=== PATIENT | female | born 1995 | race Caucasian/White ===

== ENCOUNTER 2021-04-04 15:10 | Inpatient (IN) | payer MEDICARE ==
[2021-04-04] MEDS ORDERED: EPINEPHrine 1 MG/10 ML SYRINGE ONE (15:13)
[2021-04-04] MEDS: dexAMETHasone 20 MG in SODIUM CHLORIDE 0.9% 50 ML IV ONE ×2 (15:15→21:46)
[2021-04-04] MEDS ORDERED: dexAMETHasone 20 MG/5 ML VIAL ONE (15:16)
[2021-04-04] MEDS ORDERED: FAMOTIDINE 20 MG/2 ML INJ IV ONE ×2 (15:17→15:40)
[2021-04-04] MEDS ORDERED: EPINEPHrine/PF 1 MG/1 ML INJ ONE (15:17)
[2021-04-04] MEDS ORDERED: EPINEPHrine RACEMIC 2.25% 0.5ML NEBU IH ONE (15:27)
[2021-04-04] MEDS: EPINEPHrine RACEMIC 2.25% 0.5ML NEBU IH ONE ×2 (15:27→17:21)
[2021-04-04] MEDS ORDERED: EPINEPHrine/PF 1 MG/1 ML INJ SUB-Q ONE (15:40)
--- NOTE | 2021-04-04 16:10 | Emergency Department Report ---
ED Allergic Reaction HPI - General Chief complaint: Allergic Reaction Stated complaint: ALLERGIC REACTION Time Seen by Provider: 04/04/21 15:30 Source: EMS Mode of arrival: Stretcher Limitations: Other - History of Present Illness Initial Comments: 25-year-old female with a past medical history of allergic reaction to peanuts with multiple previous intubations presents to the hospital with allergic reaction. Patient was on an airplane and was exposed to peanuts in the environment but did not ingest them. She developed an allergic reaction and was treated with subcu epinephrine while on the plane. She landed approximately 45 minutes and received contact with EMS to administer another dose of subcu epinephrine and albuterol 5 mg nebulized treatment. They were unable to obtain IV access in route to the hospital. Patient has been able to speak and continues to complain of airway feeling tightness. - Related Data Allergies Allergy/AdvReac Type Severity Reaction Status Date / Time peanut Allergy Anaphylaxis Verified 04/04/21 15:33 ED Review of Systems ROS: Stated complaint: ALLERGIC REACTION Other details as noted in HPI ED Physical Exam - General Limitations: Other - Other Other exam information: General: No acute distress Head: Atraumatic Eyes: normal appearance ENT: Moist mucous membranes, no tongue swelling, unable to speak due to airway swelling Neck: Normal appearance, no midline tenderness Chest: Clear to auscultation bilaterally CV: Tachycardic regular rate Abdomen: Soft, normal bowel sounds, nontender, nondistended, no rebound or guarding Back: Normal inspection Extremity: Normal inspection, full range of motion Neuro: Alert O x 3, no facial asymmetry, speech clear, no gross motor sensory deficit Psych: Appropriate behavior Skin: No rash ED Course Vital Signs 04/04/21 04/04/21 04/04/21 15:27 16:25 16:30 Temperature Pulse Rate 149 H Pulse Rate [ 133 H 120 H Bilateral] Respiratory Rate Respiratory 20 25 H Rate [Bilateral ] Blood Pressure 140/90 Blood Pressure [Left] O2 Sat by Pulse 100 Oximetry 04/04/21 04/04/21 04/04/21 17:20 17:46 19:27 Temperature 98.5 F Pulse Rate 110 H Pulse Rate [ Bilateral] Respiratory 16 20 Rate Respiratory Rate [Bilateral ] Blood Pressure Blood Pressure 146/68 [Left] O2 Sat by Pulse 100 96 Oximetry - Reevaluation(s) Reevaluation #1: 04/04/21 15:52 I asked for anesthesia to come down to the bedside to help with assess patient since patient may require intubation. She is unable to speak due to airway swelling but is adamant about not being intubated at this time. Mother also asked to be at the bedside and wants to wait for patient to be intubated. She apparently has been unable to speak states she has been on the plane. She is at this point received 3 doses of subcu epinephrine, Decadron 20 mg, 20 mg of Solu-Medrol, albuterol 5 mg and racemic epi inhaled - Consultations Consultation #1: 04/04/[address] Jordan and provider Zhao at bedside with nurse anesthetistist at bedside performed intubation using a 6.5 ET tube with Versed 5 mg ketamine 100 mg. Intubation successful with first pass attempt and ET tube visualized scope through cords with glide scope. (see note) 04/04/21 17:57 case d/w Dr Recio, will eval patient ED Medical Decision Making - Lab Data Result diagrams: 04/04/21 16:38 04/04/21 16:38 Lab Results 04/04/21 04/04/21 04/04/21 Range/Units 16:38 16:38 Unknown WBC 12.4 H (4.5-11.0) K/mm3 RBC 4.50 (3.65-5.03) M/mm3 Hgb 11.5 (10.1-14.3) gm/dl Hct 36.2 (30.3-42.9) % MCV 81 (79-97) fl MCH 26 L (28-32) pg MCHC 32 (30-34) % RDW 18.1 H (13.2-15.2) % Plt Count 346 (140-440) K/mm3 Lymph % (Auto) 18.7 (13.4-35.0) % [place] % (Auto) 3.6 (0.0-7.3) % Eos % (Auto) 0.2 (0.0-4.3) % Baso % (Auto) 0.5 (0.0-1.8) % Lymph # (Auto) 2.3 (1.2-5.4) K/mm3 [place]kin # (Auto) 0.4 (0.0-0.8) K/mm3 Eos # (Auto) 0.0 (0.0-0.4) K/mm3 Baso # (Auto) 0.1 (0.0-0.1) K/mm3 Seg Neutrophils % 77.0 H (40.0-70.0) % Seg Neutrophils # 9.6 H (1.8-7.7) K/mm3 Sodium 140 (137-145) mmol/L Potassium 3.8 (3.6-5.0) mmol/L Chloride 101.7 (98-107) mmol/L Carbon Dioxide 20 L (22-30) mmol/L Anion Gap 22 mmol/L BUN 10 (7-17) mg/dL Creatinine 0.7 (0.6-1.2) mg/dL Estimated GFR > 60 ml/min BUN/Creatinine Ratio 14 % Glucose 224 H (65-100) mg/dL Calcium 9.0 (8.4-10.2) mg/dL HCG, Qual Negative (Negative) - Medical Decision Making pt failed repeated epi doses, solumedrol, and Pepcid. Parents are also provided. Patient required intubation due to diminished mental status which is performed by anesthesia. Case discussed with medical care attending Dr. white Hospitalist to admit Critical Care Time: Yes Critical care time in (mins) excluding proc time.: 35 Critical care attestation.: If time is entered above; I have spent that time in minutes in the direct care of this critically ill patient, excluding procedure time. ED Disposition Clinical Impression: Acute respiratory failure Allergic reaction Qualifiers: Encounter type: initial encounter Qualified Code(s): T78.40XA - Allergy, unspecified, initial encounter Disposition: ADMITTED INPATIENT Is pt being admited?: Yes Condition: Stable Time of Disposition: 18:30
[2021-04-04] MEDS ORDERED: LIP THERAPY VASELINE TP PRN (16:16)
[2021-04-04] MEDS ORDERED: MINERAL OIL/PETROLATUM, WHITE OPHTH OINT 3.5 GM OU PRN (16:16)
[2021-04-04] MEDS ORDERED: ALBUTEROL 2.5 MG/3 ML NEBU IH ONE ×2 (16:22→16:30)
--- NOTE | 2021-04-04 17:02 | XRay Report ---
CHEST 1 VIEW 04/04/2021 3:43 PM INDICATION / CLINICAL INFORMATION: ETT placement. COMPARISON: None available. FINDINGS: SUPPORT DEVICES: Tip of endotracheal tube projects the level of the lucien oriented toward the right mainstem bronchus. The tube should be retracted 2 to 3 cm for more ideal position. Nasogastric tube d escends into the stomach. HEART / MEDIASTINUM: No significant abnormality. LUNGS / PLEURA: There is mild basilar atelectasis. There are low lung volumes. No pneumothorax. ADDITIONAL FINDINGS: No significant additional findings. IMPRESSION: 1. The tip of endotracheal tube is at the level the lucien oriented to the right mainstem bronchus. IMPORTANT FINDING: Time of Communication (FISHER HAND LINE/CDT): 4640 Licensed Practitioner Receiving Report: Dr. Solis Signer Name: Chepe Crawford MD Signed: 04/04/2021 4:57 PM Workstation Name: [id number]
[2021-04-04] MEDS ORDERED: LORazepam 2 MG/ML VIAL IV ONE ×3 (17:03→18:21)
[2021-04-04] MEDS ORDERED: LORazepam 2 MG/ML VIAL ONE (17:03)
[2021-04-04 17:04] LABS: Basophils # (Auto) 0.1 K/mm3 (0.0-0.1); Basophils % (Auto) 0.5 % (0.0-1.8); Eosinophils % (Auto) 0.2 % (0.0-4.3); Hematocrit 36.2 % (30.3-42.9); Hemoglobin 11.5 gm/dl (10.1-14.3); Lymphocytes # (Auto) 2.3 K/mm3 (1.2-5.4); Lymphocytes % (Auto) 18.7 % (13.4-35.0); Mean Corpuscular HGB Conc 32 % (30-34); Mean Corpuscular Volume 81 fl (79-97); Monocytes # (Auto) 0.4 K/mm3 (0.0-0.8); Monocytes % (Auto) 3.6 % (0.0-7.3); Platelet Count 346 K/mm3 (140-440); Red Cell Distribution Width 18.1 % (13.2-15.2)
[2021-04-04] MEDS ORDERED: KETAMINE 200 MG/20 ML INJ MDV IV ONE (17:09)
[2021-04-04] MEDS ORDERED: KETAMINE 500 MG/5 ML VIAL MDV ONE (17:12)
[2021-04-04 17:17] LABS: Blood Urea Nitrogen 10 mg/dL (7-17); Hemolysis Index 2
[2021-04-04 17:20] LABS: BUN/Creatinine Ratio 14
--- NOTE | 2021-04-04 17:39 | Event Note ---
Date: 04/04/21 Anesthesia Called to ER to Threader with patient in Respiratory distress. observed pt having very labored breathing, unable to talk, but stable condition. ER team had difficult getting IV access, after multiple to get an IV, Dr Reveles was then able to get a L 18g AC with ultrasound. At this point the patient appeared to increase work of breathing, risk and benefit for Intubation where explained to the patient and mother, but at this time the patient was not able to reasoned, pt was not able to give a thumbs up or squeeze Dr schrader had to confirm she understood what we had discussed. It was at this time Dr reveles and Zhao Roy, [employer], discussed the need with the mother for the patient to be intubated at this time. the mother acknowledged that she understood. Er team prepared for a difficult airway incubation with all available resources at bedside, IV induction with 5 mg versed, 100mg ketamine, Oral intubation with glide scope, good visualization, +etco2, BBS, ETT was secured by RT, patient VSS. Zhao Roy Anesthesia time [id number]
[2021-04-04] MEDS ORDERED: ALBUTEROL 2.5 MG/3 ML NEBU IH PRN (18:37)
[2021-04-04] MEDS ORDERED: oxyCODONE /ACETAMINOPHEN 5-325MG TAB PO PRN (18:37)
--- NOTE | 2021-04-04 18:41 | History and Physical Report ---
History of Present Illness Chief complaint: My throat is closing up History of present illness: 25 YO Female with Obesity Hypoventilation Syndrome, Peanut Allergy presents to ED for evaluation. Patient intubated and ambulatory support time my evaluation is unable to provide history. Patient history taken from EMS staff, ED staff. As per staff the patient was exposed to peanuts during an airplane flight. Patient developed an allergic reaction while on the airplane and was treated with subcu epinephrine. EMS was notified upon plan arrival to [facility]. Patient transported to [facility] for further care and evaluation of the aforementioned symptoms. Patient seen and evaluated in the emergency department. All lab and imaging studies reviewed. Patient was found to have acute approximate respiratory failure secondary to acute airway compromise. Patient was intubated for airway protection and admitted to ICU. Patient treated with IV steroid therapy. No reports of fever, chills, chest pain, palpitation productive cough, skin rash, recent contact, or known exposure to COVID-19. No prior admission fo r review. No medication listed at time of admission for reconciliation. Past History Past Medical History: other (See HPI) Past Surgical History: No surgical history, Other (Reviewed) Social history: single. denies: smoking, alcohol abuse, prescription drug abuse Family history: hypertension Medications and Allergies Allergies Allergy/AdvReac Type Severity Reaction Status Date / Time peanut Allergy Anaphylaxis Verified 04/04/21 15:33 Active Meds: Active Medications Acetaminophen (Acetaminophen 325 Mg Tab) 650 mg PO Q6H PRN PRN Reason: Pain MILD(1-3)/Fever >100.5/JONES Albuterol (Albuterol 2.5 Mg/3 Ml Nebu) 2.5 mg IH Q3HRT PRN PRN Reason: Shortness Of Breath Famotidine (Famotidine 20 Mg/2 Ml Inj) 20 mg IV BID CRISTY Hydromorphone HCl (Hydromorphone 1 Mg/1 Ml Inj) 0.5 mg IV Q23H PRN PRN Reason: Pain , Severe (7-10) Hydrophilic Ointment (Lip Therapy Vaseline) 1 applic TP Q2HR PRN PRN Reason: Dry Lips Propofol (Diprivan 10 Mg/Ml) 1,000 mg in 100 mls @ 3.402 mls/hr IV TITR CRISTY; Protocol Last Admin: 04/04/21 17:02 Dose: 50 mcg/kg/min, 34.019 mls/hr Documented by: Multi-Ingred Cream/Lotion/Oil/Oint (Mineral Oil/Petrolatum, White Ophth Oint 3.5 Gm) 1 applic OU Q4HR PRN PRN Reason: Dry Eye(s) Oxycodone/Acetaminophen (Oxycodone /Acetaminophen 5-325mg Tab) 1 tab PO Q16H PRN PRN Reason: Pain, Moderate (4-6) Senna/Docusate Sodium (Sennosides/Docusate Sodium 8.6/50 Mg Tab) 1 tab FEEDTUBE BID CRISTY Sodium Chloride (Sodium Chloride 0.9% 10 Ml Flush Syringe) 10 ml IV BID CRISTY Sodium Chloride (Sodium Chloride 0.9% 10 Ml Flush Syringe) 10 ml IV PRN PRN PRN Reason: LINE FLUSH Review of Systems Constitutional: no weight loss, no fever, no chills, no night sweats Ears, nose, mouth and throat: hoarseness, swelling in throat, voice changes, neck fullness/pressure, no ear pain, no ear discharge Breasts: no change in shape, no swelling Cardiovascular: no chest pain, no palpitations, no rapid/irregular heart beat Respiratory: no cough, no cough with sputum, no excessive sputum, no hemoptysis Gastrointestinal: no nausea, no diarrhea, no constipation, no hematemesis, no coffee ground emesis Genitourinary Female: no pelvic pain, no flank pain, no dysuria, no urinary frequency, no urgency Rectal: no pain, no incontinence, no bleeding Musculoskeletal: no neck stiffness, no shooting arm pain Integumentary: no rash, no pruritis, no redness, no sores, no wounds Neurological: no head injury, no transient paralysis, no weakness, no parathesias, no tingling, no seizures, no tremors Psychiatric: no anxiety, no memory loss, no sleep disturbances, no insomnia, no change in appetite, no disorientation, no hallucinations Endocrine: no cold intolerance, no heat intolerance, no excessive thirst, no polyuria, no nocturia, no weight change Hematologic/Lymphatic: no easy bruising Allergic/Immunologic: no urticaria, no allergic rhinitis Exam - Constitutional Vitals: Temp Pulse Resp BP Pulse Ox 98.5 F 110 H 16 146/68 98 04/04/21 17:46 04/04/21 17:46 04/04/21 17:46 04/04/21 17:46 04/04/21 17:46 General appearance: Present: mild distress - EENT Eyes: Present: miosis ENT: hearing intact, clear oral mucosa - Neck Neck: Present: supple, normal ROM - Respiratory Respiratory effort: normal Respiratory: bilateral: CTA - Cardiovascular Heart Sounds: Present: S1 & S2. Absent: rub, click - Extremities Extremities: pulses symmetrical, No edema Peripheral Pulses: within normal limits - Abdominal General gastrointestinal: Present: soft, non-tender, non-distended, normal bowel sounds Female genitourinary: Present: normal - Integumentary Integumentary: Present: clear, warm, dry - Musculoskeletal Musculoskeletal: gait normal, strength equal bilaterally - Psychiatric Psychiatric: appropriate mood/affect, intact judgment & insight - Neurologic Neurologic: CNII-XII intact, moves all extremities Results - Labs CBC & Chem 7: 04/04/21 16:38 04/04/21 16:38 Labs: Abnormal lab results 04/04/21 04/04/21 Range/Units 16:38 16:38 WBC 12.4 H (4.5-11.0) K/mm3 MCH 26 L (28-32) pg RDW 18.1 H (13.2-15.2) % Seg Neutrophils % 77.0 H (40.0-70.0) % Seg Neutrophils # 9.6 H (1.8-7.7) K/mm3 Carbon Dioxide 20 L (22-30) mmol/L Glucose 224 H (65-100) mg/dL Assessment and Plan - Patient Problems (1) Acute respiratory failure Current Visit: Yes Status: Acute Plan to address problem: Chest x-ray, patient intubated and on ventilatory support, wean vent as tolerated, ABG in a.m., sedation holiday, spontaneous breathing trial, supportive care. Critical care team consulted. The high probability of a clinically significant, sudden or life threatening deterioration of the [pulmonary] system(s) required my full and direct attention, intervention and personal management. The aggregate critical care time was [65] minutes. This time is in addition to time spent performing reported procedures but includes the following: [x] Data Review and interpretation [x] Patient assessment and monitoring of vital signs [x] Documentation [x] Medication orders and management (2) Allergic reaction Current Visit: Yes Status: Acute Qualifiers: Encounter type: initial encounter Qualified Code(s): T78.40XA - Allergy, unspecified, initial encounter Plan to address problem: IV steroid therapy, supportive care (3) Obesity hypoventilation syndrome Current Visit: Yes Status: Acute Plan to address problem: Balanced diet, increase physical activity at discharge, outpatient pulmonary follow-up for sleep study (4) DVT prophylaxis Current Visit: Yes Status: Acute Plan to address problem: SCDs bilateral lower extremities while in bed, prophylactic anticoagulation
[2021-04-04 18:46] LABS: ABG Base Excess -4.6 mmol/L (-2.0-3.0); ABG HCO3 21.9 mmol/L (20.0-26.0); ABG Methemoglobin 0.7 % (0.0-1.5); ABG Oxygen Saturation 88.2 % (95.0-99.0); ABG PCO2 46.6 mm Hg; ABG PH 7.29 pH Units (7.350-7.450); ABG PO2 62.7 mm Hg (80.0-90.0)
[2021-04-04] MEDS: HYDROmorphone 1 MG/1 ML INJ IV PRN (19:27)
[2021-04-04] MEDS ORDERED: diphenhydrAMINE 50 MG/ML VIAL IV ONE (20:00)
[2021-04-04] MEDS: fentaNYL 100 MCG/2 ML INJ IV PRN (20:00)
[2021-04-04] MEDS: SENNOSIDES/DOCUSATE SODIUM 8.6/50 MG TAB FEEDTUBE SCH (22:03)
[2021-04-04] MEDS: fentaNYL DRIP Premix 2,000 MCG/100 ML BAG IV SCH (22:19)
[2021-04-04] MEDS ORDERED: diphenhydrAMINE 50 MG/ML VIAL ONE (22:32)
[2021-04-04] MEDS: methylPREDNISolone Sod Succinate 40 MG/1 ML INJ IV SCH (22:38)
[2021-04-04] MEDS: FAMOTIDINE 20 MG/2 ML INJ IV SCH (22:38)
[2021-04-04] MEDS: HEPARIN 5,000 UNIT/1 ML VIAL SUB-Q SCH (23:56)
[2021-04-05] MEDS: fentaNYL DRIP Premix 2,000 MCG/100 ML BAG IV SCH ×6 (02:38→23:29)
[2021-04-05] MEDS ORDERED: MIDAZOLAM 5 MG/5 ML INJ MDV IV ONE (03:02)
[2021-04-05] MEDS ORDERED: KETAMINE 500 MG/5 ML VIAL MDV ONE (03:02)
[2021-04-05 04:11] LABS: Hematocrit 34.6 % (30.3-42.9); Hemoglobin 10.8 gm/dl (10.1-14.3); Mean Corpuscular HGB Conc 31 % (30-34); Mean Corpuscular Volume 81 fl (79-97); Red Blood Count 4.27 M/mm3 (3.65-5.03)
[2021-04-05 04:14] LABS: Platelet Count 263 K/mm3 (140-440)
[2021-04-05 04:26] LABS: Calcium 9.2 mg/dL (8.4-10.2)
[2021-04-05 04:43] LABS: ABG Base Excess -7.7 mmol/L (-2.0-3.0); ABG HCO3 18.5 mmol/L (20.0-26.0); ABG Methemoglobin 0.7 % (0.0-1.5); ABG Oxygen Saturation 97.3 % (95.0-99.0); ABG PCO2 39.9 mm Hg; ABG PH 7.284 pH Units (7.350-7.450); ABG PO2 101.9 mm Hg (80.0-90.0)
[2021-04-05 05:04] LABS: Band Neutrophils # (Manual) 0.2 K/mm3; Total Cells Counted 100
[2021-04-05 05:05] LABS: Anisocytosis 1+; Hypochromasia 1+; Ovalocytes Few; Platelet Estimate Consistent w Auto
[2021-04-05] MEDS: methylPREDNISolone Sod Succinate 40 MG/1 ML INJ IV SCH ×3 (06:20→23:18)
[2021-04-05] MEDS: SENNOSIDES/DOCUSATE SODIUM 8.6/50 MG TAB FEEDTUBE SCH ×2 (10:15→23:18)
[2021-04-05] MEDS: FAMOTIDINE 20 MG/2 ML INJ IV SCH ×2 (10:15→23:18)
[2021-04-05] MEDS: HEPARIN 5,000 UNIT/1 ML VIAL SUB-Q SCH (10:15)
[2021-04-05] MEDS ORDERED: diphenhydrAMINE 50 MG/ML VIAL IV PRN (10:51)
--- NOTE | 2021-04-05 10:51 | Progress Note ---
Assessment and Plan Assessment and plan: Acute hypoxic respiratory failure. Anaphylactic reaction. Obesity hypoventilation syndrome. DVT prophylaxis 04/05/2021. Patient currently on dipper Van and fentanyl. However, nurse reports patient still agitated. Ativan IV ordered. Wean mechanical ventilation per pulmonary recommendations. Continue Solu-Medrol 40 mg IV every 8 hours. Add Pepcid 20 mg IV twice daily and Benadryl 25 mg IV every 6 hours. Continue supportive care The high probability of a clinically significant, sudden or life threatening deterioration of the [respiratory] system(s) required my full and direct attention, intervention and personal management. The aggregate critical care time was [31] minutes. This time is in addition to time spent performing reported procedures but includes the following: [X] Data Review and interpretation [X] Patient assessment and monitoring of vital signs [X] Documentation [X] Medication orders and management History Interval history: Patient currently intubated and sedated on mechanical ventilation. Hospitalist Physical - Constitutional Vitals: Temp Pulse Resp BP Pulse Ox 98.5 F 123 H 20 113/62 91 04/04/21 17:46 04/05/21 09:31 04/05/21 09:31 04/05/21 09:31 04/05/21 09:31 General appearance: Present: mild distress, other (Intubated on mechanical ventilator) - EENT Eyes: Present: PERRL, EOM intact ENT: hearing intact, clear oral mucosa, dentition normal - Neck Neck: Present: supple, normal ROM - Respiratory Respiratory effort: normal Respiratory: bilateral: CTA - Cardiovascular Rhythm: regular Heart Sounds: Present: S1 & S2. Absent: gallop, rub - Extremities Extremities: no ischemia, No edema, Full ROM - Abdominal General gastrointestinal: soft, non-tender, non-distended, normal bowel sounds - Integumentary Integumentary: Present: clear, warm, dry - Neurologic Neurologic: CNII-XII intact, moves all extremities Results - Labs CBC & Chem 7: 04/05/21 03:37 04/05/21 03:37 Labs: Laboratory Last Values WBC 15.5 K/mm3 (4.5-11.0) H 04/05/21 03:37 RBC 4.27 M/mm3 (3.65-5.03) 04/05/21 03:37 Hgb 10.8 gm/dl (10.1-14.3) 04/05/21 03:37 Hct 34.6 % (30.3-42.9) 04/05/21 03:37 MCV 81 fl (79-97) 04/05/21 03:37 MCH 25 pg (28-32) L 04/05/21 03:37 MCHC 31 % (30-34) 04/05/21 03:37 RDW 19.0 % (13.2-15.2) H 04/05/21 03:37 Plt Count 263 K/mm3 (140-440) 04/05/21 03:37 Lymph % (Auto) 18.7 % (13.4-35.0) 04/04/21 16:38 [place] % (Auto) 3.6 % (0.0-7.3) 04/04/21 16:38 Eos % (Auto) 0.2 % (0.0-4.3) 04/04/21 16:38 Baso % (Auto) [employer] Helper 04/05/21 03:37 Lymph # (Auto) 2.3 K/mm3 (1.2-5.4) 04/04/21 16:38 [place] # (Auto) 0.4 K/mm3 (0.0-0.8) 04/04/21 16:38 Eos # (Auto) 0.0 K/mm3 (0.0-0.4) 04/04/21 16:38 Baso # (Auto) 0.1 K/mm3 (0.0-0.1) 04/04/21 16:38 Add Manual Diff Complete 04/05/21 03:37 Total Counted 100 04/05/21 03:37 Seg Neutrophils % 77.0 % (40.0-70.0) H 04/04/21 16:38 Seg Neuts % (Manual) 90.0 % (40.0-70.0) H 04/05/21 03:37 Band Neutrophils % 1.0 % 04/05/21 03:37 Lymphocytes % (Manual) 6.0 % (13.4-35.0) L 04/05/21 03:37 Monocytes % (Manual) 3.0 % (0.0-7.3) 04/05/21 03:37 Nucleated RBC % Not Reportable 04/05/21 03:37 Seg Neutrophils # 9.6 K/mm3 (1.8-7.7) H 04/04/21 16:38 Seg Neutrophils # Man 14.0 K/mm3 (1.8-7.7) H 04/05/21 03:37 Band Neutrophils # 0.2 K/mm3 04/05/21 03:37 Lymphocytes # (Manual) 0.9 K/mm3 (1.2-5.4) L 04/05/21 03:37 Abs React Lymphs (Man) 0.0 K/mm3 04/05/21 03:37 Monocytes # (Manual) 0.5 K/mm3 (0.0-0.8) 04/05/21 03:37 Eosinophils # (Manual) 0.0 K/mm3 (0.0-0.4) 04/05/21 03:37 Basophils # (Manual) 0.0 K/mm3 (0.0-0.1) 04/05/21 03:37 Metamyelocytes # 0.0 K/mm3 04/05/21 03:37 Myelocytes # 0.0 K/mm3 04/05/21 03:37 Promyelocytes # 0.0 K/mm3 04/05/21 03:37 Blast Cells # 0.0 K/mm3 04/05/21 03:37 WBC Morphology Not Reportable 04/05/21 03:37 Hypersegmented Neuts Not Reportable 04/05/21 03:37 Hyposegmented Neuts Not Reportable 04/05/21 03:37 Hypogranular Neuts Not Reportable 04/05/21 03:37 Smudge Cells Not Reportable 04/05/21 03:37 Toxic Granulation Not Reportable 04/05/21 03:37 Toxic Vacuolation Not Reportable 04/05/21 03:37 Dohle Bodies Not Reportable 04/05/21 03:37 Pelger-Huet Anomaly Not Reportable 04/05/21 03:37 Fermin Rods Not Reportable 04/05/21 03:37 Platelet Estimate Consistent w auto 04/05/21 03:37 Clumped Platelets Not Reportable 04/05/21 03:37 Plt Clumps, EDTA Not Reportable 04/05/21 03:37 Large Platelets Not Reportable 04/05/21 03:37 Giant Platelets Not Reportable 04/05/21 03:37 Platelet Satelliting Not Reportable 04/05/21 03:37 Plt Morphology Comment Not Reportable 04/05/21 03:37 RBC Morphology Not Reportable 04/05/21 03:37 Dimorphic RBCs Not Reportable 04/05/21 03:37 Polychromasia Not Reportable 04/05/21 03:37 Hypochromasia 1+ 04/05/21 03:37 Poikilocytosis Not Reportable 04/05/21 03:37 Anisocytosis 1+ 04/05/21 03:37 Microcytosis 1+ 04/05/21 03:37 Macrocytosis Not Reportable 04/05/21 03:37 Spherocytes Not Reportable 04/05/21 03:37 Pappenheimer Bodies Not Reportable 04/05/21 03:37 Sickle Cells Not Reportable 04/05/21 03:37 Target Cells Not Reportable 04/05/21 03:37 Tear Drop Cells Not Reportable 04/05/21 03:37 Ovalocytes Few 04/05/21 03:37 Helmet Cells Not Reportable 04/05/21 03:37 [place] Bodies Not Reportable 04/05/21 03:37 [place] Rings Not Reportable 04/05/21 03:37 [place] Cells Not Reportable 04/05/21 03:37 Bite Cells Not Reportable 04/05/21 03:37 Crenated Cell Not Reportable 04/05/21 03:37 Elliptocytes Not Reportable 04/05/21 03:37 Acanthocytes (Spur) Not Reportable 04/05/21 03:37 Rouleaux Not Reportable 04/05/21 03:37 Hemoglobin C Crystals Not Reportable 04/05/21 03:37 Schistocytes Not Reportable 04/05/21 03:37 Malaria parasites Not Reportable 04/05/21 03:37 Paddy Bodies Not Reportable 04/05/21 03:37 Hem Pathologist Commnt No 04/05/21 03:37 ABG pH 7.284 pH Units (7.350-7.450) L 04/05/21 04:15 ABG pCO2 39.9 mm Hg 04/05/21 04:15 ABG pO2 101.9 mm Hg (80.0-90.0) H 04/05/21 04:15 ABG HCO3 18.5 mmol/L (20.0-26.0) L 04/05/21 04:15 ABG O2 Saturation 97.3 % (95.0-99.0) 04/05/21 04:15 ABG O2 Content 14.0 (0.0-44) 04/05/21 04:15 ABG Base Excess -7.7 mmol/L (-2.0-3.0) L 04/05/21 04:15 ABG Hemoglobin 10.3 gm/dl (12.0-16.0) L 04/05/21 04:15 ABG Carboxyhemoglobin 1.3 % (0.0-5.0) 04/05/21 04:15 ABG Methemoglobin 0.7 % (0.0-1.5) 04/05/21 04:15 Oxyhemoglobin 95.4 % (95.0-99.0) 04/05/21 04:15 FiO2 30 % 04/05/21 04:15 Sodium 140 mmol/L (137-145) 04/05/21 03:37 Potassium 5.6 mmol/L (3.6-5.0) H D 04/05/21 03:37 Chloride 103.6 mmol/L (98-107) 04/05/21 03:37 Carbon Dioxide 14 mmol/L (22-30) L 04/05/21 03:37 Anion Gap 28 mmol/L 04/05/21 03:37 BUN 12 mg/dL (7-17) 04/05/21 03:37 Creatinine 1.1 mg/dL (0.6-1.2) D 04/05/21 03:37 Estimated GFR 60 ml/min 04/05/21 03:37 BUN/Creatinine Ratio 11 % 04/05/21 03:37 Glucose 181 mg/dL (65-100) H 04/05/21 03:37 Calcium 9.2 mg/dL (8.4-10.2) 04/05/21 03:37 HCG, Qual Negative (Negative) 04/04/21 Unknown Active Medications - Current Medications Current Medications: Generic Name Dose Route Start Last Admin Trade Name Freq PRN Reason Stop Dose Admin Acetaminophen 650 mg 04/04/21 18:37 Acetaminophen 325 Mg Tab PO Q6H PRN Pain MILD(1-3)/Fever >100.5/JONES Albuterol 2.5 mg 04/04/21 18:37 04/04/21 21:49 Albuterol 2.5 Mg/3 Ml Nebu IH 2.5 mg Q3HRT PRN Administration Shortness Of Breath Famotidine 20 mg 04/04/21 22:00 04/05/21 10:15 Famotidine 20 Mg/2 Ml Inj IV 20 mg BID CRISTY Administration Fentanyl 50 mcg 04/04/21 19:20 04/04/21 20:00 Fentanyl 100 Mcg/2 Ml Inj IV 50 mcg Q10MIN PRN Administration ANALGESIA Heparin Sodium (Porcine) 5,000 unit 04/04/21 22:00 04/05/21 10:15 Heparin 5,000 Unit/1 Ml Vial SUB-Q 5,000 unit Q12HR CRISTY Administration Hydromorphone HCl 0.5 mg 04/04/21 18:37 04/04/21 19:27 Hydromorphone 1 Mg/1 Ml Inj IV 0.5 mg Q23H PRN Administration Pain , Severe (7-10) Hydrophilic Ointment 1 applic 04/04/21 16:16 Lip Therapy Vaseline TP Q2HR PRN Dry Lips Propofol 1,000 mg in 100 mls @ 3.402 mls/hr 04/04/21 17:00 04/05/21 08:25 Diprivan 10 Mg/Ml IV 50 mcg/kg/min TITR CRISTY 34.019 mls/hr Administration Protocol 5 MCG/KG/MIN Fentanyl Citrate 2,000 mcg in 100 mls @ 5.67 mls/hr 04/04/21 20:00 04/05/21 08:02 Fentanyl Drip Premix IV 4 mcg/kg/hr TITR CRISTY 22.68 mls/hr Titration Protocol 1 MCG/KG/HR Methylprednisolone Sodium Succinate 40 mg 04/04/21 22:00 04/05/21 06:20 Methylprednisolone Sod Succinate 40 Mg/1 Ml Inj IV 40 mg Q8HR CRISTY Administration Multi-Ingred Cream/Lotion/Oil/Oint 1 applic 04/04/21 16:16 Mineral Oil/Petrolatum, White Ophth Oint 3.5 Gm OU Q4HR PRN Dry Eye(s) Oxycodone/Acetaminophen 1 tab 04/04/21 18:37 Oxycodone /Acetaminophen 5-325mg Tab PO Q16H PRN Pain, Moderate (4-6) Senna/Docusate Sodium 1 tab 04/04/21 22:00 04/05/21 10:15 Sennosides/Docusate Sodium 8.6/50 Mg Tab FEEDTUBE 1 tab BID CRISTY Administration Sodium Chloride 10 ml 04/04/21 22:00 04/05/21 10:15 Sodium Chloride 0.9% 10 Ml Flush Syringe IV 10 ml BID CRISTY Administration Sodium Chloride 10 ml 04/04/21 18:37 Sodium Chloride 0.9% 10 Ml Flush Syringe IV PRN PRN LINE FLUSH Nutrition/Malnutrition Assess - Dietary Evaluation Nutrition/Malnutrition Findings: Nutrition Notes Start: 04/05/21 10:18 Freq: Status: Active Protocol: Document 04/05/21 10:18 GB (Rec: 04/05/21 10:28 GB [id number]) Nutrition Notes Need for Assessment generated from: MD Order Initial or Follow up Assessment Current Diagnosis Respiratory Failure Other Pertinent Diagnosis Exposure to Peanuts, allergic reaction Current Diet NPO Labs/Tests 04/05: K 5.6, glucose 181 Pertinent Medications fentanyl citrate, propofol @ 34.019ml/hr (898kcal), NaCl Height 5 ft 6 in Weight 113.398 kg [place] Body Weight (kg) 59.09 BMI 40.3 Intake Prior to Admission Good Weight change and time frame admit Weight Status Morbidly Obese Subjective/Other Information H&P: Pt has peanut allergy, exposed on plane ride, treated with epinephrin pin, respiratory failure r/t reaction to peanuts w/ constricting airway. Per chart: pt now intubated to protect airway, pt experiences alertness w/ attempts to remove tubes/lines /restraints. Percent of energy/protein needs met: 0%, NPO Burn Absent Trauma Absent GI Symptoms None Food Allergy Yes Skin Integrity/Comment no complications reported Current % PO Other Minimum of two criteria No #1 Nutrition Diagnosis Other: (Specify in comment below) Comments: Food allergy exposure with reaction of constricting airway Etiology reported peanut allergy As Evidenced by Signs and Symptoms currently intubated to protect airway Is patient on ventilator? Yes Is Patient Ambulatory and/or Out of Bed No REE-([facility]-confined to bed) 2264.112 Kcal/Kg value to use for calculation 15 Approximate Energy Requirements Using 1701 kcal/Kg Calculation Used for Recommendations Kcal/kg Additional Notes Protein: 0.8-1 g/kg @113k -113g Fluids: 1 ml/kcal or per MD TF not recommended as expect extubation within 24-48hrs and diet advancing to regular Nutrition Intervention Change Diet Order: Continue NPO, when extubated advance to regular Nutrition Support: n/a Add Supplement/Snack (indicate name/kcal n/a /protein ) Goal #1 Extubation r/t recovery from food allergy reaction by f/u Goal #2 Diet advanced to Regular Follow-Up By: 04/06/21 Additional Comments TF not recommended. Propofol providing 898 kcal at current rate. Recovery from food allergic reaction for extubation in less than 5 days .
[2021-04-05] MEDS ORDERED: LORazepam 2 MG/ML VIAL ONE (13:10)
--- NOTE | 2021-04-05 13:16 | Consultation ---
History of Present Illness Consult date: 04/05/21 Requesting physician: GENI MANZO Reason for consult: other (Acute Hypoxemic Respiratory Failure; Anaphylaxis) History of present illness: PCCM CONSULT NOTE (Full dictation # [id number]) Please see dictated notes for full details Past History Past Medical History: other (See HPI) Past Surgical History: No surgical history, Other (Reviewed) Social history: single. denies: smoking, alcohol abuse, prescription drug abuse Family history: hypertension Medications and Allergies Allergies Allergy/AdvReac Type Severity Reaction Status Date / Time peanut Allergy Anaphylaxis Verified 04/05/21 08:28 Home Medications Medication Instructions Recorded Confirmed Last Taken Type Lacosamide [Vimpat] 200 mg PO BID 04/04/21 04/04/21 Unknown History levETIRAcetam [Keppra TAB] 1,500 mg PO BID 04/04/21 04/04/21 Unknown History Active Meds: Active Medications Acetaminophen (Acetaminophen 325 Mg Tab) 650 mg PO Q6H PRN PRN Reason: Pain MILD(1-3)/Fever >100.5/JONES Albuterol (Albuterol 2.5 Mg/3 Ml Nebu) 2.5 mg IH Q3HRT PRN PRN Reason: Shortness Of Breath Last Admin: 04/04/21 21:49 Dose: 2.5 mg Documented by: Diphenhydramine HCl (Diphenhydramine 50 Mg/Ml Vial) 25 mg IV Q6H PRN PRN Reason: Itching Famotidine (Famotidine 20 Mg/2 Ml Inj) 20 mg IV BID [facility] Last Admin: 04/05/21 10:15 Dose: 20 mg Documented by: Fentanyl (Fentanyl 100 Mcg/2 Ml Inj) 50 mcg IV Q10MIN PRN PRN Reason: ANALGESIA Last Admin: 04/04/21 20:00 Dose: 50 mcg Documented by: Heparin Sodium (Porcine) (Heparin 5,000 Unit/1 Ml Vial) 5,000 unit SUB-Q Q12HR [facility] Last Admin: 04/05/21 10:15 Dose: 5,000 unit Documented by: Hydromorphone HCl (Hydromorphone 1 Mg/1 Ml Inj) 0.5 mg IV Q23H PRN PRN Reason: Pain , Severe (7-10) Last Admin: 04/04/21 19:27 Dose: 0.5 mg Documented by: Hydrophilic Ointment (Lip Therapy Vaseline) 1 applic TP Q2HR PRN PRN Reason: Dry Lips Propofol (Diprivan 10 Mg/Ml) 1,000 mg in 100 mls @ 3.402 mls/hr IV TITR [facility]; Protocol Last Admin: 04/05/21 11:44 Dose: 50 mcg/kg/min, 34.019 mls/hr Documented by: Fentanyl Citrate (Fentanyl Drip Premix) 2,000 mcg in 100 mls @ 5.67 mls/hr IV TITR [facility]; Protocol Last Admin: 04/05/21 12:24 Dose: 4 mcg/kg/hr, 22.68 mls/hr Documented by: Methylprednisolone Sodium Succinate (Methylprednisolone Sod Succinate 40 Mg/1 Ml Inj) 40 mg IV Q8HR [facility] Last Admin: 04/05/21 06:20 Dose: 40 mg Documented by: Multi-Ingred Cream/Lotion/Oil/Oint (Mineral Oil/Petrolatum, White Ophth Oint 3.5 Gm) 1 applic OU Q4HR PRN PRN Reason: Dry Eye(s) Oxycodone/Acetaminophen (Oxycodone /Acetaminophen 5-325mg Tab) 1 tab PO Q16H PRN PRN Reason: Pain, Moderate (4-6) Senna/Docusate Sodium (Sennosides/Docusate Sodium 8.6/50 Mg Tab) 1 tab FEEDTUBE BID [facility] Last Admin: 04/05/21 10:15 Dose: 1 tab Documented by: Sodium Chloride (Sodium Chloride 0.9% 10 Ml Flush Syringe) 10 ml IV BID [facility] Last Admin: 04/05/21 10:15 Dose: 10 ml Documented by: Sodium Chloride (Sodium Chloride 0.9% 10 Ml Flush Syringe) 10 ml IV PRN PRN PRN Reason: LINE FLUSH Physical Examination Vital signs: Vital Signs Pulse Resp 133 H 20 04/04/21 15:27 04/04/21 15:27 Results - Laboratory Findings CBC and BMP: 04/05/21 03:37 04/05/21 03:37 ABG ABG pH 7.284 pH Units (7.350-7.450) L 04/05/21 04:15 ABG pCO2 39.9 mm Hg 04/05/21 04:15 ABG pO2 101.9 mm Hg (80.0-90.0) H 04/05/21 04:15 ABG O2 Saturation 97.3 % (95.0-99.0) 04/05/21 04:15 Abnormal lab findings: Abnormal Labs 04/04/21 04/04/21 04/04/21 16:38 16:38 18:40 WBC 12.4 H MCH 26 L RDW 18.1 H Seg Neutrophils % 77.0 H Seg Neuts % (Manual) Lymphocytes % (Manual) Seg Neutrophils # 9.6 H Seg Neutrophils # Man Lymphocytes # (Manual) ABG pH 7.290 L ABG pO2 62.7 L ABG HCO3 ABG O2 Saturation 88.2 L ABG Base Excess -4.6 L ABG Hemoglobin 11.2 L Oxyhemoglobin 86.5 L Potassium Carbon Dioxide 20 L Glucose 224 H 04/05/21 04/05/21 04/05/21 03:37 03:37 04:15 WBC 15.5 H MCH 25 L RDW 19.0 H Seg Neutrophils % Seg Neuts % (Manual) 90.0 H Lymphocytes % (Manual) 6.0 L Seg Neutrophils # Seg Neutrophils # Man 14.0 H Lymphocytes # (Manual) 0.9 L ABG pH 7.284 L ABG pO2 101.9 H ABG HCO3 18.5 L ABG O2 Saturation ABG Base Excess -7.7 L ABG Hemoglobin 10.3 L Oxyhemoglobin Potassium 5.6 H D Carbon Dioxide 14 L Glucose 181 H
[2021-04-05] MEDS ORDERED: LORazepam 2 MG/ML VIAL IV ONE (13:29)
--- NOTE | 2021-04-05 14:24 | XRay Report ---
CHEST - 1 VIEW INDICATION: follow up respiratory failure COMPARISON: Yesterday FINDINGS: Support devices: The endotracheal tube has been retracted and now terminates 2.8 cm superior to the lucien. Nasogastric tube is followed to the mid stomach. Heart: Within normal limits. Lungs/pleura: There is poor inspiration with mild bibasilar atelectatic changes. No pneumothorax. Additional findings: None. IMPRESSION: Poor inspiration with mild bibasilar atelectatic changes. No overwhelming change since yesterday's ex am. Signer Name: Ernie Gracia Jr, MD Signed: 04/05/2021 2:19 PM Workstation Name: [id number]
[2021-04-05] MEDS ORDERED: MIDAZOLAM 2 MG/2 ML INJ IV PRN (14:35)
[2021-04-05] MEDS: levETIRAcetam 1,500 MG in DEXTROSE 5% IN WATER 100 ML IV SCH ×2 (15:11→23:18)
[2021-04-05] MEDS: MIDAZOLAM 100 MG in SODIUM CHLORIDE 0.9% 80 ML IV SCH (15:27)
[2021-04-05] MEDS ORDERED: SIMPLE SYRUP 15 ML FEEDTUBE PRN ×2 (15:50)
[2021-04-05] MEDS ORDERED: SODIUM BICARBONATE 325 MG TAB FEEDTUBE PRN (15:50)
[2021-04-05] MEDS ORDERED: LIPASE 10,500/PROTEASE 25,000/AMYLASE 43,750 (UNITS) DR CAP FEEDTUBE PRN (15:50)
--- NOTE | 2021-04-05 16:33 | Consultation ---
DATE OF CONSULTATION: 04/05/2021 PULMONARY CRITICAL CARE CONSULT NOTE CONSULTING PHYSICIAN: Dr. Patel. REASON FOR CONSULTATION: Anaphylaxis, angioedema, acute respiratory failure, on mechanical ventilatory support. CHIEF COMPLAINT AND HISTORY OF PRESENT ILLNESS: As follows: The patient is a 25-year-old female with past medical history significant for a diagnosis of obesity hypoventilation syndrome and peanut allergies, presented to the Emergency Room. According to the records, she developed an allergic reaction while in an airplane. She was exposed to peanuts. She did not eat them, it seems like a co-traveller exposed her to the peanuts en route. She was treated with an EpiPen, I am told, and it took about another 40 minutes to get to the [facility]. She received another shot of epi prior to coming to the Emergency Room. In the Emergency Room, she continued to have trouble with speaking. She also was complaining of feeling tightness around her oropharynx. It was initially the mother, the patient was adamant about not being intubated, mother was also over there, after talking back and forth. The patient seems decompensated and decision was made to go ahead and intubate her. She was intubated with a 6.5 ET tube and we are asked to continue with management. When I stopped by to see her, they mentioned she had had a breakthrough seizure already today. The patient was sedated on a propofol drip at 50 mcg per kilogram per minute and I believe fentanyl at 4 mcg per kilogram per hour. I do not have any history of vomiting or overt aspiration. With regards to the patient's tobacco use/abuse history, they had denied any. Really is as much of the history of presentation as I have. PAST MEDICAL HISTORY: Obesity, obesity hypoventilation syndrome, peanut allergies. PAST SURGICAL HISTORY: Denied. MEDICATIONS: She was on at the time I stopped by to see her according to the medication administration record included the following: Tylenol 650 mg p.o. every 6 hours p.r.n. mild pain or fevers, all p.o. meds via the feeding tube. Albuterol 2.5 mg nebulized every 3 hours p.r.n. shortness of breath, Benadryl 25 mg IV every 6 hours p.r.n. itching, Pepcid 20 mg IV b.i.d. scheduled, fentanyl 50 mcg IV every 10 minutes p.r.n. and she was on the fentanyl drip, heparin 5000 units subQ every 12 hours, Dilaudid 0.5 mg IV daily p.r.n. severe pain, Solu-Medrol 40 mg IV every 8 hours, Percocet 5/325 one tablet p.o. every 16 hours p.r.n. moderate pain, propofol drip was going, senna/docusate 1 tablet p.o. b.i.d. ALLERGIES: TO PEANUTS, CAUSES ANAPHYLAXIS AND ANGIOEDEMA. DIET: An obese lady. Acute weight loss or gain history is unknown. FAMILY AND SOCIAL HISTORY: Lives in the community. Mother was present. The patient had denied alcohol, tobacco or illicit drug use or abuse. There is a family history of hypertension. REVIEW OF SYSTEMS: Unobtainable secondary to the patient's medical and mental condition. Since she has been here, no gross hematochezia or melena, no gross hematuria, no hematemesis, no bloody tracheal secretions. She has had breakthrough seizures' type activity. Review of systems otherwise unobtainable or as in body of the history above. PHYSICAL EXAMINATION: VITAL SIGNS: On presentation, she was afebrile, temperature 98.5 degrees Fahrenheit, pulse of 110, respiratory rate of 16, blood pressure 146/68, O2 sats were 98%, inspired oxygen concentration at that time was not recorded. She has been afebrile this admission. Current ventilator settings, PRVC, AC mode of ventilation, rate of 20, tidal volume 400, PEEP of 6 and 30% FiO2. GENERAL: She is a young, obese female. Normocephalic, atraumatic on the mechanical ventilator without significant patient-ventilator dyssynchrony. HEAD, EYES, EARS, NOSE, AND THROAT: Anicteric. No conjunctival erythema. Oropharynx was moist. No gross jugular venous distention, no thyromegaly. She does have a large neck circumference. ET tube was taped at the lips around 24 cm. Grossly, there were no palpable lymph nodes in supraclavicular or submandibular lymph node chains. LUNGS: Auscultation of both lung enriquez revealed clear bilateral breath sounds, no wheezing. HEART: Sounds 1 and 2 are heard, regular rate and rhythm at the time of my evaluation without overt rubs or murmurs. ABDOMEN: Soft, full, protuberant. Bowel sounds are positive, nontender, no palpable hepatosplenomegaly. EXTREMITIES: Without overt digital clubbing or cyanosis, no pedal edema. Pedal pulses are 2+ bilaterally. NEUROLOGIC: Pupils are equal, round, about 3 mm, reactive to light. Extraocular muscle movements could not be assessed. She was sedated, but had spontaneous movements to all extremities. SKIN: Was of normal turgor in the areas examined without overt cellulitis or rash. Please see the wound care nurses' notes for full description of her skin. PSYCHIATRIC: Mood and affect could not be assessed, she was sedated. LABORATORY DATA: From my review are as follows: Admission white cell count 12,400, hemoglobin 11.5, hematocrit 36.2, platelet count 346. No band forms on the manual differential. ABG at presentation showed a pH of 7.29, pCO2 of 47, pO2 of 63 that was on room air. Most recent ABG shows a pH of 7.28, pCO2 of 40, pO2 of 102 on 30% FiO2 on the above-mentioned vent settings. Serum sodium 140 at admission, potassium 3.8, chloride 102, bicarbonate 20, BUN 10, creatinine 0.7, glucose was 224. Urine test was negative. Potassium was 5.6 this morning. DIAGNOSTIC DATA: A chest x-ray has been reviewed, essentially shows ET tube in good position. The tip is at the level of the clavicular heads and actually, I will try and get it down 1-2 more centimeters. There is evidence of possible plate-like atelectasis in the right lower lobe region and evidence of hypoventilation today compared to the x-ray from yesterday. Otherwise, no pneumothorax, no gross bony fracture. ASSESSMENT: 1. Acute respiratory failure, on mechanical ventilatory support. 2. Anaphylaxis related to a PEANUT ALLERGY. 3. Angioedema. 4. Obesity. 5. Obesity hypoventilation syndrome. 6. Leukocytosis. 7. Hyperkalemia. 8. Mild metabolic acidosis. 9. Oropharyngeal dysphagia. PLAN: I have done a cuff leak test and it is not an encouraging cuff leak. She also is hyperventilating. Some of this is probably due to the sedation, but in particular is mostly a metabolic issue at this point in time. Respiratory galeano, we will continue full mechanical ventilatory support. I will actually reduce the set rate to about 14, but also tell the nurse to sedate her for a RASS score of about 0 to -1 and lighten sedation a little bit. Ventilator-associated pneumonia bundle has been introduced. Oxygen will be weaned to keep sats greater than or equal to about 90%. Of note, again the cuff leak is not encouraging at this point and I will reevaluate for possible extubation tomorrow if she meets weaning criteria; otherwise, I will go ahead and schedule Benadryl now for antihistamine activity. Continue the scheduled Pepcid and continue the scheduled systemic steroids at the current dose. No acute indication for antibiotic therapy in my opinion. I will check with the nursing staff to ensure that this is hyperkalemia that has been addressed, but I will also repeat a BMP for 9:00 p.m. zacarias. Enteral nutrition will be the feeding modality of choice. An nutrition consult will be placed. She is appropriately on GI prophylaxis as well as DVT prophylaxis. Flu and pneumonia vaccination will be addressed per protocol. Thank you very much for the consult, Dr. Patel. We will follow along and make further recommendations as picture progresses/becomes clearer. She is critically ill on life-sustaining interventions including mechanical ventilatory support, at very high risk of from cardiopulmonary and immunologic system decompensation. At this time, I spent about 35-40 minutes of critical care time without overlap and excluding any procedural time that may be necessary. TID: [id number] RECEIPT: [id number] KEM/PAOLO
[2021-04-05 20:59] LABS: Blood Urea Nitrogen 10 mg/dL (7-17)
[2021-04-05 21:25] LABS: BUN/Creatinine Ratio 17
[2021-04-05 21:34] LABS: Calcium 8.7 mg/dL (8.4-10.2)
[2021-04-05 22:24] LABS: ABG Base Excess -1.4 mmol/L (-2.0-3.0); ABG HCO3 22.8 mmol/L (20.0-26.0); ABG Methemoglobin 0.4 % (0.0-1.5); ABG Oxygen Saturation 97.4 % (95.0-99.0); ABG PH 7.419 pH Units (7.350-7.450); ABG PO2 92.5 mm Hg (80.0-90.0)
[2021-04-05] MEDS: diphenhydrAMINE 50 MG/ML VIAL IV SCH (23:19)
[2021-04-06] MEDS: HEPARIN 5,000 UNIT/1 ML VIAL SUB-Q SCH ×3 (00:14→22:24)
[2021-04-06] MEDS: fentaNYL DRIP Premix 2,000 MCG/100 ML BAG IV SCH ×5 (02:32→20:31)
[2021-04-06] MEDS: methylPREDNISolone Sod Succinate 40 MG/1 ML INJ IV SCH ×3 (05:05→22:24)
[2021-04-06 08:20] LABS: Blood Urea Nitrogen 6 mg/dL (7-17); Calcium 8.8 mg/dL (8.4-10.2); Hemolysis Index 22
--- NOTE | 2021-04-06 08:27 | XRay Report ---
ABDOMEN 1 VIEW 04/06/2021 7:20 AM INDICATION / CLINICAL INFORMATION: NG tube placement. COMPARISON: None available. FINDINGS: TUBES / LINES: There is a new nasogastric tube with the tip overlying the gastric body. The proximal sidehole is kinked approximately 90 degrees. BOWEL GAS PATTERN: There is no evidence of bowel obstruction or mass effect. FREE AIR / EXTRALUMINAL GAS: None. ADDITIONAL FINDINGS: No significant additional findings. IMPRESSION: The tip of the nasogastric tube overlies the gastric body, however the proximal sidehole is significantly kinked. Signer Name: Jonathon Sanchez MD Signed: 04/06/2021 8:23 AM Workstation Name: [id number]
--- NOTE | 2021-04-06 08:31 | XRay Report ---
CHEST 1 VIEW 04/06/2021 7:20 AM INDICATION / CLINICAL INFORMATION: Follow-up respiratory failure. COMPARISON: Yesterday. FINDINGS: SUPPORT DEVICES: The tip of the endotracheal tube is approximately 2.5 cm above the lucien. There is a nasogastric tube coursing into the stomach with the tip not seen. HEART / MEDIASTINUM: Unchanged. LUNGS / PLEURA: Low lung volumes. Mild bibasilar atelectasis has shown slight improvement. No pleural effusion. No pneumothorax. ADDITIONAL FINDINGS: Possible mild subcutaneous emphysema on the left is new. IMPRESSION: 1. Low lung volumes. Bibasilar atelectasis appears slightly improved. 2. Possible mild subcutaneous emphysema on the left without visible pneumomediastinum or pneumothorax . Signer Name: Jonathon Sanchez MD Signed: 04/06/2021 8:26 AM Workstation Name: [id number]
[2021-04-06 08:32] LABS: BUN/Creatinine Ratio 12
[2021-04-06 08:56] LABS: Basophils # (Auto) 0.1 K/mm3 (0.0-0.1); Basophils % (Auto) 0.8 % (0.0-1.8); Eosinophils # (Auto) 0.1 K/mm3 (0.0-0.4); Eosinophils % (Auto) 0.6 % (0.0-4.3); Hemoglobin 10.2 gm/dl (10.1-14.3); Lymphocytes # (Auto) 1.3 K/mm3 (1.2-5.4); Lymphocytes % (Auto) 9.7 % (13.4-35.0); Mean Corpuscular HGB Conc 32 % (30-34); Mean Corpuscular Volume 77 fl (79-97); Monocytes # (Auto) 0.8 K/mm3 (0.0-0.8); Monocytes % (Auto) 5.8 % (0.0-7.3); Platelet Count 199 K/mm3 (140-440); Red Blood Count 4.17 M/mm3 (3.65-5.03); Red Cell Distribution Width 18.2 % (13.2-15.2)
[2021-04-06] MEDS: FAMOTIDINE 20 MG/2 ML INJ IV SCH ×2 (09:38→22:24)
[2021-04-06] MEDS: levETIRAcetam 1,500 MG in DEXTROSE 5% IN WATER 100 ML IV SCH ×2 (09:39→22:23)
[2021-04-06] MEDS: diphenhydrAMINE 50 MG/ML VIAL IV SCH ×2 (09:39→22:24)
[2021-04-06] MEDS: SENNOSIDES/DOCUSATE SODIUM 8.6/50 MG TAB FEEDTUBE SCH ×2 (09:41→22:23)
--- NOTE | 2021-04-06 11:04 | Progress Note ---
Assessment and Plan Assessment and plan: Acute hypoxic respiratory failure. Anaphylactic reaction. Obesity hypoventilation syndrome. DVT prophylaxis 04/05/2021. Patient currently on dipper Van and fentanyl. However, nurse reports patient still agitated. Ativan IV ordered. Wean mechanical ventilation per pulmonary recommendations. Continue Solu-Medrol 40 mg IV every 8 hours. Add Pepcid 20 mg IV twice daily and Benadryl 25 mg IV every 6 hours. Continue supportive care 04/06/2021. The patient is currently on AC mode ventilation rate of 20, tidal volume 400, FiO2 25%. Wean mechanical ventilation per protocol. Continue bronchodilators/nebulizers. Patient currently sedated with propofol, Versed and fentanyl drip. Continue Solu-Medrol, Benadryl and Pepcid twice daily The high probability of a clinically significant, sudden or life threatening deterioration of the [respiratory] system(s) required my full and direct atten tion, intervention and personal management. The aggregate critical care time was [32] minutes. This time is in addition to time spent performing reported procedures but includes the following: [X] Data Review and interpretation [X] Patient assessment and monitoring of vital signs [X] Documentation [X] Medication orders and management History Interval history: Patient currently intubated and sedated on mechanical ventilation. Hospitalist Physical - Constitutional Vitals: Temp Pulse Resp BP Pulse Ox 98.7 F 82 20 111/65 100 04/06/21 07:27 04/06/21 09:11 04/06/21 09:11 04/06/21 09:11 04/06/21 09:11 General appearance: Present: mild distress, other (Intubated on mechanical ventilator) - EENT Eyes: Present: PERRL, EOM intact ENT: hearing intact, clear oral mucosa, dentition normal - Neck Neck: Present: supple, normal ROM - Respiratory Respiratory effort: normal Respiratory: bilateral: CTA - Cardiovascular Rhythm: regular Heart Sounds: Present: S1 & S2. Absent: gallop, rub - Extremities Extremities: no ischemia, No edema, Full ROM - Abdominal General gastrointestinal: soft, non-tender, non-distended, normal bowel sounds - Integumentary Integumentary: Present: clear, warm, dry - Neurologic Neurologic: CNII-XII intact, moves all extremities Results - Labs CBC & Chem 7: 04/06/21 07:49 04/06/21 07:49 Labs: Laboratory Last Values WBC 12.9 K/mm3 (4.5-11.0) H 04/06/21 07:49 RBC 4.17 M/mm3 (3.65-5.03) 04/06/21 07:49 Hgb 10.2 gm/dl (10.1-14.3) 04/06/21 07:49 Hct 32.0 % (30.3-42.9) 04/06/21 07:49 MCV 77 fl (79-97) L 04/06/21 07:49 MCH 24 pg (28-32) L 04/06/21 07:49 MCHC 32 % (30-34) 04/06/21 07:49 RDW 18.2 % (13.2-15.2) H 04/06/21 07:49 Plt Count 199 K/mm3 (140-440) 04/06/21 07:49 Lymph % (Auto) 9.7 % (13.4-35.0) L 04/06/21 07:49 Cochran % (Auto) 5.8 % (0.0-7.3) 04/06/21 07:49 Eos % (Auto) 0.6 % (0.0-4.3) 04/06/21 07:49 Baso % (Auto) 0.8 % (0.0-1.8) 04/06/21 07:49 Lymph # (Auto) 1.3 K/mm3 (1.2-5.4) 04/06/21 07:49 Cochran # (Auto) 0.8 K/mm3 (0.0-0.8) 04/06/21 07:49 Eos # (Auto) 0.1 K/mm3 (0.0-0.4) 04/06/21 07:49 Baso # (Auto) 0.1 K/mm3 (0.0-0.1) 04/06/21 07:49 Add Manual Diff Complete 04/05/21 03:37 Total Counted 100 04/05/21 03:37 Seg Neutrophils % 83.1 % (40.0-70.0) H 04/06/21 07:49 Seg Neuts % (Manual) 90.0 % (40.0-70.0) H 04/05/21 03:37 Band Neutrophils % 1.0 % 04/05/21 03:37 Lymphocytes % (Manual) 6.0 % (13.4-35.0) L 04/05/21 03:37 Monocytes % (Manual) 3.0 % (0.0-7.3) 04/05/21 03:37 Nucleated RBC % Not Reportable 04/05/21 03:37 Seg Neutrophils # 10.8 K/mm3 (1.8-7.7) H 04/06/21 07:49 Seg Neutrophils # Man 14.0 K/mm3 (1.8-7.7) H 04/05/21 03:37 Band Neutrophils # 0.2 K/mm3 04/05/21 03:37 Lymphocytes # (Manual) 0.9 K/mm3 (1.2-5.4) L 04/05/21 03:37 Abs React Lymphs (Man) 0.0 K/mm3 04/05/21 03:37 Monocytes # (Manual) 0.5 K/mm3 (0.0-0.8) 04/05/21 03:37 Eosinophils # (Manual) 0.0 K/mm3 (0.0-0.4) 04/05/21 03:37 Basophils # (Manual) 0.0 K/mm3 (0.0-0.1) 04/05/21 03:37 Metamyelocytes # 0.0 K/mm3 04/05/21 03:37 Myelocytes # 0.0 K/mm3 04/05/21 03:37 Promyelocytes # 0.0 K/mm3 04/05/21 03:37 Blast Cells # 0.0 K/mm3 04/05/21 03:37 WBC Morphology Not Reportable 04/05/21 03:37 Hypersegmented Neuts Not Reportable 04/05/21 03:37 Hyposegmented Neuts Not Reportable 04/05/21 03:37 Hypogranular Neuts Not Reportable 04/05/21 03:37 Smudge Cells Not Reportable 04/05/21 03:37 Toxic Granulation Not Reportable 04/05/21 03:37 Toxic Vacuolation Not Reportable 04/05/21 03:37 Dohle Bodies Not Reportable 04/05/21 03:37 Pelger-Huet Anomaly Not Reportable 04/05/21 03:37 Fermin Rods Not Reportable 04/05/21 03:37 Platelet Estimate Consistent w auto 04/05/21 03:37 Clumped Platelets Not Reportable 04/05/21 03:37 Plt Clumps, EDTA Not Reportable 04/05/21 03:37 Large Platelets Not Reportable 04/05/21 03:37 Giant Platelets Not Reportable 04/05/21 03:37 Platelet Satelliting Not Reportable 04/05/21 03:37 Plt Morphology Comment Not Reportable 04/05/21 03:37 RBC Morphology Not Reportable 04/05/21 03:37 Dimorphic RBCs Not Reportable 04/05/21 03:37 Polychromasia Not Reportable 04/05/21 03:37 Hypochromasia 1+ 04/05/21 03:37 Poikilocytosis Not Reportable 04/05/21 03:37 Anisocytosis 1+ 04/05/21 03:37 Microcytosis 1+ 04/05/21 03:37 Macrocytosis Not Reportable 04/05/21 03:37 Spherocytes Not Reportable 04/05/21 03:37 Pappenheimer Bodies Not Reportable 04/05/21 03:37 Sickle Cells Not Reportable 04/05/21 03:37 Target Cells Not Reportable 04/05/21 03:37 Tear Drop Cells Not Reportable 04/05/21 03:37 Ovalocytes Few 04/05/21 03:37 Helmet Cells Not Reportable 04/05/21 03:37 [place] Bodies Not Reportable 04/05/21 03:37 [place] Rings Not Reportable 04/05/21 03:37 [place] Cells Not Reportable 04/05/21 03:37 Bite Cells Not Reportable 04/05/21 03:37 Crenated Cell Not Reportable 04/05/21 03:37 Elliptocytes Not Reportable 04/05/21 03:37 Acanthocytes (Spur) Not Reportable 04/05/21 03:37 Rouleaux Not Reportable 04/05/21 03:37 Hemoglobin C Crystals Not Reportable 04/05/21 03:37 Schistocytes Not Reportable 04/05/21 03:37 Malaria parasites Not Reportable 04/05/21 03:37 Paddy Bodies Not Reportable 04/05/21 03:37 Hem Pathologist Commnt No 04/05/21 03:37 ABG pH 7.419 pH Units (7.350-7.450) 04/05/21 21:00 ABG pCO2 36.0 mm Hg 04/05/21 21:00 ABG pO2 92.5 mm Hg (80.0-90.0) H 04/05/21 21:00 ABG HCO3 22.8 mmol/L (20.0-26.0) 04/05/21 21:00 ABG O2 Saturation 97.4 % (95.0-99.0) 04/05/21 21:00 ABG O2 Content 13.8 (0.0-44) 04/05/21 21:00 ABG Base Excess -1.4 mmol/L (-2.0-3.0) 04/05/21 21:00 ABG Hemoglobin 10.2 gm/dl (12.0-16.0) L 04/05/21 21:00 ABG Carboxyhemoglobin 1.6 % (0.0-5.0) 04/05/21 21:00 ABG Methemoglobin 0.4 % (0.0-1.5) 04/05/21 21:00 Oxyhemoglobin 95.5 % (95.0-99.0) 04/05/21 21:00 FiO2 30 % 04/05/21 21:00 Sodium 145 mmol/L (137-145) 04/06/21 07:49 Potassium 4.1 mmol/L (3.6-5.0) 04/06/21 07:49 Chloride 112.9 mmol/L (98-107) H 04/06/21 07:49 Carbon Dioxide 20 mmol/L (22-30) L 04/06/21 07:49 Anion Gap 16 mmol/L 04/06/21 07:49 BUN 6 mg/dL (7-17) L 04/06/21 07:49 Creatinine 0.5 mg/dL (0.6-1.2) L 04/06/21 07:49 Estimated GFR > 60 ml/min 04/06/21 07:49 BUN/Creatinine Ratio 12 % 04/06/21 07:49 Glucose 105 mg/dL (65-100) H 04/06/21 07:49 Calcium 8.8 mg/dL (8.4-10.2) 04/06/21 07:49 HCG, Qual Negative (Negative) 04/04/21 Unknown Microbiology: Microbiology 04/04/21 17:04 Tracheal Aspirate Sputum Culture - Preliminary Proctor/IV: Voiding Method Indwelling Catheter Active Medications - Current Medications Current Medications: Generic Name Dose Route Start Last Admin Trade Name Freq PRN Reason Stop Dose Admin Acetaminophen 650 mg 04/04/21 18:37 Acetaminophen 325 Mg Tab PO Q6H PRN Pain MILD(1-3)/Fever >100.5/JONES Albuterol 2.5 mg 04/04/21 18:37 04/04/21 21:49 Albuterol 2.5 Mg/3 Ml Nebu IH 2.5 mg Q3HRT PRN Administration Shortness Of Breath Lipase/Protease/Amylase 1 each 04/05/21 15:50 Lipase 10,500/Protease 25,000/Amylase 43,750 (Units) Dr Conklin FEEDTUBE PRN PRN For Clogged Feeding Tube Diphenhydramine HCl 25 mg 04/05/21 10:51 Diphenhydramine 50 Mg/Ml Vial IV Q6H PRN Itching Diphenhydramine HCl 25 mg 04/05/21 22:10 04/06/21 09:39 Diphenhydramine 50 Mg/Ml Vial IV 25 mg Q12HR CRISTY Administration Famotidine 20 mg 04/04/21 22:00 04/06/21 09:38 Famotidine 20 Mg/2 Ml Inj IV 20 mg BID CRISTY Administration Fentanyl 50 mcg 04/04/21 19:20 04/04/21 20:00 Fentanyl 100 Mcg/2 Ml Inj IV 50 mcg Q10MIN PRN Administration ANALGESIA Heparin Sodium (Porcine) 5,000 unit 04/04/21 22:00 04/06/21 09:39 Heparin 5,000 Unit/1 Ml Vial SUB-Q 5,000 unit Q12HR CRISTY Administration Hydromorphone HCl 0.5 mg 04/04/21 18:37 04/04/21 19:27 Hydromorphone 1 Mg/1 Ml Inj IV 0.5 mg Q23H PRN Administration Pain , Severe (7-10) Hydrophilic Ointment 1 applic 04/04/21 16:16 Lip Therapy Vaseline TP Q2HR PRN Dry Lips Propofol 1,000 mg in 100 mls @ 3.402 mls/hr 04/04/21 17:00 04/06/21 09:37 Diprivan 10 Mg/Ml IV 45 mcg/kg/min TITR CRISTY 30.617 mls/hr Administration Protocol 5 MCG/KG/MIN Fentanyl Citrate 2,000 mcg in 100 mls @ 5.67 mls/hr 04/04/21 20:00 04/06/21 07:34 Fentanyl Drip Premix IV 4 mcg/kg/hr TITR CRISTY 22.68 mls/hr Administration Protocol 1 MCG/KG/HR Levetiracetam 1,500 mg/ 115 mls @ 400 mls/hr 04/05/21 15:00 04/06/21 09:39 Dextrose IV 400 mls/hr Q12HR CRISTY Administration Midazolam HCl 100 mg/ Sodium 100 mls @ 2 mls/hr 04/05/21 15:00 04/06/21 07:20 Chloride IV 3 mg/hr TITR CRISTY 3 mls/hr Titration Protocol 2 MG/HR Methylprednisolone Sodium Succinate 40 mg 04/04/21 22:00 04/06/21 05:05 Methylprednisolone Sod Succinate 40 Mg/1 Ml Inj IV 40 mg Q8HR CRISTY Administration Midazolam HCl 2 mg 04/05/21 14:35 Midazolam 2 Mg/2 Ml Inj IV Q10MIN PRN Sedation Multi-Ingred Cream/Lotion/Oil/Oint 1 applic 04/04/21 16:16 Mineral Oil/Petrolatum, White Ophth Oint 3.5 Gm OU Q4HR PRN Dry Eye(s) Oxycodone/Acetaminophen 1 tab 04/04/21 18:37 Oxycodone /Acetaminophen 5-325mg Tab PO Q16H PRN Pain, Moderate (4-6) Senna/Docusate Sodium 1 tab 04/04/21 22:00 04/06/21 09:41 Sennosides/Docusate Sodium 8.6/50 Mg Tab FEEDTUBE 1 tab BID CRISTY Administration Simple Syrup 15 ml 04/05/21 15:50 Simple Syrup 15 Ml FEEDTUBE PRN PRN Hypoglycemia Simple Syrup 30 ml 04/05/21 15:50 Simple Syrup 15 Ml FEEDTUBE PRN PRN Hypoglycemia Sodium Bicarbonate 325 mg 04/05/21 15:50 Sodium Bicarbonate 325 Mg Tab FEEDTUBE PRN PRN For Clogged Feeding Tube Sodium Chloride 10 ml 04/04/21 22:00 04/06/21 09:41 Sodium Chloride 0.9% 10 Ml Flush Syringe IV 10 ml BID CRISTY Administration Sodium Chloride 10 ml 04/04/21 18:37 Sodium Chloride 0.9% 10 Ml Flush Syringe IV PRN PRN LINE FLUSH Nutrition/Malnutrition Assess - Dietary Evaluation Nutrition/Malnutrition Findings: Nutrition Notes Start: 04/05/21 10:18 Freq: Status: Active Protocol: Document 04/05/21 10:18 GB (Rec: 04/05/21 10:28 GB [id number]) Nutrition Notes Need for Assessment generated from: MD Order Initial or Follow up Assessment Current Diagnosis Respiratory Failure Other Pertinent Diagnosis Exposure to Peanuts, allergic reaction Current Diet NPO Labs/Tests 04/05: K 5.6, glucose 181 Pertinent Medications fentanyl citrate, propofol @ 34.019ml/hr (898kcal), NaCl Height 5 ft 6 in Weight 113.398 kg M[place] Body Weight (kg) 59.09 BMI 40.3 Intake Prior to Admission Good Weight change and time frame admit Weight Status Morbidly Obese Subjective/Other Information H&P: Pt has peanut allergy, exposed on plane ride, treated with epinephrin pin, respiratory failure r/t reaction to peanuts w/ constricting airway. Per chart: pt now intubated to protect airway, pt experiences alertness w/ attempts to remove tubes/lines /restraints. Percent of energy/protein needs met: 0%, NPO Burn Absent Trauma Absent GI Symptoms None Food Allergy Yes Skin Integrity/Comment no complications reported Current % PO Other Minimum of two criteria No #1 Nutrition Diagnosis Other: (Specify in comment below) Comments: Food allergy exposure with reaction of constricting airway Etiology reported peanut allergy As Evidenced by Signs and Symptoms currently intubated to protect airway Is patient on ventilator? Yes Is Patient Ambulatory and/or Out of Bed No REE-([place]-confined to bed) 2264.112 Kcal/Kg value to use for calculation 15 Approximate Energy Requirements Using 1701 kcal/Kg Calculation Used for Recommendations Kcal/kg Additional Notes Protein: 0.8-1 g/kg @113k -113g Fluids: 1 ml/kcal or per MD TF not recommended as most products are soy based. With peanut allergy severe/unsure of soy allergy. Vital HP is the only product w/o soy. Start in 48hrs if not extubated. Nutrition Intervention Change Diet Order: Continue NPO, when extubated advance to regular Nutrition Support: Vital HP (only product w/o SOY products) due to severe peanut allergy, unknown if allergy extends to soy. Propofol providing 898kcal at 34ml/hr Goal rate 45ml/hr. Start rate 15ml/hr. Flush 100ml/4hr Total fluids: TF (903ml) + Flush (600ml) = 1503ml Kcal 1,080 Protein (gm) 95 Carbohydrates (gm) 121 Fat (gm) 25 Fluid (mL) 903 Add Supplement/Snack (indicate name/kcal n/a /protein ) Goal #1 Extubation r/t recovery from food allergy reaction by f/u Goal #2 Diet advanced to Regular Goal #3 TF tolerance Vital HP goal rate 50ml/hr Follow-Up By: 04/09/21 Additional Comments TF not recommended. Propofol providing 898 kcal at current rate. Recovery from food allergic reaction for extubation in less than 5 days .
[2021-04-06 12:09] LABS: ABG Base Excess -2.2 mmol/L (-2.0-3.0); ABG Methemoglobin 0.5 % (0.0-1.5); ABG Oxygen Saturation 97.2 % (95.0-99.0); ABG PCO2 35.2 mm Hg; ABG PH 7.414 pH Units (7.350-7.450)
--- NOTE | 2021-04-06 12:16 | Progress Note ---
Assessment and Plan Acute respiratory failure secondary to anaphylaxis and peanut allergy Seizure disorder Morbid obesity, BMI 38.9 Multiple allergies Prior to extubation, will need to assess cuff leak. Monitor closely, shoe may have high airway pressures secondary to small diameter of ETT Discontinue Proctor catheter no clinical indication for ongoing Proctor ABG, CXR in the morning - VAP bundle addressed, aspiration precautions (HOB > 40 degrees) -Titrate supplemental oxygen to keep SpO2 88-90% -Lung protective strategies - SAT and SBT daily as tolerated and per protocol -Keep negative fluid balance as tolerated by hemodynamics and renal function to help facilitate weaning trials 1 dose of 10mg Furosemide given - Glycemic control for target BG 140-180 mg while critically ill; avoid hypoglycemia - bronchodilators with pulmonary hygiene per RT - avoid nephrotoxins, renally dose all medications - prn analgesia per pain score, CPOT score 0-3 - Maintenance of sleep-wake cycle, avoid delirium -Sedation to RASS -1 to -2. Agitation management - supportive transfusions for serum Hgb < 7.0g/dl, as clinically indicated -Enteric nutritional support, at goal. - Stress ulcer prophylaxis- on Famotidine -VTE prophylaxis- on Heparin - mobility , off loading, frequent turning per facility protocols for pressure ulcer prevention - Monitor hemodynamics closely -Chronic home medications as clinically indicated, resume all anti-seizure medications( Keppra, Dilantin and Vimpat) - continue other care per attending / other consultants CONDITION: CRITICAL PROGNOSIS: GUARDED CODE STATUS: FULL CODE The high probability of a clinically significant, sudden or life-threatening deterioration of the [respiratory, cardiovascular] system(s) required my full and direct attention, intervention and personal management. The aggregate critical care time was [35] minutes without overlap. Time includes spent on; [x] Data Review and interpretation [x] Patient assessment and monitoring of vital signs [x] Documentation [x] Medication orders and management Subjective Date of service: 04/06/21 Principal diagnosis: Acute hypoxemic resp failure; Anaphylaxis, peanut allergy; Obesity Interval history: SUMMARY 25 YO Female with Obesity Hypoventilation Syndrome, Peanut Allergy presents to ED for evaluation. Patient intubated and ambulatory support time my evaluation is unable to provide history. Patient history taken from EMS staff, ED staff. As per staff the patient was exposed to peanuts during an airplane flight. Patient developed an allergic reaction while on the airplane and was treated with subcu epinephrine. EMS was notified upon plan arrival to [facility]. Patient transported to [facility] for further care and evaluation of the aforementioned symptoms. Patient seen and evaluated in the emergency department. All lab and imaging studies reviewed. Patient was found to have acute approximate respiratory failure secondary to acute airway compromise. Patient was intubated for airway protection and admitted to ICU. Follow up for: Acute hypoxic resp failure: Anaphylaxis with peanut allergy; Obesity; h/o Seizure disorder Seen and examined. Vitals, labs, medications, chart and imaging reviewed. Discussed with respiratory and nursing staff during interdisciplinary rounds. No fevers, sedated on Midazolam, Fentanyl and Propofol Reported intermittent agitation, break through seizure reported in the ED prior to transfer to the ICU Remains on MVS, ETT 6.5 Objective Vital Signs - 12hr 04/06/21 04/06/21 04/06/21 00:30 01:16 01:56 Temperature 99.6 F Pulse Rate 80 88 Respiratory 20 20 Rate Blood Pressure 115/62 100/62 O2 Sat by Pulse 100 100 Oximetry 04/06/21 04/06/21 04/06/21 02:17 02:21 02:30 Temperature Pulse Rate 86 81 82 Respiratory 20 20 20 Rate Blood Pressure 110/67 O2 Sat by Pulse 100 100 100 Oximetry 04/06/21 04/06/21 04/06/21 02:41 02:51 03:00 Temperature Pulse Rate 81 81 83 Respiratory 20 20 20 Rate Blood Pressure 100/62 93/51 98/54 O2 Sat by Pulse 100 100 100 Oximetry 04/06/21 04/06/21 04/06/21 03:11 03:21 03:31 Temperature Pulse Rate 82 79 93 H Respiratory 20 20 16 Rate Blood Pressure 98/54 93/50 103/58 O2 Sat by Pulse 100 100 100 Oximetry 04/06/21 04/06/21 04/06/21 03:35 03:41 03:51 Temperature 100.2 F H Pulse Rate 81 81 Respiratory 20 20 Rate Blood Pressure 103/58 91/50 O2 Sat by Pulse 100 100 Oximetry 04/06/21 04/06/21 04/06/21 04:00 04:11 04:21 Temperature Pulse Rate 80 79 96 H Respiratory 20 20 17 Rate Blood Pressure 94/49 94/49 93/48 O2 Sat by Pulse 100 100 100 Oximetry 04/06/21 04/06/21 04/06/21 04:30 04:41 04:51 Temperature Pulse Rate 78 98 H 80 Respiratory 20 14 20 Rate Blood Pressure 92/50 91/50 99/54 O2 Sat by Pulse 100 100 100 Oximetry 04/06/21 04/06/21 04/06/21 05:00 05:11 05:21 Temperature Pulse Rate 78 84 82 Respiratory 20 20 20 Rate Blood Pressure 93/50 93/50 92/50 O2 Sat by Pulse 100 100 100 Oximetry 04/06/21 04/06/21 04/06/21 05:30 05:41 05:51 Temperature Pulse Rate 79 78 89 Respiratory 20 20 19 Rate Blood Pressure 95/50 95/50 97/56 O2 Sat by Pulse 100 100 100 Oximetry 04/06/21 04/06/21 04/06/21 05:56 06:00 06:11 Temperature Pulse Rate 81 78 Respiratory 20 20 20 Rate Blood Pressure 102/61 102/61 O2 Sat by Pulse 100 100 100 Oximetry 04/06/21 04/06/21 04/06/21 06:21 06:30 06:41 Temperature Pulse Rate 77 78 79 Respiratory 20 20 20 Rate Blood Pressure 95/54 101/61 101/61 O2 Sat by Pulse 100 100 100 Oximetry 04/06/21 04/06/21 04/06/21 06:51 07:00 07:11 Temperature Pulse Rate 77 76 75 Respiratory 20 20 20 Rate Blood Pressure 107/70 105/63 105/63 O2 Sat by Pulse 100 100 100 Oximetry 04/06/21 04/06/21 04/06/21 07:21 07:27 07:30 Temperature 98.7 F Pulse Rate 82 78 Respiratory 19 20 Rate Blood Pressure 110/67 106/66 O2 Sat by Pulse 100 100 Oximetry 04/06/21 04/06/21 04/06/21 07:41 07:51 08:00 Temperature Pulse Rate 93 H 86 82 Respiratory 17 17 7 L Rate Blood Pressure 106/66 122/66 115/67 O2 Sat by Pulse 100 100 100 Oximetry 04/06/21 04/06/21 04/06/21 08:04 08:11 08:21 Temperature Pulse Rate 78 81 79 Respiratory 20 20 Rate Blood Pressure 99/53 115/67 99/53 O2 Sat by Pulse 100 100 100 Oximetry 04/06/21 04/06/21 04/06/21 08:30 08:41 08:51 Temperature Pulse Rate 79 110 H 89 Respiratory 14 14 20 Rate Blood Pressure 113/68 113/68 121/77 O2 Sat by Pulse 100 99 100 Oximetry 04/06/21 04/06/21 04/06/21 09:00 09:11 09:21 Temperature Pulse Rate 84 82 80 Respiratory 20 20 20 Rate Blood Pressure 111/65 111/65 107/62 O2 Sat by Pulse 100 100 100 Oximetry 04/06/21 04/06/21 04/06/21 09:30 09:41 09:51 Temperature Pulse Rate 79 77 76 Respiratory 20 18 20 Rate Blood Pressure 105/61 105/61 109/67 O2 Sat by Pulse 100 100 100 Oximetry 04/06/21 04/06/21 04/06/21 10:00 10:11 10:21 Temperature Pulse Rate 75 77 75 Respiratory 20 20 20 Rate Blood Pressure 114/76 114/76 110/69 O2 Sat by Pulse 100 100 100 Oximetry 04/06/21 04/06/21 04/06/21 10:30 10:41 10:51 Temperature Pulse Rate 75 76 76 Respiratory 20 20 20 Rate Blood Pressure 109/66 109/66 104/65 O2 Sat by Pulse 100 100 100 Oximetry 04/06/21 04/06/21 04/06/21 11:00 11:11 11:21 Temperature Pulse Rate 74 75 74 Respiratory 20 20 20 Rate Blood Pressure 103/63 103/63 104/65 O2 Sat by Pulse 100 100 100 Oximetry 04/06/21 04/06/21 11:30 11:41 Temperature Pulse Rate 75 77 Respiratory 20 20 Rate Blood Pressure 102/61 102/61 O2 Sat by Pulse 100 100 Oximetry Constitutional: no acute distress, asleep, other (obese, short neck, orally intubated, ETT 6.5) Eyes: non-icteric ENT: oropharynx moist Neck: supple, no lymphadenopathy Effort: mildly labored Ascultation: Bilateral: diminished breath sounds, rhonchi Cardiovascular: regular rate and rhythm, other (tachycardia) Gastrointestinal: normoactive bowel sounds, soft, non-tender, other (Proctor c atheter in place) Integumentary: normal Extremities: no cyanosis, no edema Neurologic: non-focal exam (moves all extremities), pupils equal and round Psychiatric: other (Unable to assess) CBC and BMP: 04/06/21 07:49 04/06/21 07:49 ABG, PT/INR, D-dimer: ABG ABG pH 7.414 pH Units (7.350-7.450) 04/06/21 11:33 ABG pCO2 35.2 mm Hg 04/06/21 11:33 ABG pO2 89.0 mm Hg (80.0-90.0) 04/06/21 11:33 ABG O2 Saturation 97.2 % (95.0-99.0) 04/06/21 11:33 Abnormal lab findings: Abnormal Labs 04/04/21 04/04/21 04/04/21 16:38 16:38 18:40 WBC 12.4 H MCV MCH 26 L RDW 18.1 H Lymph % (Auto) Seg Neutrophils % 77.0 H Seg Neuts % (Manual) Lymphocytes % (Manual) Seg Neutrophils # 9.6 H Seg Neutrophils # Man Lymphocytes # (Manual) ABG pH 7.290 L ABG pO2 62.7 L ABG HCO3 ABG O2 Saturation 88.2 L ABG Base Excess -4.6 L ABG Hemoglobin 11.2 L Oxyhemoglobin 86.5 L Potassium Chloride Carbon Dioxide 20 L BUN Creatinine Glucose 224 H 04/05/21 04/05/21 04/05/21 03:37 03:37 04:15 WBC 15.5 H MCV MCH 25 L RDW 19.0 H Lymph % (Auto) Seg Neutrophils % Seg Neuts % (Manual) 90.0 H Lymphocytes % (Manual) 6.0 L Seg Neutrophils # Seg Neutrophils # Man 14.0 H Lymphocytes # (Manual) 0.9 L ABG pH 7.284 L ABG pO2 101.9 H ABG HCO3 18.5 L ABG O2 Saturation ABG Base Excess -7.7 L ABG Hemoglobin 10.3 L Oxyhemoglobin Potassium 5.6 H D Chloride Carbon Dioxide 14 L BUN Creatinine Glucose 181 H 04/05/21 04/05/21 04/06/21 20:27 21:00 07:49 WBC 12.9 H MCV 77 L MCH 24 L RDW 18.2 H Lymph % (Auto) 9.7 L Seg Neutrophils % 83.1 H Seg Neuts % (Manual) Lymphocytes % (Manual) Seg Neutrophils # 10.8 H Seg Neutrophils # Man Lymphocytes # (Manual) ABG pH ABG pO2 92.5 H ABG HCO3 ABG O2 Saturation ABG Base Excess ABG Hemoglobin 10.2 L Oxyhemoglobin Potassium Chloride 111.7 H Carbon Dioxide BUN Creatinine Glucose 04/06/21 04/06/21 07:49 11:33 WBC MCV MCH RDW Lymph % (Auto) Seg Neutrophils % Seg Neuts % (Manual) Lymphocytes % (Manual) Seg Neutrophils # Seg Neutrophils # Man Lymphocytes # (Manual) ABG pH ABG pO2 ABG HCO3 ABG O2 Saturation ABG Base Excess -2.2 L ABG Hemoglobin 8.7 L Oxyhemoglobin Potassium Chloride 112.9 H Carbon Dioxide 20 L BUN 6 L Creatinine 0.5 L Glucose 105 H Chest x-ray: image reviewed (ETT in place, low lung volumes, plate like atelectasis) Allied health notes reviewed: RT
[2021-04-06] MEDS ORDERED: LACOSAMIDE 100 MG TAB PO SCH (13:00)
[2021-04-06] MEDS ORDERED: FUROSEMIDE 20 MG/2 ML INJ IV SCH (13:00)
[2021-04-06] MEDS: LACOSAMIDE 100 MG TAB PO SCH ×2 (13:02→22:24)
[2021-04-06] MEDS: PHENYTOIN 100 MG in SODIUM CHLORIDE 0.9% 100 ML IV SCH ×2 (13:41→22:23)
--- NOTE | 2021-04-06 16:22 | Event Note ---
Date: 04/06/21 Placed a call and spoke with patient's mother, Maty Rodas at [phone]. She was updated on patient's condition and status. Patient remains intubated and although on minimum vent settings, patient is not quiet ready for extubation at this time. Patient is to remain on vent support and sedated overnight and CCM will follow up on her progress in the morning. Patient's mother verbalized understanding of the info given. All questions and concerns were addressed at this time. Team will continue to follow up with further updates.
[2021-04-06] MEDS: MIDAZOLAM 100 MG in SODIUM CHLORIDE 0.9% 80 ML IV SCH (18:42)
[2021-04-07] MEDS: fentaNYL DRIP Premix 2,000 MCG/100 ML BAG IV SCH ×7 (01:01→23:45)
[2021-04-07] MEDS: methylPREDNISolone Sod Succinate 40 MG/1 ML INJ IV SCH ×3 (05:42→21:44)
[2021-04-07] MEDS: PHENYTOIN 100 MG in SODIUM CHLORIDE 0.9% 100 ML IV SCH ×3 (06:03→21:40)
--- NOTE | 2021-04-07 08:45 | XRay Report ---
CHEST 1 VIEW 04/07/2021 7:31 AM INDICATION / CLINICAL INFORMATION: follow up respiratory failure. COMPARISON: 04/06/2021 FINDINGS: SUPPORT DEVICES: Stable, satisfactory device positioning. HEART / MEDIASTINUM: Stable. LUNGS / PLEURA: Low lung volumes remain with mild bibasilar atelectasis. No focal lung consolidation. No pneumothorax. ADDITIONAL FINDINGS: No significant additional findings. IMPRESSION: 1. No significant change. Signer Name: Alex Cevallos MD Signed: 04/07/2021 8:41 AM Workstation Name: [id number]
--- NOTE | 2021-04-07 09:47 | Progress Note ---
Assessment and Plan Assessment and plan: Acute hypoxic respiratory failure. Anaphylactic reaction. Obesity hypoventilation syndrome. DVT prophylaxis 04/05/2021. Patient currently on dipper Van and fentanyl. However, nurse reports patient still agitated. Ativan IV ordered. Wean mechanical ventilation per pulmonary recommendations. Continue Solu-Medrol 40 mg IV every 8 hours. Add Pepcid 20 mg IV twice daily and Benadryl 25 mg IV every 6 hours. Continue supportive care 04/06/2021. The patient is currently on AC mode ventilation rate of 20, tidal volume 400, FiO2 25%. Wean mechanical ventilation per protocol. Continue bronchodilators/nebulizers. Patient currently sedated with propofol, Versed and fentanyl drip. Continue Solu-Medrol, Benadryl and Pepcid twice daily 04/07/2021. Patient currently sedated with Versed, fentanyl and propofol. Continue sedation per pulmonary recommendations. I spoke with the mother who re ports numerous allergies that were reported to the nurse. The mother requests records from [facility] in [place]. Continue Solu-Medrol, Benadryl and Pepcid twice daily The high probability of a clinically significant, sudden or life threatening deterioration of the [respiratory] system(s) required my full and direct attention, intervention and personal management. The aggregate critical care time was [32] minutes. This time is in addition to time spent performing reported procedures but includes the following: [X] Data Review and interpretation [X] Patient assessment and monitoring of vital signs [X] Documentation [X] Medication orders and management History Interval history: Patient currently intubated and sedated on mechanical ventilation. Hospitalist Physical - Constitutional Vitals: Temp Pulse Resp BP Pulse Ox 97.4 F L 61 16 98/59 100 04/07/21 07:00 04/07/21 06:30 04/07/21 06:30 04/07/21 06:30 04/07/21 06:30 General appearance: Present: mild distress, other (Intubated on mechanical ventilator) - EENT Eyes: Present: PERRL, EOM intact ENT: hearing intact, clear oral mucosa, dentition normal - Neck Neck: Present: supple, normal ROM - Respiratory Respiratory effort: normal Respiratory: bilateral: CTA - Cardiovascular Rhythm: regular Heart Sounds: Present: S1 & S2. Absent: gallop, rub - Extremities Extremities: no ischemia, No edema, Full ROM - Abdominal General gastrointestinal: soft, non-tender, non-distended, normal bowel sounds - Integumentary Integumentary: Present: clear, warm, dry - Neurologic Neurologic: CNII-XII intact, moves all extremities Results - Labs CBC & Chem 7: 04/06/21 07:49 04/06/21 07:49 Labs: Laboratory Last Values WBC 12.9 K/mm3 (4.5-11.0) H 04/06/21 07:49 RBC 4.17 M/mm3 (3.65-5.03) 04/06/21 07:49 Hgb 10.2 gm/dl (10.1-14.3) 04/06/21 07:49 Hct 32.0 % (30.3-42.9) 04/06/21 07:49 MCV 77 fl (79-97) L 04/06/21 07:49 MCH 24 pg (28-32) L 04/06/21 07:49 MCHC 32 % (30-34) 04/06/21 07:49 RDW 18.2 % (13.2-15.2) H 04/06/21 07:49 Plt Count 199 K/mm3 (140-440) 04/06/21 07:49 Lymph % (Auto) 9.7 % (13.4-35.0) L 04/06/21 07:49 [place] % (Auto) 5.8 % (0.0-7.3) 04/06/21 07:49 Eos % (Auto) 0.6 % (0.0-4.3) 04/06/21 07:49 Baso % (Auto) 0.8 % (0.0-1.8) 04/06/21 07:49 Lymph # (Auto) 1.3 K/mm3 (1.2-5.4) 04/06/21 07:49 [place] # (Auto) 0.8 K/mm3 (0.0-0.8) 04/06/21 07:49 Eos # (Auto) 0.1 K/mm3 (0.0-0.4) 04/06/21 07:49 Baso # (Auto) 0.1 K/mm3 (0.0-0.1) 04/06/21 07:49 Add Manual Diff Complete 04/05/21 03:37 Total Counted 100 04/05/21 03:37 Seg Neutrophils % 83.1 % (40.0-70.0) H 04/06/21 07:49 Seg Neuts % (Manual) 90.0 % (40.0-70.0) H 04/05/21 03:37 Band Neutrophils % 1.0 % 04/05/21 03:37 Lymphocytes % (Manual) 6.0 % (13.4-35.0) L 04/05/21 03:37 Monocytes % (Manual) 3.0 % (0.0-7.3) 04/05/21 03:37 Nucleated RBC % Not Reportable 04/05/21 03:37 Seg Neutrophils # 10.8 K/mm3 (1.8-7.7) H 04/06/21 07:49 Seg Neutrophils # Man 14.0 K/mm3 (1.8-7.7) H 04/05/21 03:37 Band Neutrophils # 0.2 K/mm3 04/05/21 03:37 Lymphocytes # (Manual) 0.9 K/mm3 (1.2-5.4) L 04/05/21 03:37 Abs React Lymphs (Man) 0.0 K/mm3 04/05/21 03:37 Monocytes # (Manual) 0.5 K/mm3 (0.0-0.8) 04/05/21 03:37 Eosinophils # (Manual) 0.0 K/mm3 (0.0-0.4) 04/05/21 03:37 Basophils # (Manual) 0.0 K/mm3 (0.0-0.1) 04/05/21 03:37 Metamyelocytes # 0.0 K/mm3 04/05/21 03:37 Myelocytes # 0.0 K/mm3 04/05/21 03:37 Promyelocytes # 0.0 K/mm3 04/05/21 03:37 Blast Cells # 0.0 K/mm3 04/05/21 03:37 WBC Morphology Not Reportable 04/05/21 03:37 Hypersegmented Neuts Not Reportable 04/05/21 03:37 Hyposegmented Neuts Not Reportable 04/05/21 03:37 Hypogranular Neuts Not Reportable 04/05/21 03:37 Smudge Cells Not Reportable 04/05/21 03:37 Toxic Granulation Not Reportable 04/05/21 03:37 Toxic Vacuolation Not Reportable 04/05/21 03:37 Dohle Bodies Not Reportable 04/05/21 03:37 Pelger-Huet Anomaly Not Reportable 04/05/21 03:37 Fermin Rods Not Reportable 04/05/21 03:37 Platelet Estimate Consistent w auto 04/05/21 03:37 Clumped Platelets Not Reportable 04/05/21 03:37 Plt Clumps, EDTA Not Reportable 04/05/21 03:37 Large Platelets Not Reportable 04/05/21 03:37 Giant Platelets Not Reportable 04/05/21 03:37 Platelet Satelliting Not Reportable 04/05/21 03:37 Plt Morphology Comment Not Reportable 04/05/21 03:37 RBC Morphology Not Reportable 04/05/21 03:37 Dimorphic RBCs Not Reportable 04/05/21 03:37 Polychromasia Not Reportable 04/05/21 03:37 Hypochromasia 1+ 04/05/21 03:37 Poikilocytosis Not Reportable 04/05/21 03:37 Anisocytosis 1+ 04/05/21 03:37 Microcytosis 1+ 04/05/21 03:37 Macrocytosis Not Reportable 04/05/21 03:37 Spherocytes Not Reportable 04/05/21 03:37 Pappenheimer Bodies Not Reportable 04/05/21 03:37 Sickle Cells Not Reportable 04/05/21 03:37 Target Cells Not Reportable 04/05/21 03:37 Tear Drop Cells Not Reportable 04/05/21 03:37 Ovalocytes Few 04/05/21 03:37 Helmet Cells Not Reportable 04/05/21 03:37 [place] Bodies Not Reportable 04/05/21 03:37 [place] Rings Not Reportable 04/05/21 03:37 [place] Cells Not Reportable 04/05/21 03:37 Bite Cells Not Reportable 04/05/21 03:37 Crenated Cell Not Reportable 04/05/21 03:37 Elliptocytes Not Reportable 04/05/21 03:37 Acanthocytes (Spur) Not Reportable 04/05/21 03:37 Rouleaux Not Reportable 04/05/21 03:37 Hemoglobin C Crystals Not Reportable 04/05/21 03:37 Schistocytes Not Reportable 04/05/21 03:37 Malaria parasites Not Reportable 04/05/21 03:37 Paddy Bodies Not Reportable 04/05/21 03:37 Hem Pathologist Commnt No 04/05/21 03:37 ABG pH 7.414 pH Units (7.350-7.450) 04/06/21 11:33 ABG pCO2 35.2 mm Hg 04/06/21 11:33 ABG pO2 89.0 mm Hg (80.0-90.0) 04/06/21 11:33 ABG HCO3 22.0 mmol/L (20.0-26.0) 04/06/21 11:33 ABG O2 Saturation 97.2 % (95.0-99.0) 04/06/21 11:33 ABG O2 Content 11.9 (0.0-44) 04/06/21 11:33 ABG Base Excess -2.2 mmol/L (-2.0-3.0) L 04/06/21 11:33 ABG Hemoglobin 8.7 gm/dl (12.0-16.0) L 04/06/21 11:33 ABG Carboxyhemoglobin 1.3 % (0.0-5.0) 04/06/21 11:33 ABG Methemoglobin 0.5 % (0.0-1.5) 04/06/21 11:33 Oxyhemoglobin 95.4 % (95.0-99.0) 04/06/21 11:33 FiO2 25 % 04/06/21 11:33 Sodium 145 mmol/L (137-145) 04/06/21 07:49 Potassium 4.1 mmol/L (3.6-5.0) 04/06/21 07:49 Chloride 112.9 mmol/L (98-107) H 04/06/21 07:49 Carbon Dioxide 20 mmol/L (22-30) L 04/06/21 07:49 Anion Gap 16 mmol/L 04/06/21 07:49 BUN 6 mg/dL (7-17) L 04/06/21 07:49 Creatinine 0.5 mg/dL (0.6-1.2) L 04/06/21 07:49 Estimated GFR > 60 ml/min 04/06/21 07:49 BUN/Creatinine Ratio 12 % 04/06/21 07:49 Glucose 105 mg/dL (65-100) H 04/06/21 07:49 POC Glucose 118 mg/dL (70-105) H 04/07/21 05:14 Calcium 8.8 mg/dL (8.4-10.2) 04/06/21 07:49 HCG, Qual Negative (Negative) 04/04/21 Unknown Proctor/IV: Voiding Method External Female Catheter Active Medications - Current Medications Current Medications: Generic Name Dose Route Start Last Admin Trade Name Freq PRN Reason Stop Dose Admin Acetaminophen 650 mg 04/04/21 18:37 Acetaminophen 325 Mg Tab PO Q6H PRN Pain MILD(1-3)/Fever >100.5/JONES Albuterol 2.5 mg 04/04/21 18:37 04/04/21 21:49 Albuterol 2.5 Mg/3 Ml Nebu IH 2.5 mg Q3HRT PRN Administration Shortness Of Breath Lipase/Protease/Amylase 1 each 04/05/21 15:50 Lipase 10,500/Protease 25,000/Amylase 43,750 (Units) Dr Conlkin FEEDTUBE PRN PRN For Clogged Feeding Tube Diphenhydramine HCl 25 mg 04/05/21 10:51 Diphenhydramine 50 Mg/Ml Vial IV Q6H PRN Itching Diphenhydramine HCl 25 mg 04/05/21 22:10 04/06/21 22:24 Diphenhydramine 50 Mg/Ml Vial IV 25 mg Q12HR CRISTY Administration Famotidine 20 mg 04/04/21 22:00 04/06/21 22:24 Famotidine 20 Mg/2 Ml Inj IV 20 mg BID CRISTY Administration Fentanyl 50 mcg 04/04/21 19:20 04/04/21 20:00 Fentanyl 100 Mcg/2 Ml Inj IV 50 mcg Q10MIN PRN Administration ANALGESIA Heparin Sodium (Porcine) 5,000 unit 04/04/21 22:00 04/06/21 22:24 Heparin 5,000 Unit/1 Ml Vial SUB-Q 5,000 unit Q12HR CRISTY Administration Hydromorphone HCl 0.5 mg 04/04/21 18:37 04/04/21 19:27 Hydromorphone 1 Mg/1 Ml Inj IV 0.5 mg Q23H PRN Administration Pain , Severe (7-10) Hydrophilic Ointment 1 applic 04/04/21 16:16 Lip Therapy Vaseline TP Q2HR PRN Dry Lips Propofol 1,000 mg in 100 mls @ 3.402 mls/hr 04/04/21 17:00 04/07/21 05:41 Diprivan 10 Mg/Ml IV 45 mcg/kg/min TITR CRISTY 30.617 mls/hr Administration Protocol 5 MCG/KG/MIN Fentanyl Citrate 2,000 mcg in 100 mls @ 5.67 mls/hr 04/04/21 20:00 04/07/21 05:42 Fentanyl Drip Premix IV 4 mcg/kg/hr TITR CRISTY 22.68 mls/hr Administration Protocol 1 MCG/KG/HR Levetiracetam 1,500 mg/ 115 mls @ 400 mls/hr 04/05/21 15:00 04/06/21 22:23 Dextrose IV 400 mls/hr Q12HR CRISTY Administration Midazolam HCl 100 mg/ Sodium 100 mls @ 2 mls/hr 04/05/21 15:00 04/06/21 18:42 Chloride IV 4 mg/hr TITR CRISTY 4 mls/hr Administration Protocol 2 MG/HR Phenytoin 100 mg/ Sodium 102 mls @ 408 mls/hr 04/06/21 14:00 04/07/21 06:03 Chloride IV 408 mls/hr Q8HR CRISTY Administration Lacosamide 200 mg 04/06/21 13:00 04/06/21 22:24 Lacosamide 100 Mg Tab PO 200 mg Q12HR CRISTY Administration Methylprednisolone Sodium Succinate 40 mg 04/04/21 22:00 04/07/21 05:42 Methylprednisolone Sod Succinate 40 Mg/1 Ml Inj IV 40 mg Q8HR CRISTY Administration Midazolam HCl 2 mg 04/05/21 14:35 04/06/21 16:10 Midazolam 2 Mg/2 Ml Inj IV 2 mg Q10MIN PRN Administration Sedation Multi-Ingred Cream/Lotion/Oil/Oint 1 applic 04/04/21 16:16 Mineral Oil/Petrolatum, White Ophth Oint 3.5 Gm OU Q4HR PRN Dry Eye(s) Oxycodone/Acetaminophen 1 tab 04/04/21 18:37 Oxycodone /Acetaminophen 5-325mg Tab PO Q16H PRN Pain, Moderate (4-6) Senna/Docusate Sodium 1 tab 04/04/21 22:00 04/06/21 22:23 Sennosides/Docusate Sodium 8.6/50 Mg Tab FEEDTUBE 1 tab BID CRISTY Administration Simple Syrup 15 ml 04/05/21 15:50 Simple Syrup 15 Ml FEEDTUBE PRN PRN Hypoglycemia Simple Syrup 30 ml 04/05/21 15:50 Simple Syrup 15 Ml FEEDTUBE PRN PRN Hypoglycemia Sodium Bicarbonate 325 mg 04/05/21 15:50 Sodium Bicarbonate 325 Mg Tab FEEDTUBE PRN PRN For Clogged Feeding Tube Sodium Chloride 10 ml 04/04/21 22:00 04/06/21 22:25 Sodium Chloride 0.9% 10 Ml Flush Syringe IV 10 ml BID CRISTY Administration Sodium Chloride 10 ml 04/04/21 18:37 Sodium Chloride 0.9% 10 Ml Flush Syringe IV PRN PRN LINE FLUSH Nutrition/Malnutrition Assess - Dietary Evaluation Nutrition/Malnutrition Findings: Nutrition Notes Start: 04/05/21 10:18 Freq: Status: Active Protocol: Document 04/05/21 10:18 GB (Rec: 04/05/21 10:28 GB [email or web address]) Nutrition Notes Need for Assessment generated from: MD Order Initial or Follow up Assessment Current Diagnosis Respiratory Failure Other Pertinent Diagnosis Exposure to Peanuts, allergic reaction Current Diet NPO Labs/Tests 04/05: K 5.6, glucose 181 Pertinent Medications fentanyl citrate, propofol @ 34.019ml/hr (898kcal), NaCl Height 5 ft 6 in Weight 113.398 kg [place] Body Weight (kg) 59.09 BMI 40.3 Intake Prior to Admission Good Weight change and time frame admit Weight Status Morbidly Obese Subjective/Other Information H&P: Pt has peanut allergy, exposed on plane ride, treated with epinephrin pin, respiratory failure r/t reaction to peanuts w/ constricting airway. Per chart: pt now intubated to protect airway, pt experiences alertness w/ attempts to remove tubes/lines /restraints. Percent of energy/protein needs met: 0%, NPO Burn Absent Trauma Absent GI Symptoms None Food Allergy Yes Skin Integrity/Comment no complications reported Current % PO Other Minimum of two criteria No #1 Nutrition Diagnosis Other: (Specify in comment below) Comments: Food allergy exposure with reaction of constricting airway Etiology reported peanut allergy As Evidenced by Signs and Symptoms currently intubated to protect airway Is patient on ventilator? Yes Is Patient Ambulatory and/or Out of Bed No REE-([facility]-confined to bed) 2264.112 Kcal/Kg value to use for calculation 15 Approximate Energy Requirements Using 1701 kcal/Kg Calculation Used for Recommendations Kcal/kg Additional Notes Protein: 0.8-1 g/kg @113k -113g Fluids: 1 ml/kcal or per MD TF not recommended as most products are soy based. With peanut allergy severe/unsure of soy allergy. Vital HP is the only product w/o soy. Start in 48hrs if not extubated. Nutrition Intervention Change Diet Order: Continue NPO, when extubated advance to regular Nutrition Support: Vital HP (only product w/o SOY products) due to severe peanut allergy, unknown if allergy extends to soy. Propofol providing 898kcal at 34ml/hr Goal rate 45ml/hr. Start rate 15ml/hr. Flush 100ml/4hr Total fluids: TF (903ml) + Flush (600ml) = 1503ml Kcal 1,080 Protein (gm) 95 Carbohydrates (gm) 121 Fat (gm) 25 Fluid (mL) 903 Add Supplement/Snack (indicate name/kcal n/a /protein ) Goal #1 Extubation r/t recovery from food allergy reaction by f/u Goal #2 Diet advanced to Regular Goal #3 TF tolerance Vital HP goal rate 50ml/hr Follow-Up By: 04/09/21 Additional Comments TF not recommended. Propofol providing 898 kcal at current rate. Recovery from food allergic reaction for extubation in less than 5 days .
[2021-04-07] MEDS: diphenhydrAMINE 50 MG/ML VIAL IV SCH ×2 (10:18→21:41)
[2021-04-07] MEDS: FAMOTIDINE 20 MG/2 ML INJ IV SCH ×2 (10:18→21:41)
[2021-04-07] MEDS: HEPARIN 5,000 UNIT/1 ML VIAL SUB-Q SCH ×2 (10:18→21:40)
[2021-04-07] MEDS: LACOSAMIDE 100 MG TAB PO SCH ×2 (10:18→21:42)
[2021-04-07] MEDS: SENNOSIDES/DOCUSATE SODIUM 8.6/50 MG TAB FEEDTUBE SCH ×2 (10:18→21:41)
[2021-04-07] MEDS: levETIRAcetam 1,500 MG in DEXTROSE 5% IN WATER 100 ML IV SCH ×2 (10:28→21:40)
--- NOTE | 2021-04-07 12:44 | Progress Note ---
Assessment and Plan Acute respiratory failure secondary to anaphylaxis and peanut allergy Seizure disorder Morbid obesity, BMI 38.9 Multiple allergies Prior to extubation, will need to assess cuff leak. Monitor closely, shoe may have high airway pressures secondary to small diameter of ETT Discontinue Proctor catheter no clinical indication for ongoing Proctor ABG, CXR in the morning - VAP bundle addressed, aspiration precautions (HOB > 40 degrees) -Titrate supplemental oxygen to keep SpO2 88-90% -Lung protective strategies - SAT and SBT daily as tolerated and per protocol -Keep negative fluid balance as tolerated by hemodynamics and renal function to help facilitate weaning trials 1 dose of 10mg Furosemide given - Glycemic control for target BG 140-180 mg while critically ill; avoid hypoglycemia - bronchodilators with pulmonary hygiene per RT - avoid nephrotoxins, renally dose all medications - prn analgesia per pain score, CPOT score 0-3 - Maintenance of sleep-wake cycle, avoid delirium -Sedation to RASS -1 to -2. Agitation management - supportive transfusions for serum Hgb < 7.0g/dl, as clinically indicated -Enteric nutritional support, at goal. - Stress ulcer prophylaxis- on Famotidine -VTE prophylaxis- on Heparin - mobility , off loading, frequent turning per facility protocols for pressure ulcer prevention - Monitor hemodynamics closely -Chronic home medications as clinically indicated, resume all anti-seizure medications( Keppra, Dilantin and Vimpat) - continue other care per attending / other consultants CONDITION: CRITICAL PROGNOSIS: GUARDED CODE STATUS: FULL CODE The high probability of a clinically significant, sudden or life-threatening deterioration of the [respiratory, cardiovascular] system(s) required my full and direct attention, intervention and personal management. The aggregate critical care time was [35] minutes without overlap. Time includes spent on; [x] Data Review and interpretation [x] Patient assessment and monitoring of vital signs [x] Documentation [x] Medication orders and management Subjective Date of service: 04/07/21 Principal diagnosis: Acute hypoxemic resp failure; Anaphylaxis, peanut allergy; Obesity Interval history: SUMMARY 25 YO Female with Obesity Hypoventilation Syndrome, Peanut Allergy presents to ED for evaluation. Patient intubated and ambulatory support time my evaluation is unable to provide history. Patient history taken from EMS staff, ED staff. As per staff the patient was exposed to peanuts during an airplane flight. Patient developed an allergic reaction while on the airplane and was treated with subcu epinephrine. EMS was notified upon plan arrival to [facility]. Patient transported to [facility] for further care and evaluation of the aforementioned symptoms. Patient seen and evaluated in the emergency department. All lab and imaging studies reviewed. Patient was found to have acute approximate respiratory failure secondary to acute airway compromise. Patient was intubated for airway protection and admitted to ICU. Follow up for: Acute hypoxic resp failure: Anaphylaxis with peanut allergy; Obesity; h/o Seizure disorder Seen and examined. Vitals, labs, medications, chart and imaging reviewed. Discussed with respiratory and nursing staff during interdisciplinary rounds. No fevers, sedated on Midazolam, Fentanyl and Propofol Reported intermittent agitation, break through seizure reported in the ED prior to transfer to the ICU Remains on MVS, ETT 6.5 Objective Vital Signs - 12hr 04/07/21 04/07/21 04/07/21 00:45 01:00 01:15 Temperature Pulse Rate 59 L 61 60 Respiratory 20 20 20 Rate Blood Pressure 113/79 117/76 110/74 O2 Sat by Pulse 100 100 100 Oximetry 04/07/21 04/07/21 04/07/21 01:30 01:45 02:00 Temperature Pulse Rate 55 L 62 58 L Respiratory 20 20 20 Rate Blood Pressure 111/73 114/76 114/76 O2 Sat by Pulse 100 100 100 Oximetry 04/07/21 04/07/21 04/07/21 02:15 02:30 02:45 Temperature Pulse Rate 59 L 62 61 Respiratory 20 20 20 Rate Blood Pressure 105/71 107/70 105/70 O2 Sat by Pulse 100 100 100 Oximetry 04/07/21 04/07/21 04/07/21 03:00 03:15 03:30 Temperature Pulse Rate 60 59 L 60 Respiratory 20 20 20 Rate Blood Pressure 105/66 102/67 104/63 O2 Sat by Pulse 100 100 100 Oximetry 04/07/21 04/07/21 04/07/21 03:41 03:45 03:55 Temperature 98.5 F Pulse Rate 62 62 Respiratory 20 Rate Blood Pressure 102/67 102/67 O2 Sat by Pulse 100 100 Oximetry 04/07/21 04/07/21 04/07/21 04:00 04:15 04:30 Temperature Pulse Rate 60 61 64 Respiratory 20 16 16 Rate Blood Pressure 103/68 95/57 101/61 O2 Sat by Pulse 100 100 100 Oximetry 04/07/21 04/07/21 04/07/21 04:45 05:00 05:15 Temperature Pulse Rate 61 64 65 Respiratory 16 16 16 Rate Blood Pressure 97/58 94/56 98/63 O2 Sat by Pulse 100 100 100 Oximetry 04/07/21 04/07/21 04/07/21 05:30 05:45 06:00 Temperature Pulse Rate 66 81 68 Respiratory 16 16 16 Rate Blood Pressure 111/74 109/63 102/62 O2 Sat by Pulse 100 100 100 Oximetry 04/07/21 04/07/21 04/07/21 06:15 06:30 06:45 Temperature Pulse Rate 71 61 62 Respiratory 16 16 15 Rate Blood Pressure 110/72 98/59 97/62 O2 Sat by Pulse 100 100 100 Oximetry 04/07/21 04/07/21 04/07/21 07:00 07:15 07:30 Temperature 97.4 F L Pulse Rate 62 59 L 58 L Respiratory 16 16 16 Rate Blood Pressure 101/66 99/63 102/65 O2 Sat by Pulse 100 100 100 Oximetry 04/07/21 04/07/21 04/07/21 07:45 08:00 08:15 Temperature Pulse Rate 59 L 68 65 Respiratory 16 16 16 Rate Blood Pressure 107/68 115/71 120/79 O2 Sat by Pulse 100 100 100 Oximetry 04/07/21 04/07/21 04/07/21 08:30 08:45 09:00 Temperature Pulse Rate 64 60 59 L Respiratory 16 16 16 Rate Blood Pressure 99/63 101/62 104/65 O2 Sat by Pulse 100 100 100 Oximetry 04/07/21 04/07/21 04/07/21 09:15 09:30 09:45 Temperature Pulse Rate 64 59 L 62 Respiratory 16 16 16 Rate Blood Pressure 119/82 100/63 111/70 O2 Sat by Pulse 100 100 100 Oximetry 04/07/21 04/07/21 04/07/21 10:00 10:15 10:30 Temperature Pulse Rate 57 L 60 62 Respiratory 16 16 16 Rate Blood Pressure 99/60 115/71 116/72 O2 Sat by Pulse 100 100 100 Oximetry 04/07/21 04/07/21 04/07/21 10:45 11:01 12:07 Temperature 97.6 F Pulse Rate 59 L 72 Respiratory 17 16 Rate Blood Pressure 111/73 136/90 O2 Sat by Pulse 100 Oximetry Constitutional: no acute distress, asleep, other (obese, short neck, orally intubated, ETT 6.5) Eyes: non-icteric ENT: oropharynx moist Neck: supple, no lymphadenopathy Effort: mildly labored Ascultation: Bilateral: diminished breath sounds, rhonchi Cardiovascular: regular rate and rhythm, other (tachycardia) Gastrointestinal: normoactive bowel sounds, soft, non-tender, other (Proctor catheter in place) Integumentary: normal Extremities: no cyanosis, no edema Neurologic: non-focal exam (moves all extremities), pupils equal and round Psychiatric: other (Unable to assess) CBC and BMP: 04/06/21 07:49 04/06/21 07:49 ABG, PT/INR, D-dimer: ABG ABG pH 7.414 pH Units (7.350-7.450) 04/06/21 11:33 ABG pCO2 35.2 mm Hg 04/06/21 11:33 ABG pO2 89.0 mm Hg (80.0-90.0) 04/06/21 11:33 ABG O2 Saturation 97.2 % (95.0-99.0) 04/06/21 11:33 Abnormal lab findings: Abnormal Labs 04/04/21 04/04/21 04/04/21 16:38 16:38 18:40 WBC 12.4 H MCV MCH 26 L RDW 18.1 H Lymph % (Auto) Seg Neutrophils % 77.0 H Seg Neuts % (Manual) Lymphocytes % (Manual) Seg Neutrophils # 9.6 H Seg Neutrophils # Man Lymphocytes # (Manual) ABG pH 7.290 L ABG pO2 62.7 L ABG HCO3 ABG O2 Saturation 88.2 L ABG Base Excess -4.6 L ABG Hemoglobin 11.2 L Oxyhemoglobin 86.5 L Potassium Chloride Carbon Dioxide 20 L BUN Creatinine Glucose 224 H POC Glucose 04/05/21 04/05/21 04/05/21 03:37 03:37 04:15 WBC 15.5 H MCV MCH 25 L RDW 19.0 H Lymph % (Auto) Seg Neutrophils % Seg Neuts % (Manual) 90.0 H Lymphocytes % (Manual) 6.0 L Seg Neutrophils # Seg Neutrophils # Man 14.0 H Lymphocytes # (Manual) 0.9 L ABG pH 7.284 L ABG pO2 101.9 H ABG HCO3 18.5 L ABG O2 Saturation ABG Base Excess -7.7 L ABG Hemoglobin 10.3 L Oxyhemoglobin Potassium 5.6 H D Chloride Carbon Dioxide 14 L BUN Creatinine Glucose 181 H POC Glucose 04/05/21 04/05/21 04/06/21 20:27 21:00 07:49 WBC 12.9 H MCV 77 L MCH 24 L RDW 18.2 H Lymph % (Auto) 9.7 L Seg Neutrophils % 83.1 H Seg Neuts % (Manual) Lymphocytes % (Manual) Seg Neutrophils # 10.8 H Seg Neutrophils # Man Lymphocytes # (Manual) ABG pH ABG pO2 92.5 H ABG HCO3 ABG O2 Saturation ABG Base Excess ABG Hemoglobin 10.2 L Oxyhemoglobin Potassium Chloride 111.7 H Carbon Dioxide BUN Creatinine Glucose POC Glucose 04/06/21 04/06/21 04/06/21 07:49 11:33 17:25 WBC MCV MCH RDW Lymph % (Auto) Seg Neutrophils % Seg Neuts % (Manual) Lymphocytes % (Manual) Seg Neutrophils # Seg Neutrophils # Man Lymphocytes # (Manual) ABG pH ABG pO2 ABG HCO3 ABG O2 Saturation ABG Base Excess -2.2 L ABG Hemoglobin 8.7 L Oxyhemoglobin Potassium Chloride 112.9 H Carbon Dioxide 20 L BUN 6 L Creatinine 0.5 L Glucose 105 H POC Glucose 125 H 04/07/21 05:14 WBC MCV MCH RDW Lymph % (Auto) Seg Neutrophils % Seg Neuts % (Manual) Lymphocytes % (Manual) Seg Neutrophils # Seg Neutrophils # Man Lymphocytes # (Manual) ABG pH ABG pO2 ABG HCO3 ABG O2 Saturation ABG Base Excess ABG Hemoglobin Oxyhemoglobin Potassium Chloride Carbon Dioxide BUN Creatinine Glucose POC Glucose 118 H Allied health notes reviewed: RT
[2021-04-07] MEDS ORDERED: SCOPOLAMINE TRANSDERMAL PATCH 72 HR TD NR (13:00)
[2021-04-07] MEDS: QUEtiapine 25 MG TAB PO SCH ×2 (14:24→21:23)
[2021-04-07] MEDS ORDERED: LORazepam 2 MG/ML VIAL IV ONE (14:45)
[2021-04-07] MEDS ORDERED: QUEtiapine 25 MG TAB PO SCH (15:00)
[2021-04-07 16:31] LABS: Blood Urea Nitrogen 12 mg/dL (7-17); Calcium 9.1 mg/dL (8.4-10.2); Hemolysis Index 33
[2021-04-07 16:36] LABS: BUN/Creatinine Ratio 24
[2021-04-07 16:40] LABS: Hematocrit 35.7 % (30.3-42.9); Hemoglobin 10.8 gm/dl (10.1-14.3); Mean Corpuscular HGB Conc 30 % (30-34); Mean Corpuscular Volume 84 fl (79-97); Platelet Count 85 K/mm3 (140-440); Red Blood Count 4.24 M/mm3 (3.65-5.03)
[2021-04-07] MEDS: fentaNYL 100 MCG/2 ML INJ IV PRN ×2 (20:56→21:24)
[2021-04-07] MEDS: MIDAZOLAM 100 MG in SODIUM CHLORIDE 0.9% 80 ML IV SCH (21:52)
[2021-04-07] MEDS: MIDAZOLAM 2 MG/2 ML INJ IV PRN (21:53)
[2021-04-08] MEDS: fentaNYL DRIP Premix 2,000 MCG/100 ML BAG IV SCH ×5 (03:46→22:02)
--- NOTE | 2021-04-08 04:17 | XRay Report ---
CHEST 1 VIEW 04/08/2021 3:07 AM INDICATION / CLINICAL INFORMATION: follow up respiratory failure. COMPARISON: 04/07/2021 FINDINGS: SUPPORT DEVICES: Stable, satisfactory device positioning. HEART / MEDIASTINUM: No significant abnormality. LUNGS / PLEURA: No significant change in low lung volumes with bibasilar opacities. No pneumothorax. ADDITIONAL FINDINGS: No significant additional findings. IMPRESSION: 1. No significant change. Signer Name: Abdifatah Frederick DO Signed: 04/08/2021 4:13 AM Workstation Name: [id number]
[2021-04-08] MEDS: methylPREDNISolone Sod Succinate 40 MG/1 ML INJ IV SCH ×3 (06:28→22:02)
[2021-04-08] MEDS: PHENYTOIN 100 MG in SODIUM CHLORIDE 0.9% 100 ML IV SCH ×3 (06:28→22:02)
--- NOTE | 2021-04-08 09:38 | Progress Note ---
Assessment and Plan Assessment and plan: Acute hypoxic respiratory failure. Anaphylactic reaction. Obesity hypoventilation syndrome. DVT prophylaxis 04/05/2021. Patient currently on dipper Van and fentanyl. However, nurse reports patient still agitated. Ativan IV ordered. Wean mechanical ventilation per pulmonary recommendations. Continue Solu-Medrol 40 mg IV every 8 hours. Add Pepcid 20 mg IV twice daily and Benadryl 25 mg IV every 6 hours. Continue supportive care 04/06/2021. The patient is currently on AC mode ventilation rate of 20, tidal volume 400, FiO2 25%. Wean mechanical ventilation per protocol. Continue bronchodilators/nebulizers. Patient currently sedated with propofol, Versed and fentanyl drip. Continue Solu-Medrol, Benadryl and Pepcid twice daily 04/07/2021. Patient currently sedated with Versed, fentanyl and propofol. Continue sedation per pulmonary recommendations. I spoke with the mother who re ports numerous allergies that were reported to the nurse. The mother requests records from [facility] in [place]. Continue Solu-Medrol, Benadryl and Pepcid twice daily 04/08/2021. Patient reportedly with a cuff leak yesterday. We will reassess today for cuff leak and if continues will likely extubate per pulmonary. Continue Versed, fentanyl and propofol for sedation. Continue Solu-Medrol, Benadryl and Pepcid twice daily The high probability of a clinically significant, sudden or life threatening deterioration of the [respiratory] system(s) required my full and direct attention, intervention and personal management. The aggregate critical care time was [32] minutes. This time is in addition to time spent performing reported procedures but includes the following: [X] Data Review and interpretation [X] Patient assessment and monitoring of vital signs [X] Documentation [X] Medication orders and management History Interval history: Patient currently intubated and sedated on mechanical ventilation. Hospitalist Physical - Constitutional Vitals: Temp Pulse Resp BP Pulse Ox 97.2 F L 82 22 106/60 96 04/08/21 03:00 04/08/21 07:00 04/08/21 07:00 04/08/21 07:00 04/08/21 07:00 General appearance: Present: no acute distress, other (Intubated on mechanical ventilator) - EENT Eyes: Present: PERRL, EOM intact ENT: hearing intact, clear oral mucosa, dentition normal - Neck Neck: Present: supple, normal ROM - Respiratory Respiratory effort: normal Respiratory: bilateral: CTA - Cardiovascular Rhythm: regular Heart Sounds: Present: S1 & S2. Absent: gallop, rub - Extremities Extremities: no ischemia, No edema, Full ROM - Abdominal General gastrointestinal: soft, non-tender, non-distended, normal bowel sounds - Integumentary Integumentary: Present: clear, warm, dry - Neurologic Neurologic: CNII-XII intact, moves all extremities Results - Labs CBC & Chem 7: 04/07/21 15:13 04/07/21 15:13 Labs: Laboratory Last Values WBC 12.2 K/mm3 (4.5-11.0) H 04/07/21 15:13 RBC 4.24 M/mm3 (3.65-5.03) 04/07/21 15:13 Hgb 10.8 gm/dl (10.1-14.3) 04/07/21 15:13 Hct 35.7 % (30.3-42.9) 04/07/21 15:13 MCV 84 fl (79-97) 04/07/21 15:13 MCH 26 pg (28-32) L 04/07/21 15:13 MCHC 30 % (30-34) 04/07/21 15:13 RDW 19.0 % (13.2-15.2) H 04/07/21 15:13 Plt Count 85 K/mm3 (140-440) L 04/07/21 15:13 Lymph % (Auto) 9.7 % (13.4-35.0) L 04/06/21 07:49 [place] % (Auto) 5.8 % (0.0-7.3) 04/06/21 07:49 Eos % (Auto) 0.6 % (0.0-4.3) 04/06/21 07:49 Baso % (Auto) 0.8 % (0.0-1.8) 04/06/21 07:49 Lymph # (Auto) 1.3 K/mm3 (1.2-5.4) 04/06/21 07:49 [place] # (Auto) 0.8 K/mm3 (0.0-0.8) 04/06/21 07:49 Eos # (Auto) 0.1 K/mm3 (0.0-0.4) 04/06/21 07:49 Baso # (Auto) 0.1 K/mm3 (0.0-0.1) 04/06/21 07:49 Add Manual Diff Complete 04/05/21 03:37 Total Counted 100 04/05/21 03:37 Seg Neutrophils % 83.1 % (40.0-70.0) H 04/06/21 07:49 Seg Neuts % (Manual) 90.0 % (40.0-70.0) H 04/05/21 03:37 Band Neutrophils % 1.0 % 04/05/21 03:37 Lymphocytes % (Manual) 6.0 % (13.4-35.0) L 04/05/21 03:37 Monocytes % (Manual) 3.0 % (0.0-7.3) 04/05/21 03:37 Nucleated RBC % Not Reportable 04/05/21 03:37 Seg Neutrophils # 10.8 K/mm3 (1.8-7.7) H 04/06/21 07:49 Seg Neutrophils # Man 14.0 K/mm3 (1.8-7.7) H 04/05/21 03:37 Band Neutrophils # 0.2 K/mm3 04/05/21 03:37 Lymphocytes # (Manual) 0.9 K/mm3 (1.2-5.4) L 04/05/21 03:37 Abs React Lymphs (Man) 0.0 K/mm3 04/05/21 03:37 Monocytes # (Manual) 0.5 K/mm3 (0.0-0.8) 04/05/21 03:37 Eosinophils # (Manual) 0.0 K/mm3 (0.0-0.4) 04/05/21 03:37 Basophils # (Manual) 0.0 K/mm3 (0.0-0.1) 04/05/21 03:37 Metamyelocytes # 0.0 K/mm3 04/05/21 03:37 Myelocytes # 0.0 K/mm3 04/05/21 03:37 Promyelocytes # 0.0 K/mm3 04/05/21 03:37 Blast Cells # 0.0 K/mm3 04/05/21 03:37 WBC Morphology Not Reportable 04/05/21 03:37 Hypersegmented Neuts Not Reportable 04/05/21 03:37 Hyposegmented Neuts Not Reportable 04/05/21 03:37 Hypogranular Neuts Not Reportable 04/05/21 03:37 Smudge Cells Not Reportable 04/05/21 03:37 Toxic Granulation Not Reportable 04/05/21 03:37 Toxic Vacuolation Not Reportable 04/05/21 03:37 Dohle Bodies Not Reportable 04/05/21 03:37 Pelger-Huet Anomaly Not Reportable 04/05/21 03:37 Fermin Rods Not Reportable 04/05/21 03:37 Platelet Estimate Consistent w auto 04/05/21 03:37 Clumped Platelets Not Reportable 04/05/21 03:37 Plt Clumps, EDTA Not Reportable 04/05/21 03:37 Large Platelets Not Reportable 04/05/21 03:37 Giant Platelets Not Reportable 04/05/21 03:37 Platelet Satelliting Not Reportable 04/05/21 03:37 Plt Morphology Comment Not Reportable 04/05/21 03:37 RBC Morphology Not Reportable 04/05/21 03:37 Dimorphic RBCs Not Reportable 04/05/21 03:37 Polychromasia Not Reportable 04/05/21 03:37 Hypochromasia 1+ 04/05/21 03:37 Poikilocytosis Not Reportable 04/05/21 03:37 Anisocytosis 1+ 04/05/21 03:37 Microcytosis 1+ 04/05/21 03:37 Macrocytosis Not Reportable 04/05/21 03:37 Spherocytes Not Reportable 04/05/21 03:37 Pappenheimer Bodies Not Reportable 04/05/21 03:37 Sickle Cells Not Reportable 04/05/21 03:37 Target Cells Not Reportable 04/05/21 03:37 Tear Drop Cells Not Reportable 04/05/21 03:37 Ovalocytes Few 04/05/21 03:37 Helmet Cells Not Reportable 04/05/21 03:37 [place] Bodies Not Reportable 04/05/21 03:37 [place] Rings Not Reportable 04/05/21 03:37 [place] Cells Not Reportable 04/05/21 03:37 Bite Cells Not Reportable 04/05/21 03:37 Crenated Cell Not Reportable 04/05/21 03:37 Elliptocytes Not Reportable 04/05/21 03:37 Acanthocytes (Spur) Not Reportable 04/05/21 03:37 Rouleaux Not Reportable 04/05/21 03:37 Hemoglobin C Crystals Not Reportable 04/05/21 03:37 Schistocytes Not Reportable 04/05/21 03:37 Malaria parasites Not Reportable 04/05/21 03:37 Paddy Bodies Not Reportable 04/05/21 03:37 Hem Pathologist Commnt No 04/05/21 03:37 ABG pH 7.521 (7.320-7.450) H 04/07/21 03:59 POC ABG pCO2 32.0 mmHg (32.0-48.0) 04/07/21 03:59 ABG pCO2 35.2 mm Hg 04/06/21 11:33 POC ABG pO2 105.4 mmHg (83-108) 04/07/21 03:59 ABG pO2 89.0 mm Hg (80.0-90.0) 04/06/21 11:33 POC ABG HCO3 25.6 04/07/21 03:59 ABG HCO3 22.0 mmol/L (20.0-26.0) 04/06/21 11:33 ABG O2 Saturation 98.2 (0-100) 04/07/21 03:59 ABG O2 Content 11.9 (0.0-44) 04/06/21 11:33 POC ABG Base Excess 3.1 04/07/21 03:59 ABG Base Excess -2.2 mmol/L (-2.0-3.0) L 04/06/21 11:33 ABG Hemoglobin 11.0 (12.0-17.5) L 04/07/21 03:59 ABG Oxyhemoglobin 97.7 (94-98) 04/07/21 03:59 ABG Carboxyhemoglobin 1.3 % (0.0-5.0) 04/06/21 11:33 ABG Methemoglobin 0 (0.0-1.5) 04/07/21 03:59 ABG Sodium 145.3 mmol/L (136.0-145.0) H 04/07/21 03:59 ABG Potassium 4.0 mmol/L (3.40-4.50) 04/07/21 03:59 ABG Chloride 116.0 mmol/L (98-107) H 04/07/21 03:59 ABG Glucose 138 mg/dL (65-95) H 04/07/21 03:59 Oxyhemoglobin 95.4 % (95.0-99.0) 04/06/21 11:33 Carboxyhemoglobin 0.5 (0.5-1.5) 04/07/21 03:59 FiO2 25 % 04/06/21 11:33 FiO2 % 25.0 04/07/21 03:59 Sodium 145 mmol/L (137-145) 04/07/21 15:13 Potassium 4.6 mmol/L (3.6-5.0) 04/07/21 15:13 Chloride 111.1 mmol/L (98-107) H 04/07/21 15:13 Carbon Dioxide 20 mmol/L (22-30) L 04/07/21 15:13 Anion Gap 19 mmol/L 04/07/21 15:13 BUN 12 mg/dL (7-17) 04/07/21 15:13 Creatinine 0.5 mg/dL (0.6-1.2) L 04/07/21 15:13 Estimated GFR > 60 ml/min 04/07/21 15:13 BUN/Creatinine Ratio 24 % 04/07/21 15:13 Glucose 126 mg/dL (65-100) H 04/07/21 15:13 POC Glucose 98 mg/dL (70-105) 04/08/21 06:03 Calcium 9.1 mg/dL (8.4-10.2) 04/07/21 15:13 Triglycerides 153 mg/dL (2-149) H 04/07/21 15:13 HCG, Qual Negative (Negative) 04/04/21 Unknown Arterial Blood Glucose 138 mg/dL (65-95) H 04/07/21 03:59 Microbiology: Microbiology 04/04/21 17:04 Tracheal Aspirate Sputum Culture - Final Proctor/IV: Voiding Method Self-Catheterization Active Medications - Current Medications Current Medications: Generic Name Dose Route Start Last Admin Trade Name Freq PRN Reason Stop Dose Admin Acetaminophen 650 mg 04/04/21 18:37 Acetaminophen 325 Mg Tab PO Q6H PRN Pain MILD(1-3)/Fever >100.5/JONES Albuterol 2.5 mg 04/04/21 18:37 04/04/21 21:49 Albuterol 2.5 Mg/3 Ml Nebu IH 2.5 mg Q3HRT PRN Administration Shortness Of Breath Lipase/Protease/Amylase 1 each 04/05/21 15:50 Lipase 10,500/Protease 25,000/Amylase 43,750 (Units) Dr Cap FEEDTUBE PRN PRN For Clogged Feeding Tube Diphenhydramine HCl 25 mg 04/05/21 10:51 Diphenhydramine 50 Mg/Ml Vial IV Q6H PRN Itching Diphenhydramine HCl 25 mg 04/05/21 22:10 04/07/21 21:41 Diphenhydramine 50 Mg/Ml Vial IV 25 mg Q12HR CRISTY Administration Famotidine 20 mg 04/04/21 22:00 04/07/21 21:41 Famotidine 20 Mg/2 Ml Inj IV 20 mg BID CRISTY Administration Fentanyl 50 mcg 04/04/21 19:20 04/07/21 21:24 Fentanyl 100 Mcg/2 Ml Inj IV 50 mcg Q10MIN PRN Administration ANALGESIA Heparin Sodium (Porcine) 5,000 unit 04/04/21 22:00 04/07/21 21:40 Heparin 5,000 Unit/1 Ml Vial SUB-Q 5,000 unit Q12HR CRISTY Administration Hydromorphone HCl 0.5 mg 04/04/21 18:37 04/04/21 19:27 Hydromorphone 1 Mg/1 Ml Inj IV 0.5 mg Q23H PRN Administration Pain , Severe (7-10) Hydrophilic Ointment 1 applic 04/04/21 16:16 Lip Therapy Vaseline TP Q2HR PRN Dry Lips Fentanyl Citrate 2,000 mcg in 100 mls @ 5.67 mls/hr 04/04/21 20:00 04/08/21 09:05 Fentanyl Drip Premix IV 4 mcg/kg/hr TITR CRISTY 22.68 mls/hr Administration Protocol 1 MCG/KG/HR Levetiracetam 1,500 mg/ 115 mls @ 400 mls/hr 04/05/21 15:00 04/07/21 21:40 Dextrose IV 400 mls/hr Q12HR CRISTY Administration Phenytoin 100 mg/ Sodium 102 mls @ 408 mls/hr 04/06/21 14:00 04/08/21 06:28 Chloride IV 408 mls/hr Q8HR CRISTY Administration Dexmedetomidine HCl 200 mcg/ 50 mls @ 5.665 mls/hr 04/07/21 12:00 04/08/21 09:11 Sodium Chloride IV 1.4 mcg/kg/hr TITRATE CRISTY 39.655 mls/hr Administration Protocol 0.2 MCG/KG/HR Midazolam HCl 100 mg/ Sodium 100 mls @ 1 mls/hr 04/07/21 22:00 04/08/21 09:19 Chloride IV 3 mg/hr TITR CRISTY 3 mls/hr Titration Protocol 1 MG/HR Lacosamide 200 mg 04/06/21 13:00 04/07/21 21:42 Lacosamide 100 Mg Tab PO 200 mg Q12HR CRISTY Administration Methylprednisolone Sodium Succinate 40 mg 04/04/21 22:00 04/08/21 06:28 Methylprednisolone Sod Succinate 40 Mg/1 Ml Inj IV 40 mg Q8HR CRISTY Administration Midazolam HCl 2 mg 04/07/21 21:36 04/07/21 21:53 Midazolam 2 Mg/2 Ml Inj IV 2 mg Q10MIN PRN Administration Sedation Multi-Ingred Cream/Lotion/Oil/Oint 1 applic 04/04/21 16:16 Mineral Oil/Petrolatum, White Ophth Oint 3.5 Gm OU Q4HR PRN Dry Eye(s) Oxycodone/Acetaminophen 1 tab 04/04/21 18:37 Oxycodone /Acetaminophen 5-325mg Tab PO Q16H PRN Pain, Moderate (4-6) Quetiapine Fumarate 50 mg 04/07/21 14:00 04/07/21 21:23 Quetiapine 25 Mg Tab PO 50 mg BID CRISTY Administration Senna/Docusate Sodium 1 tab 04/04/21 22:00 04/07/21 21:41 Sennosides/Docusate Sodium 8.6/50 Mg Tab FEEDTUBE 1 tab BID CRISTY Administration Simple Syrup 15 ml 04/05/21 15:50 Simple Syrup 15 Ml FEEDTUBE PRN PRN Hypoglycemia Simple Syrup 30 ml 04/05/21 15:50 Simple Syrup 15 Ml FEEDTUBE PRN PRN Hypoglycemia Sodium Bicarbonate 325 mg 04/05/21 15:50 Sodium Bicarbonate 325 Mg Tab FEEDTUBE PRN PRN For Clogged Feeding Tube Sodium Chloride 10 ml 04/04/21 22:00 04/07/21 21:41 Sodium Chloride 0.9% 10 Ml Flush Syringe IV 10 ml BID CRISTY Administration Sodium Chloride 10 ml 04/04/21 18:37 Sodium Chloride 0.9% 10 Ml Flush Syringe IV PRN PRN LINE FLUSH Nutrition/Malnutrition Assess - Dietary Evaluation Nutrition/Malnutrition Findings: Nutrition Notes Start: 04/05/21 10:18 Freq: Status: Active Protocol: Document 04/05/21 10:18 GB (Rec: 04/05/21 10:28 GB [id number]) Nutrition Notes Need for Assessment generated from: MD Order Initial or Follow up Assessment Current Diagnosis Respiratory Failure Other Pertinent Diagnosis Exposure to Peanuts, allergic reaction Current Diet NPO Labs/Tests 04/05: K 5.6, glucose 181 Pertinent Medications fentanyl citrate, propofol @ 34.019ml/hr (898kcal), NaCl Height 5 ft 6 in Weight 113.398 kg [place] Body Weight (kg) 59.09 BMI 40.3 Intake Prior to Admission Good Weight change and time frame admit Weight Status Morbidly Obese Subjective/Other Information H&P: Pt has peanut allergy, exposed on plane ride, treated with epinephrin pin, respiratory failure r/t reaction to peanuts w/ constricting airway. Per chart: pt now intubated to protect airway, pt experiences alertness w/ attempts to remove tubes/lines /restraints. Percent of energy/protein needs met: 0%, NPO Burn Absent Trauma Absent GI Symptoms None Food Allergy Yes Skin Integrity/Comment no complications reported Current % PO Other Minimum of two criteria No #1 Nutrition Diagnosis Other: (Specify in comment below) Comments: Food allergy exposure with reaction of constricting airway Etiology reported peanut allergy As Evidenced by Signs and Symptoms currently intubated to protect airway Is patient on ventilator? Yes Is Patient Ambulatory and/or Out of Bed No REE-([facility]-confined to bed) 2264.112 Kcal/Kg value to use for calculation 15 Approximate Energy Requirements Using 1701 kcal/Kg Calculation Used for Recommendations Kcal/kg Additional Notes Protein: 0.8-1 g/kg @113k -113g Fluids: 1 ml/kcal or per MD TF not recommended as most products are soy based. With peanut allergy severe/unsure of soy allergy. Vital HP is the only product w/o soy. Start in 48hrs if not extubated. Nutrition Intervention Change Diet Order: Continue NPO, when extubated advance to regular Nutrition Support: Vital HP (only product w/o SOY products) due to severe peanut allergy, unknown if allergy extends to soy. Propofol providing 898kcal at 34ml/hr Goal rate 45ml/hr. Start rate 15ml/hr. Flush 100ml/4hr Total fluids: TF (903ml) + Flush (600ml) = 1503ml Kcal 1,080 Protein (gm) 95 Carbohydrates (gm) 121 Fat (gm) 25 Fluid (mL) 903 Add Supplement/Snack (indicate name/kcal n/a /protein ) Goal #1 Extubation r/t recovery from food allergy reaction by f/u Goal #2 Diet advanced to Regular Goal #3 TF tolerance Vital HP goal rate 50ml/hr Follow-Up By: 04/09/21 Additional Comments TF not recommended. Propofol providing 898 kcal at current rate. Recovery from food allergic reaction for extubation in less than 5 days .
[2021-04-08] MEDS: MIDAZOLAM 2 MG/2 ML INJ IV PRN ×5 (10:05→15:37)
[2021-04-08] MEDS ORDERED: FUROSEMIDE 20 MG/2 ML INJ ONE (10:21)
[2021-04-08] MEDS ORDERED: FUROSEMIDE 20 MG/2 ML INJ IV ONE (10:22)
[2021-04-08] MEDS: HEPARIN 5,000 UNIT/1 ML VIAL SUB-Q SCH ×2 (10:27→22:02)
[2021-04-08] MEDS: FAMOTIDINE 20 MG/2 ML INJ IV SCH ×2 (10:27→22:02)
[2021-04-08] MEDS: diphenhydrAMINE 50 MG/ML VIAL IV SCH ×2 (10:28→22:02)
[2021-04-08] MEDS: QUEtiapine 25 MG TAB PO SCH (10:28)
[2021-04-08] MEDS: LACOSAMIDE 100 MG TAB PO SCH ×2 (10:28→22:02)
[2021-04-08] MEDS: levETIRAcetam 1,500 MG in DEXTROSE 5% IN WATER 100 ML IV SCH ×2 (11:28→22:02)
[2021-04-08] MEDS: SENNOSIDES/DOCUSATE SODIUM 8.6/50 MG TAB FEEDTUBE SCH ×2 (11:29→22:01)
[2021-04-08] MEDS: MIDAZOLAM 100 MG in SODIUM CHLORIDE 0.9% 80 ML IV SCH (12:18)
[2021-04-08 12:50] LABS: Bilirubin,Urine NEG (Negative); Blood,Urine NEG (Negative); Color,Urine Yellow (Yellow); Mucus,Urine FEW /HPF; Protein,Urine <15 mg/dL mg/dL (Negative); Urobilinogen,Urine < 2.0 mg/dL (<2.0)
[2021-04-08] MEDS ORDERED: VANCOMYCIN 1,000 MG/20 ML IV ONE (13:00)
[2021-04-08] MEDS ORDERED: VANCOMYCIN/NS 1 GM/250 ML 1 GM/250 ML BAG IV ONE (13:00)
[2021-04-08] MEDS ORDERED: VANCOMYCIN 2,000 MG in SODIUM CHLORIDE 0.9% 500 ML 500 ML IV ONE (14:00)
--- NOTE | 2021-04-08 14:57 | Progress Note ---
Subjective Date of service: 04/08/21 Principal diagnosis: Acute hypoxemic resp failure; Anaphylaxis, peanut allergy; Obesity Interval history: SUMMARY 25 YO Female with Obesity Hypoventilation Syndrome, Peanut Allergy presents to ED for evaluation. Patient intubated and ambulatory support time my evaluation is unable to provide history. Patient history taken from EMS staff, ED staff. As per staff the patient was exposed to peanuts during an airplane flight. Patient developed an allergic reaction while on the airplane and was treated with subcu epinephrine. EMS was notified upon plan arrival [facility]. Patient transported to [facility] for further care and evaluation of the aforementioned symptoms. Patient seen and evaluated in the emergency department. All lab and imaging studies reviewed. Patient was found to have acute approximate respiratory failure secondary to acute airway compromise. Patient was intubated for airway protection and admitted to ICU. Follow up for: Acute hypoxic resp failure: Anaphylaxis with peanut allergy; Obesity; h/o Seizure disorder Seen and examined. Vitals, labs, medications, chart and imaging reviewed. Discussed with respiratory and nursing staff during interdisciplinary rounds. No fevers, sedated on Midazolam, Fentanyl and Propofol Reported intermittent agitation, break through seizure reported in the ED prior to transfer to the ICU Remains on MVS, ETT 6.5 Objective Vital Signs - 12hr 04/08/21 04/08/21 04/08/21 03:00 03:15 03:30 Temperature 97.2 F L Pulse Rate 80 80 79 Respiratory 14 13 12 Rate Blood Pressure 89/56 106/69 85/55 O2 Sat by Pulse 92 93 91 Oximetry 04/08/21 04/08/21 04/08/21 03:45 04:00 04:15 Temperature Pulse Rate 79 79 93 H Respiratory 13 13 15 Rate Blood Pressure 84/50 86/55 102/68 O2 Sat by Pulse 92 97 99 Oximetry 04/08/21 04/08/21 04/08/21 04:31 04:45 05:01 Temperature Pulse Rate 98 H 93 H 87 Respiratory 23 16 15 Rate Blood Pressure 156/99 152/94 120/73 O2 Sat by Pulse 99 94 97 Oximetry 04/08/21 04/08/21 04/08/21 05:15 05:23 05:30 Temperature Pulse Rate 84 87 87 Respiratory 17 12 Rate Blood Pressure 108/63 120/73 118/71 O2 Sat by Pulse 98 97 97 Oximetry 04/08/21 04/08/2104/08/21 05:45 06:00 06:15 Temperature Pulse Rate 84 83 82 Respiratory 20 15 20 Rate Blood Pressure 106/63 108/61 106/59 O2 Sat by Pulse 96 98 97 Oximetry 04/08/21 04/08/21 04/08/21 06:30 06:45 07:00 Temperature Pulse Rate 82 82 82 Respiratory 18 9 L 22 Rate Blood Pressure 104/61 107/59 106/60 O2 Sat by Pulse 98 97 96 Oximetry 04/08/21 09:10 Temperature Pulse Rate 88 Respiratory Rate Blood Pressure 120/77 O2 Sat by Pulse 97 Oximetry Constitutional: no acute distress, asleep, other (obese, short neck, orally intubated, ETT 6.5) Eyes: non-icteric ENT: oropharynx moist Neck: supple, no lymphadenopathy Effort: mildly labored Ascultation: Bilateral: diminished breath sounds, rhonchi Cardiovascular: regular rate and rhythm, other (tachycardia) Gastrointestinal: normoactive bowel sounds, soft, non-tender, other (Proctor catheter in place) Integumentary: normal Extremities: no cyanosis, no edema Neurologic: non-focal exam (moves all extremities), pupils equal and round Psychiatric: other (Unable to assess) CBC and BMP: 04/07/21 15:13 04/07/21 15:13 ABG, PT/INR, D-dimer: ABG ABG pH 7.521 (7.320-7.450) H 04/07/21 03:59 POC ABG pCO2 32.0 mmHg (32.0-48.0) 04/07/21 03:59 ABG pCO2 35.2 mm Hg 04/06/21 11:33 POC ABG pO2 105.4 mmHg (83-108) 04/07/21 03:59 ABG pO2 89.0 mm Hg (80.0-90.0) 04/06/21 11:33 POC ABG HCO3 25.6 04/07/21 03:59 ABG O2 Saturation 98.2 (0-100) 04/07/21 03:59 Abnormal lab findings: Abnormal Labs 04/04/21 04/04/21 04/04/21 16:38 16:38 18:40 WBC 12.4 H MCV MCH 26 L RDW 18.1 H Plt Count Lymph % (Auto) Seg Neutrophils % 77.0 H Seg Neuts % (Manual) Lymphocytes % (Manual) Seg Neutrophils # 9.6 H Seg Neutrophils # Man Lymphocytes # (Manual) ABG pH 7.290 L ABG pO2 62.7 L ABG HCO3 ABG O2 Saturation 88.2 L ABG Base Excess -4.6 L ABG Hemoglobin 11.2 L ABG Sodium ABG Chloride ABG Glucose Oxyhemoglobin 86.5 L Potassium Chloride Carbon Dioxide 20 L BUN Creatinine Glucose 224 H POC Glucose Triglycerides Arterial Blood Glucose Urine WBC (Auto) 04/05/21 04/05/21 04/05/21 03:37 03:37 04:15 WBC 15.5 H MCV MCH 25 L RDW 19.0 H Plt Count Lymph % (Auto) Seg Neutrophils % Seg Neuts % (Manual) 90.0 H Lymphocytes % (Manual) 6.0 L Seg Neutrophils # Seg Neutrophils # Man 14.0 H Lymphocytes # (Manual) 0.9 L ABG pH 7.284 L ABG pO2 101.9 H ABG HCO3 18.5 L ABG O2 Saturation ABG Base Excess -7.7 L ABG Hemoglobin 10.3 L ABG Sodium ABG Chloride ABG Glucose Oxyhemoglobin Potassium 5.6 H D Chloride Carbon Dioxide 14 L BUN Creatinine Glucose 181 H POC Glucose Triglycerides Arterial Blood Glucose Urine WBC (Auto) 04/05/21 04/05/21 04/06/21 20:27 21:00 07:49 WBC 12.9 H MCV 77 L MCH 24 L RDW 18.2 H Plt Count Lymph % (Auto) 9.7 L Seg Neutrophils % 83.1 H Seg Neuts % (Manual) Lymphocytes % (Manual) Seg Neutrophils # 10.8 H Seg Neutrophils # Man Lymphocytes # (Manual) ABG pH ABG pO2 92.5 H ABG HCO3 ABG O2 Saturation ABG Base Excess ABG Hemoglobin 10.2 L ABG Sodium ABG Chloride ABG Glucose Oxyhemoglobin Potassium Chloride 111.7 H Carbon Dioxide BUN Creatinine Glucose POC Glucose Triglycerides Arterial Blood Glucose Urine WBC (Auto) 04/06/21 04/06/21 04/06/21 07:49 11:33 17:25 WBC MCV MCH RDW Plt Count Lymph % (Auto) Seg Neutrophils % Seg Neuts % (Manual) Lymphocytes % (Manual) Seg Neutrophils # Seg Neutrophils # Man Lymphocytes # (Manual) ABG pH ABG pO2 ABG HCO3 ABG O2 Saturation ABG Base Excess -2.2 L ABG Hemoglobin 8.7 L ABG Sodium ABG Chloride ABG Glucose Oxyhemoglobin Potassium Chloride 112.9 H Carbon Dioxide 20 L BUN 6 L Creatinine 0.5 L Glucose 105 H POC Glucose 125 H Triglycerides Arterial Blood Glucose Urine WBC (Auto) 04/07/21 04/07/21 04/07/21 03:59 05:14 15:13 WBC MCV MCH RDW Plt Count Lymph % (Auto) Seg Neutrophils % Seg Neuts % (Manual) Lymphocytes % (Manual) Seg Neutrophils # Seg Neutrophils # Man Lymphocytes # (Manual) ABG pH 7.521 H ABG pO2 ABG HCO3 ABG O2 Saturation ABG Base Excess ABG Hemoglobin 11.0 L ABG Sodium 145.3 H ABG Chloride 116.0 H ABG Glucose 138 H Oxyhemoglobin Potassium Chloride Carbon Dioxide BUN Creatinine Glucose POC Glucose 118 H Triglycerides 153 H Arterial Blood Glucose 138 H Urine WBC (Auto) 04/07/21 04/07/21 04/07/21 15:13 15:13 17:23 WBC 12.2 H MCV MCH 26 L RDW 19.0 H Plt Count 85 L Lymph % (Auto) Seg Neutrophils % Seg Neuts % (Manual) Lymphocytes % (Manual) Seg Neutrophils # Seg Neutrophils # Man Lymphocytes # (Manual) ABG pH ABG pO2 ABG HCO3 ABG O2 Saturation ABG Base Excess ABG Hemoglobin ABG Sodium ABG Chloride ABG Glucose Oxyhemoglobin Potassium Chloride 111.1 H Carbon Dioxide 20 L BUN Creatinine 0.5 L Glucose 126 H POC Glucose 122 H Triglycerides Arterial Blood Glucose Urine WBC (Auto) 04/07/21 04/08/21 04/08/21 23:55 12:10 12:25 WBC MCV MCH RDW Plt Count Lymph % (Auto) Seg Neutrophils % Seg Neuts % (Manual) Lymphocytes % (Manual) Seg Neutrophils # Seg Neutrophils # Man Lymphocytes # (Manual) ABG pH ABG pO2 ABG HCO3 ABG O2 Saturation ABG Base Excess ABG Hemoglobin ABG Sodium ABG Chloride ABG Glucose Oxyhemoglobin Potassium Chloride Carbon Dioxide BUN Creatinine Glucose POC Glucose 130 H 112 H Triglycerides Arterial Blood Glucose Urine WBC (Auto) 23.0 H Allied health notes reviewed: RT
[2021-04-08] MEDS: ACETAMINOPHEN 325 MG TAB PO PRN (14:58)
[2021-04-08] MEDS: CEFEPIME/NS 2 GM/100 ML 2 GM/100 ML BAG IV SCH (15:05)
[2021-04-08] MEDS ORDERED: MIDAZOLAM 2 MG/2 ML INJ ONE (15:20)
[2021-04-08 15:26] LABS: Alanine Aminotransferase 30 units/L (7-56); Albumin 3.6 g/dL (3.9-5); Blood Urea Nitrogen 17 mg/dL (7-17); Calcium 8.6 mg/dL (8.4-10.2); Hemolysis Index 127
[2021-04-08 15:27] LABS: BUN/Creatinine Ratio 28
[2021-04-08] MEDS ORDERED: QUEtiapine 100 MG TAB PO ONE (16:00)
[2021-04-08 16:01] LABS: Hematocrit 31.3 % (30.3-42.9); Hemoglobin 9.9 gm/dl (10.1-14.3); Mean Corpuscular HGB Conc 32 % (30-34); Mean Corpuscular Volume 80 fl (79-97); Platelet Count 176 K/mm3 (140-440); Red Blood Count 3.92 M/mm3 (3.65-5.03); Red Cell Distribution Width 18.1 % (13.2-15.2)
[2021-04-08] MEDS ORDERED: VANCOMYCIN 1,500 MG in SODIUM CHLORIDE 0.9% 500 ML 500 ML IV SCH (20:00)
[2021-04-08] MEDS: QUEtiapine 100 MG TAB PO SCH (22:01)
[2021-04-08] MEDS: VANCOMYCIN 1,500 MG in SODIUM CHLORIDE 0.9% 500 ML 500 ML IV SCH (22:02)
[2021-04-09] MEDS: CEFEPIME/NS 2 GM/100 ML 2 GM/100 ML BAG IV SCH ×3 (00:24→15:42)
[2021-04-09] MEDS: fentaNYL DRIP Premix 2,000 MCG/100 ML BAG IV SCH ×6 (02:13→23:04)
[2021-04-09] MEDS: fentaNYL 100 MCG/2 ML INJ IV PRN (02:30)
[2021-04-09] MEDS: MIDAZOLAM 2 MG/2 ML INJ IV PRN ×4 (02:31→17:34)
[2021-04-09] MEDS: MIDAZOLAM 100 MG in SODIUM CHLORIDE 0.9% 80 ML IV SCH ×2 (02:44→19:53)
[2021-04-09 04:55] LABS: Hemoglobin 9.9 gm/dl (10.1-14.3); Mean Corpuscular HGB Conc 32 % (30-34); Mean Corpuscular Volume 79 fl (79-97); Platelet Count 192 K/mm3 (140-440); Red Blood Count 3.93 M/mm3 (3.65-5.03); Red Cell Distribution Width 17.9 % (13.2-15.2)
[2021-04-09 05:12] LABS: Blood Urea Nitrogen 13 mg/dL (7-17); Calcium 8.8 mg/dL (8.4-10.2); Hemolysis Index 13
[2021-04-09] MEDS: PHENYTOIN 100 MG in SODIUM CHLORIDE 0.9% 100 ML IV SCH ×3 (05:21→22:08)
[2021-04-09] MEDS: VANCOMYCIN 1,500 MG in SODIUM CHLORIDE 0.9% 500 ML 500 ML IV SCH ×3 (05:21→22:09)
[2021-04-09 05:30] LABS: BUN/Creatinine Ratio 22
[2021-04-09] MEDS: methylPREDNISolone Sod Succinate 40 MG/1 ML INJ IV SCH ×3 (05:36→22:07)
[2021-04-09] MEDS: SENNOSIDES/DOCUSATE SODIUM 8.6/50 MG TAB FEEDTUBE SCH ×2 (09:11→22:07)
[2021-04-09] MEDS: FAMOTIDINE 20 MG/2 ML INJ IV SCH (09:12)
[2021-04-09] MEDS: LACOSAMIDE 100 MG TAB PO SCH ×2 (09:12→22:07)
[2021-04-09] MEDS: HEPARIN 5,000 UNIT/1 ML VIAL SUB-Q SCH ×2 (09:12→22:07)
[2021-04-09] MEDS: QUEtiapine 100 MG TAB PO SCH ×2 (09:13→22:06)
[2021-04-09] MEDS: levETIRAcetam 1,500 MG in DEXTROSE 5% IN WATER 100 ML IV SCH ×2 (09:15→22:08)
--- NOTE | 2021-04-09 09:24 | XRay Report ---
XR chest 1V ap INDICATION / CLINICAL INFORMATION: follow up respiratory failure. COMPARISON: Radiograph from yesterday. FINDINGS: SUPPORT DEVICES: Unchanged. HEART /PULMONARY VASCULATURE: Unchanged. LUNGS / PLEURA: Worsening bilateral pulmonary airspace opacities, most pronounced in the perihilar re gions. No sizable pleural effusion. No pneumothorax. IMPRESSION: 1. Worsening airspace disease. Signer Name: Arnulfo Mcmillan MD Signed: 04/09/2021 9:20 AM Workstation Name: [email or web address]
[2021-04-09] MEDS ORDERED: SIMPLE SYRUP 15 ML FEEDTUBE PRN ×2 (11:49)
[2021-04-09] MEDS ORDERED: LIPASE 10,500/PROTEASE 25,000/AMYLASE 43,750 (UNITS) DR CAP FEEDTUBE PRN (11:49)
[2021-04-09] MEDS ORDERED: SODIUM BICARBONATE 325 MG TAB FEEDTUBE PRN (11:49)
[2021-04-09] MEDS ORDERED: VANCOMYCIN PHARMACY TO DOSE IV SCH (12:00)
--- NOTE | 2021-04-09 16:47 | Progress Note ---
Assessment and Plan Acute respiratory failure secondary to anaphylaxis and peanut allergy Aspiration pneumonia Seizure disorder Morbid obesity, BMI 38.9 Multiple allergies Wean PEEP down to 6 Continue antibiotics for aspiration PNA- fevers trended down nicely on antibiotics, oxygenation has also improved CXR, ABG as clinically indicated Continue with agitation management, AEDs. Monitor QTc, get 12 lead EKG in maida morning Plan on SBT in the morning and possible liberation form MVS- agitation management remains challenging - VAP bundle addressed, aspiration precautions (HOB > 40 degrees) -Titrate supplemental oxygen to keep SpO2 88-90% -Lung protective strategies - SAT and SBT daily as tolerated and per protocol -Keep negative fluid balance as tolerated by hemodynamics and renal function to help facilitate weaning trials - Glycemic control for target BG 140-180 mg while critically ill; avoid hypoglycemia - bronchodilators with pulmonary hygiene per RT - avoid nephrotoxins, renally dose all medications - prn analgesia per pain score, CPOT score 0-3 - Maintenance of sleep-wake cycle, avoid delirium -Sedation to RASS -1 to -2. Agitation management - supportive transfusions for serum Hgb < 7.0g/dl, as clinically indicated -Enteric nutritional support, at goal.Bowel regimen - Stress ulcer prophylaxis- on Famotidine -VTE prophylaxis- on Heparin - mobility , off loading, frequent turning per facility protocols for pressure ulcer prevention - continue to monitorr hemodynamics closely -Chronic home medications as clinically indicated, resumed all anti-seizure medications( Keppra, Dilantin and Vimpat) - continue other care per attending / other consultants CONDITION: CRITICAL PROGNOSIS: GUARDED CODE STATUS: FULL CODE The high probability of a clinically significant, sudden or life-threatening deterioration of the [respiratory, cardiovascular] system(s) required my full and direct attention, intervention and personal management. The aggregate critical care time was [35] minutes without overlap. Time includes spent on; [x] Data Review and interpretation [x] Patient assessment and monitoring of vital signs [x] Documentation [x] Medication orders and management Subjective Date of service: 04/09/21 Principal diagnosis: Acute hypoxemic resp failure; Anaphylaxis, peanut allergy; Obesity Interval history: SUMMARY 25 YO Female with Obesity Hypoventilation Syndrome, Peanut Allergy presents to ED for evaluation. Patient intubated and ambulatory support time my evaluation is unable to provide history. Patient history taken from EMS staff, ED staff. As per staff the patient was exposed to peanuts during an airplane flight. Patient developed an allergic reaction while on the airplane and was treated with subcu epinephrine. EMS was notified upon plan arrival to [facility]. Patient transported to [facility] for further care and evaluation of the aforementioned symptoms. Patient seen and evaluated in the emergency department. All lab and imaging studies reviewed. Patient was found to have acute approximate respiratory failure secondary to acute airway compromise. Patient was intubated for airway protection and admitted to ICU. Follow up for: Acute hypoxic resp failure: Anaphylaxis with peanut allergy; Obesity; h/o Seizure disorder; Aspiration pneumonia(fevers, leukocytosis, infiltrate on CXR) Seen and examined. Vitals, labs, medications, chart and imaging reviewed. Discussed with respiratory and nursing staff during interdisciplinary rounds. No fevers, sedated on Midazolam, Fentanyl and Propofol On antibiotics Vanc and Levofloxacin for Aspiration PNA. On Seroquel for agitation management On going intermittent agitation, Remains on MVS, ETT 6.5 Vent settings AC 450/12/ + 8/ 30% Objective Vital Signs - 12hr 04/09/21 04/09/21 04/09/21 05:00 05:15 05:30 Temperature Pulse Rate 85 83 83 Respiratory 13 12 12 Rate Blood Pressure 128/67 128/68 127/64 O2 Sat by Pulse 100 100 100 Oximetry 04/09/21 04/09/21 04/09/21 05:45 06:00 08:00 Temperature Pulse Rate 84 84 87 Respiratory 12 12 Rate Blood Pressure 125/67 125/67 136/76 O2 Sat by Pulse 100 100 99 Oximetry 04/09/21 04/09/21 04/09/21 11:24 12:00 15:02 Temperature 99.3 F Pulse Rate 83 80 Respiratory Rate Blood Pressure 120/65 128/74 O2 Sat by Pulse 100 100 Oximetry Constitutional: no acute distress, asleep, other (obese, short neck, orally intubated, ETT 6.5) Eyes: non-icteric ENT: oropharynx moist Neck: supple, no lymphadenopathy Effort: mildly labored Ascultation: Bilateral: diminished breath sounds, rhonchi Cardiovascular: regular rate and rhythm, other (tachycardia) Gastrointestinal: normoactive bowel sounds, soft, non-tender, other (Proctor catheter in place) Integumentary: normal Extremities: no cyanosis, no edema Neurologic: non-focal exam (moves all extremities), pupils equal and round Psychiatric: other (Unable to assess) CBC and BMP: 04/10/21 04:35 04/10/21 04:35 ABG, PT/INR, D-dimer: ABG ABG pH 7.351 (7.320-7.450) 04/09/21 04:35 POC ABG pCO2 46.0 mmHg (32.0-48.0) 04/09/21 04:35 ABG pCO2 35.2 mm Hg 04/06/21 11:33 POC ABG pO2 84.3 mmHg (83-108) 04/09/21 04:35 ABG pO2 89.0 mm Hg (80.0-90.0) 04/06/21 11:33 POC ABG HCO3 24.9 04/09/21 04:35 ABG O2 Saturation 96.1 (0-100) 04/09/21 04:35 Abnormal lab findings: Abnormal Labs 04/04/21 04/04/21 04/04/21 16:38 16:38 18:40 WBC 12.4 H Hgb MCV MCH 26 L RDW 18.1 H Plt Count Lymph % (Auto) Seg Neutrophils % 77.0 H Seg Neuts % (Manual) Lymphocytes % (Manual) Seg Neutrophils # 9.6 H Seg Neutrophils # Man Lymphocytes # (Manual) ABG pH 7.290 L POC ABG pO2 ABG pO2 62.7 L ABG HCO3 ABG O2 Saturation 88.2 L ABG Base Excess -4.6 L ABG Hemoglobin 11.2 L ABG Oxyhemoglobin ABG Sodium ABG Chloride ABG Glucose Oxyhemoglobin 86.5 L Sodium Potassium Chloride Carbon Dioxide 20 L BUN Creatinine Glucose 224 H POC Glucose Total Protein Albumin Triglycerides Arterial Blood Glucose Urine WBC (Auto) Phenytoin 04/05/21 04/05/21 04/05/21 03:37 03:37 04:15 WBC 15.5 H Hgb MCV MCH 25 L RDW 19.0 H Plt Count Lymph % (Auto) Seg Neutrophils % Seg Neuts % (Manual) 90.0 H Lymphocytes % (Manual) 6.0 L Seg Neutrophils # Seg Neutrophils # Man 14.0 H Lymphocytes # (Manual) 0.9 L ABG pH 7.284 L POC ABG pO2 ABG pO2 101.9 H ABG HCO3 18.5 L ABG O2 Saturation ABG Base Excess -7.7 L ABG Hemoglobin 10.3 L ABG Oxyhemoglobin ABG Sodium ABG Chloride ABG Glucose Oxyhemoglobin Sodium Potassium 5.6 H D Chloride Carbon Dioxide 14 L BUN Creatinine Glucose 181 H POC Glucose Total Protein Albumin Triglycerides Arterial Blood Glucose Urine WBC (Auto) Phenytoin 04/05/21 04/05/21 04/06/21 20:27 21:00 07:49 WBC 12.9 H Hgb MCV 77 L MCH 24 L RDW 18.2 H Plt Count Lymph % (Auto) 9.7 L Seg Neutrophils % 83.1 H Seg Neuts % (Manual) Lymphocytes % (Manual) Seg Neutrophils # 10.8 H Seg Neutrophils # Man Lymphocytes # (Manual) ABG pH POC ABG pO2 ABG pO2 92.5 H ABG HCO3 ABG O2 Saturation ABG Base Excess ABG Hemoglobin 10.2 L ABG Oxyhemoglobin ABG Sodium ABG Chloride ABG Glucose Oxyhemoglobin Sodium Potassium Chloride 111.7 H Carbon Dioxide BUN Creatinine Glucose POC Glucose Total Protein Albumin Triglycerides Arterial Blood Glucose Urine WBC (Auto) Phenytoin 04/06/21 04/06/21 04/06/21 07:49 11:33 17:25 WBC Hgb MCV MCH RDW Plt Count Lymph % (Auto) Seg Neutrophils % Seg Neuts % (Manual) Lymphocytes % (Manual) Seg Neutrophils # Seg Neutrophils # Man Lymphocytes # (Manual) ABG pH POC ABG pO2 ABG pO2 ABG HCO3 ABG O2 Saturation ABG Base Excess -2.2 L ABG Hemoglobin 8.7 L ABG Oxyhemoglobin ABG Sodium ABG Chloride ABG Glucose Oxyhemoglobin Sodium Potassium Chloride 112.9 H Carbon Dioxide 20 L BUN 6 L Creatinine 0.5 L Glucose 105 H POC Glucose 125 H Total Protein Albumin Triglycerides Arterial Blood Glucose Urine WBC (Auto) Phenytoin 04/07/21 04/07/21 04/07/21 03:59 05:14 15:13 WBC Hgb MCV MCH RDW Plt Count Lymph % (Auto) Seg Neutrophils % Seg Neuts % (Manual) Lymphocytes % (Manual) Seg Neutrophils # Seg Neutrophils # Man Lymphocytes # (Manual) ABG pH 7.521 H POC ABG pO2 ABG pO2 ABG HCO3 ABG O2 Saturation ABG Base Excess ABG Hemoglobin 11.0 L ABG Oxyhemoglobin ABG Sodium 145.3 H ABG Chloride 116.0 H ABG Glucose 138 H Oxyhemoglobin Sodium Potassium Chloride Carbon Dioxide BUN Creatinine Glucose POC Glucose 118 H Total Protein Albumin Triglycerides 153 H Arterial Blood Glucose 138 H Urine WBC (Auto) Phenytoin 04/07/21 04/07/21 04/07/21 15:13 15:13 17:23 WBC 12.2 H Hgb MCV MCH 26 L RDW 19.0 H Plt Count 85 L Lymph % (Auto) Seg Neutrophils % Seg Neuts % (Manual) Lymphocytes % (Manual) Seg Neutrophils # Seg Neutrophils # Man Lymphocytes # (Manual) ABG pH POC ABG pO2 ABG pO2 ABG HCO3 ABG O2 Saturation ABG Base Excess ABG Hemoglobin ABG Oxyhemoglobin ABG Sodium ABG Chloride ABG Glucose Oxyhemoglobin Sodium Potassium Chloride 111.1 H Carbon Dioxide 20 L BUN Creatinine 0.5 L Glucose 126 H POC Glucose 122 H Total Protein Albumin Triglycerides Arterial Blood Glucose Urine WBC (Auto) Phenytoin 04/07/21 04/08/21 04/08/21 23:55 10:39 12:10 WBC Hgb MCV MCH RDW Plt Count Lymph % (Auto) Seg Neutrophils % Seg Neuts % (Manual) Lymphocytes % (Manual) Seg Neutrophils # Seg Neutrophils # Man Lymphocytes # (Manual) ABG pH 7.311 L POC ABG pO2 50.5 L ABG pO2 ABG HCO3 ABG O2 Saturation ABG Base Excess ABG Hemoglobin 11.6 L ABG Oxyhemoglobin 81.6 L ABG Sodium ABG Chloride 110.0 H ABG Glucose 120 H Oxyhemoglobin Sodium Potassium Chloride Carbon Dioxide BUN Creatinine Glucose POC Glucose 130 H 112 H Total Protein Albumin Triglycerides Arterial Blood Glucose 120 H Urine WBC (Auto) Phenytoin 04/08/21 04/08/21 04/08/21 12:25 14:50 15:30 WBC 12.8 H Hgb 9.9 L MCV MCH 25 L RDW 18.1 H Plt Count Lymph % (Auto) Seg Neutrophils % Seg Neuts % (Manual) Lymphocytes % (Manual) Seg Neutrophils # Seg Neutrophils # Man Lymphocytes # (Manual) ABG pH POC ABG pO2 ABG pO2 ABG HCO3 ABG O2 Saturation ABG Base Excess ABG Hemoglobin ABG Oxyhemoglobin ABG Sodium ABG Chloride ABG Glucose Oxyhemoglobin Sodium Potassium Chloride 108.4 H Carbon Dioxide 21 L BUN Creatinine Glucose 156 H POC Glucose Total Protein 6.2 L Albumin 3.6 L Triglycerides Arterial Blood Glucose Urine WBC (Auto) 23.0 H Phenytoin 04/08/21 04/08/21 04/09/21 18:20 23:24 04:17 WBC Hgb 9.9 L MCV MCH 25 L RDW 17.9 H Plt Count Lymph % (Auto) Seg Neutrophils % Seg Neuts % (Manual) Lymphocytes % (Manual) Seg Neutrophils # Seg Neutrophils # Man Lymphocytes # (Manual) ABG pH POC ABG pO2 ABG pO2 ABG HCO3 ABG O2 Saturation ABG Base Excess ABG Hemoglobin ABG Oxyhemoglobin ABG Sodium ABG Chloride ABG Glucose Oxyhemoglobin Sodium Potassium Chloride Carbon Dioxide BUN Creatinine Glucose POC Glucose 139 H 116 H Total Protein Albumin Triglycerides Arterial Blood Glucose Urine WBC (Auto) Phenytoin 04/09/21 04/09/21 04/09/21 04:17 04:35 05:35 WBC Hgb MCV MCH RDW Plt Count Lymph % (Auto) Seg Neutrophils % Seg Neuts % (Manual) Lymphocytes % (Manual) Seg Neutrophils # Seg Neutrophils # Man Lymphocytes # (Manual) ABG pH POC ABG pO2 ABG pO2 ABG HCO3 ABG O2 Saturation ABG Base Excess ABG Hemoglobin 10.4 L ABG Oxyhemoglobin ABG Sodium 146.2 H ABG Chloride 115.0 H ABG Glucose 143 H Oxyhemoglobin Sodium 149 H Potassium Chloride 114.0 H Carbon Dioxide BUN Creatinine Glucose 133 H POC Glucose 129 H Total Protein Albumin Triglycerides Arterial Blood Glucose 143 H Urine WBC (Auto) Phenytoin 04/09/21 04/09/21 12:20 12:38 WBC Hgb MCV MCH RDW Plt Count Lymph % (Auto) Seg Neutrophils % Seg Neuts % (Manual) Lymphocytes % (Manual) Seg Neutrophils # Seg Neutrophils # Man Lymphocytes # (Manual) ABG pH POC ABG pO2 ABG pO2 ABG HCO3 ABG O2 Saturation ABG Base Excess ABG Hemoglobin ABG Oxyhemoglobin ABG Sodium ABG Chloride ABG Glucose Oxyhemoglobin Sodium Potassium Chloride Carbon Dioxide BUN Creatinine Glucose POC Glucose 128 H Total Protein Albumin Triglycerides Arterial Blood Glucose Urine WBC (Auto) Phenytoin 3.6 L Chest x-ray: image reviewed Allied health notes reviewed: RT
[2021-04-09] MEDS ORDERED: hydrALAZINE 20 MG/1 ML INJ IV PRN (18:17)
--- NOTE | 2021-04-09 18:18 | Progress Note ---
Assessment and Plan Assessment and plan: This is a 25 year old female with OHS, seizures and multiple allergies admitted after anaphylactic reaction to peanuts Neuro: Agitation, h/o seizures -Patient sedated on fentanyl, Precedex and Versed -Goal RASS 0 to -1 -Avoid delirium -Maintain sleep-wake cycle -Bilateral restraints for patient safety -As needed fentanyl and Versed -Seroquel twice daily -EKG in a.m. for QTC -Continue home Vimpat, Keppra, phenytoin -Seizure precautions CV: NAD, SR -Blood pressure monitoring per protocol -As needed antihypertensive medicines Pulmonary: Acute hypoxic respiratory failure, h/o OHS -Intubated for airway protection on 04/04 with 6.50 ETT at 22 lips -A.m. vent settings: AC tidal volume 450, rate 12, PEEP 8, 30% FiO2 -See RT notes for titration -A.m. ABG and CXR reviewed -Daily SBT/SAT trials when appropriate -Continuous SPO2 monitoring -VAP bundle -CCM consulted, appreciate recommendations -Consider outpatient pulmonology follow-up GI: NAD -Nutrition consult for tube feedings -PPI -24-hour net positive a 50 -BR: Senokot -Free water flush : Hypernatremia -Increasing free water flush -Trend BMP -Replace electrolytes as needed -Daily weights -Strict intake and output Heme: NAD -Heparin subcu -Trend CBC -Transfuse for hemoglobin less than 7 -SCDs to bilateral lower extremities while in bed Endo: NAD -SSI -Accu-Cheks every 6 -Avoid hypoglycemia ID: PNA, UTI, Anaphylactic reaction -CXR with infiltrates -abx therapy: cefepime -04/08 tracheal aspirate with Staph aureus, urine culture with gram-negative sergei, blood cultures x2 in NGTD -steroid therapy for anaphylaxis reaction -stopped Benadryl d/t listed allergy -Monitor CBC and temp curves The high probability of a clinically significant, sudden or life threatening deterioration of the [respiratory] system(s) required my full and direct attention, intervention and personal management. The aggregate critical care time was [32] minutes. This time is in addition to time spent performing reported procedures but includes the following: [X] Data Review and interpretation [X] Patient assessment and monitoring of vital signs [X] Documentation [X] Medication orders and management Disposition Plan: icu Total Time Spent with Patient (Minutes): 60 History Interval history: This is a 25-year-old female with OHS and several allergies who presented to [facility] on 04/04 via EMS after an in flight allergic reaction to peanuts. Patient was intubated in the emergency department secondary to acute hypoxemic respiratory failure due to acute airway compromise and patient was admitted to ICU. Patient started on steroid therapy. 04/05/2021. Patient currently on dipper Van and fentanyl. However, nurse reports patient still agitated. Ativan IV ordered. Wean mechanical ventilation per pulmonary recommendations. Continue Solu-Medrol 40 mg IV every 8 hours. Add Pepcid 20 mg IV twice daily and Benadryl 25 mg IV every 6 hours. Continue supportive care 04/06/2021. The patient is currently on AC mode ventilation rate of 20, tidal volume 400, FiO2 25%. Wean mechanical ventilation per protocol. Continue bronchodilators/nebulizers. Patient currently sedated with propofol, Versed and fentanyl drip. Continue Solu-Medrol, Benadryl and Pepcid twice daily 04/07/2021. Patient currently sedated with Versed, fentanyl and propofol. Continue sedation per pulmonary recommendations. I spoke with the mother who reports numerous allergies that were reported to the nurse. The mother requests records from [facility] in [place]. Continue Solu-Medrol, Benadryl and Pepcid twice daily 04/08: Patinet still gets agitated with stimuli, remains on minimal vent settings, hypernatremia/hyperchloremia and FWF increased 04/08/2021. Patient reportedly with a cuff leak yesterday. We will reassess today for cuff leak and if continues will likely extubate per pulmonary. Continue Versed, fentanyl and propofol for sedation. Continue Solu-Medrol, Benadryl and Pepcid twice daily Hospitalist Physical - Constitutional Vitals: Temp Pulse Resp BP Pulse Ox 99.3 F 80 12 140/86 100 04/09/21 12:00 04/09/21 16:45 04/09/21 16:45 04/09/21 16:45 04/09/21 16:45 General appearance: Present: no acute distress, other (Intubated on mechanical ventilator) - EENT Eyes: Present: PERRL, EOM intact ENT: hearing intact, clear oral mucosa, dentition normal - Neck Neck: Present: normal ROM - Respiratory Respiratory effort: normal Respiratory: bilateral: diminished - Cardiovascular Rhythm: regular Heart Sounds: Present: S1 & S2. Absent: systolic murmur, diastolic murmur - Extremities Extremities: no ischemia, pulses intact, pulses symmetrical, No edema, normal temperature, normal color Peripheral Pulses: within normal limits - Abdominal General gastrointestinal: soft, non-tender, non-distended, normal bowel sounds - Integumentary Integumentary: Present: clear, warm, dry - Psychiatric Psychiatric: agitated, other (sedated) - Neurologic Neurologic: other (intact cough/gag, PERRL) - Allied Health Allied health notes reviewed: nursing, RT, social work Results - Labs CBC & Chem 7: 04/09/21 04:17 04/09/21 04:17 Labs: Laboratory Last Values WBC 10.6 K/mm3 (4.5-11.0) 04/09/21 04:17 RBC 3.93 M/mm3 (3.65-5.03) 04/09/21 04:17 Hgb 9.9 gm/dl (10.1-14.3) L 04/09/21 04:17 Hct 31.0 % (30.3-42.9) 04/09/21 04:17 MCV 79 fl (79-97) 04/09/21 04:17 MCH 25 pg (28-32) L 04/09/21 04:17 MCHC 32 % (30-34) 04/09/21 04:17 RDW 17.9 % (13.2-15.2) H 04/09/21 04:17 Plt Count 192 K/mm3 (140-440) 04/09/21 04:17 Lymph % (Auto) 9.7 % (13.4-35.0) L 04/06/21 07:49 [place] % (Auto) 5.8 % (0.0-7.3) 04/06/21 07:49 Eos % (Auto) 0.6 % (0.0-4.3) 04/06/21 07:49 Baso % (Auto) 0.8 % (0.0-1.8) 04/06/21 07:49 Lymph # (Auto) 1.3 K/mm3 (1.2-5.4) 04/06/21 07:49 [place] # (Auto) 0.8 K/mm3 (0.0-0.8) 04/06/21 07:49 Eos # (Auto) 0.1 K/mm3 (0.0-0.4) 04/06/21 07:49 Baso # (Auto) 0.1 K/mm3 (0.0-0.1) 04/06/21 07:49 Add Manual Diff Complete 04/05/21 03:37 Total Counted 100 04/05/21 03:37 Seg Neutrophils % 83.1 % (40.0-70.0) H 04/06/21 07:49 Seg Neuts % (Manual) 90.0 % (40.0-70.0) H 04/05/21 03:37 Band Neutrophils % 1.0 % 04/05/21 03:37 Lymphocytes % (Manual) 6.0 % (13.4-35.0) L 04/05/21 03:37 Monocytes % (Manual) 3.0 % (0.0-7.3) 04/05/21 03:37 Nucleated RBC % Not Reportable 04/05/21 03:37 Seg Neutrophils # 10.8 K/mm3 (1.8-7.7) H 04/06/21 07:49 Seg Neutrophils # Man 14.0 K/mm3 (1.8-7.7) H 04/05/21 03:37 Band Neutrophils # 0.2 K/mm3 04/05/21 03:37 Lymphocytes # (Manual) 0.9 K/mm3 (1.2-5.4) L 04/05/21 03:37 Abs React Lymphs (Man) 0.0 K/mm3 04/05/21 03:37 Monocytes # (Manual) 0.5 K/mm3 (0.0-0.8) 04/05/21 03:37 Eosinophils # (Manual) 0.0 K/mm3 (0.0-0.4) 04/05/21 03:37 Basophils # (Manual) 0.0 K/mm3 (0.0-0.1) 04/05/21 03:37 Metamyelocytes # 0.0 K/mm3 04/05/21 03:37 Myelocytes # 0.0 K/mm3 04/05/21 03:37 Promyelocytes # 0.0 K/mm3 04/05/21 03:37 Blast Cells # 0.0 K/mm3 04/05/21 03:37 WBC Morphology Not Reportable 04/05/21 03:37 Hypersegmented Neuts Not Reportable 04/05/21 03:37 Hyposegmented Neuts Not Reportable 04/05/21 03:37 Hypogranular Neuts Not Reportable 04/05/21 03:37 Smudge Cells Not Reportable 04/05/21 03:37 Toxic Granulation Not Reportable 04/05/21 03:37 Toxic Vacuolation Not Reportable 04/05/21 03:37 Dohle Bodies Not Reportable 04/05/21 03:37 Pelger-Huet Anomaly Not Reportable 04/05/21 03:37 Fermin Rods Not Reportable 04/05/21 03:37 Platelet Estimate Consistent w auto 04/05/21 03:37 Clumped Platelets Not Reportable 04/05/21 03:37 Plt Clumps, EDTA Not Reportable 04/05/21 03:37 Large Platelets Not Reportable 04/05/21 03:37 Giant Platelets Not Reportable 04/05/21 03:37 Platelet Satelliting Not Reportable 04/05/21 03:37 Plt Morphology Comment Not Reportable 04/05/21 03:37 RBC Morphology Not Reportable 04/05/21 03:37 Dimorphic RBCs Not Reportable 04/05/21 03:37 Polychromasia Not Reportable 04/05/21 03:37 Hypochromasia 1+ 04/05/21 03:37 Poikilocytosis Not Reportable 04/05/21 03:37 Anisocytosis 1+ 04/05/21 03:37 Microcytosis 1+ 04/05/21 03:37 Macrocytosis Not Reportable 04/05/21 03:37 Spherocytes Not Reportable 04/05/21 03:37 Pappenheimer Bodies Not Reportable 04/05/21 03:37 Sickle Cells Not Reportable 04/05/21 03:37 Target Cells Not Reportable 04/05/21 03:37 Tear Drop Cells Not Reportable 04/05/21 03:37 Ovalocytes Few 04/05/21 03:37 Helmet Cells Not Reportable 04/05/21 03:37 [place] Bodies Not Reportable 04/05/21 03:37 [place] Rings Not Reportable 04/05/21 03:37 [place] Cells Not Reportable 04/05/21 03:37 Bite Cells Not Reportable 04/05/21 03:37 Crenated Cell Not Reportable 04/05/21 03:37 Elliptocytes Not Reportable 04/05/21 03:37 Acanthocytes (Spur) Not Reportable 04/05/21 03:37 Rouleaux Not Reportable 04/05/21 03:37 Hemoglobin C Crystals Not Reportable 04/05/21 03:37 Schistocytes Not Reportable 04/05/21 03:37 Malaria parasites Not Reportable 04/05/21 03:37 Paddy Bodies Not Reportable 04/05/21 03:37 Hem Pathologist Commnt No 04/05/21 03:37 ABG pH 7.351 (7.320-7.450) 04/09/21 04:35 POC ABG pCO2 46.0 mmHg (32.0-48.0) 04/09/21 04:35 ABG pCO2 35.2 mm Hg 04/06/21 11:33 POC ABG pO2 84.3 mmHg (83-108) 04/09/21 04:35 ABG pO2 89.0 mm Hg (80.0-90.0) 04/06/21 11:33 POC ABG HCO3 24.9 04/09/21 04:35 ABG HCO3 22.0 mmol/L (20.0-26.0) 04/06/21 11:33 ABG O2 Saturation 96.1 (0-100) 04/09/21 04:35 ABG O2 Content 11.9 (0.0-44) 04/06/21 11:33 POC ABG Base Excess -0.9 04/09/21 04:35 ABG Base Excess -2.2 mmol/L (-2.0-3.0) L 04/06/21 11:33 ABG Hemoglobin 10.4 (12.0-17.5) L 04/09/21 04:35 ABG Oxyhemoglobin 95.4 (94-98) 04/09/21 04:35 ABG Carboxyhemoglobin 1.3 % (0.0-5.0) 04/06/21 11:33 ABG Methemoglobin 0.1 (0.0-1.5) 04/09/21 04:35 ABG Sodium 146.2 mmol/L (136.0-145.0) H 04/09/21 04:35 ABG Potassium 4.2 mmol/L (3.40-4.50) 04/09/21 04:35 ABG Chloride 115.0 mmol/L (98-107) H 04/09/21 04:35 ABG Glucose 143 mg/dL (65-95) H 04/09/21 04:35 Oxyhemoglobin 95.4 % (95.0-99.0) 04/06/21 11:33 Carboxyhemoglobin 0.6 (0.5-1.5) 04/09/21 04:35 FiO2 25 % 04/06/21 11:33 FiO2 % 35.0 04/09/21 04:35 Sodium 149 mmol/L (137-145) H 04/09/21 04:17 Potassium 4.4 mmol/L (3.6-5.0) 04/09/21 04:17 Chloride 114.0 mmol/L (98-107) H 04/09/21 04:17 Carbon Dioxide 23 mmol/L (22-30) 04/09/21 04:17 Anion Gap 16 mmol/L 04/09/21 04:17 BUN 13 mg/dL (7-17) 04/09/21 04:17 Creatinine 0.6 mg/dL (0.6-1.2) 04/09/21 04:17 Estimated GFR > 60 ml/min 04/09/21 04:17 BUN/Creatinine Ratio 22 % 04/09/21 04:17 Glucose 133 mg/dL (65-100) H 04/09/21 04:17 POC Glucose 146 mg/dL (70-105) H 04/09/21 17:55 Calcium 8.8 mg/dL (8.4-10.2) 04/09/21 04:17 Total Bilirubin 0.20 mg/dL (0.1-1.2) 04/08/21 14:50 AST 35 units/L (5-40) 04/08/21 14:50 ALT 30 units/L (7-56) 04/08/21 14:50 Alkaline Phosphatase 103 units/L (35-129) 04/08/21 14:50 Total Protein 6.2 g/dL (6.3-8.2) L 04/08/21 14:50 Albumin 3.6 g/dL (3.9-5) L 04/08/21 14:50 Albumin/Globulin Ratio 1.4 % 04/08/21 14:50 Triglycerides 153 mg/dL (2-149) H 04/07/21 15:13 HCG, Qual Negative (Negative) 04/04/21 Unknown Arterial Blood Glucose 143 mg/dL (65-95) H 04/09/21 04:35 Urine Color Yellow (Yellow) 04/08/21 12:25 Urine Turbidity Clear (Clear) 04/08/21 12:25 Urine pH 5.0 (5.0-7.0) 04/08/21 12:25 Ur Specific [place] 1.012 (1.003-1.030) 04/08/21 12:25 Urine Protein <15 mg/dl mg/dL (Negative) 04/08/21 12:25 Urine Glucose (UA) Neg mg/dL (Negative) 04/08/21 12:25 Urine Ketones Neg mg/dL (Negative) 04/08/21 12:25 Urine Blood Neg (Negative) 04/08/21 12:25 Urine Nitrite Neg (Negative) 04/08/21 12:25 Urine Bilirubin Neg (Negative) 04/08/21 12:25 Urine Urobilinogen < 2.0 mg/dL (<2.0) 04/08/21 12:25 Ur Leukocyte Esterase Sm (Negative) 04/08/21 12:25 Urine WBC (Auto) 23.0 /HPF (0.0-6.0) H 04/08/21 12:25 Urine RBC (Auto) 3.0 /HPF (0.0-6.0) 04/08/21 12:25 Urine Mucus Few /HPF 04/08/21 12:25 Vancomycin Trough 11.9 ug/mL (5.0-20.0) 04/09/21 12:38 Phenytoin 3.6 ug/mL (10.0-20.0) L 04/09/21 12:38 Microbiology: Microbiology 04/08/21 12:25 Tracheal Aspirate Sputum Culture - Preliminary Staphylococcus Aureus 04/08/21 12:25 Urine,Catheterized - Indwelling Catheter Urine Culture - Preliminary Gram Negative Sergei 04/08/21 14:50 Peripheral/Venous Blood Culture - Preliminary Culture in Progress 04/08/21 14:50 Peripheral/Venous Blood Culture - Preliminary Culture in Progress Proctor/IV: Voiding Method Indwelling Catheter Active Medications - Current Medications Current Medications: Generic Name Dose Route Start Last Admin Trade Name Freq PRN Reason Stop Dose Admin Acetaminophen 650 mg 04/04/21 18:37 04/08/21 14:58 Acetaminophen 325 Mg Tab PO 650 mg Q6H PRN Administration Pain MILD(1-3)/Fever >100.5/JONES Albuterol 2.5 mg 04/04/21 18:37 04/04/21 21:49 Albuterol 2.5 Mg/3 Ml Nebu IH 2.5 mg Q3HRT PRN Administration Shortness Of Breath Lipase/Protease/Amylase 1 each 04/05/21 15:50 Lipase 10,500/Protease 25,000/Amylase 43,750 (Units) Dr Cap FEEDTUBE PRN PRN For Clogged Feeding Tube Diphenhydramine HCl 25 mg 04/05/21 10:51 04/09/21 09:12 Diphenhydramine 50 Mg/Ml Vial IV 25 mg Q6H PRN Administration Itching Famotidine 20 mg 04/09/21 22:00 Famotidine 20 Mg Tab FEEDTUBE BID CRISTY Fentanyl 50 mcg 04/04/21 19:20 04/09/21 02:30 Fentanyl 100 Mcg/2 Ml Inj IV 50 mcg Q10MIN PRN Administration ANALGESIA Heparin Sodium (Porcine) 5,000 unit 04/04/21 22:00 04/09/21 09:12 Heparin 5,000 Unit/1 Ml Vial SUB-Q 5,000 unit Q12HR CRISTY Administration Hydromorphone HCl 0.5 mg 04/04/21 18:37 04/04/21 19:27 Hydromorphone 1 Mg/1 Ml Inj IV 0.5 mg Q23H PRN Administration Pain , Severe (7-10) Hydrophilic Ointment 1 applic 04/04/21 16:16 Lip Therapy Vaseline TP Q2HR PRN Dry Lips Fentanyl Citrate 2,000 mcg in 100 mls @ 5.67 mls/hr 04/04/21 20:00 04/09/21 14:40 Fentanyl Drip Premix IV 4 mcg/kg/hr TITR CRISTY 22.68 mls/hr Administration Protocol 1 MCG/KG/HR Levetiracetam 1,500 mg/ 115 mls @ 400 mls/hr 04/05/21 15:00 04/09/21 09:15 Dextrose IV 04/09/21 23:59 400 mls/hr Q12HR CRISTY Administration Phenytoin 100 mg/ Sodium 102 mls @ 408 mls/hr 04/06/21 14:00 04/09/21 14:40 Chloride IV 408 mls/hr Q8HR CRISTY Administration Midazolam HCl 100 mg/ Sodium 100 mls @ 1 mls/hr 04/07/21 22:00 04/09/21 02:44 Chloride IV 5 mg/hr TITR CRISTY 5 mls/hr Administration Protocol 1 MG/HR Vancomycin HCl 1,500 mg/ 530 mls @ 333.333 mls/hr 04/08/21 22:00 04/09/21 14:40 Sodium Chloride IV 333.333 mls/hr Q8H CRISTY Administration Cefepime HCl 2 gm in 100 mls @ 200 mls/hr 04/09/21 08:00 04/09/21 15:42 Cefepime/Ns 2 Gm/100 Ml IV 200 mls/hr Q8H CRISTY Administration Protocol Dexmedetomidine HCl 400 mcg/ 104 mls @ 5.892 mls/hr 04/09/21 08:00 04/09/21 17:10 Sodium Chloride IV 1.4 mcg/kg/hr TITRATE CRISTY 41.241 mls/hr Administration Protocol 0.2 MCG/KG/HR Lacosamide 200 mg 04/06/21 13:00 04/09/21 09:12 Lacosamide 100 Mg Tab PO 200 mg Q12HR CRISTY Administration Levetiracetam 1,500 mg 04/10/21 10:00 Levetiracetam 500 Mg/5 Ml Oral Liqd FEEDTUBE BID [facility] Methylprednisolone Sodium Succinate 40 mg 04/04/21 22:00 04/09/21 14:41 Methylprednisolone Sod Succinate 40 Mg/1 Ml Inj IV 40 mg Q8HR CRISTY Administration Midazolam HCl 2 mg 04/09/21 18:08 Midazolam 2 Mg/2 Ml Inj IV Q4HR PRN Agitation Multi-Ingred Cream/Lotion/Oil/Oint 1 applic 04/04/21 16:16 Mineral Oil/Petrolatum, White Ophth Oint 3.5 Gm OU Q4HR PRN Dry Eye(s) Oxycodone/Acetaminophen 1 tab 04/04/21 18:37 Oxycodone /Acetaminophen 5-325mg Tab PO Q16H PRN Pain, Moderate (4-6) Quetiapine Fumarate 150 mg 04/08/21 22:00 04/09/21 09:13 Quetiapine 100 Mg Tab PO 150 mg BID CRISTY Administration Senna/Docusate Sodium 1 tab 04/04/21 22:00 04/09/21 09:11 Sennosides/Docusate Sodium 8.6/50 Mg Tab FEEDTUBE 1 tab BID CRISTY Administration Simple Syrup 15 ml 04/05/21 15:50 Simple Syrup 15 Ml FEEDTUBE PRN PRN Hypoglycemia Simple Syrup 30 ml 04/05/21 15:50 Simple Syrup 15 Ml FEEDTUBE PRN PRN Hypoglycemia Sodium Bicarbonate 325 mg 04/05/21 15:50 Sodium Bicarbonate 325 Mg Tab FEEDTUBE PRN PRN For Clogged Feeding Tube Sodium Chloride 10 ml 04/04/21 22:00 04/09/21 09:13 Sodium Chloride 0.9% 10 Ml Flush Syringe IV 10 ml BID CRISTY Administration Sodium Chloride 10 ml 04/04/21 18:37 Sodium Chloride 0.9% 10 Ml Flush Syringe IV PRN PRN LINE FLUSH Nutrition/Malnutrition Assess - Dietary Evaluation Nutrition/Malnutrition Findings: Nutrition Notes Start: 04/05/21 10:18 Freq: Status: Active Protocol: Document 04/09/21 11:37 GB (Rec: 04/09/21 11:49 GB [id number]) Nutrition Notes Initial or Follow up Assessment Current Diagnosis Respiratory Failure Other Pertinent Diagnosis Exposure to Peanuts, allergic reaction Current Diet NPO Labs/Tests 04/09: Na 149, glucose 133 Pertinent Medications fentanyl citrate, Heparin Na, Levetiracetam/D5 400ml/12hr ( 136kcal), midazolam HCl/NaCl, vancomycin Height 5 ft 7.2 in Weight 113.3 kg [place] Body Weight (kg) 61.81 BMI 38.9 Weight change and time frame No new weights at time of assessment Weight Status Obese Subjective/Other Information MD notes chest xray: 04/09: worsening airspace disease RN notes: pt agitated on vent, sedation meds changed BM: no BM recorded Percent of energy/protein needs met: TF at goal meets 75% or greater of EEN. Burn Absent Trauma Absent GI Symptoms Constipation Difficulty In Swallowing Food Allergy Yes Skin Integrity/Comment no complications reported Current % PO Other Minimum of two criteria No #1 Nutrition Diagnosis Other: (Specify in comment below) Comments: Food allergy exposure with reaction of constricting airway Per chest xray note 04/09: worsening airspace Etiology reported peanut allergy As Evidenced by Signs and Symptoms currently intubated to protect airway Diagnosis Progress(for reassessment Continues documentation) Is patient on ventilator? Yes Is Patient Ambulatory and/or Out of Bed No REE-([facility] Jeor-confined to bed) [phone] Kcal/Kg value to use for calculation 15 Approximate Energy Requirements Using 1700 kcal/Kg Calculation Used for Recommendations Kcal/kg Additional Notes Protein: 0.8-1 g/kg @113k -113g Fluids: 1 ml/kcal or per MD TF - peanut allergy severe/ unsure of soy allergy. Vital HP is the only product w/o soy . Nutrition Intervention Change Diet Order: Continue NPO, when extubated advance to regular Nutrition Support: Vital HP (only product w/o SOY products) due to severe peanut allergy, unknown if allergy extends to soy. Goal rate 50ml/hr. Start rate 15ml/hr. Flush 100ml/4hr Total fluids: TF (1003ml) + Flush (600ml) = 1603ml Kcal 1,200 Protein (gm) 105 Carbohydrates (gm) 134 Fat (gm) 28 Fluid (mL) 1,003 Add Supplement/Snack (indicate name/kcal n/a /protein ) Goal #1 Extubation r/t recovery from food allergy reaction by f/u 04/09: not met, intubation continues Goal #2 Diet advanced to Regular 04/09: not met, TF continues Goal #3 TF tolerance Vital HP goal rate 50ml/hr 04/09: met, at goal rate, continues Follow-Up By: 04/12/21 Additional Comments f/u TF vital HP@ goal 50ml/hr, vent status
[2021-04-09] MEDS: FREE WATER PO SCH ×2 (18:28→22:08)
[2021-04-09] MEDS: FAMOTIDINE 20 MG TAB FEEDTUBE SCH (22:07)
[2021-04-10] MEDS: CEFEPIME/NS 2 GM/100 ML 2 GM/100 ML BAG IV SCH ×2 (00:34→08:30)
[2021-04-10] MEDS: MIDAZOLAM 2 MG/2 ML INJ IV PRN ×5 (00:36→15:55)
[2021-04-10] MEDS: FREE WATER PO SCH ×6 (03:03→22:00)
[2021-04-10] MEDS: fentaNYL DRIP Premix 2,000 MCG/100 ML BAG IV SCH ×3 (03:11→16:58)
--- NOTE | 2021-04-10 04:37 | XRay Report ---
CHEST 1 VIEW 04/10/2021 3:14 AM INDICATION / CLINICAL INFORMATION: follow up respiratory failure. COMPARISON: 04/09/2021 FINDINGS: SUPPORT DEVICES: Stable, satisfactory device positioning. HEART / MEDIASTINUM: No significant abnormality. LUNGS / PLEURA: Redemonstrated multifocal airspace opacities. No pneumothorax. ADDITIONAL FINDINGS: No significant additional findings. IMPRESSION: 1. No significant change. Signer Name: Abdifatah Frederick DO Signed: 04/10/2021 4:33 AM Workstation Name: [id number]
[2021-04-10 05:06] LABS: Hematocrit 31.4 % (30.3-42.9); Hemoglobin 10.1 gm/dl (10.1-14.3); Mean Corpuscular HGB Conc 32 % (30-34); Mean Corpuscular Volume 79 fl (79-97); Red Blood Count 3.96 M/mm3 (3.65-5.03); Red Cell Distribution Width 17.7 % (13.2-15.2)
[2021-04-10 05:07] LABS: Platelet Count 191 K/mm3 (140-440)
[2021-04-10 05:27] LABS: BUN/Creatinine Ratio 30; Blood Urea Nitrogen 12 mg/dL (7-17); Calcium 9.3 mg/dL (8.4-10.2); Hemolysis Index 15
[2021-04-10] MEDS: PHENYTOIN 100 MG in SODIUM CHLORIDE 0.9% 100 ML IV SCH ×3 (06:10→22:26)
[2021-04-10] MEDS: VANCOMYCIN 1,500 MG in SODIUM CHLORIDE 0.9% 500 ML 500 ML IV SCH ×3 (06:11→22:26)
[2021-04-10] MEDS: methylPREDNISolone Sod Succinate 40 MG/1 ML INJ IV SCH ×3 (06:11→22:26)
[2021-04-10] MEDS: MIDAZOLAM 100 MG in SODIUM CHLORIDE 0.9% 80 ML IV SCH ×2 (07:29→20:41)
[2021-04-10] MEDS: fentaNYL 100 MCG/2 ML INJ IV PRN ×6 (08:14→15:47)
[2021-04-10] MEDS ORDERED: MIDAZOLAM 2 MG/2 ML INJ IV PRN (08:44)
[2021-04-10] MEDS: HYDROmorphone 1 MG/1 ML INJ IV PRN (08:47)
[2021-04-10] MEDS: levETIRAcetam 500 MG/5 ML ORAL LIQD FEEDTUBE SCH ×2 (09:56→22:54)
[2021-04-10] MEDS: HEPARIN 5,000 UNIT/1 ML VIAL SUB-Q SCH ×2 (09:56→22:27)
[2021-04-10] MEDS: QUEtiapine 100 MG TAB PO SCH ×2 (09:56→22:27)
[2021-04-10] MEDS: FAMOTIDINE 20 MG TAB FEEDTUBE SCH ×2 (09:57→22:28)
[2021-04-10] MEDS: SENNOSIDES/DOCUSATE SODIUM 8.6/50 MG TAB FEEDTUBE SCH ×2 (09:57→22:28)
[2021-04-10] MEDS: LACOSAMIDE 100 MG TAB PO SCH ×2 (09:57→22:28)
[2021-04-10] MEDS: ACETAMINOPHEN 325 MG TAB PO PRN ×2 (10:24→15:59)
--- NOTE | 2021-04-10 11:06 | Electrocardiograph Report ---
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
[2021-04-10] MEDS ORDERED: MAGNESIUM SULFATE 2 GM/50 ML BAG IV SCH (12:30)
--- NOTE | 2021-04-10 12:54 | Progress Note ---
Assessment and Plan Acute hypoxemic respiratory failure Anaphylaxis related to a PEANUT ALLERGY Angioedema MSSA Pneumonia Obesity Obesity hypoventilation syndrome Leukocytosis Hyperkalemia Mild metabolic acidosis Oropharyngeal dysphagia - Rocuronium 50 mg IV X 1 - increase Versed to a max of 10 mg/hr - increase Seroquel to 300 mg p.o. bid - sedation prn for target RASS 0 to -2 once paralytic wears off - get neurology evaluation - continue care as below otherwise; - continue Daily SAT and SBT assessment as tolerated - continue to wean supplemental oxygen for target O2 sat's > 90% acutely - VAP bundle addressed - continue lung protective strategies - continue bronchodilators with pulmonary hygiene per RT - wean per pulmonary driven protocols otherwise - avoid nephrotoxins, renally dose all medications - continue accuchecks with glycemic control per SSI (While critically ill target blood glucose of 140-180 mg/dL; avoid hypoglycemia) - continue to avoid benzodiazepine's, reduce the possibility of delirium - AB's per ID rec's - prn analgesia per CPOT score - Maintenance of sleep-wake cycle, avoid delirium - continue enteral nutritional support at goal rate as tolerated - G.I. & VTE prophylaxis - PT/OT/ROM exercises - continue mobility protocols for pressure ulcer prophylaxis - Monitor hemodynamics closely - continue other care per attending / other consultants - discharge planning ongoing concurrently COVID SPECIFIC INTERVENTIONS - not tested .... Re-evaluate in am & prn CONDITION: CRITICAL PROGNOSIS: GUARDED CODE STATUS: FULL CODE The high probability of a clinically significant, sudden or life-threatening deterioration of the [respiratory, cardiovascular & neurologic] system(s) req uired my full and direct attention, intervention and personal management. The aggregate critical care time was [34] minutes without overlap. Time includes spent on; [x] Data Review and interpretation [x] Patient assessment and monitoring of vital signs [x] Documentation [x] Medication orders and management Subjective Date of service: 04/10/21 Principal diagnosis: Acute hypoxemic resp failure; Anaphylaxis, peanut allergy; Obesity Interval history: Patient is seen today for: Acute hypoxemic respiratory failure; Anaphylaxis / peanut allergy; Angioedema; OHS; Hyperkalemia Seen and examined at bedside; 24hour events reviewed; nursing and respiratory care staff consulted; no adverse overnight events reported to me; agitated most of day; not following commands; on Versed drip @ 5mg/hr, Fentanyl drip and max dose Propofol but still agitated; no emesis or overt aspiration; afebrile; ? seizure-type activity Objective Vital Signs - 12hr 04/10/21 04/10/21 04/10/21 01:00 01:16 01:30 Temperature Pulse Rate 83 89 84 Pulse Rate [ From Monitor] Respiratory 12 12 13 Rate Blood Pressure 133/86 133/86 133/86 O2 Sat by Pulse 94 93 97 Oximetry 04/10/21 04/10/21 04/10/21 01:46 02:00 02:16 Temperature Pulse Rate 90 97 H 84 Pulse Rate [ From Monitor] Respiratory 13 23 12 Rate Blood Pressure 133/86 141/101 141/101 O2 Sat by Pulse 98 95 98 Oximetry 04/10/21 04/10/21 04/10/21 02:30 02:46 03:00 Temperature Pulse Rate 84 83 84 Pulse Rate [ From Monitor] Respiratory 12 12 12 Rate Blood Pressure 141/101 141/101 131/81 O2 Sat by Pulse 99 99 99 Oximetry 04/10/21 04/10/21 04/10/21 03:15 03:31 03:35 Temperature Pulse Rate 87 82 82 Pulse Rate [ From Monitor] Respiratory 12 12 Rate Blood Pressure 131/81 131/81 131/81 O2 Sat by Pulse 98 96 97 Oximetry 04/10/21 04/10/21 04/10/21 03:39 03:45 04:00 Temperature 98.4 F Pulse Rate 84 81 Pulse Rate [ 81 From Monitor] Respiratory 13 12 Rate Blood Pressure 131/81 140/92 O2 Sat by Pulse 97 100 100 Oximetry 04/10/21 04/10/21 04/10/21 04:15 04:31 04:45 Temperature Pulse Rate 81 90 83 Pulse Rate [ From Monitor] Respiratory 12 17 12 Rate Blood Pressure 140/92 140/92 140/92 O2 Sat by Pulse 100 97 95 Oximetry 04/10/21 04/10/21 04/10/21 05:00 05:15 05:31 Temperature Pulse Rate 82 81 79 Pulse Rate [ From Monitor] Respiratory 12 12 12 Rate Blood Pressure 127/81 127/81 140/92 O2 Sat by Pulse 95 97 98 Oximetry 04/10/21 04/10/21 04/10/21 05:45 06:00 06:15 Temperature Pulse Rate 85 81 79 Pulse Rate [ From Monitor] Respiratory 17 12 12 Rate Blood Pressure 140/92 142/87 142/87 O2 Sat by Pulse 99 99 100 Oximetry 04/10/21 04/10/21 04/10/21 06:31 06:45 07:00 Temperature Pulse Rate 77 76 75 Pulse Rate [ From Monitor] Respiratory 12 12 12 Rate Blood Pressure 142/87 142/87 138/88 O2 Sat by Pulse 99 100 99 Oximetry 04/10/21 04/10/21 04/10/21 07:15 07:31 07:45 Temperature Pulse Rate 74 82 79 Pulse Rate [ From Monitor] Respiratory 12 16 13 Rate Blood Pressure 138/88 138/88 138/88 O2 Sat by Pulse 97 87 96 Oximetry 04/10/21 04/10/21 04/10/21 08:00 08:01 08:16 Temperature 97.8 F Pulse Rate 80 82 100 H Pulse Rate [ 82 From Monitor] Respiratory 23 23 Rate Blood Pressure 140/97 140/97 O2 Sat by Pulse 94 94 94 Oximetry 04/10/21 04/10/21 04/10/21 08:30 08:46 09:00 Temperature Pulse Rate 122 H Pulse Rate [ From Monitor] Respiratory Rate Blood Pressure 140/97 140/97 140/97 O2 Sat by Pulse 92 79 L 69 L Oximetry 04/10/21 04/10/21 04/10/21 09:09 09:16 09:30 Temperature Pulse Rate 152 H 153 H Pulse Rate [ From Monitor] Respiratory 25 H Rate Blood Pressure 140/97 140/97 O2 Sat by Pulse 94 93 96 Oximetry 04/10/21 04/10/21 04/10/21 09:46 10:00 10:04 Temperature Pulse Rate 136 H 146 H Pulse Rate [ From Monitor] Respiratory 15 25 H Rate Blood Pressure 140/97 157/128 O2 Sat by Pulse 98 98 94 Oximetry 04/10/21 04/10/21 04/10/21 10:16 10:30 10:46 Temperature Pulse Rate 158 H 157 H 154 H Pulse Rate [ From Monitor] Respiratory 21 20 20 Rate Blood Pressure 157/128 157/128 157/128 O2 Sat by Pulse 97 97 97 Oximetry 04/10/21 04/10/21 04/10/21 11:00 11:16 11:30 Temperature Pulse Rate 153 H 156 H 148 H Pulse Rate [ From Monitor] Respiratory 20 25 H 25 H Rate Blood Pressure 157/128 141/68 141/68 O2 Sat by Pulse 97 98 98 Oximetry 04/10/21 04/10/21 04/10/21 11:46 12:00 12:16 Temperature Pulse Rate 147 H 157 H 144 H Pulse Rate [ From Monitor] Respiratory 20 28 H 15 Rate Blood Pressure 141/68 141/68 141/68 O2 Sat by Pulse 98 95 99 Oximetry 04/10/21 12:30 Temperature Pulse Rate 148 H Pulse Rate [ From Monitor] Respiratory 18 Rate Blood Pressure 141/68 O2 Sat by Pulse 96 Oximetry Constitutional: asleep, appears uncomfortable, other (obese, short neck, orally intubated, ETT 6.5, mildly increased work of breathing) Eyes: non-icteric ENT: oropharynx moist, other (ETT 24 cm JENNY) Neck: supple, no lymphadenopathy, other (large circumference) Effort: mildly labored (moderatelyu) Ascultation: Bilateral: diminished breath sounds, rhonchi (R>L) Percussion: Bilateral: not dull Cardiovascular: regular rate and rhythm, other (tachycardia) Gastrointestinal: normoactive bowel sounds, soft, non-tender, non-distended (protuberant), other (Proctor catheter in place) Integumentary: normal Extremities: no cyanosis, no edema, pulses normal, no ischemia or petechiae Neurologic: non-focal exam (grossly), pupils equal and round, unable to assess Psychiatric: other (Unable to assess) CBC and BMP: 04/11/21 04:00 04/11/21 04:00 ABG, PT/INR, D-dimer: ABG ABG pH 7.351 (7.320-7.450) 04/09/21 04:35 POC ABG pCO2 46.0 mmHg (32.0-48.0) 04/09/21 04:35 ABG pCO2 35.2 mm Hg 04/06/21 11:33 POC ABG pO2 84.3 mmHg (83-108) 04/09/21 04:35 ABG pO2 89.0 mm Hg (80.0-90.0) 04/06/21 11:33 POC ABG HCO3 24.9 04/09/21 04:35 ABG O2 Saturation 96.1 (0-100) 04/09/21 04:35 Abnormal lab findings: Abnormal Labs 04/04/21 04/04/2121 16:38 16:38 18:40 WBC 12.4 H Hgb MCV MCH 26 L RDW 18.1 H Plt Count Lymph % (Auto) Seg Neutrophils % 77.0 H Seg Neuts % (Manual) Lymphocytes % (Manual) Seg Neutrophils # 9.6 H Seg Neutrophils # Man Lymphocytes # (Manual) ABG pH 7.290 L POC ABG pO2 ABG pO2 62.7 L ABG HCO3 ABG O2 Saturation 88.2 L ABG Base Excess -4.6 L ABG Hemoglobin 11.2 L ABG Oxyhemoglobin ABG Sodium ABG Chloride ABG Glucose Oxyhemoglobin 86.5 L Sodium Potassium Chloride Carbon Dioxide 20 L BUN Creatinine Glucose 224 H POC Glucose Total Protein Albumin Triglycerides Arterial Blood Glucose Urine WBC (Auto) Phenytoin 04/05/21 04/05/21 04/05/21 03:37 03:37 04:15 WBC 15.5 H Hgb MCV MCH 25 L RDW 19.0 H Plt Count Lymph % (Auto) Seg Neutrophils % Seg Neuts % (Manual) 90.0 H Lymphocytes % (Manual) 6.0 L Seg Neutrophils # Seg Neutrophils # Man 14.0 H Lymphocytes # (Manual) 0.9 L ABG pH 7.284 L POC ABG pO2 ABG pO2 101.9 H ABG HCO3 18.5 L ABG O2 Saturation ABG Base Excess -7.7 L ABG Hemoglobin 10.3 L ABG Oxyhemoglobin ABG Sodium ABG Chloride ABG Glucose Oxyhemoglobin Sodium Potassium 5.6 H D Chloride Carbon Dioxide 14 L BUN Creatinine Glucose 181 H POC Glucose Total Protein Albumin Triglycerides Arterial Blood Glucose Urine WBC (Auto) Phenytoin 04/05/21 04/05/21 04/06/21 20:27 21:00 07:49 WBC 12.9 H Hgb MCV 77 L MCH 24 L RDW 18.2 H Plt Count Lymph % (Auto) 9.7 L Seg Neutrophils % 83.1 H Seg Neuts % (Manual) Lymphocytes % (Manual) Seg Neutrophils # 10.8 H Seg Neutrophils # Man Lymphocytes # (Manual) ABG pH POC ABG pO2 ABG pO2 92.5 H ABG HCO3 ABG O2 Saturation ABG Base Excess ABG Hemoglobin 10.2 L ABG Oxyhemoglobin ABG Sodium ABG Chloride ABG Glucose Oxyhemoglobin Sodium Potassium Chloride 111.7 H Carbon Dioxide BUN Creatinine Glucose POC Glucose Total Protein Albumin Triglycerides Arterial Blood Glucose Urine WBC (Auto) Phenytoin 04/06/21 04/06/21 04/06/21 07:49 11:33 17:25 WBC Hgb MCV MCH RDW Plt Count Lymph % (Auto) Seg Neutrophils % Seg Neuts % (Manual) Lymphocytes % (Manual) Seg Neutrophils # Seg Neutrophils # Man Lymphocytes # (Manual) ABG pH POC ABG pO2 ABG pO2 ABG HCO3 ABG O2 Saturation ABG Base Excess -2.2 L ABG Hemoglobin 8.7 L ABG Oxyhemoglobin ABG Sodium ABG Chloride ABG Glucose Oxyhemoglobin Sodium Potassium Chloride 112.9 H Carbon Dioxide 20 L BUN 6 L Creatinine 0.5 L Glucose 105 H POC Glucose 125 H Total Protein Albumin Triglycerides Arterial Blood Glucose Urine WBC (Auto) Phenytoin 04/07/21 04/07/21 04/07/21 03:59 05:14 15:13 WBC Hgb MCV MCH RDW Plt Count Lymph % (Auto) Seg Neutrophils % Seg Neuts % (Manual) Lymphocytes % (Manual) Seg Neutrophils # Seg Neutrophils # Man Lymphocytes # (Manual) ABG pH 7.521 H POC ABG pO2 ABG pO2 ABG HCO3 ABG O2 Saturation ABG Base Excess ABG Hemoglobin 11.0 L ABG Oxyhemoglobin ABG Sodium 145.3 H ABG Chloride 116.0 H ABG Glucose 138 H Oxyhemoglobin Sodium Potassium Chloride Carbon Dioxide BUN Creatinine Glucose POC Glucose 118 H Total Protein Albumin Triglycerides 153 H Arterial Blood Glucose 138 H Urine WBC (Auto) Phenytoin 04/07/21 04/07/21 04/07/21 15:13 15:13 17:23 WBC 12.2 H Hgb MCV MCH 26 L RDW 19.0 H Plt Count 85 L Lymph % (Auto) Seg Neutrophils % Seg Neuts % (Manual) Lymphocytes % (Manual) Seg Neutrophils # Seg Neutrophils # Man Lymphocytes # (Manual) ABG pH POC ABG pO2 ABG pO2 ABG HCO3 ABG O2 Saturation ABG Base Excess ABG Hemoglobin ABG Oxyhemoglobin ABG Sodium ABG Chloride ABG Glucose Oxyhemoglobin Sodium Potassium Chloride 111.1 H Carbon Dioxide 20 L BUN Creatinine 0.5 L Glucose 126 H POC Glucose 122 H Total Protein Albumin Triglycerides Arterial Blood Glucose Urine WBC (Auto) Phenytoin 04/07/21 04/08/21 04/08/21 23:55 10:39 12:10 WBC Hgb MCV MCH RDW Plt Count Lymph % (Auto) Seg Neutrophils % Seg Neuts % (Manual) Lymphocytes % (Manual) Seg Neutrophils # Seg Neutrophils # Man Lymphocytes # (Manual) ABG pH 7.311 L POC ABG pO2 50.5 L ABG pO2 ABG HCO3 ABG O2 Saturation ABG Base Excess ABG Hemoglobin 11.6 L ABG Oxyhemoglobin 81.6 L ABG Sodium ABG Chloride 110.0 H ABG Glucose 120 H Oxyhemoglobin Sodium Potassium Chloride Carbon Dioxide BUN Creatinine Glucose POC Glucose 130 H 112 H Total Protein Albumin Triglycerides Arterial Blood Glucose 120 H Urine WBC (Auto) Phenytoin 04/08/21 04/08/21 04/08/21 12:25 14:50 15:30 WBC 12.8 H Hgb 9.9 L MCV MCH 25 L RDW 18.1 H Plt Count Lymph % (Auto) Seg Neutrophils % Seg Neuts % (Manual) Lymphocytes % (Manual) Seg Neutrophils # Seg Neutrophils # Man Lymphocytes # (Manual) ABG pH POC ABG pO2 ABG pO2 ABG HCO3 ABG O2 Saturation ABG Base Excess ABG Hemoglobin ABG Oxyhemoglobin ABG Sodium ABG Chloride ABG Glucose Oxyhemoglobin Sodium Potassium Chloride 108.4 H Carbon Dioxide 21 L BUN Creatinine Glucose 156 H POC Glucose Total Protein 6.2 L Albumin 3.6 L Triglycerides Arterial Blood Glucose Urine WBC (Auto) 23.0 H Phenytoin 04/08/21 04/08/21 04/09/21 18:20 23:24 04:17 WBC Hgb 9.9 L MCV MCH 25 L RDW 17.9 H Plt Count Lymph % (Auto) Seg Neutrophils % Seg Neuts % (Manual) Lymphocytes % (Manual) Seg Neutrophils # Seg Neutrophils # Man Lymphocytes # (Manual) ABG pH POC ABG pO2 ABG pO2 ABG HCO3 ABG O2 Saturation ABG Base Excess ABG Hemoglobin ABG Oxyhemoglobin ABG Sodium ABG Chloride ABG Glucose Oxyhemoglobin Sodium Potassium Chloride Carbon Dioxide BUN Creatinine Glucose POC Glucose 139 H 116 H Total Protein Albumin Triglycerides Arterial Blood Glucose Urine WBC (Auto) Phenytoin 04/09/21 04/09/21 04/09/21 04:17 04:35 05:35 WBC Hgb MCV MCH RDW Plt Count Lymph % (Auto) Seg Neutrophils % Seg Neuts % (Manual) Lymphocytes % (Manual) Seg Neutrophils # Seg Neutrophils # Man Lymphocytes # (Manual) ABG pH POC ABG pO2 ABG pO2 ABG HCO3 ABG O2 Saturation ABG Base Excess ABG Hemoglobin 10.4 L ABG Oxyhemoglobin ABG Sodium 146.2 H ABG Chloride 115.0 H ABG Glucose 143 H Oxyhemoglobin Sodium 149 H Potassium Chloride 114.0 H Carbon Dioxide BUN Creatinine Glucose 133 H POC Glucose 129 H Total Protein Albumin Triglycerides Arterial Blood Glucose 143 H Urine WBC (Auto) Phenytoin 04/09/21 04/09/21 04/09/21 12:20 12:38 17:55 WBC Hgb MCV MCH RDW Plt Count Lymph % (Auto) Seg Neutrophils % Seg Neuts % (Manual) Lymphocytes % (Manual) Seg Neutrophils # Seg Neutrophils # Man Lymphocytes # (Manual) ABG pH POC ABG pO2 ABG pO2 ABG HCO3 ABG O2 Saturation ABG Base Excess ABG Hemoglobin ABG Oxyhemoglobin ABG Sodium ABG Chloride ABG Glucose Oxyhemoglobin Sodium Potassium Chloride Carbon Dioxide BUN Creatinine Glucose POC Glucose 128 H 146 H Total Protein Albumin Triglycerides Arterial Blood Glucose Urine WBC (Auto) Phenytoin 3.6 L 04/09/21 04/10/21 04/10/21 23:26 04:35 04:35 WBC 13.0 H Hgb MCV MCH 26 L RDW 17.7 H Plt Count Lymph % (Auto) Seg Neutrophils % Seg Neuts % (Manual) Lymphocytes % (Manual) Seg Neutrophils # Seg Neutrophils # Man Lymphocytes # (Manual) ABG pH POC ABG pO2 ABG pO2 ABG HCO3 ABG O2 Saturation ABG Base Excess ABG Hemoglobin ABG Oxyhemoglobin ABG Sodium ABG Chloride ABG Glucose Oxyhemoglobin Sodium 146 H Potassium Chloride 112.1 H Carbon Dioxide BUN Creatinine 0.4 L Glucose 156 H POC Glucose 122 H Total Protein Albumin Triglycerides Arterial Blood Glucose Urine WBC (Auto) Phenytoin 04/10/21 05:21 WBC Hgb MCV MCH RDW Plt Count Lymph % (Auto) Seg Neutrophils % Seg Neuts % (Manual) Lymphocytes % (Manual) Seg Neutrophils # Seg Neutrophils # Man Lymphocytes # (Manual) ABG pH POC ABG pO2 ABG pO2 ABG HCO3 ABG O2 Saturation ABG Base Excess ABG Hemoglobin ABG Oxyhemoglobin ABG Sodium ABG Chloride ABG Glucose Oxyhemoglobin Sodium Potassium Chloride Carbon Dioxide BUN Creatinine Glucose POC Glucose 140 H Total Protein Albumin Triglycerides Arterial Blood Glucose Urine WBC (Auto) Phenytoin Chest x-ray: image reviewed (RUL airspace disease is new in last 48-72 hours) Allied health notes reviewed: nursing
[2021-04-10] MEDS ORDERED: ROCURONIUM 50 MG/5 ML INJ IV ONE ×2 (16:16→16:30)
[2021-04-10] MEDS ORDERED: QUEtiapine 100 MG TAB PO STA (16:24)
[2021-04-10 16:33] LABS: Bacteria,Urine 1+ /HPF (Negative); Bilirubin,Urine NEG (Negative); Blood,Urine SM (Negative); Color,Urine Yellow (Yellow); Mucus,Urine FEW /HPF; Protein,Urine <15 mg/dL mg/dL (Negative); Urobilinogen,Urine < 2.0 mg/dL (<2.0)
--- NOTE | 2021-04-10 17:47 | XRay Report ---
ABDOMEN, SINGLE VIEW INDICATION / CLINICAL INFORMATION: verification of ogt placement. COMPARISON: None available. FINDINGS: The tip of the enteric feeding tube is projecting within the midportion of the stomach and is in sati sfactory position. Signer Name: Kely Jackson MD Signed: 04/10/2021 5:42 PM Workstation Name: [id number]
--- NOTE | 2021-04-10 19:35 | Progress Note ---
<GURU RODRIGUEZAyleen - Last Filed: 04/10/21 19:30> Assessment and Plan Assessment and plan: This is a 25 year old female with OHS, seizures and multiple allergies admitted after anaphylactic reaction to peanuts Neuro: Agitation, h/o seizures -Patient sedated on fentanyl, Precedex and Versed -Precedex discontinued and propofol started -CCM gave patient a one-time dose of rocuronium -Goal RASS 0 to -1 -Avoid delirium -Maintain sleep-wake cycle -Bilateral restraints for patient safety -As needed fentanyl and Versed -Seroquel dosage increased -EKG in a.m. for QTC: QTC within normal limits -Continue home Vimpat, Keppra, phenytoin -Seizure precautions CV: ST -Blood pressure monitoring per protocol -As needed antihypertensive medicines -EKG shows ST Pulmonary: Acute hypoxic respiratory failure, h/o OHS -Intubated for airway protection on 04/04 with 6.50 ETT at 22 lips -A.m. vent settings: AC rate 20, tidal volume 400, PEEP 8, 45% FiO2 a.m. vent settings: Assist-control, rate 12, tidal volume 450, PEEP 6 and FiO2 100 -RT increased FiO2 to 104 sustained desaturation with agitation and increase in heart rate -RT slowly decrease FiO2 with last documented FiO2 of 40% -See RT notes for titration -A.m. VBG and CXR reviewed -Daily SBT/SAT trials when appropriate -Continuous SPO2 monitoring -VAP bundle -CCM consulted, appreciate recommendations -Consider outpatient pulmonology follow-up GI: NAD -Nutrition consult for tube feedings -PPI -24-hour net +1953 -BR: Senokot -Free water flush 150 mL every 4 : Hypernatremia (improving), urinary retention -Free water flush 150 every 4 -Trend BMP -Replace electrolytes as needed -Daily weights -Strict intake and output -Proctor was replaced for urinary retention however was removed on 04/10 -RN to BladderScan every 8 hours and straight cath; replace Proctor after 3 straight caths Heme: Leukocytosis -Secondary to steroids -Heparin subcu -Trend CBC -Transfuse for hemoglobin less than 7 -SCDs to bilateral lower extremities while in bed Endo: NAD -SSI -Accu-Cheks every 6 -Avoid hypoglycemia ID: PNA, UTI, Anaphylactic reaction -CXR with infiltrates -abx therapy: Vancomycin -10/17 tracheal aspirate with Staph aureus, urine culture with ESBL E. coli blood cultures x2 in NGTD -Repeat urine culture -steroid therapy for anaphylaxis reaction -stopped Benadryl d/t listed allergy -Monitor CBC and temp curves The high probability of a clinically significant, sudden or life threatening deterioration of the [respiratory] system(s) required my full and direct attention, intervention and personal management. The aggregate critical care time was [60] minutes. This time is in addition to time spent performing reported procedures but includes the following: [X] Data Review and interpretation [X] Patient assessment and monitoring of vital signs [X] Documentation [X] Medication orders and management Disposition Plan: icu Total Time Spent with Patient (Minutes): 60 History Interval history: This is a 25-year-old female with OHS and several allergies who presented to [facility] on 04/04 via EMS after an in flight allergic reaction to peanuts. Patient was intubated in the emergency department secondary to acute hypoxemic respiratory failure due to acute airway compromise and patient was admitted to ICU. Patient started on steroid therapy. 04/05/2021. Patient currently on dipper Van and fentanyl. However, nurse reports patient still agitated. Ativan IV ordered. Wean mechanical ventilation per pulmonary recommendations. Continue Solu-Medrol 40 mg IV every 8 hours. Add Pepcid 20 mg IV twice daily and Benadryl 25 mg IV every 6 hours. Continue supportive care 04/06/2021. The patient is currently on AC mode ventilation rate of 20, tidal volume 400, FiO2 25%. Wean mechanical ventilation per protocol. Continue bronchodilators/nebulizers. Patient currently sedated with propofol, Versed and fentanyl drip. Continue Solu-Medrol, Benadryl and Pepcid twice daily 04/07/2021. Patient currently sedated with Versed, fentanyl and propofol. Con tinue sedation per pulmonary recommendations. I spoke with the mother who reports numerous allergies that were reported to the nurse. The mother requests records from [facility] in [place]. Continue Solu-Medrol, Benadryl and Pepcid twice daily 04/08: Pat[place] still gets agitated with stimuli, remains on minimal vent settings, hypernatremia/hyperchloremia and FWF increased 04/08/2021. Patient reportedly with a cuff leak yesterday. We will reassess today for cuff leak and if continues will likely extubate per pulmonary. Continue Versed, fentanyl and propofol for sedation. Continue Solu-Medrol, Benadryl and Pepcid twice daily 04/09: patient exhibited extreme agitation this morning and was maxed on Versed, fentanyl and Precedex. Patient was started on propofol at max doses however patient still remained agitated. Patient was given rocuronium in the evening per [facility] and Versed was increased temporarily. Seroquel increased today. Hospitalist Physical - Constitutional Vitals: Temp Pulse Resp BP Pulse Ox 100.6 F H 132 H 13 150/89 100 04/10/21 16:00 04/10/21 16:30 04/10/21 16:30 04/10/21 16:30 04/10/21 16:30 General appearance: Present: no acute distress, obese, other (Intubated on mechanical ventilator) - EENT Eyes: Present: PERRL, EOM intact ENT: hearing intact, clear oral mucosa, dentition normal - Neck Neck: Present: normal ROM - Respiratory Respiratory effort: normal Respiratory: bilateral: diminished - Cardiovascular Rhythm: regular Heart Sounds: Present: S1 & S2. Absent: systolic murmur, diastolic murmur - Extremities Extremities: no ischemia, pulses intact, pulses symmetrical, No edema, normal temperature, normal color Peripheral Pulses: within normal limits - Abdominal General gastrointestinal: soft, non-tender, non-distended, normal bowel sounds - Integumentary Integumentary: Present: clear, warm, dry - Neurologic Neurologic: other (Intermittently follows commands, pupils equal round and reactive, intact cough/gag) - Allied Health Allied health notes reviewed: nursing, RT, social work Results - Labs CBC & Chem 7: 04/10/21 04:35 04/10/21 04:35 Labs: Laboratory Last Values WBC 13.0 K/mm3 (4.5-11.0) H 04/10/21 04:35 RBC 3.96 M/mm3 (3.65-5.03) 04/10/21 04:35 Hgb 10.1 gm/dl (10.1-14.3) 04/10/21 04:35 Hct 31.4 % (30.3-42.9) 04/10/21 04:35 MCV 79 fl (79-97) 04/10/21 04:35 MCH 26 pg (28-32) L 04/10/21 04:35 MCHC 32 % (30-34) 04/10/21 04:35 RDW 17.7 % (13.2-15.2) H 04/10/21 04:35 Plt Count 191 K/mm3 (140-440) 04/10/21 04:35 Lymph % (Auto) 9.7 % (13.4-35.0) L 04/06/21 07:49 [place] % (Auto) 5.8 % (0.0-7.3) 04/06/21 07:49 Eos % (Auto) 0.6 % (0.0-4.3) 04/06/21 07:49 Baso % (Auto) 0.8 % (0.0-1.8) 04/06/21 07:49 Lymph # (Auto) 1.3 K/mm3 (1.2-5.4) 04/06/21 07:49 [place] # (Auto) 0.8 K/mm3 (0.0-0.8) 04/06/21 07:49 Eos # (Auto) 0.1 K/mm3 (0.0-0.4) 04/06/21 07:49 Baso # (Auto) 0.1 K/mm3 (0.0-0.1) 04/06/21 07:49 Add Manual Diff Complete 04/05/21 03:37 Total Counted 100 04/05/21 03:37 Seg Neutrophils % 83.1 % (40.0-70.0) H 04/06/21 07:49 Seg Neuts % (Manual) 90.0 % (40.0-70.0) H 04/05/21 03:37 Band Neutrophils % 1.0 % 04/05/21 03:37 Lymphocytes % (Manual) 6.0 % (13.4-35.0) L 04/05/21 03:37 Monocytes % (Manual) 3.0 % (0.0-7.3) 04/05/21 03:37 Nucleated RBC % Not Reportable 04/05/21 03:37 Seg Neutrophils # 10.8 K/mm3 (1.8-7.7) H 04/06/21 07:49 Seg Neutrophils # Man 14.0 K/mm3 (1.8-7.7) H 04/05/21 03:37 Band Neutrophils # 0.2 K/mm3 04/05/21 03:37 Lymphocytes # (Manual) 0.9 K/mm3 (1.2-5.4) L 04/05/21 03:37 Abs React Lymphs (Man) 0.0 K/mm3 04/05/21 03:37 Monocytes # (Manual) 0.5 K/mm3 (0.0-0.8) 04/05/21 03:37 Eosinophils # (Manual) 0.0 K/mm3 (0.0-0.4) 04/05/21 03:37 Basophils # (Manual) 0.0 K/mm3 (0.0-0.1) 04/05/21 03:37 Metamyelocytes # 0.0 K/mm3 04/05/21 03:37 Myelocytes # 0.0 K/mm3 04/05/21 03:37 Promyelocytes # 0.0 K/mm3 04/05/21 03:37 Blast Cells # 0.0 K/mm3 04/05/21 03:37 WBC Morphology Not Reportable 04/05/21 03:37 Hypersegmented Neuts Not Reportable 04/05/21 03:37 Hyposegmented Neuts Not Reportable 04/05/21 03:37 Hypogranular Neuts Not Reportable 04/05/21 03:37 Smudge Cells Not Reportable 04/05/21 03:37 Toxic Granulation Not Reportable 04/05/21 03:37 Toxic Vacuolation Not Reportable 04/05/21 03:37 Dohle Bodies Not Reportable 04/05/21 03:37 Pelger-Huet Anomaly Not Reportable 04/05/21 03:37 Fermin Rods Not Reportable 04/05/21 03:37 Platelet Estimate Consistent w auto 04/05/21 03:37 Clumped Platelets Not Reportable 04/05/21 03:37 Plt Clumps, EDTA Not Reportable 04/05/21 03:37 Large Platelets Not Reportable 04/05/21 03:37 Giant Platelets Not Reportable 04/05/21 03:37 Platelet Satelliting Not Reportable 04/05/21 03:37 Plt Morphology Comment Not Reportable 04/05/21 03:37 RBC Morphology Not Reportable 04/05/21 03:37 Dimorphic RBCs Not Reportable 04/05/21 03:37 Polychromasia Not Reportable 04/05/21 03:37 Hypochromasia 1+ 04/05/21 03:37 Poikilocytosis Not Reportable 04/05/21 03:37 Anisocytosis 1+ 04/05/21 03:37 Microcytosis 1+ 04/05/21 03:37 Macrocytosis Not Reportable 04/05/21 03:37 Spherocytes Not Reportable 04/05/21 03:37 Pappenheimer Bodies Not Reportable 04/05/21 03:37 Sickle Cells Not Reportable 04/05/21 03:37 Target Cells Not Reportable 04/05/21 03:37 Tear Drop Cells Not Reportable 04/05/21 03:37 Ovalocytes Few 04/05/21 03:37 Helmet Cells Not Reportable 04/05/21 03:37 [place] Bodies Not Reportable 04/05/21 03:37 [place] Rings Not Reportable 04/05/21 03:37 [place] Cells Not Reportable 04/05/21 03:37 Bite Cells Not Reportable 04/05/21 03:37 Crenated Cell Not Reportable 04/05/21 03:37 Elliptocytes Not Reportable 04/05/21 03:37 Acanthocytes (Spur) Not Reportable 04/05/21 03:37 Rouleaux Not Reportable 04/05/21 03:37 Hemoglobin C Crystals Not Reportable 04/05/21 03:37 Schistocytes Not Reportable 04/05/21 03:37 Malaria parasites Not Reportable 04/05/21 03:37 Paddy Bodies Not Reportable 04/05/21 03:37 Hem Pathologist Commnt No 04/05/21 03:37 ABG pH 7.238 (7.320-7.450) L 04/10/21 04:00 POC ABG pCO2 53.8 mmHg (32.0-48.0) H 04/10/21 04:00 ABG pCO2 35.2 mm Hg 04/06/21 11:33 POC ABG pO2 53.1 mmHg (83-108) L 04/10/21 04:00 ABG pO2 89.0 mm Hg (80.0-90.0) 04/06/21 11:33 POC ABG HCO3 22.4 04/10/21 04:00 ABG HCO3 22.0 mmol/L (20.0-26.0) 04/06/21 11:33 ABG O2 Saturation 85.1 (0-100) 04/10/21 04:00 ABG O2 Content 11.9 (0.0-44) 04/06/21 11:33 POC ABG Base Excess -4.8 04/10/21 04:00 ABG Base Excess -2.2 mmol/L (-2.0-3.0) L 04/06/21 11:33 ABG Hemoglobin 7.7 (12.0-17.5) L 04/10/21 04:00 ABG Oxyhemoglobin 83.8 (94-98) L 04/10/21 04:00 ABG Carboxyhemoglobin 1.3 % (0.0-5.0) 04/06/21 11:33 ABG Methemoglobin 0.3 (0.0-1.5) 04/10/21 04:00 ABG Sodium 130.5 mmol/L (136.0-145.0) L 04/10/21 04:00 ABG Potassium 3.4 mmol/L (3.40-4.50) 04/10/21 04:00 ABG Chloride 102.0 mmol/L (98-107) 04/10/21 04:00 ABG Glucose 74 mg/dL (65-95) 04/10/21 04:00 Oxyhemoglobin 95.4 % (95.0-99.0) 04/06/21 11:33 Carboxyhemoglobin 1.2 (0.5-1.5) 04/10/21 04:00 FiO2 25 % 04/06/21 11:33 FiO2 % 85 04/10/21 04:00 Sodium 146 mmol/L (137-145) H 04/10/21 04:35 Potassium 4.3 mmol/L (3.6-5.0) 04/10/21 04:35 Chloride 112.1 mmol/L (98-107) H 04/10/21 04:35 Carbon Dioxide 23 mmol/L (22-30) 04/10/21 04:35 Anion Gap 15 mmol/L 04/10/21 04:35 BUN 12 mg/dL (7-17) 04/10/21 04:35 Creatinine 0.4 mg/dL (0.6-1.2) L 04/10/21 04:35 Estimated GFR > 60 ml/min 04/10/21 04:35 BUN/Creatinine Ratio 30 % 04/10/21 04:35 Glucose 156 mg/dL (65-100) H 04/10/21 04:35 POC Glucose 113 mg/dL (70-105) H 04/10/21 17:57 Calcium 9.3 mg/dL (8.4-10.2) 04/10/21 04:35 Phosphorus 3.10 mg/dL (2.5-4.5) 04/10/21 04:35 Magnesium 1.80 mg/dL (1.7-2.3) 04/10/21 04:35 Total Bilirubin 0.20 mg/dL (0.1-1.2) 04/08/21 14:50 AST 35 units/L (5-40) 04/08/21 14:50 ALT 30 units/L (7-56) 04/08/21 14:50 Alkaline Phosphatase 103 units/L (35-129) 04/08/21 14:50 Total Protein 6.2 g/dL (6.3-8.2) L 04/08/21 14:50 Albumin 3.6 g/dL (3.9-5) L 04/08/21 14:50 Albumin/Globulin Ratio 1.4 % 04/08/21 14:50 Triglycerides 153 mg/dL (2-149) H 04/07/21 15:13 HCG, Qual Negative (Negative) 04/04/21 Unknown Arterial Blood Glucose 74 mg/dL (65-95) 04/10/21 04:00 Urine Color Yellow (Yellow) 04/10/21 15:35 Urine Turbidity Hazy (Clear) 04/10/21 15:35 Urine pH 5.0 (5.0-7.0) 04/10/21 15:35 Ur Specific [place] 1.018 (1.003-1.030) 04/10/21 15:35 Urine Protein <15 mg/dl mg/dL (Negative) 04/10/21 15:35 Urine Glucose (UA) Neg mg/dL (Negative) 04/10/21 15:35 Urine Ketones Tr mg/dL (Negative) 04/10/21 15:35 Urine Blood Sm (Negative) 04/10/21 15:35 Urine Nitrite Neg (Negative) 04/10/21 15:35 Urine Bilirubin Neg (Negative) 04/10/21 15:35 Urine Urobilinogen < 2.0 mg/dL (<2.0) 04/10/21 15:35 Ur Leukocyte Esterase Neg (Negative) 04/10/21 15:35 Urine WBC (Auto) 4.0 /HPF (0.0-6.0) 04/10/21 15:35 Urine RBC (Auto) 35.0 /HPF (0.0-6.0) 04/10/21 15:35 U Epithel Cells (Auto) < 1.0 /HPF (0-13.0) 04/10/21 15:35 Urine Bacteria (Auto) 1+ /HPF (Negative) 04/10/21 15:35 Urine Mucus Few /HPF 04/10/21 15:35 Vancomycin Trough 11.9 ug/mL (5.0-20.0) 04/09/21 12:38 Phenytoin 3.6 ug/mL (10.0-20.0) L 04/09/21 12:38 Microbiology: Microbiology 04/08/21 14:50 Peripheral/Venous Blood Culture - Preliminary NO GROWTH AFTER 48 HOURS 04/08/21 14:50 Peripheral/Venous Blood Culture - Preliminary NO GROWTH AFTER 48 HOURS 04/08/21 12:25 Tracheal Aspirate Sputum Culture - Final Staphylococcus Aureus 04/08/21 12:25 Urine,Catheterized - Indwelling Catheter Urine Culture - Final Escherichia Coli Proctor/IV: Voiding Method Self-Catheterization Active Medications - Current Medications Current Medications: Generic Name Dose Route Start Last Admin Trade Name Freq PRN Reason Stop Dose Admin Acetaminophen 650 mg 04/04/21 18:37 04/10/21 15:59 Acetaminophen 325 Mg Tab PO 650 mg Q6H PRN Administration Pain MILD(1-3)/Fever >100.5/JONES Albuterol 2.5 mg 04/04/21 18:37 04/04/21 21:49 Albuterol 2.5 Mg/3 Ml Nebu IH 2.5 mg Q3HRT PRN Administration Shortness Of Breath Lipase/Protease/Amylase 1 each 04/05/21 15:50 Lipase 10,500/Protease 25,000/Amylase 43,750 (Units) Dr Cap FEEDTUBE PRN PRN For Clogged Feeding Tube Diphenhydramine HCl 25 mg 04/05/21 10:51 04/09/21 09:12 Diphenhydramine 50 Mg/Ml Vial IV 25 mg Q6H PRN Administration Itching Famotidine 20 mg 04/09/21 22:00 04/10/21 09:57 Famotidine 20 Mg Tab FEEDTUBE 20 mg BID CRISTY Administration Heparin Sodium (Porcine) 5,000 unit 04/04/21 22:00 04/10/21 09:56 Heparin 5,000 Unit/1 Ml Vial SUB-Q 5,000 unit Q12HR CRISTY Administration Hydralazine HCl 10 mg 04/09/21 18:17 Hydralazine 20 Mg/1 Ml Inj IV Q4H PRN Hypertension Hydromorphone HCl 0.5 mg 04/04/21 18:37 04/10/21 08:47 Hydromorphone 1 Mg/1 Ml Inj IV 0.5 mg Q23H PRN Administration Pain , Severe (7-10) Hydrophilic Ointment 1 applic 04/04/21 16:16 Lip Therapy Vaseline TP Q2HR PRN Dry Lips Fentanyl Citrate 2,000 mcg in 100 mls @ 5.67 mls/hr 04/04/21 20:00 04/10/21 16:58 Fentanyl Drip Premix IV 4 mcg/kg/hr TITR CRISTY 22.68 mls/hr Administration Protocol 1 MCG/KG/HR Phenytoin 100 mg/ Sodium 102 mls @ 408 mls/hr 04/06/21 14:00 04/10/21 14:55 Chloride IV 408 mls/hr Q8HR CRISTY Administration Midazolam HCl 100 mg/ Sodium 100 mls @ 1 mls/hr 04/07/21 22:00 04/10/21 07:29 Chloride IV 5 mg/hr TITR CRISTY 5 mls/hr Administration Protocol 1 MG/HR Vancomycin HCl 1,500 mg/ 530 mls @ 333.333 mls/hr 04/08/21 22:00 04/10/21 14:55 Sodium Chloride IV 333.333 mls/hr Q8H CRISTY Administration Dexmedetomidine HCl 400 mcg/ 104 mls @ 5.892 mls/hr 04/09/21 08:00 04/10/21 09:15 Sodium Chloride IV Infused TITRATE CRISTY Titration Protocol 0.2 MCG/KG/HR Propofol 1,000 mg in 100 mls @ 3.399 mls/hr 04/10/21 10:00 04/10/21 17:32 Diprivan 10 Mg/Ml IV 50 mcg/kg/min TITR CRISTY 33.99 mls/hr Administration Protocol 5 MCG/KG/MIN Lacosamide 200 mg 04/06/21 13:00 04/10/21 09:57 Lacosamide 100 Mg Tab PO 200 mg Q12HR CRISTY Administration Levetiracetam 1,500 mg 04/10/21 10:00 04/10/21 09:56 Levetiracetam 500 Mg/5 Ml Oral Liqd FEEDTUBE 1,500 mg BID CRISTY Administration Methylprednisolone Sodium Succinate 40 mg 04/04/21 22:00 04/10/21 14:55 Methylprednisolone Sod Succinate 40 Mg/1 Ml Inj IV 40 mg Q8HR CRISTY Administration Midazolam HCl 2 mg 04/09/21 18:08 04/10/21 15:55 Midazolam 2 Mg/2 Ml Inj IV 2 mg Q4H PRN Administration Agitation Midazolam HCl 2 mg 04/10/21 08:44 Midazolam 2 Mg/2 Ml Inj IV Q10MIN PRN Sedation Multi-Ingred Cream/Lotion/Oil/Oint 1 applic 04/04/21 16:16 Mineral Oil/Petrolatum, White Ophth Oint 3.5 Gm OU Q4HR PRN Dry Eye(s) Oxycodone/Acetaminophen 1 tab 04/04/21 18:37 Oxycodone /Acetaminophen 5-325mg Tab PO Q16H PRN Pain, Moderate (4-6) Quetiapine Fumarate 300 mg 04/10/21 16:25 Quetiapine 100 Mg Tab PO BID CRISTY Senna/Docusate Sodium 1 tab 04/04/21 22:00 04/10/21 09:57 Sennosides/Docusate Sodium 8.6/50 Mg Tab FEEDTUBE 1 tab BID CRISTY Administration Simple Syrup 15 ml 04/05/21 15:50 Simple Syrup 15 Ml FEEDTUBE PRN PRN Hypoglycemia Simple Syrup 30 ml 04/05/21 15:50 Simple Syrup 15 Ml FEEDTUBE PRN PRN Hypoglycemia Sodium Bicarbonate 325 mg 04/05/21 15:50 Sodium Bicarbonate 325 Mg Tab FEEDTUBE PRN PRN For Clogged Feeding Tube Sodium Chloride 10 ml 04/04/21 22:00 04/10/21 09:57 Sodium Chloride 0.9% 10 Ml Flush Syringe IV 10 ml BID CRISTY Administration Sodium Chloride 10 ml 04/04/21 18:37 Sodium Chloride 0.9% 10 Ml Flush Syringe IV PRN PRN LINE FLUSH Nutrition/Malnutrition Assess - Dietary Evaluation Nutrition/Malnutrition Findings: Nutrition Notes Start: 04/05/21 10:18 Freq: Status: Active Protocol: Document 04/09/21 11:37 GB (Rec: 04/09/21 11:49 GB [id number]) Nutrition Notes Initial or Follow up Assessment Current Diagnosis Respiratory Failure Other Pertinent Diagnosis Exposure to Peanuts, allergic reaction Current Diet NPO Labs/Tests 04/09: Na 149, glucose 133 Pertinent Medications fentanyl citrate, Heparin Na, Levetiracetam/D5 400ml/12hr ( 136kcal), midazolam HCl/NaCl, vancomycin Height 5 ft 7.2 in Weight 113.3 kg [place] Body Weight (kg) 61.81 BMI 38.9 Weight change and time frame No new weights at time of assessment Weight Status Obese Subjective/Other Information MD notes chest xray: 04/09: worsening airspace disease RN notes: pt agitated on vent, sedation meds changed BM: no BM recorded Percent of energy/protein needs met: TF at goal meets 75% or greater of EEN. Burn Absent Trauma Absent GI Symptoms Constipation Difficulty In Swallowing Food Allergy Yes Skin Integrity/Comment no complications reported Current % PO Other Minimum of two criteria No #1 Nutrition Diagnosis Other: (Specify in comment below) Comments: Food allergy exposure with reaction of constricting airway Per chest xray note 04/09: worsening airspace Etiology reported peanut allergy As Evidenced by Signs and Symptoms currently intubated to protect airway Diagnosis Progress(for reassessment Continues documentation) Is patient on ventilator? Yes Is Patient Ambulatory and/or Out of Bed No REE-([facility]-confined to bed) 2285.808 Kcal/Kg value to use for calculation 15 Approximate Energy Requirements Using 1700 kcal/Kg Calculation Used for Recommendations Kcal/kg Additional Notes Protein: 0.8-1 g/kg @113k -113g Fluids: 1 ml/kcal or per MD TF - peanut allergy severe/ unsure of soy allergy. Vital HP is the only product w/o soy . Nutrition Intervention Change Diet Order: Continue NPO, when extubated advance to regular Nutrition Support: Vital HP (only product w/o SOY products) due to severe peanut allergy, unknown if allergy extends to soy. Goal rate 50ml/hr. Start rate 15ml/hr. Flush 100ml/4hr Total fluids: TF (1003ml) + Flush (600ml) = 1603ml Kcal 1,200 Protein (gm) 105 Carbohydrates (gm) 134 Fat (gm) 28 Fluid (mL) 1,003 Add Supplement/Snack (indicate name/kcal n/a /protein ) Goal #1 Extubation r/t recovery from food allergy reaction by f/u 04/09: not met, intubation continues Goal #2 Diet advanced to Regular 04/09: not met, TF continues Goal #3 TF tolerance Vital HP goal rate 50ml/hr 04/09: met, at goal rate, continues Follow-Up By: 04/12/21 Additional Comments f/u TF vital HP@ goal 50ml/hr, vent status <NAYELI HARRIS - Last Filed: 04/11/21 14:09> Assessment and Plan Assessment and plan: I saw and evaluated the patient. Discussed with the nurse practitioner and agree with their findings and plan as documented in this note. Hospitalist Physical - Constitutional Vitals: Temp Pulse Resp BP Pulse Ox 97.2 F L 87 12 109/65 97 04/11/21 12:00 04/11/21 12:46 04/11/21 12:46 04/11/21 12:46 04/11/21 12:46 Results - Labs CBC & Chem 7: 04/11/21 04:00 04/11/21 04:00 Labs: Laboratory Last Values WBC 8.8 K/mm3 (4.5-11.0) 04/11/21 04:00 RBC 3.54 M/mm3 (3.65-5.03) L 04/11/21 04:00 Hgb 8.8 gm/dl (10.1-14.3) L 04/11/21 04:00 Hct 27.6 % (30.3-42.9) L 04/11/21 04:00 MCV 78 fl (79-97) L 04/11/21 04:00 MCH 25 pg (28-32) L 04/11/21 04:00 MCHC 32 % (30-34) 04/11/21 04:00 RDW 18.0 % (13.2-15.2) H 04/11/21 04:00 Plt Count 210 K/mm3 (140-440) 04/11/21 04:00 Lymph % (Auto) 9.7 % (13.4-35.0) L 04/06/21 07:49 [place] % (Auto) 5.8 % (0.0-7.3) 04/06/21 07:49 Eos % (Auto) 0.6 % (0.0-4.3) 04/06/21 07:49 Baso % (Auto) 0.8 % (0.0-1.8) 04/06/21 07:49 Lymph # (Auto) 1.3 K/mm3 (1.2-5.4) 04/06/21 07:49 [place] # (Auto) 0.8 K/mm3 (0.0-0.8) 04/06/21 07:49 Eos # (Auto) 0.1 K/mm3 (0.0-0.4) 04/06/21 07:49 Baso # (Auto) 0.1 K/mm3 (0.0-0.1) 04/06/21 07:49 Add Manual Diff Complete 04/05/21 03:37 Total Counted 100 04/05/21 03:37 Seg Neutrophils % 83.1 % (40.0-70.0) H 04/06/21 07:49 Seg Neuts % (Manual) 90.0 % (40.0-70.0) H 04/05/21 03:37 Band Neutrophils % 1.0 % 04/05/21 03:37 Lymphocytes % (Manual) 6.0 % (13.4-35.0) L 04/05/21 03:37 Monocytes % (Manual) 3.0 % (0.0-7.3) 04/05/21 03:37 Nucleated RBC % Not Reportable 04/05/21 03:37 Seg Neutrophils # 10.8 K/mm3 (1.8-7.7) H 04/06/21 07:49 Seg Neutrophils # Man 14.0 K/mm3 (1.8-7.7) H 04/05/21 03:37 Band Neutrophils # 0.2 K/mm3 04/05/21 03:37 Lymphocytes # (Manual) 0.9 K/mm3 (1.2-5.4) L 04/05/21 03:37 Abs React Lymphs (Man) 0.0 K/mm3 04/05/21 03:37 Monocytes # (Manual) 0.5 K/mm3 (0.0-0.8) 04/05/21 03:37 Eosinophils # (Manual) 0.0 K/mm3 (0.0-0.4) 04/05/21 03:37 Basophils # (Manual) 0.0 K/mm3 (0.0-0.1) 04/05/21 03:37 Metamyelocytes # 0.0 K/mm3 04/05/21 03:37 Myelocytes # 0.0 K/mm3 04/05/21 03:37 Promyelocytes # 0.0 K/mm3 04/05/21 03:37 Blast Cells # 0.0 K/mm3 04/05/21 03:37 WBC Morphology Not Reportable 04/05/21 03:37 Hypersegmented Neuts Not Reportable 04/05/21 03:37 Hyposegmented Neuts Not Reportable 04/05/21 03:37 Hypogranular Neuts Not Reportable 04/05/21 03:37 Smudge Cells Not Reportable 04/05/21 03:37 Toxic Granulation Not Reportable 04/05/21 03:37 Toxic Vacuolation Not Reportable 04/05/21 03:37 Dohle Bodies Not Reportable 04/05/21 03:37 Pelger-Huet Anomaly Not Reportable 04/05/21 03:37 Fermin Rods Not Reportable 04/05/21 03:37 Platelet Estimate Consistent w auto 04/05/21 03:37 Clumped Platelets Not Reportable 04/05/21 03:37 Plt Clumps, EDTA Not Reportable 04/05/21 03:37 Large Platelets Not Reportable 04/05/21 03:37 Giant Platelets Not Reportable 04/05/21 03:37 Platelet Satelliting Not Reportable 04/05/21 03:37 Plt Morphology Comment Not Reportable 04/05/21 03:37 RBC Morphology Not Reportable 04/05/21 03:37 Dimorphic RBCs Not Reportable 04/05/21 03:37 Polychromasia Not Reportable 04/05/21 03:37 Hypochromasia 1+ 04/05/21 03:37 Poikilocytosis Not Reportable 04/05/21 03:37 Anisocytosis 1+ 04/05/21 03:37 Microcytosis 1+ 04/05/21 03:37 Macrocytosis Not Reportable 04/05/21 03:37 Spherocytes Not Reportable 04/05/21 03:37 Pappenheimer Bodies Not Reportable 04/05/21 03:37 Sickle Cells Not Reportable 04/05/21 03:37 Target Cells Not Reportable 04/05/21 03:37 Tear Drop Cells Not Reportable 04/05/21 03:37 Ovalocytes Few 04/05/21 03:37 Helmet Cells Not Reportable 04/05/21 03:37 [place] Bodies Not Reportable 04/05/21 03:37 [place] Rings Not Reportable 04/05/21 03:37 [place] Cells Not Reportable 04/05/21 03:37 Bite Cells Not Reportable 04/05/21 03:37 Crenated Cell Not Reportable 04/05/21 03:37 Elliptocytes Not Reportable 04/05/21 03:37 Acanthocytes (Spur) Not Reportable 04/05/21 03:37 Rouleaux Not Reportable 04/05/21 03:37 Hemoglobin C Crystals Not Reportable 04/05/21 03:37 Schistocytes Not Reportable 04/05/21 03:37 Malaria parasites Not Reportable 04/05/21 03:37 Paddy Bodies Not Reportable 04/05/21 03:37 Hem Pathologist Commnt No 04/05/21 03:37 ABG pH 7.238 (7.320-7.450) L 04/10/21 04:00 POC ABG pCO2 53.8 mmHg (32.0-48.0) H 04/10/21 04:00 ABG pCO2 35.2 mm Hg 04/06/21 11:33 POC ABG pO2 53.1 mmHg (83-108) L 04/10/21 04:00 ABG pO2 89.0 mm Hg (80.0-90.0) 04/06/21 11:33 POC ABG HCO3 22.4 04/10/21 04:00 ABG HCO3 22.0 mmol/L (20.0-26.0) 04/06/21 11:33 ABG O2 Saturation 85.1 (0-100) 04/10/21 04:00 ABG O2 Content 11.9 (0.0-44) 04/06/21 11:33 POC ABG Base Excess -4.8 04/10/21 04:00 ABG Base Excess -2.2 mmol/L (-2.0-3.0) L 04/06/21 11:33 ABG Hemoglobin 7.7 (12.0-17.5) L 04/10/21 04:00 ABG Oxyhemoglobin 83.8 (94-98) L 04/10/21 04:00 ABG Carboxyhemoglobin 1.3 % (0.0-5.0) 04/06/21 11:33 ABG Methemoglobin 0.3 (0.0-1.5) 04/10/21 04:00 ABG Sodium 130.5 mmol/L (136.0-145.0) L 04/10/21 04:00 ABG Potassium 3.4 mmol/L (3.40-4.50) 04/10/21 04:00 ABG Chloride 102.0 mmol/L (98-107) 04/10/21 04:00 ABG Glucose 74 mg/dL (65-95) 04/10/21 04:00 Oxyhemoglobin 95.4 % (95.0-99.0) 04/06/21 11:33 Carboxyhemoglobin 1.2 (0.5-1.5) 04/10/21 04:00 FiO2 25 % 04/06/21 11:33 FiO2 % 85 04/10/21 04:00 Sodium 146 mmol/L (137-145) H 04/11/21 04:00 Potassium 4.0 mmol/L (3.6-5.0) 04/11/21 04:00 Chloride 111.4 mmol/L (98-107) H 04/11/21 04:00 Carbon Dioxide 27 mmol/L (22-30) 04/11/21 04:00 Anion Gap 12 mmol/L 04/11/21 04:00 BUN 10 mg/dL (7-17) 04/11/21 04:00 Creatinine 0.5 mg/dL (0.6-1.2) L 04/11/21 04:00 Estimated GFR > 60 ml/min 04/11/21 04:00 BUN/Creatinine Ratio 20 % 04/11/21 04:00 Glucose 112 mg/dL (65-100) H 04/11/21 04:00 POC Glucose 128 mg/dL (70-105) H 04/11/21 11:48 Calcium 8.6 mg/dL (8.4-10.2) 04/11/21 04:00 Phosphorus 3.10 mg/dL (2.5-4.5) 04/10/21 04:35 Magnesium 1.90 mg/dL (1.7-2.3) 04/11/21 04:00 Total Bilirubin 0.20 mg/dL (0.1-1.2) 04/08/21 14:50 AST 35 units/L (5-40) 04/08/21 14:50 ALT 30 units/L (7-56) 04/08/21 14:50 Alkaline Phosphatase 103 units/L (35-129) 04/08/21 14:50 Total Protein 6.2 g/dL (6.3-8.2) L 04/08/21 14:50 Albumin 3.6 g/dL (3.9-5) L 04/08/21 14:50 Albumin/Globulin Ratio 1.4 % 04/08/21 14:50 Triglycerides 153 mg/dL (2-149) H 04/07/21 15:13 HCG, Qual Negative (Negative) 04/04/21 Unknown Arterial Blood Glucose 74 mg/dL (65-95) 04/10/21 04:00 Urine Color Yellow (Yellow) 04/10/21 15:35 Urine Turbidity Hazy (Clear) 04/10/21 15:35 Urine pH 5.0 (5.0-7.0) 04/10/21 15:35 Ur Specific [place] 1.018 (1.003-1.030) 04/10/21 15:35 Urine Protein <15 mg/dl mg/dL (Negative) 04/10/21 15:35 Urine Glucose (UA) Neg mg/dL (Negative) 04/10/21 15:35 Urine Ketones Tr mg/dL (Negative) 04/10/21 15:35 Urine Blood Sm (Negative) 04/10/21 15:35 Urine Nitrite Neg (Negative) 04/10/21 15:35 Urine Bilirubin Neg (Negative) 04/10/21 15:35 Urine Urobilinogen < 2.0 mg/dL (<2.0) 04/10/21 15:35 Ur Leukocyte Esterase Neg (Negative) 04/10/21 15:35 Urine WBC (Auto) 4.0 /HPF (0.0-6.0) 04/10/21 15:35 Urine RBC (Auto) 35.0 /HPF (0.0-6.0) 04/10/21 15:35 U Epithel Cells (Auto) < 1.0 /HPF (0-13.0) 04/10/21 15:35 Urine Bacteria (Auto) 1+ /HPF (Negative) 04/10/21 15:35 Urine Mucus Few /HPF 04/10/21 15:35 Vancomycin Trough 11.9 ug/mL (5.0-20.0) 04/09/21 12:38 Phenytoin 3.6 ug/mL (10.0-20.0) L 04/09/21 12:38 Microbiology: Microbiology 04/08/21 14:50 Peripheral/Venous Blood Culture - Preliminary NO GROWTH AFTER 48 HOURS 04/08/21 14:50 Peripheral/Venous Blood Culture - Preliminary NO GROWTH AFTER 48 HOURS 04/08/21 12:25 Tracheal Aspirate Sputum Culture - Final Staphylococcus Aureus 04/08/21 12:25 Urine,Catheterized - Indwelling Catheter Urine Culture - Final Escherichia Coli Proctor/IV: Voiding Method Self-Catheterization Active Medications - Current Medications Current Medications: Generic Name Dose Route Start Last Admin Trade Name Freq PRN Reason Stop Dose Admin Acetaminophen 650 mg 04/04/21 18:37 04/10/21 15:59 Acetaminophen 325 Mg Tab PO 650 mg Q6H PRN Administration Pain MILD(1-3)/Fever >100.5/JONES Albuterol 2.5 mg 04/04/21 18:37 04/04/21 21:49 Albuterol 2.5 Mg/3 Ml Nebu IH 2.5 mg Q3HRT PRN Administration Shortness Of Breath Lipase/Protease/Amylase 1 each 04/05/21 15:50 Lipase 10,500/Protease 25,000/Amylase 43,750 (Units) Dr Cap FEEDTUBE PRN PRN For Clogged Feeding Tube Famotidine 20 mg 04/09/21 22:00 04/11/21 09:50 Famotidine 20 Mg Tab FEEDTUBE 20 mg BID CRISTY Administration Heparin Sodium (Porcine) 5,000 unit 04/04/21 22:00 04/11/21 09:50 Heparin 5,000 Unit/1 Ml Vial SUB-Q 5,000 unit Q12HR CRISTY Administration Hydralazine HCl 10 mg 04/09/21 18:17 Hydralazine 20 Mg/1 Ml Inj IV Q4H PRN Hypertension Hydromorphone HCl 0.5 mg 04/04/21 18:37 04/10/21 08:47 Hydromorphone 1 Mg/1 Ml Inj IV 0.5 mg Q23H PRN Administration Pain , Severe (7-10) Hydrophilic Ointment 1 applic 04/04/21 16:16 Lip Therapy Vaseline TP Q2HR PRN Dry Lips Fentanyl Citrate 2,000 mcg in 100 mls @ 5.67 mls/hr 04/04/21 20:00 04/11/21 07:00 Fentanyl Drip Premix IV 4 mcg/kg/hr TITR CRISTY 22.68 mls/hr Titration Protocol 1 MCG/KG/HR Phenytoin 100 mg/ Sodium 102 mls @ 408 mls/hr 04/06/21 14:00 04/10/21 22:26 Chloride IV 408 mls/hr Q8HR CRISTY Administration Midazolam HCl 100 mg/ Sodium 100 mls @ 1 mls/hr 04/07/21 22:00 04/11/21 07:00 Chloride IV 10 mg/hr TITR CRISTY 10 mls/hr Titration Protocol 1 MG/HR Propofol 1,000 mg in 100 mls @ 3.399 mls/hr 04/10/21 10:00 04/11/21 13:12 Diprivan 10 Mg/Ml IV 50 mcg/kg/min TITR CRISTY 33.99 mls/hr Administration Protocol 5 MCG/KG/MIN Cefazolin Sodium 2 gm/ Sodium 100 mls @ 200 mls/hr 04/11/21 10:00 04/11/21 09:48 Chloride IV 04/16/21 02:29 200 mls/hr Q8H CRISTY Administration Protocol Lacosamide 200 mg 04/06/21 13:00 04/11/21 09:49 Lacosamide 100 Mg Tab PO 200 mg Q12HR CRISTY Administration Levetiracetam 1,500 mg 04/10/21 10:00 04/11/21 09:48 Levetiracetam 500 Mg/5 Ml Oral Liqd FEEDTUBE 1,500 mg BID CRISTY Administration Methylprednisolone Sodium Succinate 40 mg 04/04/21 22:00 04/11/21 05:03 Methylprednisolone Sod Succinate 40 Mg/1 Ml Inj IV 40 mg Q8HR CRISTY Administration Midazolam HCl 2 mg 04/09/21 18:08 04/10/21 15:55 Midazolam 2 Mg/2 Ml Inj IV 2 mg Q4H PRN Administration Agitation Midazolam HCl 2 mg 04/10/21 08:44 04/10/21 19:54 Midazolam 2 Mg/2 Ml Inj IV 2 mg Q10MIN PRN Administration Sedation Multi-Ingred Cream/Lotion/Oil/Oint 1 applic 04/04/21 16:16 Mineral Oil/Petrolatum, White Ophth Oint 3.5 Gm OU Q4HR PRN Dry Eye(s) Oxycodone/Acetaminophen 1 tab 04/04/21 18:37 Oxycodone /Acetaminophen 5-325mg Tab PO Q16H PRN Pain, Moderate (4-6) Quetiapine Fumarate 300 mg 04/10/21 16:25 04/11/21 09:49 Quetiapine 100 Mg Tab PO 300 mg BID CRISTY Administration Senna/Docusate Sodium 1 tab 04/04/21 22:00 04/11/21 09:49 Sennosides/Docusate Sodium 8.6/50 Mg Tab FEEDTUBE 1 tab BID CRISTY Administration Simple Syrup 15 ml 04/05/21 15:50 Simple Syrup 15 Ml FEEDTUBE PRN PRN Hypoglycemia Simple Syrup 30 ml 04/05/21 15:50 Simple Syrup 15 Ml FEEDTUBE PRN PRN Hypoglycemia Sodium Bicarbonate 325 mg 04/05/21 15:50 Sodium Bicarbonate 325 Mg Tab FEEDTUBE PRN PRN For Clogged Feeding Tube Sodium Chloride 10 ml 04/04/21 22:00 04/11/21 10:27 Sodium Chloride 0.9% 10 Ml Flush Syringe IV 10 ml BID CRISTY Administration Sodium Chloride 10 ml 04/04/21 18:37 Sodium Chloride 0.9% 10 Ml Flush Syringe IV PRN PRN LINE FLUSH Tamsulosin HCl 0.4 mg 04/12/21 10:00 Tamsulosin 0.4 Mg Cap PO QDAY CRISTY Nutrition/Malnutrition Assess - Dietary Evaluation Nutrition/Malnutrition Findings: Nutrition Notes Start: 04/05/21 10:18 Freq: Status: Active Protocol: Document 04/09/21 11:37 GB (Rec: 04/09/21 11:49 GB [id number]) Nutrition Notes Initial or Follow up Assessment Current Diagnosis Respiratory Failure Other Pertinent Diagnosis Exposure to Peanuts, allergic reaction Current Diet NPO Labs/Tests 04/09: Na 149, glucose 133 Pertinent Medications fentanyl citrate, Heparin Na, Levetiracetam/D5 400ml/12hr ( 136kcal), midazolam HCl/NaCl, vancomycin Height 5 ft 7.2 in Weight 113.3 kg [place] Body Weight (kg) 61.81 BMI 38.9 Weight change and time frame No new weights at time of assessment Weight Status Obese Subjective/Other Information MD notes chest xray: 04/09: worsening airspace disease RN notes: pt agitated on vent, sedation meds changed BM: no BM recorded Percent of energy/protein needs met: TF at goal meets 75% or greater of EEN. Burn Absent Trauma Absent GI Symptoms Constipation Difficulty In Swallowing Food Allergy Yes Skin Integrity/Comment no complications reported Current % PO Other Minimum of two criteria No #1 Nutrition Diagnosis Other: (Specify in comment below) Comments: Food allergy exposure with reaction of constricting airway Per chest xray note 04/09: worsening airspace Etiology reported peanut allergy As Evidenced by Signs and Symptoms currently intubated to protect airway Diagnosis Progress(for reassessment Continues documentation) Is patient on ventilator? Yes Is Patient Ambulatory and/or Out of Bed No REE-([facility]-confined to bed) 2285.808 Kcal/Kg value to use for calculation 15 Approximate Energy Requirements Using 1700 kcal/Kg Calculation Used for Recommendations Kcal/kg Additional Notes Protein: 0.8-1 g/kg @113k -113g Fluids: 1 ml/kcal or per MD TF - peanut allergy severe/ unsure of soy allergy. Vital HP is the only product w/o soy . Nutrition Intervention Change Diet Order: Continue NPO, when extubated advance to regular Nutrition Support: Vital HP (only product w/o SOY products) due to severe peanut allergy, unknown if allergy extends to soy. Goal rate 50ml/hr. Start rate 15ml/hr. Flush 100ml/4hr Total fluids: TF (1003ml) + Flush (600ml) = 1603ml Kcal 1,200 Protein (gm) 105 Carbohydrates (gm) 134 Fat (gm) 28 Fluid (mL) 1,003 Add Supplement/Snack (indicate name/kcal n/a /protein ) Goal #1 Extubation r/t recovery from food allergy reaction by f/u 04/09: not met, intubation continues Goal #2 Diet advanced to Regular 04/09: not met, TF continues Goal #3 TF tolerance Vital HP goal rate 50ml/hr 04/09: met, at goal rate, continues Follow-Up By: 04/12/21 Additional Comments f/u TF vital HP@ goal 50ml/hr, vent status
[2021-04-11] MEDS: fentaNYL DRIP Premix 2,000 MCG/100 ML BAG IV SCH ×4 (01:33→18:50)
[2021-04-11] MEDS: methylPREDNISolone Sod Succinate 40 MG/1 ML INJ IV SCH ×3 (05:03→21:56)
[2021-04-11] MEDS: VANCOMYCIN 1,500 MG in SODIUM CHLORIDE 0.9% 500 ML 500 ML IV SCH (05:04)
[2021-04-11] MEDS: MIDAZOLAM 100 MG in SODIUM CHLORIDE 0.9% 80 ML IV SCH ×3 (05:43→18:37)
--- NOTE | 2021-04-11 06:32 | XRay Report ---
CHEST 1 VIEW 04/11/2021 4:31 AM INDICATION / CLINICAL INFORMATION: follow up respiratory failure. COMPARISON: 04/10/2021 FINDINGS: SUPPORT DEVICES: Stable, satisfactory device positioning. HEART / MEDIASTINUM: Stable. LUNGS / PLEURA: Redemonstrated multifocal airspace opacities, most confluent within the right upper l obe. No pneumothorax. ADDITIONAL FINDINGS: No significant additional findings. IMPRESSION: 1. No significant change. Signer Name: Abdifatah Frederick DO Signed: 04/11/2021 6:28 AM Workstation Name: [id number]
[2021-04-11 08:48] LABS: Hematocrit 27.6 % (30.3-42.9); Hemoglobin 8.8 gm/dl (10.1-14.3); Mean Corpuscular HGB Conc 32 % (30-34); Mean Corpuscular Volume 78 fl (79-97); Platelet Count 210 K/mm3 (140-440); Red Blood Count 3.54 M/mm3 (3.65-5.03)
[2021-04-11 09:00] LABS: Blood Urea Nitrogen 10 mg/dL (7-17); Calcium 8.6 mg/dL (8.4-10.2); Hemolysis Index 10
[2021-04-11 09:24] LABS: BUN/Creatinine Ratio 20
[2021-04-11] MEDS: levETIRAcetam 500 MG/5 ML ORAL LIQD FEEDTUBE SCH ×2 (09:48→21:55)
[2021-04-11] MEDS: SENNOSIDES/DOCUSATE SODIUM 8.6/50 MG TAB FEEDTUBE SCH ×2 (09:49→22:06)
[2021-04-11] MEDS: QUEtiapine 100 MG TAB PO SCH ×2 (09:49→22:05)
[2021-04-11] MEDS: LACOSAMIDE 100 MG TAB PO SCH ×2 (09:49→21:58)
[2021-04-11] MEDS: FAMOTIDINE 20 MG TAB FEEDTUBE SCH ×2 (09:50→21:55)
[2021-04-11] MEDS: HEPARIN 5,000 UNIT/1 ML VIAL SUB-Q SCH ×2 (09:50→21:56)
[2021-04-11] MEDS: FREE WATER PO SCH ×4 (11:45→20:00)
--- NOTE | 2021-04-11 12:11 | Consultation ---
History of Present Illness - Reason for Consult Consult date: 04/11/21 UTI, PNA Requesting physician: GURU RODRIGUEZ - History of Present Illness The patient is a 25-year-old female with obesity, multiple allergies was admitted to the hospital on 04/04/2021 following an inflight allergic reaction to peanuts. Due to airway compromise, she was intubated in the ER. She has had some intermittent temperatures. T-max was 102.0 F on 04/09/2021. She has been on IV Benadryl, Pepcid and steroids. Review of Systems: Limited due to vent Past History Past Medical History: other (See HPI) Past Surgical History: No surgical history, Other (Reviewed) Social history: single. denies: smoking, alcohol abuse, prescription drug abuse Family history: hypertension Medications and Allergies Allergies Allergy/AdvReac Type Severity Reaction Status Date / Time cinnamon Allergy Anaphylaxis Verified 04/06/21 15:08 coconut Allergy Anaphylaxis Verified 04/06/21 15:08 cucumber Allergy Anaphylaxis Verified 04/06/21 15:08 Fish Containing Products Allergy Anaphylaxis Verified 04/06/21 15:08 fish derived Allergy Anaphylaxis Verified 04/06/21 15:08 peanut Allergy Anaphylaxis Verified 04/05/21 08:28 pineapple Allergy Anaphylaxis Verified 04/06/21 15:08 Home Medications Medication Instructions Recorded Confirmed Last Taken Type Lacosamide [Vimpat] 200 mg PO BID 04/04/21 04/04/21 Unknown History levETIRAcetam [Keppra TAB] 1,500 mg PO BID 04/04/21 04/04/21 Unknown History Phenytoin 300 mg PO HS 04/06/21 04/06/21 Unknown History Active Meds: Active Medications Acetaminophen (Acetaminophen 325 Mg Tab) 650 mg PO Q6H PRN PRN Reason: Pain MILD(1-3)/Fever >100.5/JONES Last Admin: 04/10/21 15:59 Dose: 650 mg Documented by: Albuterol (Albuterol 2.5 Mg/3 Ml Nebu) 2.5 mg IH Q3HRT PRN PRN Reason: Shortness Of Breath Last Admin: 04/04/21 21:49 Dose: 2.5 mg Documented by: Lipase/Protease/Amylase (Lipase 10,500/Protease 25,000/Amylase 43,750 (Units) Dr Cap) 1 each FEEDTUBE PRN PRN PRN Reason: For Clogged Feeding Tube Diphenhydramine HCl (Diphenhydramine 50 Mg/Ml Vial) 25 mg IV Q6H PRN PRN Reason: Itching Last Admin: 04/09/21 09:12 Dose: 25 mg Documented by: Famotidine (Famotidine 20 Mg Tab) 20 mg FEEDTUBE BID CRISTY Last Admin: 04/11/21 09:50 Dose: 20 mg Documented by: Heparin Sodium (Porcine) (Heparin 5,000 Unit/1 Ml Vial) 5,000 unit SUB-Q Q12HR CRISTY Last Admin: 04/11/21 09:50 Dose: 5,000 unit Documented by: Hydralazine HCl (Hydralazine 20 Mg/1 Ml Inj) 10 mg IV Q4H PRN PRN Reason: Hypertension Hydromorphone HCl (Hydromorphone 1 Mg/1 Ml Inj) 0.5 mg IV Q23H PRN PRN Reason: Pain , Severe (7-10) Last Admin: 04/10/21 08:47 Dose: 0.5 mg Documented by: Hydrophilic Ointment (Lip Therapy Vaseline) 1 applic TP Q2HR PRN PRN Reason: Dry Lips Fentanyl Citrate (Fentanyl Drip Premix) 2,000 mcg in 100 mls @ 5.67 mls/hr IV TITR CRISTY; Protocol Last Titration: 04/11/21 07:00 Dose: 4 mcg/kg/hr, 22.68 mls/hr Documented by: Phenytoin 100 mg/ Sodium (Chloride) 102 mls @ 408 mls/hr IV Q8HR CRISTY Last Admin: 04/10/21 22:26 Dose: 408 mls/hr Documented by: Midazolam HCl 100 mg/ Sodium (Chloride) 100 mls @ 1 mls/hr IV TITR CRISTY; Protocol Last Titration: 04/11/21 07:00 Dose: 10 mg/hr, 10 mls/hr Documented by: Propofol (Diprivan 10 Mg/Ml) 1,000 mg in 100 mls @ 3.399 mls/hr IV TITR CRISTY; Protocol Last Admin: 04/11/21 10:23 Dose: 50 mcg/kg/min, 33.99 mls/hr Documented by: Cefazolin Sodium 2 gm/ Sodium (Chloride) 100 mls @ 200 mls/hr IV Q8H [facility]; Protocol Stop: 04/16/21 02:29 Last Admin: 04/11/21 09:48 Dose: 200 mls/hr Documented by: Lacosamide (Lacosamide 100 Mg Tab) 200 mg PO Q12HR [facility] Last Admin: 04/11/21 09:49 Dose: 200 mg Documented by: Levetiracetam (Levetiracetam 500 Mg/5 Ml Oral Liqd) 1,500 mg FEEDTUBE BID [facility] Last Admin: 04/11/21 09:48 Dose: 1,500 mg Documented by: Methylprednisolone Sodium Succinate (Methylprednisolone Sod Succinate 40 Mg/1 Ml Inj) 40 mg IV Q8HR [facility] Last Admin: 04/11/21 05:03 Dose: 40 mg Documented by: Midazolam HCl (Midazolam 2 Mg/2 Ml Inj) 2 mg IV Q4H PRN PRN Reason: Agitation Last Admin: 04/10/21 15:55 Dose: 2 mg Documented by: Midazolam HCl (Midazolam 2 Mg/2 Ml Inj) 2 mg IV Q10MIN PRN PRN Reason: Sedation Last Admin: 04/10/21 19:54 Dose: 2 mg Documented by: Multi-Ingred Cream/Lotion/Oil/Oint (Mineral Oil/Petrolatum, White Ophth Oint 3.5 Gm) 1 applic OU Q4HR PRN PRN Reason: Dry Eye(s) Oxycodone/Acetaminophen (Oxycodone /Acetaminophen 5-325mg Tab) 1 tab PO Q16H PRN PRN Reason: Pain, Moderate (4-6) Quetiapine Fumarate (Quetiapine 100 Mg Tab) 300 mg PO BID [facility] Last Admin: 04/11/21 09:49 Dose: 300 mg Documented by: Senna/Docusate Sodium (Sennosides/Docusate Sodium 8.6/50 Mg Tab) 1 tab FEEDTUBE BID [facility] Last Admin: 04/11/21 09:49 Dose: 1 tab Documented by: Simple Syrup (Simple Syrup 15 Ml) 15 ml FEEDTUBE PRN PRN PRN Reason: Hypoglycemia Simple Syrup (Simple Syrup 15 Ml) 30 ml FEEDTUBE PRN PRN PRN Reason: Hypoglycemia Sodium Bicarbonate (Sodium Bicarbonate 325 Mg Tab) 325 mg FEEDTUBE PRN PRN PRN Reason: For Clogged Feeding Tube Sodium Chloride (Sodium Chloride 0.9% 10 Ml Flush Syringe) 10 ml IV BID CRISTY Last Admin: 04/11/21 10:27 Dose: 10 ml Documented by: Sodium Chloride (Sodium Chloride 0.9% 10 Ml Flush Syringe) 10 ml IV PRN PRN PRN Reason: LINE FLUSH Physical Examination - Physical Exam Narrative exam: Physical Exam: Constitutional: sedated, intubated, on the vent Head, Ears, Nose: Normocephalic, atraumatic. External ears, nose normal Eyes: Conjunctivae/corneas clear. No icterus. No ptosis. Neck: intubated Oral: intubated Cardiovascular: S1, S2 + Respiratory: wheeze + GI: Soft, bowel sounds + Musculoskeletal: No pedal edema, no cyanosis. Skin: No rash or abscess Hem/Lymphatic: No palpable cervical or supraclavicular nodes. No lymphangitis Psych: no agitation Neurological: sedated, intubated, on the vent, exam limited - Constitutional Vitals: Vital Signs Temp Pulse Resp BP Pulse Ox 97.2 F L 104 H 12 133/88 94 04/11/21 11:00 04/11/21 11:00 04/11/21 11:00 04/11/21 11:00 04/11/21 11:00 Temperature -Last 24 Hours Temperature 97.2 F Temperature 98.2 F Temperature 97.9 F Temperature 98.3 F Temperature 100.4 F Temperature 100.6 F Results - Labs CBC & Chem 7: 04/11/21 04:00 04/11/21 04:00 Labs: Abnormal lab results 04/10/21 04/10/21 04/11/21 Range/Units 04:00 17:57 04:00 RBC 3.54 L (3.65-5.03) M/mm3 Hgb 8.8 L (10.1-14.3) gm/dl Hct 27.6 L (30.3-42.9) % MCV 78 L (79-97) fl MCH 25 L (28-32) pg RDW 18.0 H (13.2-15.2) % ABG pH 7.238 L (7.320-7.450) POC ABG pCO2 53.8 H (32.0-48.0) mmHg POC ABG pO2 53.1 L (83-108) mmHg ABG Hemoglobin 7.7 L (12.0-17.5) ABG Oxyhemoglobin 83.8 L (94-98) ABG Sodium 130.5 L (136.0-145.0) mmol/L Sodium (137-145) mmol/L Chloride (98-107) mmol/L Creatinine (0.6-1.2) mg/dL Glucose (65-100) mg/dL POC Glucose 113 H (70-105) mg/dL 04/11/21 04/11/21 Range/Units 04:00 11:48 RBC (3.65-5.03) M/mm3 Hgb (10.1-14.3) gm/dl Hct (30.3-42.9) % MCV (79-97) fl MCH (28-32) pg RDW (13.2-15.2) % ABG pH (7.320-7.450) POC ABG pCO2 (32.0-48.0) mmHg POC ABG pO2 (83-108) mmHg ABG Hemoglobin (12.0-17.5) ABG Oxyhemoglobin (94-98) ABG Sodium (136.0-145.0) mmol/L Sodium 146 H (137-145) mmol/L Chloride 111.4 H (98-107) mmol/L Creatinine 0.5 L (0.6-1.2) mg/dL Glucose 112 H (65-100) mg/dL POC Glucose 128 H (70-105) mg/dL - Imaging and Cardiology Chest x-ray: report reviewed, image reviewed (faint airspace opacities) Assessment and Plan Cultures: 04/04/2021 sputum culture: Usual respiratory gerber 04/08/2021 tracheal aspirate culture: MSSA 04/08/2021 urine culture: ESBL E. coli 04/08/2021 blood culture: No growth A/P: 25-year-old female with obesity, multiple allergies was admitted to the hospital on 04/04/2021 following an inflight allergic reaction to peanuts. Due to airway compromise, she was intubated in the ER: #MSSA tracheobronchitis v/s pneumonia: Chest x-ray with multifocal airspace opacities, vent settings not very high. Treat with Ancef. #ESBL E. coli in urine: Reflects colonization. UA without any significant pyuria. No antibiotics at this time #Anaphylaxis #Acute respiratory failure: On the vent #Obesity Recs: continue IV Ancef 2 gm q8 hrs x 5-7 days depending on clinical course Mk Ballard MD, FACP [facility] O: [phone] F: [phone]
--- NOTE | 2021-04-11 13:44 | Consultation ---
History of Present Illness Consult date: 04/11/21 Reason for Consult: Possible seizuer,Agitation History of present illness: My throat is closing up History of present illness: 25 YO Female with Obesity Hypoventilation Syndrome, Peanut Allergy presents to ED for evaluation. Patient intubated and ambulatory support time my evaluation is unable to provide history. Patient history taken from EMS staff, ED staff. As per staff the patient was exposed to peanuts during an airplane flight. Patient developed an allergic reaction while on the airplane and was treated with subcu epinephrine. EMS was notified upon plan arrival to [facility]. Patient transported to [facility] for further care and evaluation of the aforementioned symptoms. Patient seen and evaluated in the emergency department. All lab and imaging studies reviewed. Patient was found to have acute approximate respiratory failure secondary to acute airway compromise. Patient was intubated for airway protection and admitted to ICU. Patient treated with IV steroid therapy. No reports of fever, chills, chest pain, palpitation productive cough, skin rash, recent contact, or known exposure to COVID-19. No prior admission for review. No medication listed at time of admission for reconciliation. Neurology consulted today stat due to increase agitation and difficult to control pt. required sedation on Propofol, fentanyl and versed this am she is noted to be heavily sedated and versed stopped No reported seizure during her stay in hospital she is on 3 antiepileptic medications and hx of possible pseudoseizure she is with possible bipolar Hx last Dilantin level is 3.6 Past History Past Medical History: other (See HPI) Past Surgical History: No surgical history, Other (Reviewed) Social history: single. denies: smoking, alcohol abuse, prescription drug abuse Family history: hypertension Medications and Allergies Allergies Allergy/AdvReac Type Severity Reaction Status Date / Time peanut Allergy Anaphylaxis Verified 04/04/21 15:33 Active Meds: Active Medications Acetaminophen (Acetaminophen 325 Mg Tab) 650 mg PO Q6H PRN PRN Reason: Pain MILD(1-3)/Fever >100.5/JONES Albuterol (Albuterol 2.5 Mg/3 Ml Nebu) 2.5 mg IH Q3HRT PRN PRN Reason: Shortness Of Breath Famotidine (Famotidine 20 Mg/2 Ml Inj) 20 mg IV BID CRISTY Hydromorphone HCl (Hydromorphone 1 Mg/1 Ml Inj) 0.5 mg IV Q23H PRN PRN Reason: Pain , Severe (7-10) Hydrophilic Ointment (Lip Therapy Vaseline) 1 applic TP Q2HR PRN PRN Reason: Dry Lips Propofol (Diprivan 10 Mg/Ml) 1,000 mg in 100 mls @ 3.402 mls/hr IV TITR CRISTY; Protocol Last Admin: 04/04/21 17:02 Dose: 50 mcg/kg/min, 34.019 mls/hr Documented by: Multi-Ingred Cream/Lotion/Oil/Oint (Mineral Oil/Petrolatum, White Ophth Oint 3.5 Gm) 1 applic OU Q4HR PRN PRN Reason: Dry Eye(s) Oxycodone/Acetaminophen (Oxycodone /Acetaminophen 5-325mg Tab) 1 tab PO Q16H PRN PRN Reason: Pain, Moderate (4-6) Senna/Docusate Sodium (Sennosides/Docusate Sodium 8.6/50 Mg Tab) 1 tab FEEDTUBE BID CRISTY Sodium Chloride (Sodium Chloride 0.9% 10 Ml Flush Syringe) 10 ml IV BID CRISTY Sodium Chloride (Sodium Chloride 0.9% 10 Ml Flush Syringe) 10 ml IV PRN PRN PRN Reason: LINE FLUSH Review of Systems Constitutional: no weight loss, no fever, no chills, no night sweats Ears, nose, mouth and throat: hoarseness, swelling in throat, voice changes, neck fullness/pressure, no ear pain, no ear discharge Breasts: no change in shape, no swelling Cardiovascular: no chest pain, no palpitations, no rapid/irregular heart beat Respiratory: no cough, no cough with sputum, no excessive sputum, no hemoptysis Gastrointestinal: no nausea, no diarrhea, no constipation, no hematemesis, no coffee ground emesis Genitourinary Female: no pelvic pain, no flank pain, no dysuria, no urinary frequency, no urgency Rectal: no pain, no incontinence, no bleeding Musculoskeletal: no neck stiffness, no shooting arm pain Integumentary: no rash, no pruritis, no redness, no sores, no wounds Neurological: no head injury, no transient paralysis, no weakness, no parathesias, no tingling, no seizures, no tremors Psychiatric: no anxiety, no memory loss, no sleep disturbances, no insomnia, no change in appetite, no disorientation, no hallucinations Endocrine: no cold intolerance, no heat intolerance, no excessive thirst, no polyuria, no nocturia, no weight change Hematologic/Lymphatic: no easy bruising Allergic/Immunologic: no urticaria, no allergic rhinitis Past History Past Medical History: other (See HPI) Past Surgical History: No surgical history, Other (Reviewed) Social history: single. denies: smoking, alcohol abuse, prescription drug abuse Family history: hypertension Medications and Allergies Allergies Allergy/AdvReac Type Severity Reaction Status Date / Time cinnamon Allergy Anaphylaxis Verified 04/06/21 15:08 coconut Allergy Anaphylaxis Verified 04/06/21 15:08 cucumber Allergy Anaphylaxis Verified 04/06/21 15:08 Fish Containing Products Allergy Anaphylaxis Verified 04/06/21 15:08 fish derived Allergy Anaphylaxis Verified 04/06/21 15:08 peanut Allergy Anaphylaxis Verified 04/05/21 08:28 pineapple Allergy Anaphylaxis Verified 04/06/21 15:08 Home Medications Medication Instructions Recorded Confirmed Last Taken Type Lacosamide [Vimpat] 200 mg PO BID 04/04/21 04/04/21 Unknown History levETIRAcetam [Keppra TAB] 1,500 mg PO BID 04/04/21 04/04/21 Unknown History Phenytoin 300 mg PO HS 04/06/21 04/06/21 Unknown History Active Meds: Active Medications Acetaminophen (Acetaminophen 325 Mg Tab) 650 mg PO Q6H PRN PRN Reason: Pain MILD(1-3)/Fever >100.5/JONES Last Admin: 04/10/21 15:59 Dose: 650 mg Documented by: Albuterol (Albuterol 2.5 Mg/3 Ml Nebu) 2.5 mg IH Q3HRT PRN PRN Reason: Shortness Of Breath Last Admin: 04/04/21 21:49 Dose: 2.5 mg Documented by: Lipase/Protease/Amylase (Lipase 10,500/Protease 25,000/Amylase 43,750 (Units) Dr Conklin) 1 each FEEDTUBE PRN PRN PRN Reason: For Clogged Feeding Tube Famotidine (Famotidine 20 Mg Tab) 20 mg FEEDTUBE BID CRISTY Last Admin: 04/11/21 09:50 Dose: 20 mg Documented by: Heparin Sodium (Porcine) (Heparin 5,000 Unit/1 Ml Vial) 5,000 unit SUB-Q Q12HR CRISTY Last Admin: 04/11/21 09:50 Dose: 5,000 unit Documented by: Hydralazine HCl (Hydralazine 20 Mg/1 Ml Inj) 10 mg IV Q4H PRN PRN Reason: Hypertension Hydromorphone HCl (Hydromorphone 1 Mg/1 Ml Inj) 0.5 mg IV Q23H PRN PRN Reason: Pain , Severe (7-10) Last Admin: 04/10/21 08:47 Dose: 0.5 mg Documented by: Hydrophilic Ointment (Lip Therapy Vaseline) 1 applic TP Q2HR PRN PRN Reason: Dry Lips Fentanyl Citrate (Fentanyl Drip Premix) 2,000 mcg in 100 mls @ 5.67 mls/hr IV TITR CRISTY; Protocol Last Titration: 04/11/21 07:00 Dose: 4 mcg/kg/hr, 22.68 mls/hr Documented by: Phenytoin 100 mg/ Sodium (Chloride) 102 mls @ 408 mls/hr IV Q8HR CRISTY Last Admin: 04/10/21 22:26 Dose: 408 mls/hr Documented by: Midazolam HCl 100 mg/ Sodium (Chloride) 100 mls @ 1 mls/hr IV TITR CRISTY; Protocol Last Titration: 04/11/21 07:00 Dose: 10 mg/hr, 10 mls/hr Documented by: Propofol (Diprivan 10 Mg/Ml) 1,000 mg in 100 mls @ 3.399 mls/hr IV TITR CRISTY; Protocol Last Admin: 04/11/21 13:12 Dose: 50 mcg/kg/min, 33.99 mls/hr Documented by: Cefazolin Sodium 2 gm/ Sodium (Chloride) 100 mls @ 200 mls/hr IV Q8H CRISTY; Protocol Stop: 04/16/21 02:29 Last Admin: 04/11/21 09:48 Dose: 200 mls/hr Documented by: Lacosamide (Lacosamide 100 Mg Tab) 200 mg PO Q12HR CRISTY Last Admin: 04/11/21 09:49 Dose: 200 mg Documented by: Levetiracetam (Levetiracetam 500 Mg/5 Ml Oral Liqd) 1,500 mg FEEDTUBE BID CRISTY Last Admin: 04/11/21 09:48 Dose: 1,500 mg Documented by: Methylprednisolone Sodium Succinate (Methylprednisolone Sod Succinate 40 Mg/1 Ml Inj) 40 mg IV Q8HR [facility] Last Admin: 04/11/21 05:03 Dose: 40 mg Documented by: Midazolam HCl (Midazolam 2 Mg/2 Ml Inj) 2 mg IV Q4H PRN PRN Reason: Agitation Last Admin: 04/10/21 15:55 Dose: 2 mg Documented by: Midazolam HCl (Midazolam 2 Mg/2 Ml Inj) 2 mg IV Q10MIN PRN PRN Reason: Sedation Last Admin: 04/10/21 19:54 Dose: 2 mg Documented by: Multi-Ingred Cream/Lotion/Oil/Oint (Mineral Oil/Petrolatum, White Ophth Oint 3.5 Gm) 1 applic OU Q4HR PRN PRN Reason: Dry Eye(s) Oxycodone/Acetaminophen (Oxycodone /Acetaminophen 5-325mg Tab) 1 tab PO Q16H PRN PRN Reason: Pain, Moderate (4-6) Quetiapine Fumarate (Quetiapine 100 Mg Tab) 300 mg PO BID [facility] Last Admin: 04/11/21 09:49 Dose: 300 mg Documented by: Senna/Docusate Sodium (Sennosides/Docusate Sodium 8.6/50 Mg Tab) 1 tab FEEDTUBE BID [facility] Last Admin: 04/11/21 09:49 Dose: 1 tab Documented by: Simple Syrup (Simple Syrup 15 Ml) 15 ml FEEDTUBE PRN PRN PRN Reason: Hypoglycemia Simple Syrup (Simple Syrup 15 Ml) 30 ml FEEDTUBE PRN PRN PRN Reason: Hypoglycemia Sodium Bicarbonate (Sodium Bicarbonate 325 Mg Tab) 325 mg FEEDTUBE PRN PRN PRN Reason: For Clogged Feeding Tube Sodium Chloride (Sodium Chloride 0.9% 10 Ml Flush Syringe) 10 ml IV BID [facility] Last Admin: 04/11/21 10:27 Dose: 10 ml Documented by: Sodium Chloride (Sodium Chloride 0.9% 10 Ml Flush Syringe) 10 ml IV PRN PRN PRN Reason: LINE FLUSH Physical Examination - Vital Signs Vital Signs: Vital Signs Pulse Resp 133 H 20 04/04/21 15:27 04/04/21 15:27 - Constitutional General appearance: comfortable - EENT EENT: Present: PERRL, mucous membranes moist - Respiratory Respiratory: Present: lungs clear, rhonchi - Cardiovascular Cardiovascular: Present: regular rate, normal S1, normal S2 Extremities: Present: no peripheral edema bilatateraly, no clubbing, cyanosis - Gastrointestinal Gastrointestinal: Present: normoactive bowel sounds - Integumentary Integumentary: Present: normal - Neurologic Cranial nerve examination: PERRL, EOMI, intact, other (pupil sluggish reactive,3 m EOMI, corneal is intact , no facial asymmetry she is intubated) Detailed motor examination: other (no movment to pain stimuli currently ,planter is down going ) Results - Laboratory Findings CBC and BMP: 04/11/21 04:00 04/11/21 04:00 Abnormal Lab Findings: Abnormal Labs 04/04/21 04/04/21 04/04/21 16:38 16:38 18:40 WBC 12.4 H RBC Hgb Hct MCV MCH 26 L RDW 18.1 H Plt Count Lymph % (Auto) Seg Neutrophils % 77.0 H Seg Neuts % (Manual) Lymphocytes % (Manual) Seg Neutrophils # 9.6 H Seg Neutrophils # Man Lymphocytes # (Manual) ABG pH 7.290 L POC ABG pCO2 POC ABG pO2 ABG pO2 62.7 L ABG HCO3 ABG O2 Saturation 88.2 L ABG Base Excess -4.6 L ABG Hemoglobin 11.2 L ABG Oxyhemoglobin ABG Sodium ABG Chloride ABG Glucose Oxyhemoglobin 86.5 L Sodium Potassium Chloride Carbon Dioxide 20 L BUN Creatinine Glucose 224 H POC Glucose Total Protein Albumin Triglycerides Arterial Blood Glucose Urine WBC (Auto) Phenytoin 04/05/21 04/05/21 04/05/21 03:37 03:37 04:15 WBC 15.5 H RBC Hgb Hct MCV MCH 25 L RDW 19.0 H Plt Count Lymph % (Auto) Seg Neutrophils % Seg Neuts % (Manual) 90.0 H Lymphocytes % (Manual) 6.0 L Seg Neutrophils # Seg Neutrophils # Man 14.0 H Lymphocytes # (Manual) 0.9 L ABG pH 7.284 L POC ABG pCO2 POC ABG pO2 ABG pO2 101.9 H ABG HCO3 18.5 L ABG O2 Saturation ABG Base Excess -7.7 L ABG Hemoglobin 10.3 L ABG Oxyhemoglobin ABG Sodium ABG Chloride ABG Glucose Oxyhemoglobin Sodium Potassium 5.6 H D Chloride Carbon Dioxide 14 L BUN Creatinine Glucose 181 H POC Glucose Total Protein Albumin Triglycerides Arterial Blood Glucose Urine WBC (Auto) Phenytoin 04/05/21 04/05/21 04/06/21 20:27 21:00 07:49 WBC 12.9 H RBC Hgb Hct MCV 77 L MCH 24 L RDW 18.2 H Plt Count Lymph % (Auto) 9.7 L Seg Neutrophils % 83.1 H Seg Neuts % (Manual) Lymphocytes % (Manual) Seg Neutrophils # 10.8 H Seg Neutrophils # Man Lymphocytes # (Manual) ABG pH POC ABG pCO2 POC ABG pO2 ABG pO2 92.5 H ABG HCO3 ABG O2 Saturation ABG Base Excess ABG Hemoglobin 10.2 L ABG Oxyhemoglobin ABG Sodium ABG Chloride ABG Glucose Oxyhemoglobin Sodium Potassium Chloride 111.7 H Carbon Dioxide BUN Creatinine Glucose POC Glucose Total Protein Albumin Triglycerides Arterial Blood Glucose Urine WBC (Auto) Phenytoin 04/06/21 04/06/21 04/06/21 07:49 11:33 17:25 WBC RBC Hgb Hct MCV MCH RDW Plt Count Lymph % (Auto) Seg Neutrophils % Seg Neuts % (Manual) Lymphocytes % (Manual) Seg Neutrophils # Seg Neutrophils # Man Lymphocytes # (Manual) ABG pH POC ABG pCO2 POC ABG pO2 ABG pO2 ABG HCO3 ABG O2 Saturation ABG Base Excess -2.2 L ABG Hemoglobin 8.7 L ABG Oxyhemoglobin ABG Sodium ABG Chloride ABG Glucose Oxyhemoglobin Sodium Potassium Chloride 112.9 H Carbon Dioxide 20 L BUN 6 L Creatinine 0.5 L Glucose 105 H POC Glucose 125 H Total Protein Albumin Triglycerides Arterial Blood Glucose Urine WBC (Auto) Phenytoin 04/07/21 04/07/21 04/07/21 03:59 05:14 15:13 WBC RBC Hgb Hct MCV MCH RDW Plt Count Lymph % (Auto) Seg Neutrophils % Seg Neuts % (Manual) Lymphocytes % (Manual) Seg Neutrophils # Seg Neutrophils # Man Lymphocytes # (Manual) ABG pH 7.521 H POC ABG pCO2 POC ABG pO2 ABG pO2 ABG HCO3 ABG O2 Saturation ABG Base Excess ABG Hemoglobin 11.0 L ABG Oxyhemoglobin ABG Sodium 145.3 H ABG Chloride 116.0 H ABG Glucose 138 H Oxyhemoglobin Sodium Potassium Chloride Carbon Dioxide BUN Creatinine Glucose POC Glucose 118 H Total Protein Albumin Triglycerides 153 H Arterial Blood Glucose 138 H Urine WBC (Auto) Phenytoin 04/07/21 04/07/21 04/07/21 15:13 15:13 17:23 WBC 12.2 H RBC Hgb Hct MCV MCH 26 L RDW 19.0 H Plt Count 85 L Lymph % (Auto) Seg Neutrophils % Seg Neuts % (Manual) Lymphocytes % (Manual) Seg Neutrophils # Seg Neutrophils # Man Lymphocytes # (Manual) ABG pH POC ABG pCO2 POC ABG pO2 ABG pO2 ABG HCO3 ABG O2 Saturation ABG Base Excess ABG Hemoglobin ABG Oxyhemoglobin ABG Sodium ABG Chloride ABG Glucose Oxyhemoglobin Sodium Potassium Chloride 111.1 H Carbon Dioxide 20 L BUN Creatinine 0.5 L Glucose 126 H POC Glucose 122 H Total Protein Albumin Triglycerides Arterial Blood Glucose Urine WBC (Auto) Phenytoin 04/07/21 04/08/21 04/08/21 23:55 10:39 12:10 WBC RBC Hgb Hct MCV MCH RDW Plt Count Lymph % (Auto) Seg Neutrophils % Seg Neuts % (Manual) Lymphocytes % (Manual) Seg Neutrophils # Seg Neutrophils # Man Lymphocytes # (Manual) ABG pH 7.311 L POC ABG pCO2 POC ABG pO2 50.5 L ABG pO2 ABG HCO3 ABG O2 Saturation ABG Base Excess ABG Hemoglobin 11.6 L ABG Oxyhemoglobin 81.6 L ABG Sodium ABG Chloride 110.0 H ABG Glucose 120 H Oxyhemoglobin Sodium Potassium Chloride Carbon Dioxide BUN Creatinine Glucose POC Glucose 130 H 112 H Total Protein Albumin Triglycerides Arterial Blood Glucose 120 H Urine WBC (Auto) Phenytoin 04/08/21 04/08/21 04/08/21 12:25 14:50 15:30 WBC 12.8 H RBC Hgb 9.9 L Hct MCV MCH 25 L RDW 18.1 H Plt Count Lymph % (Auto) Seg Neutrophils % Seg Neuts % (Manual) Lymphocytes % (Manual) Seg Neutrophils # Seg Neutrophils # Man Lymphocytes # (Manual) ABG pH POC ABG pCO2 POC ABG pO2 ABG pO2 ABG HCO3 ABG O2 Saturation ABG Base Excess ABG Hemoglobin ABG Oxyhemoglobin ABG Sodium ABG Chloride ABG Glucose Oxyhemoglobin Sodium Potassium Chloride 108.4 H Carbon Dioxide 21 L BUN Creatinine Glucose 156 H POC Glucose Total Protein 6.2 L Albumin 3.6 L Triglycerides Arterial Blood Glucose Urine WBC (Auto) 23.0 H Phenytoin 04/08/21 04/08/21 04/09/21 18:20 23:24 04:17 WBC RBC Hgb 9.9 L Hct MCV MCH 25 L RDW 17.9 H Plt Count Lymph % (Auto) Seg Neutrophils % Seg Neuts % (Manual) Lymphocytes % (Manual) Seg Neutrophils # Seg Neutrophils # Man Lymphocytes # (Manual) ABG pH POC ABG pCO2 POC ABG pO2 ABG pO2 ABG HCO3 ABG O2 Saturation ABG Base Excess ABG Hemoglobin ABG Oxyhemoglobin ABG Sodium ABG Chloride ABG Glucose Oxyhemoglobin Sodium Potassium Chloride Carbon Dioxide BUN Creatinine Glucose POC Glucose 139 H 116 H Total Protein Albumin Triglycerides Arterial Blood Glucose Urine WBC (Auto) Phenytoin 04/09/21 04/09/21 04/09/21 04:17 04:35 05:35 WBC RBC Hgb Hct MCV MCH RDW Plt Count Lymph % (Auto) Seg Neutrophils % Seg Neuts % (Manual) Lymphocytes % (Manual) Seg Neutrophils # Seg Neutrophils # Man Lymphocytes # (Manual) ABG pH POC ABG pCO2 POC ABG pO2 ABG pO2 ABG HCO3 ABG O2 Saturation ABG Base Excess ABG Hemoglobin 10.4 L ABG Oxyhemoglobin ABG Sodium 146.2 H ABG Chloride 115.0 H ABG Glucose 143 H Oxyhemoglobin Sodium 149 H Potassium Chloride 114.0 H Carbon Dioxide BUN Creatinine Glucose 133 H POC Glucose 129 H Total Protein Albumin Triglycerides Arterial Blood Glucose 143 H Urine WBC (Auto) Phenytoin 04/09/21 04/09/21 04/09/21 12:20 12:38 17:55 WBC RBC Hgb Hct MCV MCH RDW Plt Count Lymph % (Auto) Seg Neutrophils % Seg Neuts % (Manual) Lymphocytes % (Manual) Seg Neutrophils # Seg Neutrophils # Man Lymphocytes # (Manual) ABG pH POC ABG pCO2 POC ABG pO2 ABG pO2 ABG HCO3 ABG O2 Saturation ABG Base Excess ABG Hemoglobin ABG Oxyhemoglobin ABG Sodium ABG Chloride ABG Glucose Oxyhemoglobin Sodium Potassium Chloride Carbon Dioxide BUN Creatinine Glucose POC Glucose 128 H 146 H Total Protein Albumin Triglycerides Arterial Blood Glucose Urine WBC (Auto) Phenytoin 3.6 L 04/09/21 04/10/21 04/10/21 23:26 04:00 04:35 WBC 13.0 H RBC Hgb Hct MCV MCH 26 L RDW 17.7 H Plt Count Lymph % (Auto) Seg Neutrophils % Seg Neuts % (Manual) Lymphocytes % (Manual) Seg Neutrophils # Seg Neutrophils # Man Lymphocytes # (Manual) ABG pH 7.238 L POC ABG pCO2 53.8 H POC ABG pO2 53.1 L ABG pO2 ABG HCO3 ABG O2 Saturation ABG Base Excess ABG Hemoglobin 7.7 L ABG Oxyhemoglobin 83.8 L ABG Sodium 130.5 L ABG Chloride ABG Glucose Oxyhemoglobin Sodium Potassium Chloride Carbon Dioxide BUN Creatinine Glucose POC Glucose 122 H Total Protein Albumin Triglycerides Arterial Blood Glucose Urine WBC (Auto) Phenytoin 04/10/21 04/10/21 04/10/21 04:35 05:21 17:57 WBC RBC Hgb Hct MCV MCH RDW Plt Count Lymph % (Auto) Seg Neutrophils % Seg Neuts % (Manual) Lymphocytes % (Manual) Seg Neutrophils # Seg Neutrophils # Man Lymphocytes # (Manual) ABG pH POC ABG pCO2 POC ABG pO2 ABG pO2 ABG HCO3 ABG O2 Saturation ABG Base Excess ABG Hemoglobin ABG Oxyhemoglobin ABG Sodium ABG Chloride ABG Glucose Oxyhemoglobin Sodium 146 H Potassium Chloride 112.1 H Carbon Dioxide BUN Creatinine 0.4 L Glucose 156 H POC Glucose 140 H 113 H Total Protein Albumin Triglycerides Arterial Blood Glucose Urine WBC (Auto) Phenytoin 04/11/21 04/11/21 04/11/21 04:00 04:00 11:48 WBC RBC 3.54 L Hgb 8.8 L Hct 27.6 L MCV 78 L MCH 25 L RDW 18.0 H Plt Count Lymph % (Auto) Seg Neutrophils % Seg Neuts % (Manual) Lymphocytes % (Manual) Seg Neutrophils # Seg Neutrophils # Man Lymphocytes # (Manual) ABG pH POC ABG pCO2 POC ABG pO2 ABG pO2 ABG HCO3 ABG O2 Saturation ABG Base Excess ABG Hemoglobin ABG Oxyhemoglobin ABG Sodium ABG Chloride ABG Glucose Oxyhemoglobin Sodium 146 H Potassium Chloride 111.4 H Carbon Dioxide BUN Creatinine 0.5 L Glucose 112 H POC Glucose 128 H Total Protein Albumin Triglycerides Arterial Blood Glucose Urine WBC (Auto) Phenytoin Assessment and Plan Assessment and Plan Assessment and plan: This is a 25 year old female with OHS, seizures and multiple allergies admitted after anaphylactic reaction to peanuts # Agitation, h/o seizures -Patient sedated on fentanyl#4, and Propofol#50 and is off precedex and Versed -Precedex discontinued and propofol started -[facility] gave patient a one-time dose of rocuronium -Goal RASS 0 to -1 -Avoid delirium -Maintain sleep-wake cycle -Bilateral restraints for patient safety -As needed fentanyl and Versed -Seroquel dosage increased to 300 mg BID -EKG in a.m. for QTC: QTC within normal limits -Continue home Vimpat#200 mg BID, Keppra#1500 mg BID, phenytoin#100 mg TID and consider stop or kassidy of phenytoin if seizure free -STAT EEG -Repeat Phentanyl level -CT brain -Seizure precautions -Consider Psychiatry evaluation # -Blood pressure monitoring per protocol -As needed antihypertensive medicines -EKG shows ST # Acute hypoxic respiratory failure, h/o OHS -Intubated for airway protection on 04/04 with 6.50 ETT at 22 lips # Hypernatremia (improving), urinary retention # Leukocytosis -Secondary to steroids -Heparin subcu -Trend CBC -Transfuse for hemoglobin less than 7 -SCDs to bilateral lower extremities while in bed -ID on board # NAD -SSI -Accu-Cheks every 6 -Avoid hypoglycemia # PNA, UTI, Anaphylactic reaction -CXR with infiltrates -abx therapy: Vancomycin -04/08 tracheal aspirate with Staph aureus, urine culture with ESBL E. coli blood cultures x2 in NGTD -Repeat urine culture -steroid therapy for anaphylaxis reaction -stopped Benadryl d/t listed allergy -Monitor CBC and temp curves The high probability of a clinically significant, sudden or life threatening deterioration of the [respiratory] system(s) required my full and direct attention, intervention and personal management. The aggregate critical care time was [60] minutes. This time is in addition to time spent performing reported procedures but includes the following: [X] Data Review and interpretation [X] Patient assessment and monitoring of vital signs [X] Documentation [X] Medication orders and management Disposition Plan: icu Total Time Spent with Patient (Minutes): 60 will follow
--- NOTE | 2021-04-11 13:45 | Progress Note ---
Assessment and Plan Acute hypoxemic respiratory failure Anaphylaxis related to a PEANUT ALLERGY Angioedema MSSA Pneumonia Obesity Obesity hypoventilation syndrome Leukocytosis Hyperkalemia Mild metabolic acidosis Oropharyngeal dysphagia - begin Precedex and wean off Propofol quickly - spoke with her mother who will come to bedside tomorrow and try verbal re- direction - neurology input appreciated; EEG negative - begin Flomax for urinary retention issues (straight catheterization X 2 last 24 hours) - continue Seroquel at 300 mg p.o. bid - continue care as below otherwise; - continue Daily SAT and SBT assessment as tolerated - continue to wean supplemental oxygen for target O2 sat's > 90% acutely - VAP bundle addressed - continue lung protective strategies - continue bronchodilators with pulmonary hygiene per RT - wean per pulmonary driven protocols otherwise - avoid nephrotoxins, renally dose all medications - continue accuchecks with glycemic control per SSI (While critically ill target blood glucose of 140-180 mg/dL; avoid hypoglycemia) - sedation for target RASS 0 to -2 once paralytic wears off - continue to avoid benzodiazepine's, reduce the possibility of delirium - AB's per ID rec's - prn analgesia per CPOT score - Maintenance of sleep-wake cycle, avoid delirium - continue enteral nutritional support at goal rate as tolerated - G.I. & VTE prophylaxis - PT/OT/ROM exercises - continue mobility protocols for pressure ulcer prophylaxis - Monitor hemodynamics closely - continue other care per attending / other consultants - discharge planning ongoing concurrently COVID SPECIFIC INTERVENTIONS - not tested .... Re-evaluate in am & prn CONDITION: CRITICAL PROGNOSIS: GUARDED CODE STATUS: FULL CODE The high probability of a clinically significant, sudden or life-threatening deterioration of the [respiratory, cardiovascular & neurologic] system(s) required my full and direct attention, intervention and personal management. The aggregate critical care time was [32] minutes without overlap. Time includes spent on; [x] Data Review and interpretation [x] Patient assessment and monitoring of vital signs [x] Documentation [x] Medication orders and management Subjective Date of service: 04/11/21 Principal diagnosis: Acute hypoxemic resp failure; Anaphylaxis, peanut allergy; Obesity Interval history: Patient is seen today for: Acute hypoxemic respiratory failure; Anaphylaxis / peanut allergy; Angioedema; OHS; Hyperkalemia Seen and examined at bedside; 24hour events reviewed; nursing and respiratory care staff consulted; no adverse overnight events reported to me; agitation (delirium really) remains major impediment to extubation as unable to perform SBT's; good cuff leak demonstrated; no emesis or overt aspiration; afebrile; no grand mal seizures; seen by neurologist also Objective Vital Signs - 12hr 04/11/21 04/11/21 04/11/21 01:45 02:00 02:15 Temperature Pulse Rate 84 84 84 Pulse Rate [ From Monitor] Respiratory 12 12 12 Rate Blood Pressure 112/66 114/69 114/69 O2 Sat by Pulse 97 95 97 Oximetry 04/11/21 04/11/21 04/11/21 02:31 02:45 03:00 Temperature Pulse Rate 83 84 82 Pulse Rate [ From Monitor] Respiratory 9 L 12 12 Rate Blood Pressure 114/69 114/69 110/65 O2 Sat by Pulse 97 97 96 Oximetry 04/11/21 04/11/21 04/11/21 03:15 03:31 03:43 Temperature 97.9 F Pulse Rate 82 83 Pulse Rate [ From Monitor] Respiratory 12 12 Rate Blood Pressure 110/65 110/65 O2 Sat by Pulse 97 97 Oximetry 04/11/21 04/11/21 04/11/21 03:45 04:00 04:15 Temperature Pulse Rate 82 83 82 Pulse Rate [ 81 From Monitor] Respiratory 12 7 L 12 Rate Blood Pressure 110/65 110/64 110/64 O2 Sat by Pulse 97 97 97 Oximetry 04/11/21 04/11/21 04/11/21 04:31 04:39 04:45 Temperature Pulse Rate 84 82 84 Pulse Rate [ From Monitor] Respiratory 12 12 Rate Blood Pressure 110/64 110/64 110/64 O2 Sat by Pulse 96 96 96 Oximetry 04/11/21 04/11/21 04/11/21 05:00 05:15 05:31 Temperature Pulse Rate 81 80 81 Pulse Rate [ From Monitor] Respiratory 12 12 12 Rate Blood Pressure 109/64 109/64 109/64 O2 Sat by Pulse 97 97 98 Oximetry 04/11/21 04/11/21 04/11/21 05:45 06:00 06:16 Temperature Pulse Rate 80 79 78 Pulse Rate [ From Monitor] Respiratory 12 12 12 Rate Blood Pressure 109/64 106/57 106/57 O2 Sat by Pulse 98 99 98 Oximetry 04/11/21 04/11/21 04/11/21 06:30 06:46 07:00 Temperature 98.2 F Pulse Rate 78 77 75 Pulse Rate [ From Monitor] Respiratory 12 12 12 Rate Blood Pressure 106/57 106/57 108/60 O2 Sat by Pulse 98 98 97 Oximetry 04/11/21 04/11/21 04/11/21 07:16 07:30 07:46 Temperature Pulse Rate 77 77 77 Pulse Rate [ From Monitor] Respiratory 12 12 12 Rate Blood Pressure 108/60 108/60 108/60 O2 Sat by Pulse 97 97 99 Oximetry 04/11/21 04/11/21 04/11/21 08:00 08:16 08:30 Temperature Pulse Rate 77 74 84 Pulse Rate [ From Monitor] Respiratory 12 12 12 Rate Blood Pressure 107/60 107/60 107/60 O2 Sat by Pulse 96 98 100 Oximetry 04/11/21 04/11/21 04/11/21 08:46 09:00 09:16 Temperature Pulse Rate 95 H 94 H 106 H Pulse Rate [ From Monitor] Respiratory 12 13 13 Rate Blood Pressure 107/60 135/89 135/89 O2 Sat by Pulse 99 99 97 Oximetry 04/11/21 04/11/21 04/11/21 09:30 09:45 09:46 Temperature Pulse Rate 103 H 110 H 108 H Pulse Rate [ From Monitor] Respiratory 14 10 L Rate Blood Pressure 135/89 135/89 135/89 O2 Sat by Pulse 96 99 96 Oximetry 04/11/21 04/11/21 04/11/21 10:00 10:15 10:30 Temperature Pulse Rate 114 H 127 H 121 H Pulse Rate [ From Monitor] Respiratory 18 15 13 Rate Blood Pressure 170/111 154/101 154/101 O2 Sat by Pulse 69 L 92 94 Oximetry 04/11/21 04/11/21 04/11/21 10:46 11:00 11:16 Temperature 97.2 F L Pulse Rate 113 H 104 H 103 H Pulse Rate [ From Monitor] Respiratory 12 12 12 Rate Blood Pressure 156/105 133/88 133/86 O2 Sat by Pulse 96 94 96 Oximetry 04/11/21 04/11/21 04/11/21 11:30 11:46 12:00 Temperature 97.2 F L Pulse Rate 101 H 96 H 93 H Pulse Rate [ 77 From Monitor] Respiratory 12 12 12 Rate Blood Pressure 133/86 133/86 114/71 O2 Sat by Pulse 96 96 95 Oximetry 04/11/21 04/11/21 04/11/21 12:16 12:30 12:46 Temperature Pulse Rate 90 88 87 Pulse Rate [ From Monitor] Respiratory 12 12 12 Rate Blood Pressure 116/70 116/70 109/65 O2 Sat by Pulse 97 97 97 Oximetry Constitutional: asleep, appears uncomfortable, other (obese, short neck, orally intubated, ETT 6.5, mildly increased work of breathing) Eyes: non-icteric ENT: oropharynx moist, other (ETT 24 cm JENNY) Neck: supple, no lymphadenopathy, other (large circumference) Effort: mildly labored (moderatelyu) Ascultation: Bilateral: diminished breath sounds, rhonchi (scant) Percussion: Bilateral: not dull Cardiovascular: regular rate and rhythm, other (tachycardia) Gastrointestinal: normoactive bowel sounds, soft, non-tender, non-distended (protuberant), other (Proctor catheter in place) Integumentary: normal Extremities: no cyanosis, no edema, pulses normal, no ischemia or petechiae Neurologic: non-focal exam (grossly), pupils equal and round, unable to assess Psychiatric: other (Deliorious) CBC and BMP: 04/12/21 04:46 04/12/21 04:46 ABG, PT/INR, D-dimer: ABG ABG pH 7.238 (7.320-7.450) L 04/10/21 04:00 POC ABG pCO2 53.8 mmHg (32.0-48.0) H 04/10/21 04:00 ABG pCO2 35.2 mm Hg 04/06/21 11:33 POC ABG pO2 53.1 mmHg (83-108) L 04/10/21 04:00 ABG pO2 89.0 mm Hg (80.0-90.0) 04/06/21 11:33 POC ABG HCO3 22.4 04/10/21 04:00 ABG O2 Saturation 85.1 (0-100) 04/10/21 04:00 Abnormal lab findings: Abnormal Labs 04/04/21 04/04/21 04/04/21 16:38 16:38 18:40 WBC 12.4 H RBC Hgb Hct MCV MCH 26 L RDW 18.1 H Plt Count Lymph % (Auto) Seg Neutrophils % 77.0 H Seg Neuts % (Manual) Lymphocytes % (Manual) Seg Neutrophils # 9.6 H Seg Neutrophils # Man Lymphocytes # (Manual) ABG pH 7.290 L POC ABG pCO2 POC ABG pO2 ABG pO2 62.7 L ABG HCO3 ABG O2 Saturation 88.2 L ABG Base Excess -4.6 L ABG Hemoglobin 11.2 L ABG Oxyhemoglobin ABG Sodium ABG Chloride ABG Glucose Oxyhemoglobin 86.5 L Sodium Potassium Chloride Carbon Dioxide 20 L BUN Creatinine Glucose 224 H POC Glucose Total Protein Albumin Triglycerides Arterial Blood Glucose Urine WBC (Auto) Phenytoin 04/05/21 04/05/21 04/05/21 03:37 03:37 04:15 WBC 15.5 H RBC Hgb Hct MCV MCH 25 L RDW 19.0 H Plt Count Lymph % (Auto) Seg Neutrophils % Seg Neuts % (Manual) 90.0 H Lymphocytes % (Manual) 6.0 L Seg Neutrophils # Seg Neutrophils # Man 14.0 H Lymphocytes # (Manual) 0.9 L ABG pH 7.284 L POC ABG pCO2 POC ABG pO2 ABG pO2 101.9 H ABG HCO3 18.5 L ABG O2 Saturation ABG Base Excess -7.7 L ABG Hemoglobin 10.3 L ABG Oxyhemoglobin ABG Sodium ABG Chloride ABG Glucose Oxyhemoglobin Sodium Potassium 5.6 H D Chloride Carbon Dioxide 14 L BUN Creatinine Glucose 181 H POC Glucose Total Protein Albumin Triglycerides Arterial Blood Glucose Urine WBC (Auto) Phenytoin 04/05/21 04/05/21 04/06/21 20:27 21:00 07:49 WBC 12.9 H RBC Hgb Hct MCV 77 L MCH 24 L RDW 18.2 H Plt Count Lymph % (Auto) 9.7 L Seg Neutrophils % 83.1 H Seg Neuts % (Manual) Lymphocytes % (Manual) Seg Neutrophils # 10.8 H Seg Neutrophils # Man Lymphocytes # (Manual) ABG pH POC ABG pCO2 POC ABG pO2 ABG pO2 92.5 H ABG HCO3 ABG O2 Saturation ABG Base Excess ABG Hemoglobin 10.2 L ABG Oxyhemoglobin ABG Sodium ABG Chloride ABG Glucose Oxyhemoglobin Sodium Potassium Chloride 111.7 H Carbon Dioxide BUN Creatinine Glucose POC Glucose Total Protein Albumin Triglycerides Arterial Blood Glucose Urine WBC (Auto) Phenytoin 04/06/21 04/06/21 04/06/21 07:49 11:33 17:25 WBC RBC Hgb Hct MCV MCH RDW Plt Count Lymph % (Auto) Seg Neutrophils % Seg Neuts % (Manual) Lymphocytes % (Manual) Seg Neutrophils # Seg Neutrophils # Man Lymphocytes # (Manual) ABG pH POC ABG pCO2 POC ABG pO2 ABG pO2 ABG HCO3 ABG O2 Saturation ABG Base Excess -2.2 L ABG Hemoglobin 8.7 L ABG Oxyhemoglobin ABG Sodium ABG Chloride ABG Glucose Oxyhemoglobin Sodium Potassium Chloride 112.9 H Carbon Dioxide 20 L BUN 6 L Creatinine 0.5 L Glucose 105 H POC Glucose 125 H Total Protein Albumin Triglycerides Arterial Blood Glucose Urine WBC (Auto) Phenytoin 04/07/21 04/07/21 04/07/21 03:59 05:14 15:13 WBC RBC Hgb Hct MCV MCH RDW Plt Count Lymph % (Auto) Seg Neutrophils % Seg Neuts % (Manual) Lymphocytes % (Manual) Seg Neutrophils # Seg Neutrophils # Man Lymphocytes # (Manual) ABG pH 7.521 H POC ABG pCO2 POC ABG pO2 ABG pO2 ABG HCO3 ABG O2 Saturation ABG Base Excess ABG Hemoglobin 11.0 L ABG Oxyhemoglobin ABG Sodium 145.3 H ABG Chloride 116.0 H ABG Glucose 138 H Oxyhemoglobin Sodium Potassium Chloride Carbon Dioxide BUN Creatinine Glucose POC Glucose 118 H Total Protein Albumin Triglycerides 153 H Arterial Blood Glucose 138 H Urine WBC (Auto) Phenytoin 04/07/21 04/07/21 04/07/21 15:13 15:13 17:23 WBC 12.2 H RBC Hgb Hct MCV MCH 26 L RDW 19.0 H Plt Count 85 L Lymph % (Auto) Seg Neutrophils % Seg Neuts % (Manual) Lymphocytes % (Manual) Seg Neutrophils # Seg Neutrophils # Man Lymphocytes # (Manual) ABG pH POC ABG pCO2 POC ABG pO2 ABG pO2 ABG HCO3 ABG O2 Saturation ABG Base Excess ABG Hemoglobin ABG Oxyhemoglobin ABG Sodium ABG Chloride ABG Glucose Oxyhemoglobin Sodium Potassium Chloride 111.1 H Carbon Dioxide 20 L BUN Creatinine 0.5 L Glucose 126 H POC Glucose 122 H Total Protein Albumin Triglycerides Arterial Blood Glucose Urine WBC (Auto) Phenytoin 04/07/21 04/08/21 04/08/21 23:55 10:39 12:10 WBC RBC Hgb Hct MCV MCH RDW Plt Count Lymph % (Auto) Seg Neutrophils % Seg Neuts % (Manual) Lymphocytes % (Manual) Seg Neutrophils # Seg Neutrophils # Man Lymphocytes # (Manual) ABG pH 7.311 L POC ABG pCO2 POC ABG pO2 50.5 L ABG pO2 ABG HCO3 ABG O2 Saturation ABG Base Excess ABG Hemoglobin 11.6 L ABG Oxyhemoglobin 81.6 L ABG Sodium ABG Chloride 110.0 H ABG Glucose 120 H Oxyhemoglobin Sodium Potassium Chloride Carbon Dioxide BUN Creatinine Glucose POC Glucose 130 H 112 H Total Protein Albumin Triglycerides Arterial Blood Glucose 120 H Urine WBC (Auto) Phenytoin 04/08/21 04/08/21 04/08/21 12:25 14:50 15:30 WBC 12.8 H RBC Hgb 9.9 L Hct MCV MCH 25 L RDW 18.1 H Plt Count Lymph % (Auto) Seg Neutrophils % Seg Neuts % (Manual) Lymphocytes % (Manual) Seg Neutrophils # Seg Neutrophils # Man Lymphocytes # (Manual) ABG pH POC ABG pCO2 POC ABG pO2 ABG pO2 ABG HCO3 ABG O2 Saturation ABG Base Excess ABG Hemoglobin ABG Oxyhemoglobin ABG Sodium ABG Chloride ABG Glucose Oxyhemoglobin Sodium Potassium Chloride 108.4 H Carbon Dioxide 21 L BUN Creatinine Glucose 156 H POC Glucose Total Protein 6.2 L Albumin 3.6 L Triglycerides Arterial Blood Glucose Urine WBC (Auto) 23.0 H Phenytoin 04/08/21 04/08/21 04/09/21 18:20 23:24 04:17 WBC RBC Hgb 9.9 L Hct MCV MCH 25 L RDW 17.9 H Plt Count Lymph % (Auto) Seg Neutrophils % Seg Neuts % (Manual) Lymphocytes % (Manual) Seg Neutrophils # Seg Neutrophils # Man Lymphocytes # (Manual) ABG pH POC ABG pCO2 POC ABG pO2 ABG pO2 ABG HCO3 ABG O2 Saturation ABG Base Excess ABG Hemoglobin ABG Oxyhemoglobin ABG Sodium ABG Chloride ABG Glucose Oxyhemoglobin Sodium Potassium Chloride Carbon Dioxide BUN Creatinine Glucose POC Glucose 139 H 116 H Total Protein Albumin Triglycerides Arterial Blood Glucose Urine WBC (Auto) Phenytoin 04/09/21 04/09/21 04/09/21 04:17 04:35 05:35 WBC RBC Hgb Hct MCV MCH RDW Plt Count Lymph % (Auto) Seg Neutrophils % Seg Neuts % (Manual) Lymphocytes % (Manual) Seg Neutrophils # Seg Neutrophils # Man Lymphocytes # (Manual) ABG pH POC ABG pCO2 POC ABG pO2 ABG pO2 ABG HCO3 ABG O2 Saturation ABG Base Excess ABG Hemoglobin 10.4 L ABG Oxyhemoglobin ABG Sodium 146.2 H ABG Chloride 115.0 H ABG Glucose 143 H Oxyhemoglobin Sodium 149 H Potassium Chloride 114.0 H Carbon Dioxide BUN Creatinine Glucose 133 H POC Glucose 129 H Total Protein Albumin Triglycerides Arterial Blood Glucose 143 H Urine WBC (Auto) Phenytoin 04/09/21 04/09/21 04/09/21 12:20 12:38 17:55 WBC RBC Hgb Hct MCV MCH RDW Plt Count Lymph % (Auto) Seg Neutrophils % Seg Neuts % (Manual) Lymphocytes % (Manual) Seg Neutrophils # Seg Neutrophils # Man Lymphocytes # (Manual) ABG pH POC ABG pCO2 POC ABG pO2 ABG pO2 ABG HCO3 ABG O2 Saturation ABG Base Excess ABG Hemoglobin ABG Oxyhemoglobin ABG Sodium ABG Chloride ABG Glucose Oxyhemoglobin Sodium Potassium Chloride Carbon Dioxide BUN Creatinine Glucose POC Glucose 128 H 146 H Total Protein Albumin Triglycerides Arterial Blood Glucose Urine WBC (Auto) Phenytoin 3.6 L 04/09/21 04/10/21 04/10/21 23:26 04:00 04:35 WBC 13.0 H RBC Hgb Hct MCV MCH 26 L RDW 17.7 H Plt Count Lymph % (Auto) Seg Neutrophils % Seg Neuts % (Manual) Lymphocytes % (Manual) Seg Neutrophils # Seg Neutrophils # Man Lymphocytes # (Manual) ABG pH 7.238 L POC ABG pCO2 53.8 H POC ABG pO2 53.1 L ABG pO2 ABG HCO3 ABG O2 Saturation ABG Base Excess ABG Hemoglobin 7.7 L ABG Oxyhemoglobin 83.8 L ABG Sodium 130.5 L ABG Chloride ABG Glucose Oxyhemoglobin Sodium Potassium Chloride Carbon Dioxide BUN Creatinine Glucose POC Glucose 122 H Total Protein Albumin Triglycerides Arterial Blood Glucose Urine WBC (Auto) Phenytoin 04/10/21 04/10/21 04/10/21 04:35 05:21 17:57 WBC RBC Hgb Hct MCV MCH RDW Plt Count Lymph % (Auto) Seg Neutrophils % Seg Neuts % (Manual) Lymphocytes % (Manual) Seg Neutrophils # Seg Neutrophils # Man Lymphocytes # (Manual) ABG pH POC ABG pCO2 POC ABG pO2 ABG pO2 ABG HCO3 ABG O2 Saturation ABG Base Excess ABG Hemoglobin ABG Oxyhemoglobin ABG Sodium ABG Chloride ABG Glucose Oxyhemoglobin Sodium 146 H Potassium Chloride 112.1 H Carbon Dioxide BUN Creatinine 0.4 L Glucose 156 H POC Glucose 140 H 113 H Total Protein Albumin Triglycerides Arterial Blood Glucose Urine WBC (Auto) Phenytoin 04/11/21 04/11/21 04/11/21 04:00 04:00 11:48 WBC RBC 3.54 L Hgb 8.8 L Hct 27.6 L MCV 78 L MCH 25 L RDW 18.0 H Plt Count Lymph % (Auto) Seg Neutrophils % Seg Neuts % (Manual) Lymphocytes % (Manual) Seg Neutrophils # Seg Neutrophils # Man Lymphocytes # (Manual) ABG pH POC ABG pCO2 POC ABG pO2 ABG pO2 ABG HCO3 ABG O2 Saturation ABG Base Excess ABG Hemoglobin ABG Oxyhemoglobin ABG Sodium ABG Chloride ABG Glucose Oxyhemoglobin Sodium 146 H Potassium Chloride 111.4 H Carbon Dioxide BUN Creatinine 0.5 L Glucose 112 H POC Glucose 128 H Total Protein Albumin Triglycerides Arterial Blood Glucose Urine WBC (Auto) Phenytoin Chest x-ray: image reviewed (stble right lung infiltrate) Allied health notes reviewed: nursing
[2021-04-11] MEDS ORDERED: MAGNESIUM CITRATE 300 ML ORAL LIQD PO ONE (17:00)
[2021-04-11] MEDS: MIDAZOLAM 2 MG/2 ML INJ IV PRN (17:34)
[2021-04-11] MEDS: PHENYTOIN 100 MG in SODIUM CHLORIDE 0.9% 100 ML IV SCH ×2 (17:43→17:46)
--- NOTE | 2021-04-11 20:06 | Progress Note ---
<MICHAELGURU DylanAyleen - Last Filed: 04/11/21 20:07> Assessment and Plan Assessment and plan: This is a 25 year old female with OHS, seizures and multiple allergies admitted after anaphylactic reaction to peanuts Neuro: Agitation, h/o seizures -Patient sedated on fentanyl, Precedex and Versed -Precedex restarted, increase in seroquel -Goal RASS 0 to -1 -Avoid delirium -Maintain sleep-wake cycle -Bilateral restraints for patient safety -As needed fentanyl and Versed -Continue home Vimpat, Keppra, phenytoin -Seizure precautions -neurology consulted, appreciate recommendations -CTH pending CV: NAD -Blood pressure monitoring per protocol -As needed antihypertensive medicines Pulmonary: Acute hypoxic respiratory failure, h/o OHS -Intubated for airway protection on 04/04 with 6.50 ETT at 22 lips -A.m. vent settings: AC rate 20, tidal line 450, PEEP 6, FiO2 40% -See RT notes for titration -plan to extubate in AM -Daily SBT/SAT trials when appropriate -Continuous SPO2 monitoring -VAP bundle -CCM consulted, appreciate recommendations -Consider outpatient pulmonology follow-up GI: NAD -Nutrition consult for tube feedings -TF at goal -PPI -24-hour net +[phone] -BR: Senokot -One-time order of mag citrate given no bowel movement for several days -Free water flush 200 mL every 4 : Hypernatremia, urinary retention -increase in Free water flush 200 every 4 -Trend BMP -Replace electrolytes as needed -Daily weights -Strict intake and output -Pittman was replaced for urinary retention however was removed on 04/10 -straight cath x 3 already -started on flomax -rn to replace pittman with next straight cath Heme: Leukocytosis -Secondary to steroids -Heparin subcu -Trend CBC -Transfuse for hemoglobin less than 7 -SCDs to bilateral lower extremities while in bed Endo: NAD -SSI if needed -Accu-Cheks every 6 -Avoid hypoglycemia ID: PNA, E. coli in urine (colonization per ID), Anaphylactic reaction -Infectious disease consulted, appreciate recommendations -CXR with infiltrates -abx therapy: Cefazolin -04/08 tracheal aspirate with Staph aureus, urine culture with ESBL E. coli blood cultures x2 in NGTD -Repeat urine culture -steroid therapy for anaphylaxis reaction -stopped Benadryl d/t listed allergy -steroid taper started -Monitor CBC and temp curves The high probability of a clinically significant, sudden or life threatening deterioration of the [respiratory] system(s) required my full and direct attention, intervention and personal management. The aggregate critical care time was [60] minutes. This time is in addition to time spent performing reported procedures but includes the following: [X] Data Review and interpretation [X] Patient assessment and monitoring of vital signs [X] Documentation [X] Medication orders and management Disposition Plan: ICU Total Time Spent with Patient (Minutes): 60 History Interval history: This is a 25-year-old female with OHS and several allergies who presented to [facility] on 04/04 via EMS after an in flight allergic reaction to peanuts. Patient was intubated in the emergency department secondary to acute hypoxemic respiratory failure due to acute airway compromise and patient was admitted to ICU. Patient started on steroid therapy. 04/05/2021. Patient currently on dipper Van and fentanyl. However, nurse reports patient still agitated. Ativan IV ordered. Wean mechanical ventilation per pulmonary recommendations. Continue Solu-Medrol 40 mg IV every 8 hours. Add Pepcid 20 mg IV twice daily and Benadryl 25 mg IV every 6 hours. Continue supportive care 04/06/2021. The patient is currently on AC mode ventilation rate of 20, tidal volume 400, FiO2 25%. Wean mechanical ventilation per protocol. Continue bronchodilators/nebulizers. Patient currently sedated with propofol, Versed and fentanyl drip. Continue Solu-Medrol, Benadryl and Pepcid twice daily 04/07/2021. Patient currently sedated with Versed, fentanyl and propofol. C ontinue sedation per pulmonary recommendations. I spoke with the mother who reports numerous allergies that were reported to the nurse. The mother requests records from [facility] in [place]. Continue Solu-Medrol, Benadryl and Pepcid twice daily 04/08: Patinet still gets agitated with stimuli, remains on minimal vent settings, hypernatremia/hyperchloremia and FWF increased 04/08/2021. Patient reportedly with a cuff leak yesterday. We will reassess today for cuff leak and if continues will likely extubate per pulmonary. Continue Versed, fentanyl and propofol for sedation. Continue Solu-Medrol, Benadryl and Pepcid twice daily 04/09: patient exhibited extreme agitation this morning and was maxed on Versed, fentanyl and Precedex. Patient was started on propofol at max doses however patient still remained agitated. Patient was given rocuronium in the evening per [facility] and Versed was increased temporarily. Seroquel increased today. 04/11: Patient is calm on 10 of Versed and 50 of propofol. Remains in bilateral soft restraints. Patient was straight cath overnight x2 and yesterday evening x1. Patient to be straight cathed today and we will replace Pittman due to retent ion. Patient started on Flomax. Hyponatremia still persists and free water flushes will be increased. Neurology was consulted today who recommends a CT head/brain without contrast. Patient restarted on Precedex and given mag citrate due to no recorded bowel movements for several days. Started on prednisone taper and Seroquel increased. Patient was given 1 dose of rocuronium yesterday due to agitation. Plan to extubate with mother at the bedside tomorrow. Hospitalist Physical - Constitutional Vitals: Temp Pulse Resp BP Pulse Ox 98.7 F 71 12 105/61 98 04/11/21 15:54 04/11/21 18:00 04/11/21 18:00 04/11/21 18:00 04/11/21 18:00 General appearance: Present: no acute distress, obese, other (Intubated on mechanical ventilator) - EENT Eyes: Present: PERRL, EOM intact ENT: hearing intact, clear oral mucosa, dentition normal - Neck Neck: Present: normal ROM - Respiratory Respiratory effort: normal Respiratory: bilateral: diminished - Cardiovascular Rhythm: regular Heart Sounds: Present: S1 & S2. Absent: systolic murmur, diastolic murmur - Extremities Extremities: no ischemia, pulses intact, pulses symmetrical, No edema, normal temperature, normal color Peripheral Pulses: within normal limits - Abdominal General gastrointestinal: soft, non-tender, non-distended, normal bowel sounds - Integumentary Integumentary: Present: warm, dry - Psychiatric Psychiatric: agitated - Allied Health Allied health notes reviewed: nursing, ST, RT Results - Labs CBC & Chem 7: 04/11/21 04:00 04/11/21 04:00 Labs: Laboratory Last Values WBC 8.8 K/mm3 (4.5-11.0) 04/11/21 04:00 RBC 3.54 M/mm3 (3.65-5.03) L 04/11/21 04:00 Hgb 8.8 gm/dl (10.1-14.3) L 04/11/21 04:00 Hct 27.6 % (30.3-42.9) L 04/11/21 04:00 MCV 78 fl (79-97) L 04/11/21 04:00 MCH 25 pg (28-32) L 04/11/21 04:00 MCHC 32 % (30-34) 04/11/21 04:00 RDW 18.0 % (13.2-15.2) H 04/11/21 04:00 Plt Count 210 K/mm3 (140-440) 04/11/21 04:00 Lymph % (Auto) 9.7 % (13.4-35.0) L 04/06/21 07:49 [place] % (Auto) 5.8 % (0.0-7.3) 04/06/21 07:49 Eos % (Auto) 0.6 % (0.0-4.3) 04/06/21 07:49 Baso % (Auto) 0.8 % (0.0-1.8) 04/06/21 07:49 Lymph # (Auto) 1.3 K/mm3 (1.2-5.4) 04/06/21 07:49 [place] # (Auto) 0.8 K/mm3 (0.0-0.8) 04/06/21 07:49 Eos # (Auto) 0.1 K/mm3 (0.0-0.4) 04/06/21 07:49 Baso # (Auto) 0.1 K/mm3 (0.0-0.1) 04/06/21 07:49 Add Manual Diff Complete 04/05/21 03:37 Total Counted 100 04/05/21 03:37 Seg Neutrophils % 83.1 % (40.0-70.0) H 04/06/21 07:49 Seg Neuts % (Manual) 90.0 % (40.0-70.0) H 04/05/21 03:37 Band Neutrophils % 1.0 % 04/05/21 03:37 Lymphocytes % (Manual) 6.0 % (13.4-35.0) L 04/05/21 03:37 Monocytes % (Manual) 3.0 % (0.0-7.3) 04/05/21 03:37 Nucleated RBC % Not Reportable 04/05/21 03:37 Seg Neutrophils # 10.8 K/mm3 (1.8-7.7) H 04/06/21 07:49 Seg Neutrophils # Man 14.0 K/mm3 (1.8-7.7) H 04/05/21 03:37 Band Neutrophils # 0.2 K/mm3 04/05/21 03:37 Lymphocytes # (Manual) 0.9 K/mm3 (1.2-5.4) L 04/05/21 03:37 Abs React Lymphs (Man) 0.0 K/mm3 04/05/21 03:37 Monocytes # (Manual) 0.5 K/mm3 (0.0-0.8) 04/05/21 03:37 Eosinophils # (Manual) 0.0 K/mm3 (0.0-0.4) 04/05/21 03:37 Basophils # (Manual) 0.0 K/mm3 (0.0-0.1) 04/05/21 03:37 Metamyelocytes # 0.0 K/mm3 04/05/21 03:37 Myelocytes # 0.0 K/mm3 04/05/21 03:37 Promyelocytes # 0.0 K/mm3 04/05/21 03:37 Blast Cells # 0.0 K/mm3 04/05/21 03:37 WBC Morphology Not Reportable 04/05/21 03:37 Hypersegmented Neuts Not Reportable 04/05/21 03:37 Hyposegmented Neuts Not Reportable 04/05/21 03:37 Hypogranular Neuts Not Reportable 04/05/21 03:37 Smudge Cells Not Reportable 04/05/21 03:37 Toxic Granulation Not Reportable 04/05/21 03:37 Toxic Vacuolation Not Reportable 04/05/21 03:37 Dohle Bodies Not Reportable 04/05/21 03:37 Pelger-Huet Anomaly Not Reportable 04/05/21 03:37 Fermin Rods Not Reportable 04/05/21 03:37 Platelet Estimate Consistent w auto 04/05/21 03:37 Clumped Platelets Not Reportable 04/05/21 03:37 Plt Clumps, EDTA Not Reportable 04/05/21 03:37 Large Platelets Not Reportable 04/05/21 03:37 Giant Platelets Not Reportable 04/05/21 03:37 Platelet Satelliting Not Reportable 04/05/21 03:37 Plt Morphology Comment Not Reportable 04/05/21 03:37 RBC Morphology Not Reportable 04/05/21 03:37 Dimorphic RBCs Not Reportable 04/05/21 03:37 Polychromasia Not Reportable 04/05/21 03:37 Hypochromasia 1+ 04/05/21 03:37 Poikilocytosis Not Reportable 04/05/21 03:37 Anisocytosis 1+ 04/05/21 03:37 Microcytosis 1+ 04/05/21 03:37 Macrocytosis Not Reportable 04/05/21 03:37 Spherocytes Not Reportable 04/05/21 03:37 Pappenheimer Bodies Not Reportable 04/05/21 03:37 Sickle Cells Not Reportable 04/05/21 03:37 Target Cells Not Reportable 04/05/21 03:37 Tear Drop Cells Not Reportable 04/05/21 03:37 Ovalocytes Few 04/05/21 03:37 Helmet Cells Not Reportable 04/05/21 03:37 [place] Bodies Not Reportable 04/05/21 03:37 [place] Rings Not Reportable 04/05/21 03:37 Kiya Cells Not Reportable 04/05/21 03:37 Bite Cells Not Reportable 04/05/21 03:37 Crenated Cell Not Reportable 04/05/21 03:37 Elliptocytes Not Reportable 04/05/21 03:37 Acanthocytes (Spur) Not Reportable 04/05/21 03:37 Rouleaux Not Reportable 04/05/21 03:37 Hemoglobin C Crystals Not Reportable 04/05/21 03:37 Schistocytes Not Reportable 04/05/21 03:37 Malaria parasites Not Reportable 04/05/21 03:37 Paddy Bodies Not Reportable 04/05/21 03:37 Hem Pathologist Commnt No 04/05/21 03:37 ABG pH 7.238 (7.320-7.450) L 04/10/21 04:00 POC ABG pCO2 53.8 mmHg (32.0-48.0) H 04/10/21 04:00 ABG pCO2 35.2 mm Hg 04/06/21 11:33 POC ABG pO2 53.1 mmHg (83-108) L 04/10/21 04:00 ABG pO2 89.0 mm Hg (80.0-90.0) 04/06/21 11:33 POC ABG HCO3 22.4 04/10/21 04:00 ABG HCO3 22.0 mmol/L (20.0-26.0) 04/06/21 11:33 ABG O2 Saturation 85.1 (0-100) 04/10/21 04:00 ABG O2 Content 11.9 (0.0-44) 04/06/21 11:33 POC ABG Base Excess -4.8 04/10/21 04:00 ABG Base Excess -2.2 mmol/L (-2.0-3.0) L 04/06/21 11:33 ABG Hemoglobin 7.7 (12.0-17.5) L 04/10/21 04:00 ABG Oxyhemoglobin 83.8 (94-98) L 04/10/21 04:00 ABG Carboxyhemoglobin 1.3 % (0.0-5.0) 04/06/21 11:33 ABG Methemoglobin 0.3 (0.0-1.5) 04/10/21 04:00 ABG Sodium 130.5 mmol/L (136.0-145.0) L 04/10/21 04:00 ABG Potassium 3.4 mmol/L (3.40-4.50) 04/10/21 04:00 ABG Chloride 102.0 mmol/L (98-107) 04/10/21 04:00 ABG Glucose 74 mg/dL (65-95) 04/10/21 04:00 Oxyhemoglobin 95.4 % (95.0-99.0) 04/06/21 11:33 Carboxyhemoglobin 1.2 (0.5-1.5) 04/10/21 04:00 FiO2 25 % 04/06/21 11:33 FiO2 % 85 04/10/21 04:00 Sodium 146 mmol/L (137-145) H 04/11/21 04:00 Potassium 4.0 mmol/L (3.6-5.0) 04/11/21 04:00 Chloride 111.4 mmol/L (98-107) H 04/11/21 04:00 Carbon Dioxide 27 mmol/L (22-30) 04/11/21 04:00 Anion Gap 12 mmol/L 04/11/21 04:00 BUN 10 mg/dL (7-17) 04/11/21 04:00 Creatinine 0.5 mg/dL (0.6-1.2) L 04/11/21 04:00 Estimated GFR > 60 ml/min 04/11/21 04:00 BUN/Creatinine Ratio 20 % 04/11/21 04:00 Glucose 112 mg/dL (65-100) H 04/11/21 04:00 POC Glucose 91 mg/dL (70-105) 04/11/21 15:35 Calcium 8.6 mg/dL (8.4-10.2) 04/11/21 04:00 Phosphorus 3.10 mg/dL (2.5-4.5) 04/10/21 04:35 Magnesium 1.90 mg/dL (1.7-2.3) 04/11/21 04:00 Total Bilirubin 0.20 mg/dL (0.1-1.2) 04/08/21 14:50 AST 35 units/L (5-40) 04/08/21 14:50 ALT 30 units/L (7-56) 04/08/21 14:50 Alkaline Phosphatase 103 units/L (35-129) 04/08/21 14:50 Total Protein 6.2 g/dL (6.3-8.2) L 04/08/21 14:50 Albumin 3.6 g/dL (3.9-5) L 04/08/21 14:50 Albumin/Globulin Ratio 1.4 % 04/08/21 14:50 Triglycerides 153 mg/dL (2-149) H 04/07/21 15:13 HCG, Qual Negative (Negative) 04/04/21 Unknown Arterial Blood Glucose 74 mg/dL (65-95) 04/10/21 04:00 Urine Color Yellow (Yellow) 04/10/21 15:35 Urine Turbidity Hazy (Clear) 04/10/21 15:35 Urine pH 5.0 (5.0-7.0) 04/10/21 15:35 Ur Specific [place] 1.018 (1.003-1.030) 04/10/21 15:35 Urine Protein <15 mg/dl mg/dL (Negative) 04/10/21 15:35 Urine Glucose (UA) Neg mg/dL (Negative) 04/10/21 15:35 Urine Ketones Tr mg/dL (Negative) 04/10/21 15:35 Urine Blood Sm (Negative) 04/10/21 15:35 Urine Nitrite Neg (Negative) 04/10/21 15:35 Urine Bilirubin Neg (Negative) 04/10/21 15:35 Urine Urobilinogen < 2.0 mg/dL (<2.0) 04/10/21 15:35 Ur Leukocyte Esterase Neg (Negative) 04/10/21 15:35 Urine WBC (Auto) 4.0 /HPF (0.0-6.0) 04/10/21 15:35 Urine RBC (Auto) 35.0 /HPF (0.0-6.0) 04/10/21 15:35 U Epithel Cells (Auto) < 1.0 /HPF (0-13.0) 04/10/21 15:35 Urine Bacteria (Auto) 1+ /HPF (Negative) 04/10/21 15:35 Urine Mucus Few /HPF 04/10/21 15:35 Vancomycin Trough 11.9 ug/mL (5.0-20.0) 04/09/21 12:38 Phenytoin 3.6 ug/mL (10.0-20.0) L 04/09/21 12:38 Microbiology: Microbiology 04/08/21 14:50 Peripheral/Venous Blood Culture - Preliminary NO GROWTH AFTER 72 HOURS 04/08/21 14:50 Peripheral/Venous Blood Culture - Preliminary NO GROWTH AFTER 72 HOURS Pittman/IV: Voiding Method Incontinent Active Medications - Current Medications Current Medications: Generic Name Dose Route Start Last Admin Trade Name Freq PRN Reason Stop Dose Admin Acetaminophen 650 mg 04/04/21 18:37 04/10/21 15:59 Acetaminophen 325 Mg Tab PO 650 mg Q6H PRN Administration Pain MILD(1-3)/Fever >100.5/JONES Albuterol 2.5 mg 04/04/21 18:37 04/04/21 21:49 Albuterol 2.5 Mg/3 Ml Nebu IH 2.5 mg Q3HRT PRN Administration Shortness Of Breath Lipase/Protease/Amylase 1 each 04/05/21 15:50 Lipase 10,500/Protease 25,000/Amylase 43,750 (Units) Dr Cap FEEDTUBE PRN PRN For Clogged Feeding Tube Bisacodyl 10 mg 04/11/21 17:00 Bisacodyl 5 Mg Tab PO QDAY PRN Constipation Famotidine 20 mg 04/09/21 22:00 04/11/21 09:50 Famotidine 20 Mg Tab FEEDTUBE 20 mg BID CRISTY Administration Heparin Sodium (Porcine) 5,000 unit 04/04/21 22:00 04/11/21 09:50 Heparin 5,000 Unit/1 Ml Vial SUB-Q 5,000 unit Q12HR CRISTY Administration Hydralazine HCl 10 mg 04/09/21 18:17 Hydralazine 20 Mg/1 Ml Inj IV Q4H PRN Hypertension Hydromorphone HCl 0.5 mg 04/04/21 18:37 04/10/21 08:47 Hydromorphone 1 Mg/1 Ml Inj IV 0.5 mg Q23H PRN Administration Pain , Severe (7-10) Hydrophilic Ointment 1 applic 04/04/21 16:16 Lip Therapy Vaseline TP Q2HR PRN Dry Lips Fentanyl Citrate 2,000 mcg in 100 mls @ 5.67 mls/hr 04/04/21 20:00 04/11/21 18:50 Fentanyl Drip Premix IV 4 mcg/kg/hr TITR CRISTY 22.68 mls/hr Administration Protocol 1 MCG/KG/HR Phenytoin 100 mg/ Sodium 102 mls @ 408 mls/hr 04/06/21 14:00 04/11/21 17:46 Chloride IV 408 mls/hr Q8HR CRISTY Administration Midazolam HCl 100 mg/ Sodium 100 mls @ 1 mls/hr 04/07/21 22:00 04/11/21 18:37 Chloride IV 10 mg/hr TITR CRISTY 10 mls/hr Administration Protocol 1 MG/HR Propofol 1,000 mg in 100 mls @ 3.399 mls/hr 04/10/21 10:00 04/11/21 13:12 Diprivan 10 Mg/Ml IV 50 mcg/kg/min TITR CRISTY 33.99 mls/hr Administration Protocol 5 MCG/KG/MIN Cefazolin Sodium 2 gm/ Sodium 100 mls @ 200 mls/hr 04/11/21 10:00 04/11/21 18:41 Chloride IV 04/16/21 02:29 200 mls/hr Q8H CRISTY Administration Protocol Dexmedetomidine HCl 400 mcg/ 104 mls @ 5.892 mls/hr 04/11/21 15:00 04/11/21 15:57 Sodium Chloride IV 0.2 mcg/kg/hr TITRATE CRISTY 5.892 mls/hr Titration Protocol 0.2 MCG/KG/HR Lacosamide 200 mg 04/06/21 13:00 04/11/21 09:49 Lacosamide 100 Mg Tab PO 200 mg Q12HR CRISTY Administration Levetiracetam 1,500 mg 04/10/21 10:00 04/11/21 09:48 Levetiracetam 500 Mg/5 Ml Oral Liqd FEEDTUBE 1,500 mg BID CRISTY Administration Methylprednisolone Sodium Succinate 40 mg 04/04/21 22:00 04/11/21 14:45 Methylprednisolone Sod Succinate 40 Mg/1 Ml Inj IV 04/11/21 23:59 40 mg Q8HR CRISTY Administration Methylprednisolone Sodium Succinate 40 mg 04/12/21 10:00 Methylprednisolone Sod Succinate 40 Mg/1 Ml Inj IV 04/12/21 22:01 Q12HR [facility] Methylprednisolone Sodium Succinate 40 mg 04/13/21 10:00 Methylprednisolone Sod Succinate 40 Mg/1 Ml Inj IV 04/13/21 10:01 Q24H [facility] Midazolam HCl 2 mg 04/09/21 18:08 04/11/21 17:34 Midazolam 2 Mg/2 Ml Inj IV 2 mg Q4H PRN Administration Agitation Midazolam HCl 2 mg 04/10/21 08:44 04/10/21 19:54 Midazolam 2 Mg/2 Ml Inj IV 2 mg Q10MIN PRN Administration Sedation Multi-Ingred Cream/Lotion/Oil/Oint 1 applic 04/04/21 16:16 Mineral Oil/Petrolatum, White Ophth Oint 3.5 Gm OU Q4HR PRN Dry Eye(s) Oxycodone/Acetaminophen 1 tab 04/04/21 18:37 Oxycodone /Acetaminophen 5-325mg Tab PO Q16H PRN Pain, Moderate (4-6) Quetiapine Fumarate 300 mg 04/10/21 16:25 04/11/21 09:49 Quetiapine 100 Mg Tab PO 300 mg BID CRISTY Administration Senna/Docusate Sodium 1 tab 04/04/21 22:00 04/11/21 09:49 Sennosides/Docusate Sodium 8.6/50 Mg Tab FEEDTUBE 1 tab BID CRISTY Administration Simple Syrup 15 ml 04/05/21 15:50 Simple Syrup 15 Ml FEEDTUBE PRN PRN Hypoglycemia Simple Syrup 30 ml 04/05/21 15:50 Simple Syrup 15 Ml FEEDTUBE PRN PRN Hypoglycemia Sodium Bicarbonate 325 mg 04/05/21 15:50 Sodium Bicarbonate 325 Mg Tab FEEDTUBE PRN PRN For Clogged Feeding Tube Sodium Chloride 10 ml 04/04/21 22:00 04/11/21 10:27 Sodium Chloride 0.9% 10 Ml Flush Syringe IV 10 ml BID CRISTY Administration Sodium Chloride 10 ml 04/04/21 18:37 Sodium Chloride 0.9% 10 Ml Flush Syringe IV PRN PRN LINE FLUSH Tamsulosin HCl 0.4 mg 04/12/21 10:00 Tamsulosin 0.4 Mg Cap PO QDAY CRISTY Nutrition/Malnutrition Assess - Dietary Evaluation Nutrition/Malnutrition Findings: Nutrition Notes Start: 04/05/21 10:18 Freq: Status: Active Protocol: Document 04/09/21 11:37 GB (Rec: 04/09/21 11:49 GB [id number]) Nutrition Notes Initial or Follow up Assessment Current Diagnosis Respiratory Failure Other Pertinent Diagnosis Exposure to Peanuts, allergic reaction Current Diet NPO Labs/Tests 04/09: Na 149, glucose 133 Pertinent Medications fentanyl citrate, Heparin Na, Levetiracetam/D5 400ml/12hr ( 136kcal), midazolam HCl/NaCl, vancomycin Height 5 ft 7.2 in Weight 113.3 kg [place] Body Weight (kg) 61.81 BMI 38.9 Weight change and time frame No new weights at time of assessment Weight Status Obese Subjective/Other Information MD notes chest xray: 04/09: worsening airspace disease RN notes: pt agitated on vent, sedation meds changed BM: no BM recorded Percent of energy/protein needs met: TF at goal meets 75% or greater of EEN. Burn Absent Trauma Absent GI Symptoms Constipation Difficulty In Swallowing Food Allergy Yes Skin Integrity/Comment no complications reported Current % PO Other Minimum of two criteria No #1 Nutrition Diagnosis Other: (Specify in comment below) Comments: Food allergy exposure with reaction of constricting airway Per chest xray note 04/09: worsening airspace Etiology reported peanut allergy As Evidenced by Signs and Symptoms currently intubated to protect airway Diagnosis Progress(for reassessment Continues documentation) Is patient on ventilator? Yes Is Patient Ambulatory and/or Out of Bed No REE-([facility]-confined to bed) 2285.808 Kcal/Kg value to use for calculation 15 Approximate Energy Requirements Using 1700 kcal/Kg Calculation Used for Recommendations Kcal/kg Additional Notes Protein: 0.8-1 g/kg @113k -113g Fluids: 1 ml/kcal or per MD TF - peanut allergy severe/ unsure of soy allergy. Vital HP is the only product w/o soy . Nutrition Intervention Change Diet Order: Continue NPO, when extubated advance to regular Nutrition Support: Vital HP (only product w/o SOY products) due to severe peanut allergy, unknown if allergy extends to soy. Goal rate 50ml/hr. Start rate 15ml/hr. Flush 100ml/4hr Total fluids: TF (1003ml) + Flush (600ml) = 1603ml Kcal 1,200 Protein (gm) 105 Carbohydrates (gm) 134 Fat (gm) 28 Fluid (mL) 1,003 Add Supplement/Snack (indicate name/kcal n/a /protein ) Goal #1 Extubation r/t recovery from food allergy reaction by f/u 04/09: not met, intubation continues Goal #2 Diet advanced to Regular 04/09: not met, TF continues Goal #3 TF tolerance Vital HP goal rate 50ml/hr 04/09: met, at goal rate, continues Follow-Up By: 04/12/21 Additional Comments f/u TF vital HP@ goal 50ml/hr, vent status <NAYELI HARRIS - Last Filed: 04/15/21 12:50> Assessment and Plan Assessment and plan: I saw and evaluated the patient. Discussed with the nurse practitioner and agree with their findings and plan as documented in this note. - Patient Problems (1) Anaphylaxis due to peanuts Status: Acute (2) Acute respiratory failure Status: Acute (3) Allergic reaction Status: Acute Qualifiers: Encounter type: initial encounter Qualified Code(s): T78.40XA - Allergy, unspecified, initial encounter Hospitalist Physical - Constitutional Vitals: Temp Pulse Resp BP Pulse Ox 99.4 F 70 18 138/94 96 04/14/21 10:53 04/14/21 10:53 04/14/21 10:53 04/14/21 10:53 04/14/21 10:53 Results - Labs CBC & Chem 7: 04/13/21 07:50 04/13/21 06:09 Labs: Laboratory Last Values WBC 14.2 K/mm3 (4.5-11.0) H 04/13/21 07:50 RBC 4.14 M/mm3 (3.65-5.03) 04/13/21 07:50 Hgb 9.9 gm/dl (10.1-14.3) L 04/13/21 07:50 Hct 31.4 % (30.3-42.9) 04/13/21 07:50 MCV 76 fl (79-97) L 04/13/21 07:50 MCH 24 pg (28-32) L 04/13/21 07:50 MCHC 32 % (30-34) 04/13/21 07:50 RDW 18.7 % (13.2-15.2) H 04/13/21 07:50 Plt Count 215 K/mm3 (140-440) 04/13/21 07:50 Lymph % (Auto) 9.7 % (13.4-35.0) L 04/06/21 07:49 [place] % (Auto) 5.8 % (0.0-7.3) 04/06/21 07:49 Eos % (Auto) 0.6 % (0.0-4.3) 04/06/21 07:49 Baso % (Auto) 0.8 % (0.0-1.8) 04/06/21 07:49 Lymph # (Auto) 1.3 K/mm3 (1.2-5.4) 04/06/21 07:49 [place] # (Auto) 0.8 K/mm3 (0.0-0.8) 04/06/21 07:49 Eos # (Auto) 0.1 K/mm3 (0.0-0.4) 04/06/21 07:49 Baso # (Auto) 0.1 K/mm3 (0.0-0.1) 04/06/21 07:49 Add Manual Diff Complete 04/05/21 03:37 Total Counted 100 04/05/21 03:37 Seg Neutrophils % 83.1 % (40.0-70.0) H 04/06/21 07:49 Seg Neuts % (Manual) 90.0 % (40.0-70.0) H 04/05/21 03:37 Band Neutrophils % 1.0 % 04/05/21 03:37 Lymphocytes % (Manual) 6.0 % (13.4-35.0) L 04/05/21 03:37 Monocytes % (Manual) 3.0 % (0.0-7.3) 04/05/21 03:37 Nucleated RBC % Not Reportable 04/05/21 03:37 Seg Neutrophils # 10.8 K/mm3 (1.8-7.7) H 04/06/21 07:49 Seg Neutrophils # Man 14.0 K/mm3 (1.8-7.7) H 04/05/21 03:37 Band Neutrophils # 0.2 K/mm3 04/05/21 03:37 Lymphocytes # (Manual) 0.9 K/mm3 (1.2-5.4) L 04/05/21 03:37 Abs React Lymphs (Man) 0.0 K/mm3 04/05/21 03:37 Monocytes # (Manual) 0.5 K/mm3 (0.0-0.8) 04/05/21 03:37 Eosinophils # (Manual) 0.0 K/mm3 (0.0-0.4) 04/05/21 03:37 Basophils # (Manual) 0.0 K/mm3 (0.0-0.1) 04/05/21 03:37 Metamyelocytes # 0.0 K/mm3 04/05/21 03:37 Myelocytes # 0.0 K/mm3 04/05/21 03:37 Promyelocytes # 0.0 K/mm3 04/05/21 03:37 Blast Cells # 0.0 K/mm3 04/05/21 03:37 WBC Morphology Not Reportable 04/05/21 03:37 Hypersegmented Neuts Not Reportable 04/05/21 03:37 Hyposegmented Neuts Not Reportable 04/05/21 03:37 Hypogranular Neuts Not Reportable 04/05/21 03:37 Smudge Cells Not Reportable 04/05/21 03:37 Toxic Granulation Not Reportable 04/05/21 03:37 Toxic Vacuolation Not Reportable 04/05/21 03:37 Dohle Bodies Not Reportable 04/05/21 03:37 Pelger-Huet Anomaly Not Reportable 04/05/21 03:37 Fermin Rods Not Reportable 04/05/21 03:37 Platelet Estimate Consistent w auto 04/05/21 03:37 Clumped Platelets Not Reportable 04/05/21 03:37 Plt Clumps, EDTA Not Reportable 04/05/21 03:37 Large Platelets Not Reportable 04/05/21 03:37 Giant Platelets Not Reportable 04/05/21 03:37 Platelet Satelliting Not Reportable 04/05/21 03:37 Plt Morphology Comment Not Reportable 04/05/21 03:37 RBC Morphology Not Reportable 04/05/21 03:37 Dimorphic RBCs Not Reportable 04/05/21 03:37 Polychromasia Not Reportable 04/05/21 03:37 Hypochromasia 1+ 04/05/21 03:37 Poikilocytosis Not Reportable 04/05/21 03:37 Anisocytosis 1+ 04/05/21 03:37 Microcytosis 1+ 04/05/21 03:37 Macrocytosis Not Reportable 04/05/21 03:37 Spherocytes Not Reportable 04/05/21 03:37 Pappenheimer Bodies Not Reportable 04/05/21 03:37 Sickle Cells Not Reportable 04/05/21 03:37 Target Cells Not Reportable 04/05/21 03:37 Tear Drop Cells Not Reportable 04/05/21 03:37 Ovalocytes Few 04/05/21 03:37 Helmet Cells Not Reportable 04/05/21 03:37 [place] Bodies Not Reportable 04/05/21 03:37 [place] Rings Not Reportable 04/05/21 03:37 [place] Cells Not Reportable 04/05/21 03:37 Bite Cells Not Reportable 04/05/21 03:37 Crenated Cell Not Reportable 04/05/21 03:37 Elliptocytes Not Reportable 04/05/21 03:37 Acanthocytes (Spur) Not Reportable 04/05/21 03:37 Rouleaux Not Reportable 04/05/21 03:37 Hemoglobin C Crystals Not Reportable 04/05/21 03:37 Schistocytes Not Reportable 04/05/21 03:37 Malaria parasites Not Reportable 04/05/21 03:37 Paddy Bodies Not Reportable 04/05/21 03:37 Hem Pathologist Commnt No 04/05/21 03:37 ABG pH 7.418 pH Units (7.350-7.450) 04/12/21 13:35 POC ABG pCO2 53.8 mmHg (32.0-48.0) H 04/10/21 04:00 ABG pCO2 46.8 mm Hg 04/12/21 13:35 POC ABG pO2 53.1 mmHg (83-108) L 04/10/21 04:00 ABG pO2 56.7 mm Hg (80.0-90.0) L 04/12/21 13:35 POC ABG HCO3 22.4 04/10/21 04:00 ABG HCO3 29.6 mmol/L (20.0-26.0) H 04/12/21 13:35 ABG O2 Saturation 99.0 % (95.0-99.0) 04/12/21 13:35 ABG O2 Content 14.1 (0.0-44) 04/12/21 13:35 POC ABG Base Excess -4.8 04/10/21 04:00 ABG Base Excess 4.4 mmol/L (-2.0-3.0) H 04/12/21 13:35 ABG Hemoglobin 10.3 gm/dl (12.0-16.0) L 04/12/21 13:35 ABG Oxyhemoglobin 83.8 (94-98) L 04/10/21 04:00 ABG Carboxyhemoglobin 1.4 % (0.0-5.0) 04/12/21 13:35 ABG Methemoglobin 0.6 % (0.0-1.5) 04/12/21 13:35 ABG Sodium 130.5 mmol/L (136.0-145.0) L 04/10/21 04:00 ABG Potassium 3.4 mmol/L (3.40-4.50) 04/10/21 04:00 ABG Chloride 102.0 mmol/L (98-107) 04/10/21 04:00 ABG Glucose 74 mg/dL (65-95) 04/10/21 04:00 Oxyhemoglobin 97.0 % (95.0-99.0) 04/12/21 13:35 Carboxyhemoglobin 1.2 (0.5-1.5) 04/10/21 04:00 FiO2 40 % 04/12/21 13:35 FiO2 % 85 04/10/21 04:00 Sodium 150 mmol/L (137-145) H 04/13/21 06:09 Potassium 3.4 mmol/L (3.6-5.0) L 04/13/21 06:09 Chloride 107.6 mmol/L (98-107) H 04/13/21 06:09 Carbon Dioxide 22 mmol/L (22-30) 04/13/21 06:09 Anion Gap 24 mmol/L 04/13/21 06:09 BUN 14 mg/dL (7-17) 04/13/21 06:09 Creatinine 0.6 mg/dL (0.6-1.2) 04/13/21 06:09 Estimated GFR > 60 ml/min 04/13/21 06:09 BUN/Creatinine Ratio 23 % 04/13/21 06:09 Glucose 90 mg/dL (65-100) 04/13/21 06:09 POC Glucose 92 mg/dL (70-105) 04/12/21 05:46 Calcium 8.7 mg/dL (8.4-10.2) 04/13/21 06:09 Phosphorus 3.10 mg/dL (2.5-4.5) 04/10/21 04:35 Magnesium 1.90 mg/dL (1.7-2.3) 04/11/21 04:00 Total Bilirubin 0.20 mg/dL (0.1-1.2) 04/08/21 14:50 AST 35 units/L (5-40) 04/08/21 14:50 ALT 30 units/L (7-56) 04/08/21 14:50 Alkaline Phosphatase 103 units/L (35-129) 04/08/21 14:50 Total Protein 6.2 g/dL (6.3-8.2) L 04/08/21 14:50 Albumin 3.6 g/dL (3.9-5) L 04/08/21 14:50 Albumin/Globulin Ratio 1.4 % 04/08/21 14:50 Triglycerides 515 mg/dL (2-149) H 04/12/21 04:46 HCG, Qual Negative (Negative) 04/04/21 Unknown Arterial Blood Glucose 74 mg/dL (65-95) 04/10/21 04:00 Urine Color Yellow (Yellow) 04/10/21 15:35 Urine Turbidity Hazy (Clear) 04/10/21 15:35 Urine pH 5.0 (5.0-7.0) 04/10/21 15:35 Ur Specific [place] 1.018 (1.003-1.030) 04/10/21 15:35 Urine Protein <15 mg/dl mg/dL (Negative) 04/10/21 15:35 Urine Glucose (UA) Neg mg/dL (Negative) 04/10/21 15:35 Urine Ketones Tr mg/dL (Negative) 04/10/21 15:35 Urine Blood Sm (Negative) 04/10/21 15:35 Urine Nitrite Neg (Negative) 04/10/21 15:35 Urine Bilirubin Neg (Negative) 04/10/21 15:35 Urine Urobilinogen < 2.0 mg/dL (<2.0) 04/10/21 15:35 Ur Leukocyte Esterase Neg (Negative) 04/10/21 15:35 Urine WBC (Auto) 4.0 /HPF (0.0-6.0) 04/10/21 15:35 Urine RBC (Auto) 35.0 /HPF (0.0-6.0) 04/10/21 15:35 U Epithel Cells (Auto) < 1.0 /HPF (0-13.0) 04/10/21 15:35 Urine Bacteria (Auto) 1+ /HPF (Negative) 04/10/21 15:35 Urine Mucus Few /HPF 04/10/21 15:35 Vancomycin Trough 11.9 ug/mL (5.0-20.0) 04/09/21 12:38 Phenytoin 3.3 ug/mL (10.0-20.0) L 04/12/21 13:04 [place]/IV: Voiding Method External Female Catheter Nutrition/Malnutrition Assess - Dietary Evaluation Nutrition/Malnutrition Findings: Nutrition Notes Start: 04/05/21 10:18 Freq: Status: Discharge Protocol: Document 04/12/21 14:59 GB (Rec: 04/12/21 15:10 GB [id number]) Nutrition Notes Initial or Follow up Assessment Current Diagnosis Respiratory Failure Other Pertinent Diagnosis Exposure to Peanuts, allergic reaction. 04/12: extubated Current Diet NPO, TF Labs/Tests 04/12: Na 150, glucose 121, creatinine 0.5, Tg 515 Pertinent Medications reviewed Height 5 ft 7.2 in Weight 113.3 kg [place] Body Weight (kg) 61.81 BMI 38.9 Weight change and time frame No new weights at time of assessment Weight Status Obese Subjective/Other Information Per RT note 04/12: extubated 2 :33 Last BM: 04/12 Percent of energy/protein needs met: unable to assess at this time. Recently extubated Burn Absent Trauma Absent GI Symptoms None Food Allergy Yes Skin Integrity/Comment no complications reported Current % PO Other Minimum of two criteria No #1 Nutrition Diagnosis Other: (Specify in comment below) Comments: Food allergy exposure with reaction of constricting airway Per chest xray note 04/09: worsening airspace 04/12: extubated Etiology reported peanut allergy As Evidenced by Signs and Symptoms currently intubated to protect airway Diagnosis Progress(for reassessment Resolved documentation) Is patient on ventilator? No Is Patient Ambulatory and/or Out of Bed No REE-([facility]-confined to bed) [phone] Kcal/Kg value to use for calculation 15 Approximate Energy Requirements Using 1700 kcal/Kg Calculation Used for Recommendations Kcal/kg Additional Notes Protein: 0.8-1 g/kg @113k -113g Fluids: 1 ml/kcal or per MD Vital HP is the only product w /o soy. Nutrition Intervention Change Diet Order: Advance diet Clear to low fat pending bedside swallow results Nutrition Support: n/a Add Supplement/Snack (indicate name/kcal n/a - Not recommended. /protein ) Only the ensure clears do not have soy proteins Goal #1 Extubation r/t recovery from food allergy reaction by f/u 04/09: not met, intubation continues 04/12: met, diet to advance post bedside swallow, alertness Goal #2 Diet advanced to low fat 04/09: not met, TF continues 04/12: extubated today. diet advancing post bedside swallow results Goal #3 TF tolerance Vital HP goal rate 50ml/hr 04/09: met, at goal rate, continues 04/12: extubated. resolved Follow-Up By: 04/16/21 Additional Comments f/u diet advancement, po intake
[2021-04-12] MEDS: fentaNYL DRIP Premix 2,000 MCG/100 ML BAG IV SCH ×4 (00:02→07:51)
[2021-04-12] MEDS: MIDAZOLAM 100 MG in SODIUM CHLORIDE 0.9% 80 ML IV SCH (01:53)
[2021-04-12 05:27] LABS: Mean Corpuscular HGB Conc 30 % (30-34); Mean Corpuscular Volume 78 fl (79-97); Red Cell Distribution Width 18.8 % (13.2-15.2)
[2021-04-12 05:40] LABS: Blood Urea Nitrogen 12 mg/dL (7-17); Calcium 8.5 mg/dL (8.4-10.2); Hemolysis Index 14
[2021-04-12 05:51] LABS: Hematocrit 33.6 % (30.3-42.9)
[2021-04-12 05:55] LABS: BUN/Creatinine Ratio 24
[2021-04-12] MEDS: PHENYTOIN 100 MG in SODIUM CHLORIDE 0.9% 100 ML IV SCH ×4 (06:30→23:55)
[2021-04-12 07:35] LABS: Platelet Count 223 K/mm3 (140-440)
[2021-04-12] MEDS: TAMSULOSIN 0.4 MG CAP PO SCH (09:50)
[2021-04-12] MEDS: FAMOTIDINE 20 MG TAB FEEDTUBE SCH ×2 (09:51→23:44)
[2021-04-12] MEDS: LACOSAMIDE 100 MG TAB PO SCH ×2 (09:51→21:25)
[2021-04-12] MEDS: HEPARIN 5,000 UNIT/1 ML VIAL SUB-Q SCH ×2 (09:51→21:25)
[2021-04-12] MEDS: QUEtiapine 100 MG TAB PO SCH ×2 (09:51→21:25)
[2021-04-12] MEDS: methylPREDNISolone Sod Succinate 40 MG/1 ML INJ IV SCH ×2 (09:52→21:25)
--- NOTE | 2021-04-12 09:59 | Electrocardiograph Report ---
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
[2021-04-12] MEDS: levETIRAcetam 500 MG/5 ML ORAL LIQD FEEDTUBE SCH ×2 (10:06→23:44)
[2021-04-12] MEDS: SENNOSIDES/DOCUSATE SODIUM 8.6/50 MG TAB FEEDTUBE SCH ×2 (11:23→23:44)
[2021-04-12] MEDS: FREE WATER PO SCH (11:24)
--- NOTE | 2021-04-12 11:41 | Progress Note ---
Assessment and Plan Cultures: 04/04/2021 sputum culture: Usual respiratory gerber 04/08/2021 tracheal aspirate culture: MSSA 04/08/2021 urine culture: ESBL E. coli 04/08/2021 blood culture: No growth A/P: 25-year-old female with obesity, multiple allergies was admitted to the hospital on 04/04/2021 following an inflight allergic reaction to peanuts. Due to airway compromise, she was intubated in the ER: #MSSA tracheobronchitis v/s pneumonia: Chest x-ray with multifocal airspace opacities, vent settings not very high. Treat with Ancef. #ESBL E. coli in urine: Reflects colonization. UA without any significant pyuria. No antibiotics at this time #Anaphylaxis #Acute respiratory failure: On the vent #Obesity Recs: -continue IV Ancef 2 gm q8 hrs, D2 Mk Ballard MD, FACP [facility] ([facility] O: [phone] F: [phone] Subjective Date of service: 04/12/21 Principal diagnosis: Acute hypoxemic resp failure; Anaphylaxis, peanut allergy; Obesity Interval history: Low grade temp x 1. Remains sedated, on the vent. Mother at bedside. Objective - Exam Narrative Exam: Physical Exam: Constitutional: sedated, intubated, on the vent Head, Ears, Nose: Normocephalic, atraumatic. External ears, nose normal Eyes: Conjunctivae/corneas clear. No icterus. No ptosis. Neck: intubated Oral: intubated Cardiovascular: S1, S2 + Respiratory: wheeze + GI: Soft, bowel sounds + Musculoskeletal: No pedal edema, no cyanosis. Skin: No rash or abscess Hem/Lymphatic: No palpable cervical or supraclavicular nodes. No lymphangitis Psych: no agitation Neurological: sedated, intubated, on the vent, exam limited - Constitutional Vitals: Vital Signs Temp Pulse Resp BP Pulse Ox 100.0 F H 73 12 133/84 99 04/12/21 07:18 04/12/21 08:32 04/12/21 07:00 04/12/21 08:32 04/12/21 08:32 Temperature -Last 24 Hours Temperature 100.0 F Temperature 97.5 F Temperature 99.0 F Temperature 98.4 F Temperature 98.7 F Temperature 97.2 F - Labs CBC & Chem 7: 04/12/21 04:46 04/12/21 04:46 Labs: Abnormal lab results 04/11/21 04/12/21 04/12/21 Range/Units 11:48 04:46 04:46 WBC 15.2 H (4.5-11.0) K/mm3 Hgb 10.0 L (10.1-14.3) gm/dl MCV 78 L (79-97) fl MCH 23 L (28-32) pg RDW 18.8 H (13.2-15.2) % Sodium (137-145) mmol/L Chloride (98-107) mmol/L Creatinine (0.6-1.2) mg/dL Glucose (65-100) mg/dL POC Glucose 128 H (70-105) mg/dL Triglycerides 515 H (2-149) mg/dL 04/12/21 Range/Units 04:46 WBC (4.5-11.0) K/mm3 Hgb (10.1-14.3) gm/dl MCV (79-97) fl MCH (28-32) pg RDW (13.2-15.2) % Sodium 150 H (137-145) mmol/L Chloride 110.9 H (98-107) mmol/L Creatinine 0.5 L (0.6-1.2) mg/dL Glucose 121 H (65-100) mg/dL POC Glucose (70-105) mg/dL Triglycerides (2-149) mg/dL
--- NOTE | 2021-04-12 12:10 | Progress Note ---
Assessment and Plan Assessment and Plan Assessment and plan: This is a 25 year old female with OHS, seizures and multiple allergies admitted after anaphylactic reaction to peanuts # Agitation, h/o seizures -Patient sedated on fentanyl#4, and Propofol#50 and is off precedex and Versed -Precedex discontinued and propofol started -[facility] gave patient a one-time dose of rocuronium -Goal RASS 0 to -1 -Avoid delirium -Maintain sleep-wake cycle -Bilateral restraints for patient safety -As needed fentanyl and Versed -Seroquel dosage increased to 300 mg BID -EKG in a.m. for QTC: QTC within normal limits -Continue home Vimpat#200 mg BID, Keppra#1500 mg BID, phenytoin#100 mg TID and consider stop or kassidy of phenytoin if seizure free -STAT EEG -Repeat Phentanyl level -CT brain -Seizure precautions -Consider Psychiatry evaluation # -Blood pressure monitoring per protocol -As needed antihypertensive medicines -EKG shows ST # Acute hypoxic respiratory failure, h/o OHS -Intubated for airway protection on 04/04 with 6.50 ETT at 22 lips # Hypernatremia (improving), urinary retention # Leukocytosis -Secondary to steroids -Heparin subcu -Trend CBC -Transfuse for hemoglobin less than 7 -SCDs to bilateral lower extremities while in bed -ID on board # NAD -SSI -Accu-Cheks every 6 -Avoid hypoglycemia # PNA, UTI, Anaphylactic reaction -CXR with infiltrates -abx therapy: Vancomycin -04/08 tracheal aspirate with Staph aureus, urine culture with ESBL E. coli blood cultures x2 in NGTD -Repeat urine culture -steroid therapy for anaphylaxis reaction -stopped Benadryl d/t listed allergy -Monitor CBC and temp curves The high probability of a clinically significant, sudden or life threatening deterioration of the [respiratory] system(s) required my full and direct attention, intervention and personal management. The aggregate critical care time was [60] minutes. This time is in addition to time spent performing reported procedures but includes the following: [X] Data Review and interpretation [X] Patient assessment and monitoring of vital signs [X] Documentation [X] Medication orders and management Disposition Plan: icu Total Time Spent with Patient (Minutes): 60 will follow Subjective Date of service: 04/12/21 Principal diagnosis: Acute hypoxemic resp failure; Anaphylaxis, peanut allergy; Obesity Interval history: status same she is intubated and sedated , no seizure had been agitated last night and required increase sedation Versed and precedex Plan to extubate today Hypernatremia NA#[address] brain is pending EEG is unremarkable Objective - Vital Sign Vital Signs - 12hr 04/12/21 04/12/21 04/12/21 00:16 00:30 00:46 Temperature Pulse Rate 81 85 81 Pulse Rate [ From Monitor] Respiratory 13 13 12 Rate Blood Pressure 125/76 125/76 125/76 O2 Sat by Pulse 90 90 92 Oximetry 04/12/21 04/12/21 04/12/21 01:00 01:16 01:30 Temperature Pulse Rate 82 83 75 Pulse Rate [ From Monitor] Respiratory 12 12 12 Rate Blood Pressure 104/61 125/76 125/76 O2 Sat by Pulse 92 96 96 Oximetry 04/12/21 04/12/21 04/12/21 01:46 02:00 02:38 Temperature Pulse Rate 75 76 103 H Pulse Rate [ From Monitor] Respiratory 12 12 10 L Rate Blood Pressure 125/76 95/52 95/52 O2 Sat by Pulse 96 98 87 Oximetry 04/12/21 04/12/21 04/12/21 02:46 03:00 03:16 Temperature Pulse Rate 116 H 120 H Pulse Rate [ From Monitor] Respiratory 11 L 15 Rate Blood Pressure 95/52 95/52 95/52 O2 Sat by Pulse 90 96 81 L Oximetry 04/12/21 04/12/21 04/12/21 03:30 03:46 04:00 Temperature 97.5 F L Pulse Rate 88 104 H 107 H Pulse Rate [ 102 H From Monitor] Respiratory 13 16 13 Rate Blood Pressure 160/94 160/94 170/95 O2 Sat by Pulse 94 95 95 Oximetry 04/12/21 04/12/21 04/12/21 04:16 04:30 04:46 Temperature Pulse Rate 114 H 113 H 113 H Pulse Rate [ From Monitor] Respiratory 16 14 13 Rate Blood Pressure 170/95 174/97 174/97 O2 Sat by Pulse 93 Oximetry 04/12/21 04/12/21 04/12/21 05:00 05:05 05:16 Temperature Pulse Rate 118 H 118 H 117 H Pulse Rate [ From Monitor] Respiratory 17 27 H Rate Blood Pressure 174/97 174/97 O2 Sat by Pulse 95 95 Oximetry 04/12/21 04/12/21 04/12/21 05:30 05:46 06:00 Temperature Pulse Rate 111 H 97 H 83 Pulse Rate [ From Monitor] Respiratory 16 16 11 L Rate Blood Pressure 173/117 173/117 134/79 O2 Sat by Pulse 93 96 94 Oximetry 04/12/21 04/12/21 04/12/21 06:16 06:30 06:46 Temperature Pulse Rate 79 77 77 Pulse Rate [ From Monitor] Respiratory 12 12 12 Rate Blood Pressure 173/117 128/75 128/75 O2 Sat by Pulse 97 96 97 Oximetry 04/12/21 04/12/21 04/12/21 07:00 07:18 08:32 Temperature 100.0 F H Pulse Rate 77 73 Pulse Rate [ From Monitor] Respiratory 12 Rate Blood Pressure 132/81 133/84 O2 Sat by Pulse 99 Oximetry - General Apperance Constitutional: comfortable - EENT EENT: PERRL, mucous membranes moist - Respiratory Respiratory: chest non-tender, lungs clear, rhonchi - Cardiovascular Cardiovascular: regular rate, normal S1, normal S2 Extremities: no peripheral edema bilat, no clubbing, cyanosis - Gastrointestinal Gastrointestinal: normoactive bowel sounds - Integumentary Integumentary: normal - Neurologic Cranial nerve examination: intact Speech examination: other (intubated) - Laboratory Findings CBC and BMP: 04/12/21 04:46 04/12/21 04:46 Abnormal Lab Findings: Abnormal Labs 04/04/21 04/04/21 04/04/21 16:38 16:38 18:40 WBC 12.4 H RBC Hgb Hct MCV MCH 26 L RDW 18.1 H Plt Count Lymph % (Auto) Seg Neutrophils % 77.0 H Seg Neuts % (Manual) Lymphocytes % (Manual) Seg Neutrophils # 9.6 H Seg Neutrophils # Man Lymphocytes # (Manual) ABG pH 7.290 L POC ABG pCO2 POC ABG pO2 ABG pO2 62.7 L ABG HCO3 ABG O2 Saturation 88.2 L ABG Base Excess -4.6 L ABG Hemoglobin 11.2 L ABG Oxyhemoglobin ABG Sodium ABG Chloride ABG Glucose Oxyhemoglobin 86.5 L Sodium Potassium Chloride Carbon Dioxide 20 L BUN Creatinine Glucose 224 H POC Glucose Total Protein Albumin Triglycerides Arterial Blood Glucose Urine WBC (Auto) Phenytoin 04/05/21 04/05/21 04/05/21 03:37 03:37 04:15 WBC 15.5 H RBC Hgb Hct MCV MCH 25 L RDW 19.0 H Plt Count Lymph % (Auto) Seg Neutrophils % Seg Neuts % (Manual) 90.0 H Lymphocytes % (Manual) 6.0 L Seg Neutrophils # Seg Neutrophils # Man 14.0 H Lymphocytes # (Manual) 0.9 L ABG pH 7.284 L POC ABG pCO2 POC ABG pO2 ABG pO2 101.9 H ABG HCO3 18.5 L ABG O2 Saturation ABG Base Excess -7.7 L ABG Hemoglobin 10.3 L ABG Oxyhemoglobin ABG Sodium ABG Chloride ABG Glucose Oxyhemoglobin Sodium Potassium 5.6 H D Chloride Carbon Dioxide 14 L BUN Creatinine Glucose 181 H POC Glucose Total Protein Albumin Triglycerides Arterial Blood Glucose Urine WBC (Auto) Phenytoin 04/05/21 04/05/21 04/06/21 20:27 21:00 07:49 WBC 12.9 H RBC Hgb Hct MCV 77 L MCH 24 L RDW 18.2 H Plt Count Lymph % (Auto) 9.7 L Seg Neutrophils % 83.1 H Seg Neuts % (Manual) Lymphocytes % (Manual) Seg Neutrophils # 10.8 H Seg Neutrophils # Man Lymphocytes # (Manual) ABG pH POC ABG pCO2 POC ABG pO2 ABG pO2 92.5 H ABG HCO3 ABG O2 Saturation ABG Base Excess ABG Hemoglobin 10.2 L ABG Oxyhemoglobin ABG Sodium ABG Chloride ABG Glucose Oxyhemoglobin Sodium Potassium Chloride 111.7 H Carbon Dioxide BUN Creatinine Glucose POC Glucose Total Protein Albumin Triglycerides Arterial Blood Glucose Urine WBC (Auto) Phenytoin 04/06/21 04/06/21 04/06/21 07:49 11:33 17:25 WBC RBC Hgb Hct MCV MCH RDW Plt Count Lymph % (Auto) Seg Neutrophils % Seg Neuts % (Manual) Lymphocytes % (Manual) Seg Neutrophils # Seg Neutrophils # Man Lymphocytes # (Manual) ABG pH POC ABG pCO2 POC ABG pO2 ABG pO2 ABG HCO3 ABG O2 Saturation ABG Base Excess -2.2 L ABG Hemoglobin 8.7 L ABG Oxyhemoglobin ABG Sodium ABG Chloride ABG Glucose Oxyhemoglobin Sodium Potassium Chloride 112.9 H Carbon Dioxide 20 L BUN 6 L Creatinine 0.5 L Glucose 105 H POC Glucose 125 H Total Protein Albumin Triglycerides Arterial Blood Glucose Urine WBC (Auto) Phenytoin 04/07/21 04/07/21 04/07/21 03:59 05:14 15:13 WBC RBC Hgb Hct MCV MCH RDW Plt Count Lymph % (Auto) Seg Neutrophils % Seg Neuts % (Manual) Lymphocytes % (Manual) Seg Neutrophils # Seg Neutrophils # Man Lymphocytes # (Manual) ABG pH 7.521 H POC ABG pCO2 POC ABG pO2 ABG pO2 ABG HCO3 ABG O2 Saturation ABG Base Excess ABG Hemoglobin 11.0 L ABG Oxyhemoglobin ABG Sodium 145.3 H ABG Chloride 116.0 H ABG Glucose 138 H Oxyhemoglobin Sodium Potassium Chloride Carbon Dioxide BUN Creatinine Glucose POC Glucose 118 H Total Protein Albumin Triglycerides 153 H Arterial Blood Glucose 138 H Urine WBC (Auto) Phenytoin 04/07/21 04/07/21 04/07/21 15:13 15:13 17:23 WBC 12.2 H RBC Hgb Hct MCV MCH 26 L RDW 19.0 H Plt Count 85 L Lymph % (Auto) Seg Neutrophils % Seg Neuts % (Manual) Lymphocytes % (Manual) Seg Neutrophils # Seg Neutrophils # Man Lymphocytes # (Manual) ABG pH POC ABG pCO2 POC ABG pO2 ABG pO2 ABG HCO3 ABG O2 Saturation ABG Base Excess ABG Hemoglobin ABG Oxyhemoglobin ABG Sodium ABG Chloride ABG Glucose Oxyhemoglobin Sodium Potassium Chloride 111.1 H Carbon Dioxide 20 L BUN Creatinine 0.5 L Glucose 126 H POC Glucose 122 H Total Protein Albumin Triglycerides Arterial Blood Glucose Urine WBC (Auto) Phenytoin 04/07/21 04/08/21 04/08/21 23:55 10:39 12:10 WBC RBC Hgb Hct MCV MCH RDW Plt Count Lymph % (Auto) Seg Neutrophils % Seg Neuts % (Manual) Lymphocytes % (Manual) Seg Neutrophils # Seg Neutrophils # Man Lymphocytes # (Manual) ABG pH 7.311 L POC ABG pCO2 POC ABG pO2 50.5 L ABG pO2 ABG HCO3 ABG O2 Saturation ABG Base Excess ABG Hemoglobin 11.6 L ABG Oxyhemoglobin 81.6 L ABG Sodium ABG Chloride 110.0 H ABG Glucose 120 H Oxyhemoglobin Sodium Potassium Chloride Carbon Dioxide BUN Creatinine Glucose POC Glucose 130 H 112 H Total Protein Albumin Triglycerides Arterial Blood Glucose 120 H Urine WBC (Auto) Phenytoin 04/08/21 04/08/21 04/08/21 12:25 14:50 15:30 WBC 12.8 H RBC Hgb 9.9 L Hct MCV MCH 25 L RDW 18.1 H Plt Count Lymph % (Auto) Seg Neutrophils % Seg Neuts % (Manual) Lymphocytes % (Manual) Seg Neutrophils # Seg Neutrophils # Man Lymphocytes # (Manual) ABG pH POC ABG pCO2 POC ABG pO2 ABG pO2 ABG HCO3 ABG O2 Saturation ABG Base Excess ABG Hemoglobin ABG Oxyhemoglobin ABG Sodium ABG Chloride ABG Glucose Oxyhemoglobin Sodium Potassium Chloride 108.4 H Carbon Dioxide 21 L BUN Creatinine Glucose 156 H POC Glucose Total Protein 6.2 L Albumin 3.6 L Triglycerides Arterial Blood Glucose Urine WBC (Auto) 23.0 H Phenytoin 04/08/21 04/08/21 04/09/21 18:20 23:24 04:17 WBC RBC Hgb 9.9 L Hct MCV MCH 25 L RDW 17.9 H Plt Count Lymph % (Auto) Seg Neutrophils % Seg Neuts % (Manual) Lymphocytes % (Manual) Seg Neutrophils # Seg Neutrophils # Man Lymphocytes # (Manual) ABG pH POC ABG pCO2 POC ABG pO2 ABG pO2 ABG HCO3 ABG O2 Saturation ABG Base Excess ABG Hemoglobin ABG Oxyhemoglobin ABG Sodium ABG Chloride ABG Glucose Oxyhemoglobin Sodium Potassium Chloride Carbon Dioxide BUN Creatinine Glucose POC Glucose 139 H 116 H Total Protein Albumin Triglycerides Arterial Blood Glucose Urine WBC (Auto) Phenytoin 04/09/21 04/09/21 04/09/21 04:17 04:35 05:35 WBC RBC Hgb Hct MCV MCH RDW Plt Count Lymph % (Auto) Seg Neutrophils % Seg Neuts % (Manual) Lymphocytes % (Manual) Seg Neutrophils # Seg Neutrophils # Man Lymphocytes # (Manual) ABG pH POC ABG pCO2 POC ABG pO2 ABG pO2 ABG HCO3 ABG O2 Saturation ABG Base Excess ABG Hemoglobin 10.4 L ABG Oxyhemoglobin ABG Sodium 146.2 H ABG Chloride 115.0 H ABG Glucose 143 H Oxyhemoglobin Sodium 149 H Potassium Chloride 114.0 H Carbon Dioxide BUN Creatinine Glucose 133 H POC Glucose 129 H Total Protein Albumin Triglycerides Arterial Blood Glucose 143 H Urine WBC (Auto) Phenytoin 1004/09/21 04/09/21 12:20 12:38 17:55 WBC RBC Hgb Hct MCV MCH RDW Plt Count Lymph % (Auto) Seg Neutrophils % Seg Neuts % (Manual) Lymphocytes % (Manual) Seg Neutrophils # Seg Neutrophils # Man Lymphocytes # (Manual) ABG pH POC ABG pCO2 POC ABG pO2 ABG pO2 ABG HCO3 ABG O2 Saturation ABG Base Excess ABG Hemoglobin ABG Oxyhemoglobin ABG Sodium ABG Chloride ABG Glucose Oxyhemoglobin Sodium Potassium Chloride Carbon Dioxide BUN Creatinine Glucose POC Glucose 128 H 146 H Total Protein Albumin Triglycerides Arterial Blood Glucose Urine WBC (Auto) Phenytoin 3.6 L 04/09/21 04/10/21 04/10/21 23:26 04:00 04:35 WBC 13.0 H RBC Hgb Hct MCV MCH 26 L RDW 17.7 H Plt Count Lymph % (Auto) Seg Neutrophils % Seg Neuts % (Manual) Lymphocytes % (Manual) Seg Neutrophils # Seg Neutrophils # Man Lymphocytes # (Manual) ABG pH 7.238 L POC ABG pCO2 53.8 H POC ABG pO2 53.1 L ABG pO2 ABG HCO3 ABG O2 Saturation ABG Base Excess ABG Hemoglobin 7.7 L ABG Oxyhemoglobin 83.8 L ABG Sodium 130.5 L ABG Chloride ABG Glucose Oxyhemoglobin Sodium Potassium Chloride Carbon Dioxide BUN Creatinine Glucose POC Glucose 122 H Total Protein Albumin Triglycerides Arterial Blood Glucose Urine WBC (Auto) Phenytoin 04/10/21 04/10/21 04/10/21 04:35 05:21 17:57 WBC RBC Hgb Hct MCV MCH RDW Plt Count Lymph % (Auto) Seg Neutrophils % Seg Neuts % (Manual) Lymphocytes % (Manual) Seg Neutrophils # Seg Neutrophils # Man Lymphocytes # (Manual) ABG pH POC ABG pCO2 POC ABG pO2 ABG pO2 ABG HCO3 ABG O2 Saturation ABG Base Excess ABG Hemoglobin ABG Oxyhemoglobin ABG Sodium ABG Chloride ABG Glucose Oxyhemoglobin Sodium 146 H Potassium Chloride 112.1 H Carbon Dioxide BUN Creatinine 0.4 L Glucose 156 H POC Glucose 140 H 113 H Total Protein Albumin Triglycerides Arterial Blood Glucose Urine WBC (Auto) Phenytoin 04/11/21 04/11/21 04/11/21 04:00 04:00 11:48 WBC RBC 3.54 L Hgb 8.8 L Hct 27.6 L MCV 78 L MCH 25 L RDW 18.0 H Plt Count Lymph % (Auto) Seg Neutrophils % Seg Neuts % (Manual) Lymphocytes % (Manual) Seg Neutrophils # Seg Neutrophils # Man Lymphocytes # (Manual) ABG pH POC ABG pCO2 POC ABG pO2 ABG pO2 ABG HCO3 ABG O2 Saturation ABG Base Excess ABG Hemoglobin ABG Oxyhemoglobin ABG Sodium ABG Chloride ABG Glucose Oxyhemoglobin Sodium 146 H Potassium Chloride 111.4 H Carbon Dioxide BUN Creatinine 0.5 L Glucose 112 H POC Glucose 128 H Total Protein Albumin Triglycerides Arterial Blood Glucose Urine WBC (Auto) Phenytoin 04/12/21 04/12/21 04/12/21 04:46 04:46 04:46 WBC 15.2 H RBC Hgb 10.0 L Hct MCV 78 L MCH 23 L RDW 18.8 H Plt Count Lymph % (Auto) Seg Neutrophils % Seg Neuts % (Manual) Lymphocytes % (Manual) Seg Neutrophils # Seg Neutrophils # Man Lymphocytes # (Manual) ABG pH POC ABG pCO2 POC ABG pO2 ABG pO2 ABG HCO3 ABG O2 Saturation ABG Base Excess ABG Hemoglobin ABG Oxyhemoglobin ABG Sodium ABG Chloride ABG Glucose Oxyhemoglobin Sodium 150 H Potassium Chloride 110.9 H Carbon Dioxide BUN Creatinine 0.5 L Glucose 121 H POC Glucose Total Protein Albumin Triglycerides 515 H Arterial Blood Glucose Urine WBC (Auto) Phenytoin
[2021-04-12] MEDS ORDERED: DEXTROSE 5% IN WATER 1,000 ML IV SCH (14:00)
--- NOTE | 2021-04-12 14:03 | Progress Note ---
Assessment and Plan Acute hypoxemic respiratory failure Anaphylaxis related to a PEANUT ALLERGY Angioedema MSSA Pneumonia Obesity Obesity hypoventilation syndrome Leukocytosis Hyperkalemia Mild metabolic acidosis Oropharyngeal dysphagia - get stat ABG to assess ventilation - extubate if meets criteria - prn racemic epinephrine post extubation - continue Flomax for urinary retention issues - get Psychiatry evaluation - continue Seroquel at 300 mg p.o. bid - continue care as below otherwise; - continue Daily SAT and SBT assessment as tolerated - continue to wean supplemental oxygen for target O2 sat's > 90% acutely - VAP bundle addressed - continue lung protective strategies - continue bronchodilators with pulmonary hygiene per RT - wean per pulmonary driven protocols otherwise - avoid nephrotoxins, renally dose all medications - continue accuchecks with glycemic control per SSI (While critically ill target blood glucose of 140-180 mg/dL; avoid hypoglycemia) - sedation for target RASS 0 to -2 once paralytic wears off - continue to avoid benzodiazepine's, reduce the possibility of delirium - AB's per ID rec's - prn analgesia per CPOT score - Maintenance of sleep-wake cycle, avoid delirium - continue enteral nutritional support at goal rate as tolerated - G.I. & VTE prophylaxis - PT/OT/ROM exercises - continue mobility protocols for pressure ulcer prophylaxis - Monitor hemodynamics closely - continue other care per attending / other consultants - discharge planning ongoing concurrently COVID SPECIFIC INTERVENTIONS - not tested .... Re-evaluate in am & prn CONDITION: CRITICAL PROGNOSIS: GUARDED CODE STATUS: FULL CODE The high probability of a clinically significant, sudden or life-threatening deterioration of the [respiratory, cardiovascular & neurologic] system(s) requ ired my full and direct attention, intervention and personal management. The aggregate critical care time was [34] minutes without overlap. Time includes spent on; [x] Data Review and interpretation [x] Patient assessment and monitoring of vital signs [x] Documentation [x] Medication orders and management Subjective Date of service: 04/12/21 Principal diagnosis: Acute hypoxemic resp failure; Anaphylaxis, peanut allergy; Obesity Interval history: Patient is seen today for: Acute hypoxemic respiratory failure; Anaphylaxis / peanut allergy; Angioedema; OHS; Hyperkalemia Seen and examined at bedside; 24hour events reviewed; nursing and respiratory care staff consulted; no adverse overnight events reported to me; resting in bed; + intermittent agitation; her mother at bedside; remains on Precedex drip; no emesis or overt aspiration; still with good cuff leak Objective Vital Signs - 12hr 04/12/21 04/12/21 04/12/21 02:38 02:46 03:00 Temperature Pulse Rate 103 H 116 H Pulse Rate [ From Monitor] Respiratory 10 L 11 L Rate Blood Pressure 95/52 95/52 95/52 O2 Sat by Pulse 87 90 96 Oximetry 04/12/21 04/12/21 04/12/21 03:16 03:30 03:46 Temperature Pulse Rate 120 H 88 104 H Pulse Rate [ From Monitor] Respiratory 15 13 16 Rate Blood Pressure 95/52 160/94 160/94 O2 Sat by Pulse 81 L 94 95 Oximetry 04/12/21 04/12/21 04/12/21 04:00 04:16 04:30 Temperature 97.5 F L Pulse Rate 107 H 114 H 113 H Pulse Rate [ 102 H From Monitor] Respiratory 13 16 14 Rate Blood Pressure 170/95 170/95 174/97 O2 Sat by Pulse 95 93 Oximetry 04/12/21 04/12/21 04/12/21 04:46 05:00 05:05 Temperature Pulse Rate 113 H 118 H 118 H Pulse Rate [ From Monitor] Respiratory 13 17 Rate Blood Pressure 174/97 174/97 O2 Sat by Pulse 95 Oximetry 04/12/21 04/12/21 04/12/21 05:16 05:30 05:46 Temperature Pulse Rate 117 H 111 H 97 H Pulse Rate [ From Monitor] Respiratory 27 H 16 16 Rate Blood Pressure 174/97 173/117 173/117 O2 Sat by Pulse 95 93 96 Oximetry 04/12/21 04/12/21 04/12/21 06:00 06:16 06:30 Temperature Pulse Rate 83 79 77 Pulse Rate [ From Monitor] Respiratory 11 L 12 12 Rate Blood Pressure 134/79 173/117 128/75 O2 Sat by Pulse 94 97 96 Oximetry 04/12/21 04/12/21 04/12/21 06:46 07:00 07:18 Temperature 100.0 F H Pulse Rate 77 77 Pulse Rate [ From Monitor] Respiratory 12 12 Rate Blood Pressure 128/75 132/81 O2 Sat by Pulse 97 Oximetry 04/12/21 04/12/21 08:32 12:05 Temperature Pulse Rate 73 74 Pulse Rate [ From Monitor] Respiratory 24 Rate Blood Pressure 133/84 122/85 O2 Sat by Pulse 99 97 Oximetry Constitutional: asleep, appears uncomfortable, other (obese, short neck, orally intubated, ETT 6.5, mildly increased work of breathing) Eyes: non-icteric ENT: oropharynx moist, other (ETT 24 cm JENNY) Neck: supple, no lymphadenopathy, other (large circumference) Effort: mildly labored (moderatelyu) Ascultation: Bilateral: diminished breath sounds, rhonchi (scant) Percussion: Bilateral: not dull Cardiovascular: regular rate and rhythm, other (tachycardia) Gastrointestinal: normoactive bowel sounds, soft, non-tender, non-distended (protuberant), other (Proctor catheter in place) Integumentary: normal Extremities: no cyanosis, no edema, pulses normal, no ischemia or petechiae Neurologic: non-focal exam (grossly), pupils equal and round, unable to assess Psychiatric: other (Delirious) CBC and BMP: 04/13/21 07:50 04/13/21 06:09 ABG, PT/INR, D-dimer: ABG ABG pH 7.238 (7.320-7.450) L 04/10/21 04:00 POC ABG pCO2 53.8 mmHg (32.0-48.0) H 04/10/21 04:00 ABG pCO2 35.2 mm Hg 04/06/21 11:33 POC ABG pO2 53.1 mmHg (83-108) L 04/10/21 04:00 ABG pO2 89.0 mm Hg (80.0-90.0) 04/06/21 11:33 POC ABG HCO3 22.4 04/10/21 04:00 ABG O2 Saturation 85.1 (0-100) 04/10/21 04:00 Abnormal lab findings: Abnormal Labs 04/04/21 04/04/21 04/04/21 16:38 16:38 18:40 WBC 12.4 H RBC Hgb Hct MCV MCH 26 L RDW 18.1 H Plt Count Lymph % (Auto) Seg Neutrophils % 77.0 H Seg Neuts % (Manual) Lymphocytes % (Manual) Seg Neutrophils # 9.6 H Seg Neutrophils # Man Lymphocytes # (Manual) ABG pH 7.290 L POC ABG pCO2 POC ABG pO2 ABG pO2 62.7 L ABG HCO3 ABG O2 Saturation 88.2 L ABG Base Excess -4.6 L ABG Hemoglobin 11.2 L ABG Oxyhemoglobin ABG Sodium ABG Chloride ABG Glucose Oxyhemoglobin 86.5 L Sodium Potassium Chloride Carbon Dioxide 20 L BUN Creatinine Glucose 224 H POC Glucose Total Protein Albumin Triglycerides Arterial Blood Glucose Urine WBC (Auto) Phenytoin 04/05/21 04/05/21 04/05/21 03:37 03:37 04:15 WBC 15.5 H RBC Hgb Hct MCV MCH 25 L RDW 19.0 H Plt Count Lymph % (Auto) Seg Neutrophils % Seg Neuts % (Manual) 90.0 H Lymphocytes % (Manual) 6.0 L Seg Neutrophils # Seg Neutrophils # Man 14.0 H Lymphocytes # (Manual) 0.9 L ABG pH 7.284 L POC ABG pCO2 POC ABG pO2 ABG pO2 101.9 H ABG HCO3 18.5 L ABG O2 Saturation ABG Base Excess -7.7 L ABG Hemoglobin 10.3 L ABG Oxyhemoglobin ABG Sodium ABG Chloride ABG Glucose Oxyhemoglobin Sodium Potassium 5.6 H D Chloride Carbon Dioxide 14 L BUN Creatinine Glucose 181 H POC Glucose Total Protein Albumin Triglycerides Arterial Blood Glucose Urine WBC (Auto) Phenytoin 04/05/21 04/05/21 04/06/21 20:27 21:00 07:49 WBC 12.9 H RBC Hgb Hct MCV 77 L MCH 24 L RDW 18.2 H Plt Count Lymph % (Auto) 9.7 L Seg Neutrophils % 83.1 H Seg Neuts % (Manual) Lymphocytes % (Manual) Seg Neutrophils # 10.8 H Seg Neutrophils # Man Lymphocytes # (Manual) ABG pH POC ABG pCO2 POC ABG pO2 ABG pO2 92.5 H ABG HCO3 ABG O2 Saturation ABG Base Excess ABG Hemoglobin 10.2 L ABG Oxyhemoglobin ABG Sodium ABG Chloride ABG Glucose Oxyhemoglobin Sodium Potassium Chloride 111.7 H Carbon Dioxide BUN Creatinine Glucose POC Glucose Total Protein Albumin Triglycerides Arterial Blood Glucose Urine WBC (Auto) Phenytoin 04/06/21 04/06/21 04/06/21 07:49 11:33 17:25 WBC RBC Hgb Hct MCV MCH RDW Plt Count Lymph % (Auto) Seg Neutrophils % Seg Neuts % (Manual) Lymphocytes % (Manual) Seg Neutrophils # Seg Neutrophils # Man Lymphocytes # (Manual) ABG pH POC ABG pCO2 POC ABG pO2 ABG pO2 ABG HCO3 ABG O2 Saturation ABG Base Excess -2.2 L ABG Hemoglobin 8.7 L ABG Oxyhemoglobin ABG Sodium ABG Chloride ABG Glucose Oxyhemoglobin Sodium Potassium Chloride 112.9 H Carbon Dioxide 20 L BUN 6 L Creatinine 0.5 L Glucose 105 H POC Glucose 125 H Total Protein Albumin Triglycerides Arterial Blood Glucose Urine WBC (Auto) Phenytoin 04/07/21 04/07/21 04/07/21 03:59 05:14 15:13 WBC RBC Hgb Hct MCV MCH RDW Plt Count Lymph % (Auto) Seg Neutrophils % Seg Neuts % (Manual) Lymphocytes % (Manual) Seg Neutrophils # Seg Neutrophils # Man Lymphocytes # (Manual) ABG pH 7.521 H POC ABG pCO2 POC ABG pO2 ABG pO2 ABG HCO3 ABG O2 Saturation ABG Base Excess ABG Hemoglobin 11.0 L ABG Oxyhemoglobin ABG Sodium 145.3 H ABG Chloride 116.0 H ABG Glucose 138 H Oxyhemoglobin Sodium Potassium Chloride Carbon Dioxide BUN Creatinine Glucose POC Glucose 118 H Total Protein Albumin Triglycerides 153 H Arterial Blood Glucose 138 H Urine WBC (Auto) Phenytoin 04/07/21 04/07/21 04/07/21 15:13 15:13 17:23 WBC 12.2 H RBC Hgb Hct MCV MCH 26 L RDW 19.0 H Plt Count 85 L Lymph % (Auto) Seg Neutrophils % Seg Neuts % (Manual) Lymphocytes % (Manual) Seg Neutrophils # Seg Neutrophils # Man Lymphocytes # (Manual) ABG pH POC ABG pCO2 POC ABG pO2 ABG pO2 ABG HCO3 ABG O2 Saturation ABG Base Excess ABG Hemoglobin ABG Oxyhemoglobin ABG Sodium ABG Chloride ABG Glucose Oxyhemoglobin Sodium Potassium Chloride 111.1 H Carbon Dioxide 20 L BUN Creatinine 0.5 L Glucose 126 H POC Glucose 122 H Total Protein Albumin Triglycerides Arterial Blood Glucose Urine WBC (Auto) Phenytoin 04/07/21 04/08/21 04/08/21 23:55 10:39 12:10 WBC RBC Hgb Hct MCV MCH RDW Plt Count Lymph % (Auto) Seg Neutrophils % Seg Neuts % (Manual) Lymphocytes % (Manual) Seg Neutrophils # Seg Neutrophils # Man Lymphocytes # (Manual) ABG pH 7.311 L POC ABG pCO2 POC ABG pO2 50.5 L ABG pO2 ABG HCO3 ABG O2 Saturation ABG Base Excess ABG Hemoglobin 11.6 L ABG Oxyhemoglobin 81.6 L ABG Sodium ABG Chloride 110.0 H ABG Glucose 120 H Oxyhemoglobin Sodium Potassium Chloride Carbon Dioxide BUN Creatinine Glucose POC Glucose 130 H 112 H Total Protein Albumin Triglycerides Arterial Blood Glucose 120 H Urine WBC (Auto) Phenytoin 04/08/21 04/08/21 04/08/21 12:25 14:50 15:30 WBC 12.8 H RBC Hgb 9.9 L Hct MCV MCH 25 L RDW 18.1 H Plt Count Lymph % (Auto) Seg Neutrophils % Seg Neuts % (Manual) Lymphocytes % (Manual) Seg Neutrophils # Seg Neutrophils # Man Lymphocytes # (Manual) ABG pH POC ABG pCO2 POC ABG pO2 ABG pO2 ABG HCO3 ABG O2 Saturation ABG Base Excess ABG Hemoglobin ABG Oxyhemoglobin ABG Sodium ABG Chloride ABG Glucose Oxyhemoglobin Sodium Potassium Chloride 108.4 H Carbon Dioxide 21 L BUN Creatinine Glucose 156 H POC Glucose Total Protein 6.2 L Albumin 3.6 L Triglycerides Arterial Blood Glucose Urine WBC (Auto) 23.0 H Phenytoin 04/08/21 04/08/21 04/09/21 18:20 23:24 04:17 WBC RBC Hgb 9.9 L Hct MCV MCH 25 L RDW 17.9 H Plt Count Lymph % (Auto) Seg Neutrophils % Seg Neuts % (Manual) Lymphocytes % (Manual) Seg Neutrophils # Seg Neutrophils # Man Lymphocytes # (Manual) ABG pH POC ABG pCO2 POC ABG pO2 ABG pO2 ABG HCO3 ABG O2 Saturation ABG Base Excess ABG Hemoglobin ABG Oxyhemoglobin ABG Sodium ABG Chloride ABG Glucose Oxyhemoglobin Sodium Potassium Chloride Carbon Dioxide BUN Creatinine Glucose POC Glucose 139 H 116 H Total Protein Albumin Triglycerides Arterial Blood Glucose Urine WBC (Auto) Phenytoin 04/09/21 04/09/21 04/09/21 04:17 04:35 05:35 WBC RBC Hgb Hct MCV MCH RDW Plt Count Lymph % (Auto) Seg Neutrophils % Seg Neuts % (Manual) Lymphocytes % (Manual) Seg Neutrophils # Seg Neutrophils # Man Lymphocytes # (Manual) ABG pH POC ABG pCO2 POC ABG pO2 ABG pO2 ABG HCO3 ABG O2 Saturation ABG Base Excess ABG Hemoglobin 10.4 L ABG Oxyhemoglobin ABG Sodium 146.2 H ABG Chloride 115.0 H ABG Glucose 143 H Oxyhemoglobin Sodium 149 H Potassium Chloride 114.0 H Carbon Dioxide BUN Creatinine Glucose 133 H POC Glucose 129 H Total Protein Albumin Triglycerides Arterial Blood Glucose 143 H Urine WBC (Auto) Phenytoin 04/09/21 04/09/21 04/09/21 12:20 12:38 17:55 WBC RBC Hgb Hct MCV MCH RDW Plt Count Lymph % (Auto) Seg Neutrophils % Seg Neuts % (Manual) Lymphocytes % (Manual) Seg Neutrophils # Seg Neutrophils # Man Lymphocytes # (Manual) ABG pH POC ABG pCO2 POC ABG pO2 ABG pO2 ABG HCO3 ABG O2 Saturation ABG Base Excess ABG Hemoglobin ABG Oxyhemoglobin ABG Sodium ABG Chloride ABG Glucose Oxyhemoglobin Sodium Potassium Chloride Carbon Dioxide BUN Creatinine Glucose POC Glucose 128 H 146 H Total Protein Albumin Triglycerides Arterial Blood Glucose Urine WBC (Auto) Phenytoin 3.6 L 04/09/21 04/10/21 04/10/21 23:26 04:00 04:35 WBC 13.0 H RBC Hgb Hct MCV MCH 26 L RDW 17.7 H Plt Count Lymph % (Auto) Seg Neutrophils % Seg Neuts % (Manual) Lymphocytes % (Manual) Seg Neutrophils # Seg Neutrophils # Man Lymphocytes # (Manual) ABG pH 7.238 L POC ABG pCO2 53.8 H POC ABG pO2 53.1 L ABG pO2 ABG HCO3 ABG O2 Saturation ABG Base Excess ABG Hemoglobin 7.7 L ABG Oxyhemoglobin 83.8 L ABG Sodium 130.5 L ABG Chloride ABG Glucose Oxyhemoglobin Sodium Potassium Chloride Carbon Dioxide BUN Creatinine Glucose POC Glucose 122 H Total Protein Albumin Triglycerides Arterial Blood Glucose Urine WBC (Auto) Phenytoin 04/10/21 04/10/21 04/10/21 04:35 05:21 17:57 WBC RBC Hgb Hct MCV MCH RDW Plt Count Lymph % (Auto) Seg Neutrophils % Seg Neuts % (Manual) Lymphocytes % (Manual) Seg Neutrophils # Seg Neutrophils # Man Lymphocytes # (Manual) ABG pH POC ABG pCO2 POC ABG pO2 ABG pO2 ABG HCO3 ABG O2 Saturation ABG Base Excess ABG Hemoglobin ABG Oxyhemoglobin ABG Sodium ABG Chloride ABG Glucose Oxyhemoglobin Sodium 146 H Potassium Chloride 112.1 H Carbon Dioxide BUN Creatinine 0.4 L Glucose 156 H POC Glucose 140 H 113 H Total Protein Albumin Triglycerides Arterial Blood Glucose Urine WBC (Auto) Phenytoin 04/11/21 04/11/21 04/11/21 04:00 04:00 11:48 WBC RBC 3.54 L Hgb 8.8 L Hct 27.6 L MCV 78 L MCH 25 L RDW 18.0 H Plt Count Lymph % (Auto) Seg Neutrophils % Seg Neuts % (Manual) Lymphocytes % (Manual) Seg Neutrophils # Seg Neutrophils # Man Lymphocytes # (Manual) ABG pH POC ABG pCO2 POC ABG pO2 ABG pO2 ABG HCO3 ABG O2 Saturation ABG Base Excess ABG Hemoglobin ABG Oxyhemoglobin ABG Sodium ABG Chloride ABG Glucose Oxyhemoglobin Sodium 146 H Potassium Chloride 111.4 H Carbon Dioxide BUN Creatinine 0.5 L Glucose 112 H POC Glucose 128 H Total Protein Albumin Triglycerides Arterial Blood Glucose Urine WBC (Auto) Phenytoin 04/12/21 04/12/21 04/12/21 04:46 04:46 04:46 WBC 15.2 H RBC Hgb 10.0 L Hct MCV 78 L MCH 23 L RDW 18.8 H Plt Count Lymph % (Auto) Seg Neutrophils % Seg Neuts % (Manual) Lymphocytes % (Manual) Seg Neutrophils # Seg Neutrophils # Man Lymphocytes # (Manual) ABG pH POC ABG pCO2 POC ABG pO2 ABG pO2 ABG HCO3 ABG O2 Saturation ABG Base Excess ABG Hemoglobin ABG Oxyhemoglobin ABG Sodium ABG Chloride ABG Glucose Oxyhemoglobin Sodium 150 H Potassium Chloride 110.9 H Carbon Dioxide BUN Creatinine 0.5 L Glucose 121 H POC Glucose Total Protein Albumin Triglycerides 515 H Arterial Blood Glucose Urine WBC (Auto) Phenytoin Chest x-ray: other (none today) Allied health notes reviewed: nursing
[2021-04-12 14:08] LABS: ABG Base Excess 4.4 mmol/L (-2.0-3.0); ABG HCO3 29.6 mmol/L (20.0-26.0); ABG Methemoglobin 0.6 % (0.0-1.5); ABG PCO2 46.8 mm Hg; ABG PH 7.418 pH Units (7.350-7.450); ABG PO2 56.7 mm Hg (80.0-90.0)
[2021-04-12] MEDS ORDERED: GLYCOPYRROLATE 0.4 MG/2 ML INJ IV ONE (14:30)
--- NOTE | 2021-04-12 17:18 | Progress Note ---
<GURU RODRIGUEZ - Last Filed: 04/12/21 17:10> Assessment and Plan Assessment and plan: This is a 25 year old female with OHS, seizures and multiple allergies admitted after anaphylactic reaction to peanuts Neuro: Agitation, h/o seizures -Patient has been weaned off of Precedex, Versed and fentanyl -Avoid delirium -Maintain sleep-wake cycle -Bilateral restraints for patient safety -Neurology consulted, appreciate recommendations -Continue home Vimpat, Keppra, phenytoin -Seizure precautions -EEG completed-> see chart for details -CTH pending CV: NAD -Blood pressure monitoring per protocol -As needed antihypertensive medicines Pulmonary: Acute hypoxic respiratory failure, h/o OHS -Intubated for airway protection on 04/04 with 6.50 ETT at 22 lips -A.m. vent settings: AC rate 20, tidal line 450, PEEP 6, FiO2 40% -See RT notes for titration -Patient extubated this afternoon -Patient is Ventimask -Stridor post extubation and received 1 racemic epinephrine -Continuous SPO2 monitoring -Pulmonary hygiene -CCM consulted, appreciate recommendations -Consider outpatient pulmonology follow-up GI: NAD -ST consult for swallow evaluation -PPI -24-hour net +[phone] -BR: Senokot -s/p mag citrate on 04/11 : Hypernatremia, urinary retention -Patient started on D5W for 1 L given -Trend BMP -Replace electrolytes as needed -Daily weights -Strict intake and output -Proctor was replaced 04/11 for urinary retention -Flomax Heme: Leukocytosis -Secondary to steroids -Heparin subcu -Trend CBC -Transfuse for hemoglobin less than 7 -SCDs to bilateral lower extremities while in bed Endo: NAD -SSI if needed -Accu-Cheks every 6 -Avoid hypoglycemia ID: [id number], E. coli in urine (colonization per ID), Anaphylactic reaction -Infectious disease consulted, appreciate recommendations -CXR with infiltrates -abx therapy: Cefazolin -04/08 tracheal aspirate with Staph aureus, urine culture with ESBL E. coli blood cultures x2 in NGTD -Repeat urine culture -steroid therapy for anaphylaxis reaction -stopped Benadryl d/t listed allergy -steroid taper started -Monitor CBC and temp curves The high probability of a clinically significant, sudden or life threatening deterioration of the [respiratory] system(s) required my full and direct attention, intervention and personal management. The aggregate critical care time was [60] minutes. This time is in addition to time spent performing reported procedures but includes the following: [X] Data Review and interpretation [X] Patient assessment and monitoring of vital signs [X] Documentation [X] Medication orders and management Disposition Plan: icu Total Time Spent with Patient (Minutes): 60 History Interval history: This is a 25-year-old female with OHS and several allergies who presented to [facility] on 04/04 via EMS after an in flight allergic reaction to peanuts. Patient was intubated in the emergency department secondary to acute hypoxemic respiratory failure due to acute airway compromise and patient was admitted to ICU. Patient started on steroid therapy. 04/05/2021. Patient currently on dipper Van and fentanyl. However, nurse reports patient still agitated. Ativan IV ordered. Wean mechanical ventilation per pulmonary recommendations. Continue Solu-Medrol 40 mg IV every 8 hours. Add Pepcid 20 mg IV twice daily and Benadryl 25 mg IV every 6 hours. Continue supportive care 04/06/2021. The patient is currently on AC mode ventilation rate of 20, tidal volume 400, FiO2 25%. Wean mechanical ventilation per protocol. Continue bronchodilators/nebulizers. Patient currently sedated with propofol, Versed and fentanyl drip. Continue Solu-Medrol, Benadryl and Pepcid twice daily 04/07/2021. Patient currently sedated with Versed, fentanyl and propofol. Continue sedation per pulmonary recommendations. I spoke with the mother who reports numerous allergies that were reported to the nurse. The mother requests records from [facility] in [place]. Continue Solu-Medrol, Benadryl and Pepcid twice daily 04/08: [place] still gets agitated with stimuli, remains on minimal vent settings, hypernatremia/hyperchloremia and FWF increased 04/08/2021. Patient reportedly with a cuff leak yesterday. We will reassess today for cuff leak and if continues will likely extubate per pulmonary. Continue Versed, fentanyl and propofol for sedation. Continue Solu-Medrol, Benadryl and Pepcid twice daily 04/09: patient exhibited extreme agitation this morning and was maxed on Versed, fentanyl and Precedex. Patient was started on propofol at max doses however patient still remained agitated. Patient was given rocuronium in the evening per [facility] and Versed was increased temporarily. Seroquel increased today. 04/11: Patient is calm on 10 of Versed and 50 of propofol. Remains in bilateral soft restraints. Patient was straight cath overnight x2 and yesterday evening x1. Patient to be straight cathed today and we will replace Proctor due to retention. Patient started on Flomax. Hyponatremia still persists and free water flushes will be increased. Neurology was consulted today who recommends a CT head/brain without contrast. Patient restarted on Precedex and given mag citrate due to no recorded bowel movements for several days. Started on prednisone taper and Seroquel increased. Patient was given 1 dose of rocuronium yesterday due to agitation. Plan to extubate with mother at the bedside tomorrow. 04/12: Overnight patient was started on propofol with Versed, fentanyl and Precedex infusing for agitation. This morning propofol was weaned off and patient was weaned off Versed and fentanyl. Patient was placed on SBT trial and extubated later this afternoon. Patient received 1 dose of racemic epi when stridor. Patient's mother at bedside for most of the day. EEG negative. Psych consulted. Proctor catheter replaced yesterday evening due to retention and patient started on Flomax. Hospitalist Physical - Constitutional Vitals: Temp Pulse Resp BP Pulse Ox 100.5 F H 99 H 28 H 122/85 95 04/12/21 14:00 04/12/21 16:24 04/12/21 16:24 04/12/21 12:05 04/12/21 14:33 General appearance: Present: no acute distress, obese, other (Intubated on mechanical ventilator) - EENT Eyes: Present: PERRL, EOM intact ENT: hearing intact, clear oral mucosa, dentition normal - Neck Neck: Present: normal ROM - Respiratory Respiratory effort: normal Respiratory: bilateral: diminished - Cardiovascular Rhythm: regular Heart Sounds: Present: S1 & S2. Absent: systolic murmur, diastolic murmur - Extremities Extremities: no ischemia, pulses intact, pulses symmetrical, No edema, normal temperature, normal color, Full ROM Peripheral Pulses: within normal limits - Abdominal General gastrointestinal: soft, non-tender, non-distended, normal bowel sounds - Integumentary Integumentary: Present: clear, warm, dry - Psychiatric Psychiatric: cooperative, agitated - Neurologic Neurologic: CNII-XII intact, no focal deficits, moves all extremities - Allied Health Allied health notes reviewed: nursing, RT, social work Results - Labs CBC & Chem 7: 04/12/21 04:46 04/12/21 04:46 Labs: Laboratory Last Values WBC 15.2 K/mm3 (4.5-11.0) H 04/12/21 04:46 RBC 4.30 M/mm3 (3.65-5.03) 04/12/21 04:46 Hgb 10.0 gm/dl (10.1-14.3) L 04/12/21 04:46 Hct 33.6 % (30.3-42.9) D 04/12/21 04:46 MCV 78 fl (79-97) L 04/12/21 04:46 MCH 23 pg (28-32) L 04/12/21 04:46 MCHC 30 % (30-34) 04/12/21 04:46 RDW 18.8 % (13.2-15.2) H 04/12/21 04:46 Plt Count 223 K/mm3 (140-440) 04/12/21 04:46 Lymph % (Auto) 9.7 % (13.4-35.0) L 04/06/21 07:49 Ness % (Auto) 5.8 % (0.0-7.3) 04/06/21 07:49 Eos % (Auto) 0.6 % (0.0-4.3) 04/06/21 07:49 Baso % (Auto) 0.8 % (0.0-1.8) 04/06/21 07:49 Lymph # (Auto) 1.3 K/mm3 (1.2-5.4) 04/06/21 07:49 Ness # (Auto) 0.8 K/mm3 (0.0-0.8) 04/06/21 07:49 Eos # (Auto) 0.1 K/mm3 (0.0-0.4) 04/06/21 07:49 Baso # (Auto) 0.1 K/mm3 (0.0-0.1) 04/06/21 07:49 Add Manual Diff Complete 04/05/21 03:37 Total Counted 100 04/05/21 03:37 Seg Neutrophils % 83.1 % (40.0-70.0) H 04/06/21 07:49 Seg Neuts % (Manual) 90.0 % (40.0-70.0) H 04/05/21 03:37 Band Neutrophils % 1.0 % 04/05/21 03:37 Lymphocytes % (Manual) 6.0 % (13.4-35.0) L 04/05/21 03:37 Monocytes % (Manual) 3.0 % (0.0-7.3) 04/05/21 03:37 Nucleated RBC % Not Reportable 04/05/21 03:37 Seg Neutrophils # 10.8 K/mm3 (1.8-7.7) H 04/06/21 07:49 Seg Neutrophils # Man 14.0 K/mm3 (1.8-7.7) H 04/05/21 03:37 Band Neutrophils # 0.2 K/mm3 04/05/21 03:37 Lymphocytes # (Manual) 0.9 K/mm3 (1.2-5.4) L 04/05/21 03:37 Abs React Lymphs (Man) 0.0 K/mm3 04/05/21 03:37 Monocytes # (Manual) 0.5 K/mm3 (0.0-0.8) 04/05/21 03:37 Eosinophils # (Manual) 0.0 K/mm3 (0.0-0.4) 04/05/21 03:37 Basophils # (Manual) 0.0 K/mm3 (0.0-0.1) 04/05/21 03:37 Metamyelocytes # 0.0 K/mm3 04/05/21 03:37 Myelocytes # 0.0 K/mm3 04/05/21 03:37 Promyelocytes # 0.0 K/mm3 04/05/21 03:37 Blast Cells # 0.0 K/mm3 04/05/21 03:37 WBC Morphology Not Reportable 04/05/21 03:37 Hypersegmented Neuts Not Reportable 04/05/21 03:37 Hyposegmented Neuts Not Reportable 04/05/21 03:37 Hypogranular Neuts Not Reportable 04/05/21 03:37 Smudge Cells Not Reportable 04/05/21 03:37 Toxic Granulation Not Reportable 04/05/21 03:37 Toxic Vacuolation Not Reportable 04/05/21 03:37 Dohle Bodies Not Reportable 04/05/21 03:37 Pelger-Huet Anomaly Not Reportable 04/05/21 03:37 Fermin Rods Not Reportable 04/05/21 03:37 Platelet Estimate Consistent w auto 04/05/21 03:37 Clumped Platelets Not Reportable 04/05/21 03:37 Plt Clumps, EDTA Not Reportable 04/05/21 03:37 Large Platelets Not Reportable 04/05/21 03:37 Giant Platelets Not Reportable 04/05/21 03:37 Platelet Satelliting Not Reportable 04/05/21 03:37 Plt Morphology Comment Not Reportable 04/05/21 03:37 RBC Morphology Not Reportable 04/05/21 03:37 Dimorphic RBCs Not Reportable 04/05/21 03:37 Polychromasia Not Reportable 04/05/21 03:37 Hypochromasia 1+ 04/05/21 03:37 Poikilocytosis Not Reportable 04/05/21 03:37 Anisocytosis 1+ 04/05/21 03:37 Microcytosis 1+ 04/05/21 03:37 Macrocytosis Not Reportable 04/05/21 03:37 Spherocytes Not Reportable 04/05/21 03:37 Pappenheimer Bodies Not Reportable 04/05/21 03:37 Sickle Cells Not Reportable 04/05/21 03:37 Target Cells Not Reportable 04/05/21 03:37 Tear Drop Cells Not Reportable 04/05/21 03:37 Ovalocytes Few 04/05/21 03:37 Helmet Cells Not Reportable 04/05/21 03:37 [place] Bodies Not Reportable 04/05/21 03:37 [place] Rings Not Reportable 04/05/21 03:37 [place] Cells Not Reportable 04/05/21 03:37 Bite Cells Not Reportable 04/05/21 03:37 Crenated Cell Not Reportable 04/05/21 03:37 Elliptocytes Not Reportable 04/05/21 03:37 Acanthocytes (Spur) Not Reportable 04/05/21 03:37 Rouleaux Not Reportable 04/05/21 03:37 Hemoglobin C Crystals Not Reportable 04/05/21 03:37 Schistocytes Not Reportable 04/05/21 03:37 Malaria parasites Not Reportable 04/05/21 03:37 Paddy Bodies Not Reportable 04/05/21 03:37 Hem Pathologist Commnt No 04/05/21 03:37 ABG pH 7.418 pH Units (7.350-7.450) 04/12/21 13:35 POC ABG pCO2 53.8 mmHg (32.0-48.0) H 04/10/21 04:00 ABG pCO2 46.8 mm Hg 04/12/21 13:35 POC ABG pO2 53.1 mmHg (83-108) L 04/10/21 04:00 ABG pO2 56.7 mm Hg (80.0-90.0) L 04/12/21 13:35 POC ABG HCO3 22.4 04/10/21 04:00 ABG HCO3 29.6 mmol/L (20.0-26.0) H 04/12/21 13:35 ABG O2 Saturation 99.0 % (95.0-99.0) 04/12/21 13:35 ABG O2 Content 14.1 (0.0-44) 04/12/21 13:35 POC ABG Base Excess -4.8 04/10/21 04:00 ABG Base Excess 4.4 mmol/L (-2.0-3.0) H 04/12/21 13:35 ABG Hemoglobin 10.3 gm/dl (12.0-16.0) L 04/12/21 13:35 ABG Oxyhemoglobin 83.8 (94-98) L 04/10/21 04:00 ABG Carboxyhemoglobin 1.4 % (0.0-5.0) 04/12/21 13:35 ABG Methemoglobin 0.6 % (0.0-1.5) 04/12/21 13:35 ABG Sodium 130.5 mmol/L (136.0-145.0) L 04/10/21 04:00 ABG Potassium 3.4 mmol/L (3.40-4.50) 04/10/21 04:00 ABG Chloride 102.0 mmol/L (98-107) 04/10/21 04:00 ABG Glucose 74 mg/dL (65-95) 04/10/21 04:00 Oxyhemoglobin 97.0 % (95.0-99.0) 04/12/21 13:35 Carboxyhemoglobin 1.2 (0.5-1.5) 04/10/21 04:00 FiO2 40 % 04/12/21 13:35 FiO2 % 85 04/10/21 04:00 Sodium 150 mmol/L (137-145) H 04/12/21 04:46 Potassium 3.9 mmol/L (3.6-5.0) 04/12/21 04:46 Chloride 110.9 mmol/L (98-107) H 04/12/21 04:46 Carbon Dioxide 27 mmol/L (22-30) 04/12/21 04:46 Anion Gap 16 mmol/L 04/12/21 04:46 BUN 12 mg/dL (7-17) 04/12/21 04:46 Creatinine 0.5 mg/dL (0.6-1.2) L 04/12/21 04:46 Estimated GFR > 60 ml/min 04/12/21 04:46 BUN/Creatinine Ratio 24 % 04/12/21 04:46 Glucose 121 mg/dL (65-100) H 04/12/21 04:46 POC Glucose 92 mg/dL (70-105) 04/12/21 05:46 Calcium 8.5 mg/dL (8.4-10.2) 04/12/21 04:46 Phosphorus 3.10 mg/dL (2.5-4.5) 04/10/21 04:35 Magnesium 1.90 mg/dL (1.7-2.3) 04/11/21 04:00 Total Bilirubin 0.20 mg/dL (0.1-1.2) 04/08/21 14:50 AST 35 units/L (5-40) 04/08/21 14:50 ALT 30 units/L (7-56) 04/08/21 14:50 Alkaline Phosphatase 103 units/L (35-129) 04/08/21 14:50 Total Protein 6.2 g/dL (6.3-8.2) L 04/08/21 14:50 Albumin 3.6 g/dL (3.9-5) L 04/08/21 14:50 Albumin/Globulin Ratio 1.4 % 04/08/21 14:50 Triglycerides 515 mg/dL (2-149) H 04/12/21 04:46 HCG, Qual Negative (Negative) 04/04/21 Unknown Arterial Blood Glucose 74 mg/dL (65-95) 04/10/21 04:00 Urine Color Yellow (Yellow) 04/10/21 15:35 Urine Turbidity Hazy (Clear) 04/10/21 15:35 Urine pH 5.0 (5.0-7.0) 04/10/21 15:35 Ur Specific [place] 1.018 (1.003-1.030) 04/10/21 15:35 Urine Protein <15 mg/dl mg/dL (Negative) 04/10/21 15:35 Urine Glucose (UA) Neg mg/dL (Negative) 04/10/21 15:35 Urine Ketones Tr mg/dL (Negative) 04/10/21 15:35 Urine Blood Sm (Negative) 04/10/21 15:35 Urine Nitrite Neg (Negative) 04/10/21 15:35 Urine Bilirubin Neg (Negative) 04/10/21 15:35 Urine Urobilinogen < 2.0 mg/dL (<2.0) 04/10/21 15:35 Ur Leukocyte Esterase Neg (Negative) 04/10/21 15:35 Urine WBC (Auto) 4.0 /HPF (0.0-6.0) 04/10/21 15:35 Urine RBC (Auto) 35.0 /HPF (0.0-6.0) 04/10/21 15:35 U Epithel Cells (Auto) < 1.0 /HPF (0-13.0) 04/10/21 15:35 Urine Bacteria (Auto) 1+ /HPF (Negative) 04/10/21 15:35 Urine Mucus Few /HPF 04/10/21 15:35 Vancomycin Trough 11.9 ug/mL (5.0-20.0) 04/09/21 12:38 Phenytoin 3.3 ug/mL (10.0-20.0) L 04/12/21 13:04 Microbiology: Microbiology 04/08/21 14:50 Peripheral/Venous Blood Culture - Preliminary NO GROWTH AFTER 72 HOURS 04/08/21 14:50 Peripheral/Venous Blood Culture - Preliminary NO GROWTH AFTER 72 HOURS Proctor/IV: Voiding Method Indwelling Catheter Active Medications - Current Medications Current Medications: Generic Name Dose Route Start Last Admin Trade Name Freq PRN Reason Stop Dose Admin Acetaminophen 650 mg 04/04/21 18:37 04/10/21 15:59 Acetaminophen 325 Mg Tab PO 650 mg Q6H PRN Administration Pain MILD(1-3)/Fever >100.5/JONES Albuterol 2.5 mg 04/04/21 18:37 04/04/21 21:49 Albuterol 2.5 Mg/3 Ml Nebu IH 2.5 mg Q3HRT PRN Administration Shortness Of Breath Lipase/Protease/Amylase 1 each 04/05/21 15:50 Lipase 10,500/Protease 25,000/Amylase 43,750 (Units) Dr Cap FEEDTUBE PRN PRN For Clogged Feeding Tube Bisacodyl 10 mg 04/11/21 17:00 Bisacodyl 5 Mg Tab PO QDAY PRN Constipation Epinephrine 0.5 ml 04/12/21 17:30 04/12/21 16:24 Epinephrine Racemic 2.25% 0.5ml Nebu IH 04/12/21 17:31 0.5 ml ONCE ONE Administration Famotidine 20 mg 04/09/21 22:00 04/12/21 09:51 Famotidine 20 Mg Tab FEEDTUBE 20 mg BID CRISTY Administration Heparin Sodium (Porcine) 5,000 unit 04/04/21 22:00 04/12/21 09:51 Heparin 5,000 Unit/1 Ml Vial SUB-Q 5,000 unit Q12HR CRISTY Administration Hydralazine HCl 10 mg 04/09/21 18:17 Hydralazine 20 Mg/1 Ml Inj IV Q4H PRN Hypertension Hydromorphone HCl 0.5 mg 04/04/21 18:37 04/10/21 08:47 Hydromorphone 1 Mg/1 Ml Inj IV 0.5 mg Q23H PRN Administration Pain , Severe (7-10) Hydrophilic Ointment 1 applic 04/04/21 16:16 Lip Therapy Vaseline TP Q2HR PRN Dry Lips Fentanyl Citrate 2,000 mcg in 100 mls @ 5.67 mls/hr 04/04/21 20:00 04/12/21 11:22 Fentanyl Drip Premix IV 0 mcg/kg/hr TITR CRISTY 0 mls/hr Titration Protocol 1 MCG/KG/HR Phenytoin 100 mg/ Sodium 102 mls @ 408 mls/hr 04/06/21 14:00 04/12/21 08:07 Chloride IV 408 mls/hr Q8HR CRISTY Administration Midazolam HCl 100 mg/ Sodium 100 mls @ 1 mls/hr 04/07/21 22:00 04/12/21 11:22 Chloride IV 0 mg/hr TITR CRISTY 0 mls/hr Titration Protocol 1 MG/HR Propofol 1,000 mg in 100 mls @ 3.399 mls/hr 04/10/21 10:00 04/12/21 08:45 Diprivan 10 Mg/Ml IV 0 mcg/kg/min TITR CRISTY 0 mls/hr Titration Protocol 5 MCG/KG/MIN Cefazolin Sodium 2 gm/ Sodium 100 mls @ 200 mls/hr 04/11/21 10:00 04/12/21 09:52 Chloride IV 04/16/21 02:29 200 mls/hr Q8H CRISTY Administration Protocol Dexmedetomidine HCl 400 mcg/ 104 mls @ 5.892 mls/hr 04/11/21 15:00 04/12/21 11:57 Sodium Chloride IV 0.8 mcg/kg/hr TITRATE CRISTY 23.566 mls/hr Titration Protocol 0.2 MCG/KG/HR Dextrose 1,000 mls @ 75 mls/hr 04/12/21 14:00 D5w IV 04/14/21 03:19 DIRECT CRISTY Lacosamide 200 mg 04/06/21 13:00 04/12/21 09:51 Lacosamide 100 Mg Tab PO 200 mg Q12HR CRISTY Administration Levetiracetam 1,500 mg 04/10/21 10:00 04/12/21 10:06 Levetiracetam 500 Mg/5 Ml Oral Liqd FEEDTUBE 1,500 mg BID CRISTY Administration Methylprednisolone Sodium Succinate 40 mg 04/12/21 10:00 04/12/21 09:52 Methylprednisolone Sod Succinate 40 Mg/1 Ml Inj IV 04/12/21 22:01 40 mg Q12HR CRISTY Administration Methylprednisolone Sodium Succinate 40 mg 04/13/21 10:00 Methylprednisolone Sod Succinate 40 Mg/1 Ml Inj IV 04/13/21 10:01 Q24H CRISTY Midazolam HCl 2 mg 04/09/21 18:08 04/11/21 17:34 Midazolam 2 Mg/2 Ml Inj IV 2 mg Q4H PRN Administration Agitation Midazolam HCl 2 mg 04/10/21 08:44 04/10/21 19:54 Midazolam 2 Mg/2 Ml Inj IV 2 mg Q10MIN PRN Administration Sedation Multi-Ingred Cream/Lotion/Oil/Oint 1 applic 04/04/21 16:16 Mineral Oil/Petrolatum, White Ophth Oint 3.5 Gm OU Q4HR PRN Dry Eye(s) Oxycodone/Acetaminophen 1 tab 04/04/21 18:37 Oxycodone /Acetaminophen 5-325mg Tab PO Q16H PRN Pain, Moderate (4-6) Quetiapine Fumarate 300 mg 04/10/21 16:25 04/12/21 09:51 Quetiapine 100 Mg Tab PO 300 mg BID CRISTY Administration Senna/Docusate Sodium 1 tab 04/04/21 22:00 04/12/21 11:23 Sennosides/Docusate Sodium 8.6/50 Mg Tab FEEDTUBE Not Given BID CRISTY Simple Syrup 15 ml 04/05/21 15:50 Simple Syrup 15 Ml FEEDTUBE PRN PRN Hypoglycemia Simple Syrup 30 ml 04/05/21 15:50 Simple Syrup 15 Ml FEEDTUBE PRN PRN Hypoglycemia Sodium Bicarbonate 325 mg 04/05/21 15:50 Sodium Bicarbonate 325 Mg Tab FEEDTUBE PRN PRN For Clogged Feeding Tube Sodium Chloride 10 ml 04/04/21 22:00 04/12/21 10:00 Sodium Chloride 0.9% 10 Ml Flush Syringe IV 10 ml BID CRISTY Administration Sodium Chloride 10 ml 04/04/21 18:37 Sodium Chloride 0.9% 10 Ml Flush Syringe IV PRN PRN LINE FLUSH Tamsulosin HCl 0.4 mg 04/12/21 10:00 04/12/21 09:50 Tamsulosin 0.4 Mg Cap PO 0.4 mg QDAY CRISTY Administration Nutrition/Malnutrition Assess - Dietary Evaluation Nutrition/Malnutrition Findings: Nutrition Notes Start: 04/05/21 10:18 Freq: Status: Active Protocol: Document 04/12/21 14:59 GB (Rec: 04/12/21 15:10 GB [email or web address]) Nutrition Notes Initial or Follow up Assessment Current Diagnosis Respiratory Failure Other Pertinent Diagnosis Exposure to Peanuts, allergic reaction. 04/12: extubated Current Diet NPO, TF Labs/Tests 04/12: Na 150, glucose 121, creatinine 0.5, Tg 515 Pertinent Medications reviewed Height 5 ft 7.2 in Weight 113.3 kg [place] Body Weight (kg) 61.81 BMI 38.9 Weight change and time frame No new weights at time of assessment Weight Status Obese Subjective/Other Information Per RT note 04/12: extubated 2 :33 Last BM: 04/12 Percent of energy/protein needs met: unable to assess at this time. Recently extubated Burn Absent Trauma Absent GI Symptoms None Food Allergy Yes Skin Integrity/Comment no complications reported Current % PO Other Minimum of two criteria No #1 Nutrition Diagnosis Other: (Specify in comment below) Comments: Food allergy exposure with reaction of constricting airway Per chest xray note 04/09: worsening airspace 04/12: extubated Etiology reported peanut allergy As Evidenced by Signs and Symptoms currently intubated to protect airway Diagnosis Progress(for reassessment Resolved documentation) Is patient on ventilator? No Is Patient Ambulatory and/or Out of Bed No REE-([facility]-confined to bed) [phone] Kcal/Kg value to use for calculation 15 Approximate Energy Requirements Using 1700 kcal/Kg Calculation Used for Recommendations Kcal/kg Additional Notes Protein: 0.8-1 g/kg @113k -113g Fluids: 1 ml/kcal or per MD Vital HP is the only product w /o soy. Nutrition Intervention Change Diet Order: Advance diet Clear to low fat pending bedside swallow results Nutrition Support: n/a Add Supplement/Snack (indicate name/kcal n/a - Not recommended. /protein ) Only the ensure clears do not have soy proteins Goal #1 Extubation r/t recovery from food allergy reaction by f/u 04/09: not met, intubation continues 04/12: met, diet to advance post bedside swallow, alertness Goal #2 Diet advanced to low fat 04/09: not met, TF continues 04/12: extubated today. diet advancing post bedside swallow results Goal #3 TF tolerance Vital HP goal rate 50ml/hr 04/09: met, at goal rate, continues 04/12: extubated. resolved Follow-Up By: 04/16/21 Additional Comments f/u diet advancement, po intake <NAYELI HARRIS - Last Filed: 04/15/21 12:45> Assessment and Plan Assessment and plan: I saw and evaluated the patient. Discussed with the nurse practitioner and agree with their findings and plan as documented in this note. - Patient Problems (1) Anaphylaxis due to peanuts Status: Acute (2) Acute respiratory failure Status: Acute (3) Allergic reaction Status: Acute Qualifiers: Encounter type: initial encounter Qualified Code(s): T78.40XA - Allergy, unspecified, initial encounter Hospitalist Physical - Constitutional Vitals: Temp Pulse Resp BP Pulse Ox 99.4 F 70 18 138/94 96 04/14/21 10:53 04/14/21 10:53 04/14/21 10:53 04/14/21 10:53 04/14/21 10:53 Results - Labs CBC & Chem 7: 04/13/21 07:50 04/13/21 06:09 Labs: Laboratory Last Values WBC 14.2 K/mm3 (4.5-11.0) H 04/13/21 07:50 RBC 4.14 M/mm3 (3.65-5.03) 04/13/21 07:50 Hgb 9.9 gm/dl (10.1-14.3) L 04/13/21 07:50 Hct 31.4 % (30.3-42.9) 04/13/21 07:50 MCV 76 fl (79-97) L 04/13/21 07:50 MCH 24 pg (28-32) L 04/13/21 07:50 MCHC 32 % (30-34) 04/13/21 07:50 RDW 18.7 % (13.2-15.2) H 04/13/21 07:50 Plt Count 215 K/mm3 (140-440) 04/13/21 07:50 Lymph % (Auto) 9.7 % (13.4-35.0) L 04/06/21 07:49 Ness % (Auto) 5.8 % (0.0-7.3) 04/06/21 07:49 Eos % (Auto) 0.6 % (0.0-4.3) 04/06/21 07:49 Baso % (Auto) 0.8 % (0.0-1.8) 04/06/21 07:49 Lymph # (Auto) 1.3 K/mm3 (1.2-5.4) 04/06/21 07:49 Ness # (Auto) 0.8 K/mm3 (0.0-0.8) 04/06/21 07:49 Eos # (Auto) 0.1 K/mm3 (0.0-0.4) 04/06/21 07:49 Baso # (Auto) 0.1 K/mm3 (0.0-0.1) 04/06/21 07:49 Add Manual Diff Complete 04/05/21 03:37 Total Counted 100 04/05/21 03:37 Seg Neutrophils % 83.1 % (40.0-70.0) H 04/06/21 07:49 Seg Neuts % (Manual) 90.0 % (40.0-70.0) H 04/05/21 03:37 Band Neutrophils % 1.0 % 04/05/21 03:37 Lymphocytes % (Manual) 6.0 % (13.4-35.0) L 04/05/21 03:37 Monocytes % (Manual) 3.0 % (0.0-7.3) 04/05/21 03:37 Nucleated RBC % Not Reportable 04/05/21 03:37 Seg Neutrophils # 10.8 K/mm3 (1.8-7.7) H 04/06/21 07:49 Seg Neutrophils # Man 14.0 K/mm3 (1.8-7.7) H 04/05/21 03:37 Band Neutrophils # 0.2 K/mm3 04/05/21 03:37 Lymphocytes # (Manual) 0.9 K/mm3 (1.2-5.4) L 04/05/21 03:37 Abs React Lymphs (Man) 0.0 K/mm3 04/05/21 03:37 Monocytes # (Manual) 0.5 K/mm3 (0.0-0.8) 04/05/21 03:37 Eosinophils # (Manual) 0.0 K/mm3 (0.0-0.4) 04/05/21 03:37 Basophils # (Manual) 0.0 K/mm3 (0.0-0.1) 04/05/21 03:37 Metamyelocytes # 0.0 K/mm3 04/05/21 03:37 Myelocytes # 0.0 K/mm3 04/05/21 03:37 Promyelocytes # 0.0 K/mm3 04/05/21 03:37 Blast Cells # 0.0 K/mm3 04/05/21 03:37 WBC Morphology Not Reportable 04/05/21 03:37 Hypersegmented Neuts Not Reportable 04/05/21 03:37 Hyposegmented Neuts Not Reportable 04/05/21 03:37 Hypogranular Neuts Not Reportable 04/05/21 03:37 Smudge Cells Not Reportable 04/05/21 03:37 Toxic Granulation Not Reportable 04/05/21 03:37 Toxic Vacuolation Not Reportable 04/05/21 03:37 Dohle Bodies Not Reportable 04/05/21 03:37 Pelger-Huet Anomaly Not Reportable 04/05/21 03:37 Fermin Rods Not Reportable 04/05/21 03:37 Platelet Estimate Consistent w auto 04/05/21 03:37 Clumped Platelets Not Reportable 04/05/21 03:37 Plt Clumps, EDTA Not Reportable 04/05/21 03:37 Large Platelets Not Reportable 04/05/21 03:37 Giant Platelets Not Reportable 04/05/21 03:37 Platelet Satelliting Not Reportable 04/05/21 03:37 Plt Morphology Comment Not Reportable 04/05/21 03:37 RBC Morphology Not Reportable 04/05/21 03:37 Dimorphic RBCs Not Reportable 04/05/21 03:37 Polychromasia Not Reportable 04/05/21 03:37 Hypochromasia 1+ 04/05/21 03:37 Poikilocytosis Not Reportable 04/05/21 03:37 Anisocytosis 1+ 04/05/21 03:37 Microcytosis 1+ 04/05/21 03:37 Macrocytosis Not Reportable 04/05/21 03:37 Spherocytes Not Reportable 04/05/21 03:37 Pappenheimer Bodies Not Reportable 04/05/21 03:37 Sickle Cells Not Reportable 04/05/21 03:37 Target Cells Not Reportable 04/05/21 03:37 Tear Drop Cells Not Reportable 04/05/21 03:37 Ovalocytes Few 04/05/21 03:37 Helmet Cells Not Reportable 04/05/21 03:37 [place] Bodies Not Reportable 04/05/21 03:37 [place] Rings Not Reportable 04/05/21 03:37 [place] Cells Not Reportable 04/05/21 03:37 Bite Cells Not Reportable 04/05/21 03:37 Crenated Cell Not Reportable 04/05/21 03:37 Elliptocytes Not Reportable 04/05/21 03:37 Acanthocytes (Spur) Not Reportable 04/05/21 03:37 Rouleaux Not Reportable 04/05/21 03:37 Hemoglobin C Crystals Not Reportable 04/05/21 03:37 Schistocytes Not Reportable 04/05/21 03:37 Malaria parasites Not Reportable 04/05/21 03:37 [place] Bodies Not Reportable 04/05/21 03:37 Hem Pathologist Commnt No 04/05/21 03:37 ABG pH 7.418 pH Units (7.350-7.450) 04/12/21 13:35 POC ABG pCO2 53.8 mmHg (32.0-48.0) H 04/10/21 04:00 ABG pCO2 46.8 mm Hg 04/12/21 13:35 POC ABG pO2 53.1 mmHg (83-108) L 04/10/21 04:00 ABG pO2 56.7 mm Hg (80.0-90.0) L 04/12/21 13:35 POC ABG HCO3 22.4 04/10/21 04:00 ABG HCO3 29.6 mmol/L (20.0-26.0) H 04/12/21 13:35 ABG O2 Saturation 99.0 % (95.0-99.0) 04/12/21 13:35 ABG O2 Content 14.1 (0.0-44) 04/12/21 13:35 POC ABG Base Excess -4.8 04/10/21 04:00 ABG Base Excess 4.4 mmol/L (-2.0-3.0) H 04/12/21 13:35 ABG Hemoglobin 10.3 gm/dl (12.0-16.0) L 04/12/21 13:35 ABG Oxyhemoglobin 83.8 (94-98) L 04/10/21 04:00 ABG Carboxyhemoglobin 1.4 % (0.0-5.0) 04/12/21 13:35 ABG Methemoglobin 0.6 % (0.0-1.5) 04/12/21 13:35 ABG Sodium 130.5 mmol/L (136.0-145.0) L 04/10/21 04:00 ABG Potassium 3.4 mmol/L (3.40-4.50) 04/10/21 04:00 ABG Chloride 102.0 mmol/L (98-107) 04/10/21 04:00 ABG Glucose 74 mg/dL (65-95) 04/10/21 04:00 Oxyhemoglobin 97.0 % (95.0-99.0) 04/12/21 13:35 Carboxyhemoglobin 1.2 (0.5-1.5) 04/10/21 04:00 FiO2 40 % 04/12/21 13:35 FiO2 % 85 04/10/21 04:00 Sodium 150 mmol/L (137-145) H 04/13/21 06:09 Potassium 3.4 mmol/L (3.6-5.0) L 04/13/21 06:09 Chloride 107.6 mmol/L (98-107) H 04/13/21 06:09 Carbon Dioxide 22 mmol/L (22-30) 04/13/21 06:09 Anion Gap 24 mmol/L 04/13/21 06:09 BUN 14 mg/dL (7-17) 04/13/21 06:09 Creatinine 0.6 mg/dL (0.6-1.2) 04/13/21 06:09 Estimated GFR > 60 ml/min 04/13/21 06:09 BUN/Creatinine Ratio 23 % 04/13/21 06:09 Glucose 90 mg/dL (65-100) 04/13/21 06:09 POC Glucose 92 mg/dL (70-105) 04/12/21 05:46 Calcium 8.7 mg/dL (8.4-10.2) 04/13/21 06:09 Phosphorus 3.10 mg/dL (2.5-4.5) 04/10/21 04:35 Magnesium 1.90 mg/dL (1.7-2.3) 04/11/21 04:00 Total Bilirubin 0.20 mg/dL (0.1-1.2) 04/08/21 14:50 AST 35 units/L (5-40) 04/08/21 14:50 ALT 30 units/L (7-56) 04/08/21 14:50 Alkaline Phosphatase 103 units/L (35-129) 04/08/21 14:50 Total Protein 6.2 g/dL (6.3-8.2) L 04/08/21 14:50 Albumin 3.6 g/dL (3.9-5) L 04/08/21 14:50 Albumin/Globulin Ratio 1.4 % 04/08/21 14:50 Triglycerides 515 mg/dL (2-149) H 04/12/21 04:46 HCG, Qual Negative (Negative) 04/04/21 Unknown Arterial Blood Glucose 74 mg/dL (65-95) 04/10/21 04:00 Urine Color Yellow (Yellow) 04/10/21 15:35 Urine Turbidity Hazy (Clear) 04/10/21 15:35 Urine pH 5.0 (5.0-7.0) 04/10/21 15:35 Ur Specific [place] 1.018 (1.003-1.030) 04/10/21 15:35 Urine Protein <15 mg/dl mg/dL (Negative) 04/10/21 15:35 Urine Glucose (UA) Neg mg/dL (Negative) 04/10/21 15:35 Urine Ketones Tr mg/dL (Negative) 04/10/21 15:35 Urine Blood Sm (Negative) 04/10/21 15:35 Urine Nitrite Neg (Negative) 04/10/21 15:35 Urine Bilirubin Neg (Negative) 04/10/21 15:35 Urine Urobilinogen < 2.0 mg/dL (<2.0) 04/10/21 15:35 Ur Leukocyte Esterase Neg (Negative) 04/10/21 15:35 Urine WBC (Auto) 4.0 /HPF (0.0-6.0) 04/10/21 15:35 Urine RBC (Auto) 35.0 /HPF (0.0-6.0) 04/10/21 15:35 U Epithel Cells (Auto) < 1.0 /HPF (0-13.0) 04/10/21 15:35 Urine Bacteria (Auto) 1+ /HPF (Negative) 04/10/21 15:35 Urine Mucus Few /HPF 04/10/21 15:35 Vancomycin Trough 11.9 ug/mL (5.0-20.0) 04/09/21 12:38 Phenytoin 3.3 ug/mL (10.0-20.0) L 04/12/21 13:04 [place]/IV: Voiding Method External Female Catheter Nutrition/Malnutrition Assess - Dietary Evaluation Nutrition/Malnutrition Findings: Nutrition Notes Start: 04/05/21 10:18 Freq: Status: Discharge Protocol: Document 04/12/21 14:59 GB (Rec: 04/12/21 15:10 GB [id number]) Nutrition Notes Initial or Follow up Assessment Current Diagnosis Respiratory Failure Other Pertinent Diagnosis Exposure to Peanuts, allergic reaction. 04/12: extubated Current Diet NPO, TF Labs/Tests 04/12: Na 150, glucose 121, creatinine 0.5, Tg 515 Pertinent Medications reviewed Height 5 ft 7.2 in Weight 113.3 kg [place] Body Weight (kg) 61.81 BMI 38.9 Weight change and time frame No new weights at time of assessment Weight Status Obese Subjective/Other Information Per RT note 04/12: extubated 2 :33 Last BM: 04/12 Percent of energy/protein needs met: unable to assess at this time. Recently extubated Burn Absent Trauma Absent GI Symptoms None Food Allergy Yes Skin Integrity/Comment no complications reported Current % PO Other Minimum of two criteria No #1 Nutrition Diagnosis Other: (Specify in comment below) Comments: Food allergy exposure with reaction of constricting airway Per chest xray note 04/09: worsening airspace 04/12: extubated Etiology reported peanut allergy As Evidenced by Signs and Symptoms currently intubated to protect airway Diagnosis Progress(for reassessment Resolved documentation) Is patient on ventilator? No Is Patient Ambulatory and/or Out of Bed No REE-([facility]-confined to bed) 2285.808 Kcal/Kg value to use for calculation 15 Approximate Energy Requirements Using 1700 kcal/Kg Calculation Used for Recommendations Kcal/kg Additional Notes Protein: 0.8-1 g/kg @113k -113g Fluids: 1 ml/kcal or per MD Vital HP is the only product w /o soy. Nutrition Intervention Change Diet Order: Advance diet Clear to low fat pending bedside swallow results Nutrition Support: n/a Add Supplement/Snack (indicate name/kcal n/a - Not recommended. /protein ) Only the ensure clears do not have soy proteins Goal #1 Extubation r/t recovery from food allergy reaction by f/u 04/09: not met, intubation continues 04/12: met, diet to advance post bedside swallow, alertness Goal #2 Diet advanced to low fat 04/09: not met, TF continues 04/12: extubated today. diet advancing post bedside swallow results Goal #3 TF tolerance Vital HP goal rate 50ml/hr 04/09: met, at goal rate, continues 04/12: extubated. resolved Follow-Up By: 04/16/21 Additional Comments f/u diet advancement, po intake
[2021-04-12] MEDS ORDERED: EPINEPHrine RACEMIC 2.25% 0.5ML NEBU IH ONE (17:30)
[2021-04-12] MEDS ORDERED: ZIPRASIDONE MESYLATE 20 MG VIAL IM ONE (20:02)
[2021-04-12] MEDS: LORazepam 2 MG/ML VIAL IV PRN (20:18)
[2021-04-12] MEDS ORDERED: WATER FOR INJ Sterile (PF) 10 ML ONE (21:04)
[2021-04-12] MEDS ORDERED: LORazepam 2 MG/ML VIAL IV ONE (21:11)
[2021-04-13] MEDS: SENNOSIDES/DOCUSATE SODIUM 8.6/50 MG TAB FEEDTUBE SCH ×2 (00:37→10:54)
[2021-04-13] MEDS ORDERED: ETOMIDATE 20 MG/10 ML INJ IV ONE (00:49)
[2021-04-13] MEDS ORDERED: ROCURONIUM 50 MG/5 ML INJ IV ONE (00:49)
[2021-04-13] MEDS ORDERED: SUCCINYLCHOLINE CHLORIDE 200 MG/10 ML INJ MDV ONE (00:49)
[2021-04-13] MEDS: LORazepam 2 MG/ML VIAL IV PRN (05:42)
[2021-04-13] MEDS ORDERED: DEXTROSE 5% IN WATER 1,000 ML IV SCH (06:00)
[2021-04-13] MEDS ORDERED: ZIPRASIDONE MESYLATE 20 MG VIAL IM ONE (06:20)
[2021-04-13 07:11] LABS: Blood Urea Nitrogen 14 mg/dL (7-17); Calcium 8.7 mg/dL (8.4-10.2); Hemolysis Index 10
[2021-04-13 07:13] LABS: BUN/Creatinine Ratio 23
[2021-04-13 08:37] LABS: Hematocrit 31.4 % (30.3-42.9); Hemoglobin 9.9 gm/dl (10.1-14.3); Mean Corpuscular HGB Conc 32 % (30-34); Mean Corpuscular Volume 76 fl (79-97); Platelet Count 215 K/mm3 (140-440); Red Blood Count 4.14 M/mm3 (3.65-5.03); Red Cell Distribution Width 18.7 % (13.2-15.2)
[2021-04-13] MEDS ORDERED: POTASSIUM CHLORIDE 20 MEQ PACKET FEEDTUBE SCH (09:00)
[2021-04-13] MEDS ORDERED: ZIPRASIDONE MESYLATE 20 MG VIAL IM PRN (09:49)
[2021-04-13] MEDS ORDERED: methylPREDNISolone Sod Succinate 40 MG/1 ML INJ IV SCH (10:00)
--- NOTE | 2021-04-13 10:03 | Progress Note ---
Assessment and Plan Cultures: 04/04/2021 sputum culture: Usual respiratory gerber 04/08/2021 tracheal aspirate culture: MSSA 04/08/2021 urine culture: ESBL E. coli 04/08/2021 blood culture: No growth A/P: 25-year-old female with obesity, multiple allergies was admitted to the hospital on 04/04/2021 following an inflight allergic reaction to peanuts. Due to airway compromise, she was intubated in the ER: #MSSA tracheobronchitis v/s pneumonia: Chest x-ray with multifocal airspace opacities, vent settings not very high. Treat with Ancef. #ESBL E. coli in urine: Reflects colonization. UA without any significant pyuria. No antibiotics at this time #Anaphylaxis #Acute respiratory failure: extubated. #Obesity #Agitation/Delirium Recs: -continue IV Ancef 2 gm q8 hrs, D3 of 7 Mk Ballard MD, FACP [facility] ([facility] O: [phone] F: [phone] Subjective Date of service: 04/13/21 Principal diagnosis: Acute hypoxemic resp failure; Anaphylaxis, peanut allergy; Obesity Interval history: Low grade temp, no fever today. Extubated. Agitated. Objective - Exam Narrative Exam: Physical Exam: Constitutional: Awake, alert, agitated Head, Ears, Nose: Normocephalic, atraumatic. External ears, nose normal Eyes: Conjunctivae/corneas clear. No icterus. No ptosis. Neck: Supple, no meningeal signs Cardiovascular: S1, S2 + Respiratory: Deferred due to agitation GI: Deferred due to significant agitation Musculoskeletal: No pedal edema, no cyanosis. Skin: No rash or abscess Psych: Agitated Neurological: Awake - Constitutional Vitals: Vital Signs Temp Pulse Resp BP Pulse Ox 99.7 F H 101 H 20 171/99 97 04/13/21 07:00 04/13/21 09:15 04/13/21 09:15 04/13/21 09:15 04/13/21 09:45 Temperature -Last 24 Hours Temperature 99.7 F Temperature 98.9 F Temperature 98.8 F Temperature 98.2 F Temperature 100.5 F - Labs CBC & Chem 7: 04/13/21 07:50 04/13/21 06:09 Labs: Abnormal lab results 04/12/21 04/12/21 04/13/21 Range/Units 13:04 13:35 06:09 WBC (4.5-11.0) K/mm3 Hgb (10.1-14.3) gm/dl MCV (79-97) fl MCH (28-32) pg RDW (13.2-15.2) % ABG pO2 56.7 L (80.0-90.0) mm Hg ABG HCO3 29.6 H (20.0-26.0) mmol/L ABG Base Excess 4.4 H (-2.0-3.0) mmol/L ABG Hemoglobin 10.3 L (12.0-16.0) gm/dl Sodium 150 H (137-145) mmol/L Potassium 3.4 L (3.6-5.0) mmol/L Chloride 107.6 H (98-107) mmol/L Phenytoin 3.3 L (10.0-20.0) ug/mL 04/13/21 Range/Units 07:50 WBC 14.2 H (4.5-11.0) K/mm3 Hgb 9.9 L (10.1-14.3) gm/dl MCV 76 L (79-97) fl MCH 24 L (28-32) pg RDW 18.7 H (13.2-15.2) % ABG pO2 (80.0-90.0) mm Hg ABG HCO3 (20.0-26.0) mmol/L ABG Base Excess (-2.0-3.0) mmol/L ABG Hemoglobin (12.0-16.0) gm/dl Sodium (137-145) mmol/L Potassium (3.6-5.0) mmol/L Chloride (98-107) mmol/L Phenytoin (10.0-20.0) ug/mL
--- NOTE | 2021-04-13 10:03 | Progress Note ---
Assessment and Plan Assessment and Plan Assessment and plan: This is a 25 year old female with OHS, seizures and multiple allergies admitted after anaphylactic reaction to peanuts # Agitation, h/o seizures -Patient is extubated alert disoriented to place and date ,knows her birthday and age -Bilateral restraints for patient safety -Seroquel dosage increased to 300 mg BID -CT brain still pending -Seizure precautions -Need Psychiatry evaluation # -Blood pressure monitoring per protocol -As needed antihypertensive medicines -EKG shows ST # Acute hypoxic respiratory failure, h/o OHS -extubated today # Leukocytosis -Secondary to steroidsX one more day -Heparin subcu -Trend CBC -Transfuse for hemoglobin less than 7 -SCDs to bilateral lower extremities while in bed -ID on board # NAD -SSI -Accu-Cheks every 6 -Avoid hypoglycemia # PNA, UTI, Anaphylactic reaction -CXR with infiltrates -abx therapy: Vancomycin -04/08 tracheal aspirate with Staph aureus, urine culture with ESBL E. coli blood cultures x2 in [facility] -Repeat urine culture -steroid therapy for anaphylaxis reaction -stopped Benadryl d/t listed allergy -Monitor CBC and temp curves Plan 1-Ct brain 2- Cut down phenytoin to 200 mg daily X 2 week then kassidy down to 100 mg daily for 2 weeks , then stop 3- need Psychiatry evaluation 4- Need Neurology follow up ,On Keppra and Vimpat -according to pt. she had no seizure for 2 years , kassidy off phentroin due to side effect - mantain keppra and vimpat for now until she see neurology 5- Treat underlying infection 6- Geodon 20 mgq4 hours prn for agitation will follow Subjective Date of service: 04/13/21 Principal diagnosis: Acute hypoxemic resp failure; Anaphylaxis, peanut allergy; Obesity Interval history: she is extubated disoriented to date knows her birthdate and age visual hallucination ? Auditory possibly too Hypernatremia NA#[address] brain is pending EEG is unremarkable Objective - Vital Sign Vital Signs - 12hr 04/12/21 04/12/21 04/12/21 22:01 22:15 22:31 Temperature Pulse Rate 121 H 114 H 109 H Pulse Rate [ From Monitor] Respiratory 32 H 25 H 26 H Rate Blood Pressure 179/138 179/138 179/138 O2 Sat by Pulse 96 89 97 Oximetry 04/12/21 04/12/21 04/12/21 22:45 23:00 23:15 Temperature Pulse Rate 120 H 115 H 109 H Pulse Rate [ From Monitor] Respiratory 29 H 28 H 33 H Rate Blood Pressure 179/138 161/84 161/84 O2 Sat by Pulse 99 97 92 Oximetry 04/12/21 04/12/21 04/13/21 23:31 23:45 00:00 Temperature 98.8 F Pulse Rate 128 H 138 H 101 H Pulse Rate [ 76 From Monitor] Respiratory 18 22 25 H Rate Blood Pressure 161/84 161/84 141/84 O2 Sat by Pulse 100 99 Oximetry 04/13/21 04/13/21 04/13/21 00:15 00:31 00:45 Temperature Pulse Rate 100 H 99 H 99 H Pulse Rate [ From Monitor] Respiratory 29 H 27 H 23 Rate Blood Pressure 141/84 141/84 141/84 O2 Sat by Pulse 95 97 97 Oximetry 04/13/21 04/13/21 04/13/21 01:00 01:15 01:31 Temperature Pulse Rate 95 H 114 H 98 H Pulse Rate [ From Monitor] Respiratory 23 24 23 Rate Blood Pressure 137/89 137/89 137/89 O2 Sat by Pulse 100 99 100 Oximetry 04/13/21 04/13/21 04/13/21 01:45 02:00 02:15 Temperature Pulse Rate 90 108 H 104 H Pulse Rate [ From Monitor] Respiratory 23 22 23 Rate Blood Pressure 137/89 150/90 150/90 O2 Sat by Pulse 100 100 99 Oximetry 04/13/21 04/13/21 04/13/21 02:31 02:45 03:00 Temperature Pulse Rate 88 110 H 100 H Pulse Rate [ From Monitor] Respiratory 22 24 30 H Rate Blood Pressure 150/90 150/90 160/103 O2 Sat by Pulse 100 99 100 Oximetry 04/13/21 04/13/21 04/13/21 03:15 03:25 03:31 Temperature 98.9 F Pulse Rate 94 H 94 H Pulse Rate [ From Monitor] Respiratory 26 H 19 Rate Blood Pressure 160/103 160/103 O2 Sat by Pulse 96 98 Oximetry 04/13/21 04/13/21 04/13/21 03:45 04:00 04:01 Temperature Pulse Rate 88 81 89 Pulse Rate [ 76 From Monitor] Respiratory 22 13 25 H Rate Blood Pressure 160/103 162/100 O2 Sat by Pulse 100 99 100 Oximetry 04/13/21 04/13/21 04/13/21 04:15 04:31 04:45 Temperature Pulse Rate 84 91 H 91 H Pulse Rate [ From Monitor] Respiratory 20 26 H 21 Rate Blood Pressure 162/100 162/100 162/100 O2 Sat by Pulse 99 98 97 Oximetry 04/13/21 04/13/21 04/13/21 05:00 05:15 05:31 Temperature Pulse Rate 89 92 H 89 Pulse Rate [ From Monitor] Respiratory 24 17 29 H Rate Blood Pressure 173/75 173/75 173/75 O2 Sat by Pulse 99 95 96 Oximetry 04/13/21 04/13/21 04/13/21 05:45 06:00 06:15 Temperature Pulse Rate 93 H 81 91 H Pulse Rate [ From Monitor] Respiratory 25 H 23 22 Rate Blood Pressure 158/64 149/85 149/85 O2 Sat by Pulse 100 100 97 Oximetry 04/13/21 04/13/21 04/13/21 06:31 06:45 07:00 Temperature 99.7 F H Pulse Rate 89 103 H 91 H Pulse Rate [ From Monitor] Respiratory 14 18 27 H Rate Blood Pressure 149/85 149/85 175/95 O2 Sat by Pulse 96 96 98 Oximetry 04/13/21 04/13/21 04/13/21 07:15 07:31 07:45 Temperature Pulse Rate 115 H 96 H 87 Pulse Rate [ From Monitor] Respiratory 22 18 14 Rate Blood Pressure 175/95 175/95 175/95 O2 Sat by Pulse 97 98 96 Oximetry 04/13/21 04/13/21 04/13/21 08:01 08:04 08:15 Temperature Pulse Rate 90 96 H 99 H Pulse Rate [ 96 H From Monitor] Respiratory 20 28 H 26 H Rate Blood Pressure 133/88 133/88 O2 Sat by Pulse 98 97 96 Oximetry 04/13/21 04/13/21 04/13/21 08:31 08:45 09:01 Temperature Pulse Rate 87 99 H 99 H Pulse Rate [ From Monitor] Respiratory 24 15 15 Rate Blood Pressure 133/88 133/88 171/99 O2 Sat by Pulse 95 96 95 Oximetry 04/13/21 04/13/21 09:15 09:45 Temperature Pulse Rate 101 H Pulse Rate [ From Monitor] Respiratory 20 Rate Blood Pressure 171/99 O2 Sat by Pulse 97 97 Oximetry - General Apperance Constitutional: comfortable - EENT EENT: PERRL, mucous membranes moist - Respiratory Respiratory: chest non-tender, lungs clear, rhonchi - Cardiovascular Cardiovascular: regular rate, normal S1, normal S2 Extremities: no peripheral edema bilat - Gastrointestinal Gastrointestinal: normoactive bowel sounds - Integumentary Integumentary: normal - Neurologic Cranial nerve examination: intact Speech examination: intact Detailed motor examination: grossly full strength in - Laboratory Findings CBC and BMP: 04/13/21 07:50 04/13/21 06:09 Abnormal Lab Findings: Abnormal Labs 04/04/21 04/04/21 04/04/21 16:38 16:38 18:40 WBC 12.4 H RBC Hgb Hct MCV MCH 26 L RDW 18.1 H Plt Count Lymph % (Auto) Seg Neutrophils % 77.0 H Seg Neuts % (Manual) Lymphocytes % (Manual) Seg Neutrophils # 9.6 H Seg Neutrophils # Man Lymphocytes # (Manual) ABG pH 7.290 L POC ABG pCO2 POC ABG pO2 ABG pO2 62.7 L ABG HCO3 ABG O2 Saturation 88.2 L ABG Base Excess -4.6 L ABG Hemoglobin 11.2 L ABG Oxyhemoglobin ABG Sodium ABG Chloride ABG Glucose Oxyhemoglobin 86.5 L Sodium Potassium Chloride Carbon Dioxide 20 L BUN Creatinine Glucose 224 H POC Glucose Total Protein Albumin Triglycerides Arterial Blood Glucose Urine WBC (Auto) Phenytoin 04/05/21 04/05/21 04/05/21 03:37 03:37 04:15 WBC 15.5 H RBC Hgb Hct MCV MCH 25 L RDW 19.0 H Plt Count Lymph % (Auto) Seg Neutrophils % Seg Neuts % (Manual) 90.0 H Lymphocytes % (Manual) 6.0 L Seg Neutrophils # Seg Neutrophils # Man 14.0 H Lymphocytes # (Manual) 0.9 L ABG pH 7.284 L POC ABG pCO2 POC ABG pO2 ABG pO2 101.9 H ABG HCO3 18.5 L ABG O2 Saturation ABG Base Excess -7.7 L ABG Hemoglobin 10.3 L ABG Oxyhemoglobin ABG Sodium ABG Chloride ABG Glucose Oxyhemoglobin Sodium Potassium 5.6 H D Chloride Carbon Dioxide 14 L BUN Creatinine Glucose 181 H POC Glucose Total Protein Albumin Triglycerides Arterial Blood Glucose Urine WBC (Auto) Phenytoin 04/05/21 04/05/21 04/06/21 20:27 21:00 07:49 WBC 12.9 H RBC Hgb Hct MCV 77 L MCH 24 L RDW 18.2 H Plt Count Lymph % (Auto) 9.7 L Seg Neutrophils % 83.1 H Seg Neuts % (Manual) Lymphocytes % (Manual) Seg Neutrophils # 10.8 H Seg Neutrophils # Man Lymphocytes # (Manual) ABG pH POC ABG pCO2 POC ABG pO2 ABG pO2 92.5 H ABG HCO3 ABG O2 Saturation ABG Base Excess ABG Hemoglobin 10.2 L ABG Oxyhemoglobin ABG Sodium ABG Chloride ABG Glucose Oxyhemoglobin Sodium Potassium Chloride 111.7 H Carbon Dioxide BUN Creatinine Glucose POC Glucose Total Protein Albumin Triglycerides Arterial Blood Glucose Urine WBC (Auto) Phenytoin 04/06/21 04/06/21 04/06/21 07:49 11:33 17:25 WBC RBC Hgb Hct MCV MCH RDW Plt Count Lymph % (Auto) Seg Neutrophils % Seg Neuts % (Manual) Lymphocytes % (Manual) Seg Neutrophils # Seg Neutrophils # Man Lymphocytes # (Manual) ABG pH POC ABG pCO2 POC ABG pO2 ABG pO2 ABG HCO3 ABG O2 Saturation ABG Base Excess -2.2 L ABG Hemoglobin 8.7 L ABG Oxyhemoglobin ABG Sodium ABG Chloride ABG Glucose Oxyhemoglobin Sodium Potassium Chloride 112.9 H Carbon Dioxide 20 L BUN 6 L Creatinine 0.5 L Glucose 105 H POC Glucose 125 H Total Protein Albumin Triglycerides Arterial Blood Glucose Urine WBC (Auto) Phenytoin 04/07/21 04/07/21 04/07/21 03:59 05:14 15:13 WBC RBC Hgb Hct MCV MCH RDW Plt Count Lymph % (Auto) Seg Neutrophils % Seg Neuts % (Manual) Lymphocytes % (Manual) Seg Neutrophils # Seg Neutrophils # Man Lymphocytes # (Manual) ABG pH 7.521 H POC ABG pCO2 POC ABG pO2 ABG pO2 ABG HCO3 ABG O2 Saturation ABG Base Excess ABG Hemoglobin 11.0 L ABG Oxyhemoglobin ABG Sodium 145.3 H ABG Chloride 116.0 H ABG Glucose 138 H Oxyhemoglobin Sodium Potassium Chloride Carbon Dioxide BUN Creatinine Glucose POC Glucose 118 H Total Protein Albumin Triglycerides 153 H Arterial Blood Glucose 138 H Urine WBC (Auto) Phenytoin 04/07/21 04/07/21 04/07/21 15:13 15:13 17:23 WBC 12.2 H RBC Hgb Hct MCV MCH 26 L RDW 19.0 H Plt Count 85 L Lymph % (Auto) Seg Neutrophils % Seg Neuts % (Manual) Lymphocytes % (Manual) Seg Neutrophils # Seg Neutrophils # Man Lymphocytes # (Manual) ABG pH POC ABG pCO2 POC ABG pO2 ABG pO2 ABG HCO3 ABG O2 Saturation ABG Base Excess ABG Hemoglobin ABG Oxyhemoglobin ABG Sodium ABG Chloride ABG Glucose Oxyhemoglobin Sodium Potassium Chloride 111.1 H Carbon Dioxide 20 L BUN Creatinine 0.5 L Glucose 126 H POC Glucose 122 H Total Protein Albumin Triglycerides Arterial Blood Glucose Urine WBC (Auto) Phenytoin 04/07/21 04/08/21 04/08/21 23:55 10:39 12:10 WBC RBC Hgb Hct MCV MCH RDW Plt Count Lymph % (Auto) Seg Neutrophils % Seg Neuts % (Manual) Lymphocytes % (Manual) Seg Neutrophils # Seg Neutrophils # Man Lymphocytes # (Manual) ABG pH 7.311 L POC ABG pCO2 POC ABG pO2 50.5 L ABG pO2 ABG HCO3 ABG O2 Saturation ABG Base Excess ABG Hemoglobin 11.6 L ABG Oxyhemoglobin 81.6 L ABG Sodium ABG Chloride 110.0 H ABG Glucose 120 H Oxyhemoglobin Sodium Potassium Chloride Carbon Dioxide BUN Creatinine Glucose POC Glucose 130 H 112 H Total Protein Albumin Triglycerides Arterial Blood Glucose 120 H Urine WBC (Auto) Phenytoin 04/08/21 04/08/21 04/08/21 12:25 14:50 15:30 WBC 12.8 H RBC Hgb 9.9 L Hct MCV MCH 25 L RDW 18.1 H Plt Count Lymph % (Auto) Seg Neutrophils % Seg Neuts % (Manual) Lymphocytes % (Manual) Seg Neutrophils # Seg Neutrophils # Man Lymphocytes # (Manual) ABG pH POC ABG pCO2 POC ABG pO2 ABG pO2 ABG HCO3 ABG O2 Saturation ABG Base Excess ABG Hemoglobin ABG Oxyhemoglobin ABG Sodium ABG Chloride ABG Glucose Oxyhemoglobin Sodium Potassium Chloride 108.4 H Carbon Dioxide 21 L BUN Creatinine Glucose 156 H POC Glucose Total Protein 6.2 L Albumin 3.6 L Triglycerides Arterial Blood Glucose Urine WBC (Auto) 23.0 H Phenytoin 04/08/21 04/08/21 04/09/21 18:20 23:24 04:17 WBC RBC Hgb 9.9 L Hct MCV MCH 25 L RDW 17.9 H Plt Count Lymph % (Auto) Seg Neutrophils % Seg Neuts % (Manual) Lymphocytes % (Manual) Seg Neutrophils # Seg Neutrophils # Man Lymphocytes # (Manual) ABG pH POC ABG pCO2 POC ABG pO2 ABG pO2 ABG HCO3 ABG O2 Saturation ABG Base Excess ABG Hemoglobin ABG Oxyhemoglobin ABG Sodium ABG Chloride ABG Glucose Oxyhemoglobin Sodium Potassium Chloride Carbon Dioxide BUN Creatinine Glucose POC Glucose 139 H 116 H Total Protein Albumin Triglycerides Arterial Blood Glucose Urine WBC (Auto) Phenytoin 04/09/21 04/09/21 04/09/21 04:17 04:35 05:35 WBC RBC Hgb Hct MCV MCH RDW Plt Count Lymph % (Auto) Seg Neutrophils % Seg Neuts % (Manual) Lymphocytes % (Manual) Seg Neutrophils # Seg Neutrophils # Man Lymphocytes # (Manual) ABG pH POC ABG pCO2 POC ABG pO2 ABG pO2 ABG HCO3 ABG O2 Saturation ABG Base Excess ABG Hemoglobin 10.4 L ABG Oxyhemoglobin ABG Sodium 146.2 H ABG Chloride 115.0 H ABG Glucose 143 H Oxyhemoglobin Sodium 149 H Potassium Chloride 114.0 H Carbon Dioxide BUN Creatinine Glucose 133 H POC Glucose 129 H Total Protein Albumin Triglycerides Arterial Blood Glucose 143 H Urine WBC (Auto) Phenytoin 04/09/21 04/09/21 04/09/21 12:20 12:38 17:55 WBC RBC Hgb Hct MCV MCH RDW Plt Count Lymph % (Auto) Seg Neutrophils % Seg Neuts % (Manual) Lymphocytes % (Manual) Seg Neutrophils # Seg Neutrophils # Man Lymphocytes # (Manual) ABG pH POC ABG pCO2 POC ABG pO2 ABG pO2 ABG HCO3 ABG O2 Saturation ABG Base Excess ABG Hemoglobin ABG Oxyhemoglobin ABG Sodium ABG Chloride ABG Glucose Oxyhemoglobin Sodium Potassium Chloride Carbon Dioxide BUN Creatinine Glucose POC Glucose 128 H 146 H Total Protein Albumin Triglycerides Arterial Blood Glucose Urine WBC (Auto) Phenytoin 3.6 L 04/09/21 04/10/21 04/10/21 23:26 04:00 04:35 WBC 13.0 H RBC Hgb Hct MCV MCH 26 L RDW 17.7 H Plt Count Lymph % (Auto) Seg Neutrophils % Seg Neuts % (Manual) Lymphocytes % (Manual) Seg Neutrophils # Seg Neutrophils # Man Lymphocytes # (Manual) ABG pH 7.238 L POC ABG pCO2 53.8 H POC ABG pO2 53.1 L ABG pO2 ABG HCO3 ABG O2 Saturation ABG Base Excess ABG Hemoglobin 7.7 L ABG Oxyhemoglobin 83.8 L ABG Sodium 130.5 L ABG Chloride ABG Glucose Oxyhemoglobin Sodium Potassium Chloride Carbon Dioxide BUN Creatinine Glucose POC Glucose 122 H Total Protein Albumin Triglycerides Arterial Blood Glucose Urine WBC (Auto) Phenytoin 04/10/21 04/10/21 04/10/21 04:35 05:21 17:57 WBC RBC Hgb Hct MCV MCH RDW Plt Count Lymph % (Auto) Seg Neutrophils % Seg Neuts % (Manual) Lymphocytes % (Manual) Seg Neutrophils # Seg Neutrophils # Man Lymphocytes # (Manual) ABG pH POC ABG pCO2 POC ABG pO2 ABG pO2 ABG HCO3 ABG O2 Saturation ABG Base Excess ABG Hemoglobin ABG Oxyhemoglobin ABG Sodium ABG Chloride ABG Glucose Oxyhemoglobin Sodium 146 H Potassium Chloride 112.1 H Carbon Dioxide BUN Creatinine 0.4 L Glucose 156 H POC Glucose 140 H 113 H Total Protein Albumin Triglycerides Arterial Blood Glucose Urine WBC (Auto) Phenytoin 04/11/21 04/11/21 04/11/21 04:00 04:00 11:48 WBC RBC 3.54 L Hgb 8.8 L Hct 27.6 L MCV 78 L MCH 25 L RDW 18.0 H Plt Count Lymph % (Auto) Seg Neutrophils % Seg Neuts % (Manual) Lymphocytes % (Manual) Seg Neutrophils # Seg Neutrophils # Man Lymphocytes # (Manual) ABG pH POC ABG pCO2 POC ABG pO2 ABG pO2 ABG HCO3 ABG O2 Saturation ABG Base Excess ABG Hemoglobin ABG Oxyhemoglobin ABG Sodium ABG Chloride ABG Glucose Oxyhemoglobin Sodium 146 H Potassium Chloride 111.4 H Carbon Dioxide BUN Creatinine 0.5 L Glucose 112 H POC Glucose 128 H Total Protein Albumin Triglycerides Arterial Blood Glucose Urine WBC (Auto) Phenytoin 04/12/21 04/12/21 04/12/21 04:46 04:46 04:46 WBC 15.2 H RBC Hgb 10.0 L Hct MCV 78 L MCH 23 L RDW 18.8 H Plt Count Lymph % (Auto) Seg Neutrophils % Seg Neuts % (Manual) Lymphocytes % (Manual) Seg Neutrophils # Seg Neutrophils # Man Lymphocytes # (Manual) ABG pH POC ABG pCO2 POC ABG pO2 ABG pO2 ABG HCO3 ABG O2 Saturation ABG Base Excess ABG Hemoglobin ABG Oxyhemoglobin ABG Sodium ABG Chloride ABG Glucose Oxyhemoglobin Sodium 150 H Potassium Chloride 110.9 H Carbon Dioxide BUN Creatinine 0.5 L Glucose 121 H POC Glucose Total Protein Albumin Triglycerides 515 H Arterial Blood Glucose Urine WBC (Auto) Phenytoin 04/12/21 04/12/21 04/13/21 13:04 13:35 06:09 WBC RBC Hgb Hct MCV MCH RDW Plt Count Lymph % (Auto) Seg Neutrophils % Seg Neuts % (Manual) Lymphocytes % (Manual) Seg Neutrophils # Seg Neutrophils # Man Lymphocytes # (Manual) ABG pH POC ABG pCO2 POC ABG pO2 ABG pO2 56.7 L ABG HCO3 29.6 H ABG O2 Saturation ABG Base Excess 4.4 H ABG Hemoglobin 10.3 L ABG Oxyhemoglobin ABG Sodium ABG Chloride ABG Glucose Oxyhemoglobin Sodium 150 H Potassium 3.4 L Chloride 107.6 H Carbon Dioxide BUN Creatinine Glucose POC Glucose Total Protein Albumin Triglycerides Arterial Blood Glucose Urine WBC (Auto) Phenytoin 3.3 L 04/13/21 07:50 WBC 14.2 H RBC Hgb 9.9 L Hct MCV 76 L MCH 24 L RDW 18.7 H Plt Count Lymph % (Auto) Seg Neutrophils % Seg Neuts % (Manual) Lymphocytes % (Manual) Seg Neutrophils # Seg Neutrophils # Man Lymphocytes # (Manual) ABG pH POC ABG pCO2 POC ABG pO2 ABG pO2 ABG HCO3 ABG O2 Saturation ABG Base Excess ABG Hemoglobin ABG Oxyhemoglobin ABG Sodium ABG Chloride ABG Glucose Oxyhemoglobin Sodium Potassium Chloride Carbon Dioxide BUN Creatinine Glucose POC Glucose Total Protein Albumin Triglycerides Arterial Blood Glucose Urine WBC (Auto) Phenytoin
[2021-04-13] MEDS: LACOSAMIDE 100 MG TAB PO SCH (10:54)
[2021-04-13] MEDS: HEPARIN 5,000 UNIT/1 ML VIAL SUB-Q SCH ×2 (10:54→23:56)
[2021-04-13] MEDS: TAMSULOSIN 0.4 MG CAP PO SCH (10:54)
[2021-04-13] MEDS: FAMOTIDINE 20 MG TAB FEEDTUBE SCH ×2 (10:54→23:58)
[2021-04-13] MEDS: QUEtiapine 100 MG TAB PO SCH ×2 (10:54→23:58)
[2021-04-13] MEDS: levETIRAcetam 500 MG/5 ML ORAL LIQD FEEDTUBE SCH ×2 (10:57→23:57)
[2021-04-13] MEDS: HYDROmorphone 1 MG/1 ML INJ IV PRN (11:06)
--- NOTE | 2021-04-13 11:55 | Progress Note ---
Assessment and Plan Acute hypoxemic respiratory failure Anaphylaxis related to a PEANUT ALLERGY Angioedema MSSA Pneumonia Obesity Obesity hypoventilation syndrome Leukocytosis Hyperkalemia Mild metabolic acidosis Oropharyngeal dysphagia - begin Precedex and wean off Propofol quickly - spoke with her mother who will come to bedside tomorrow and try verbal re- direction - neurology input appreciated; EEG negative - begin Flomax for urinary retention issues (straight catheterization X 2 last 24 hours) - continue Seroquel at 300 mg p.o. bid - continue care as below otherwise; - continue Daily SAT and SBT assessment as tolerated - continue to wean supplemental oxygen for target O2 sat's > 90% acutely - VAP bundle addressed - continue lung protective strategies - continue bronchodilators with pulmonary hygiene per RT - wean per pulmonary driven protocols otherwise - avoid nephrotoxins, renally dose all medications - continue accuchecks with glycemic control per SSI (While critically ill target blood glucose of 140-180 mg/dL; avoid hypoglycemia) - sedation for target RASS 0 to -2 once paralytic wears off - continue to avoid benzodiazepine's, reduce the possibility of delirium - AB's per ID rec's - prn analgesia per CPOT score - Maintenance of sleep-wake cycle, avoid delirium - continue enteral nutritional support at goal rate as tolerated - G.I. & VTE prophylaxis - PT/OT/ROM exercises - continue mobility protocols for pressure ulcer prophylaxis - Monitor hemodynamics closely - continue other care per attending / other consultants - discharge planning ongoing concurrently COVID SPECIFIC INTERVENTIONS - not tested .... Re-evaluate in am & prn Subjective Date of service: 04/13/21 Principal diagnosis: Acute hypoxemic resp failure; Anaphylaxis, peanut allergy; Obesity Interval history: Patient is seen today for: Acute hypoxemic respiratory failure; Anaphylaxis / peanut allergy; Angioedema; OHS; Hyperkalemia Seen and examined at bedside; 24hour events reviewed; nursing and respiratory care staff consulted; no adverse overnight events reported to me; resting in bed; Objective Vital Signs - 12hr 04/13/21 04/13/21 04/13/21 00:00 00:15 00:31 Temperature 98.8 F Pulse Rate 101 H 100 H 99 H Pulse Rate [ 76 From Monitor] Respiratory 25 H 29 H 27 H Rate Blood Pressure 141/84 141/84 141/84 O2 Sat by Pulse 99 95 97 Oximetry 04/13/21 04/13/21 04/13/21 00:45 01:00 01:15 Temperature Pulse Rate 99 H 95 H 114 H Pulse Rate [ From Monitor] Respiratory 23 23 24 Rate Blood Pressure 141/84 137/89 137/89 O2 Sat by Pulse 97 100 99 Oximetry 04/13/21 04/13/21 04/13/21 01:31 01:45 02:00 Temperature Pulse Rate 98 H 90 108 H Pulse Rate [ From Monitor] Respiratory 23 23 22 Rate Blood Pressure 137/89 137/89 150/90 O2 Sat by Pulse 100 100 100 Oximetry 04/13/21 04/13/21 04/13/21 02:15 02:31 02:45 Temperature Pulse Rate 104 H 88 110 H Pulse Rate [ From Monitor] Respiratory 23 22 24 Rate Blood Pressure 150/90 150/90 150/90 O2 Sat by Pulse 99 100 99 Oximetry 04/13/21 04/13/21 04/13/21 03:00 03:15 03:25 Temperature 98.9 F Pulse Rate 100 H 94 H Pulse Rate [ From Monitor] Respiratory 30 H 26 H Rate Blood Pressure 160/103 160/103 O2 Sat by Pulse 100 96 Oximetry 04/13/21 04/13/21 04/13/21 03:31 03:45 04:00 Temperature Pulse Rate 94 H 88 81 Pulse Rate [ 76 From Monitor] Respiratory 19 22 13 Rate Blood Pressure 160/103 160/103 O2 Sat by Pulse 98 100 99 Oximetry 04/13/21 04/13/21 04/13/21 04:01 04:15 04:31 Temperature Pulse Rate 89 84 91 H Pulse Rate [ From Monitor] Respiratory 25 H 20 26 H Rate Blood Pressure 162/100 162/100 162/100 O2 Sat by Pulse 100 99 98 Oximetry 04/13/21 04/13/21 04/13/21 04:45 05:00 05:15 Temperature Pulse Rate 91 H 89 92 H Pulse Rate [ From Monitor] Respiratory 21 24 17 Rate Blood Pressure 162/100 173/75 173/75 O2 Sat by Pulse 97 99 95 Oximetry 04/13/21 04/13/21 04/13/21 05:31 05:45 06:00 Temperature Pulse Rate 89 93 H 81 Pulse Rate [ From Monitor] Respiratory 29 H 25 H 23 Rate Blood Pressure 173/75 158/64 149/85 O2 Sat by Pulse 96 100 100 Oximetry 04/13/21 04/13/21 04/13/21 06:15 06:31 06:45 Temperature Pulse Rate 91 H 89 103 H Pulse Rate [ From Monitor] Respiratory 22 14 18 Rate Blood Pressure 149/85 149/85 149/85 O2 Sat by Pulse 97 96 96 Oximetry 04/13/21 04/13/21 04/13/21 07:00 07:15 07:31 Temperature 99.7 F H Pulse Rate 91 H 115 H 96 H Pulse Rate [ From Monitor] Respiratory 27 H 22 18 Rate Blood Pressure 175/95 175/95 175/95 O2 Sat by Pulse 98 97 98 Oximetry 04/13/21 04/13/21 04/13/21 07:45 08:01 08:04 Temperature Pulse Rate 87 90 96 H Pulse Rate [ 96 H From Monitor] Respiratory 14 20 28 H Rate Blood Pressure 175/95 133/88 O2 Sat by Pulse 96 98 97 Oximetry 04/13/21 04/13/21 04/13/21 08:15 08:31 08:45 Temperature Pulse Rate 99 H 87 99 H Pulse Rate [ From Monitor] Respiratory 26 H 24 15 Rate Blood Pressure 133/88 133/88 133/88 O2 Sat by Pulse 96 95 96 Oximetry 04/13/21 04/13/21 04/13/21 09:01 09:15 09:45 Temperature Pulse Rate 99 H 101 H Pulse Rate [ From Monitor] Respiratory 15 20 Rate Blood Pressure 171/99 171/99 O2 Sat by Pulse 95 97 97 Oximetry Constitutional: asleep, appears uncomfortable, other (obese, short neck, orally intubated, ETT 6.5, mildly increased work of breathing) Eyes: non-icteric ENT: oropharynx moist, other (ETT 24 cm JENNY) Neck: supple, no lymphadenopathy, other (large circumference) Effort: mildly labored (moderatelyu) Ascultation: Bilateral: diminished breath sounds, rhonchi (scant) Percussion: Bilateral: not dull Cardiovascular: regular rate and rhythm, other (tachycardia) Gastrointestinal: normoactive bowel sounds Integumentary: normal Extremities: no cyanosis, no edema, pulses normal, no ischemia or petechiae Neurologic: non-focal exam (grossly), pupils equal and round, unable to assess Psychiatric: other (Deliorious) CBC and BMP: 04/13/21 07:50 04/13/21 06:09 ABG, PT/INR, D-dimer: ABG ABG pH 7.418 pH Units (7.350-7.450) 04/12/21 13:35 POC ABG pCO2 53.8 mmHg (32.0-48.0) H 04/10/21 04:00 ABG pCO2 46.8 mm Hg 04/12/21 13:35 POC ABG pO2 53.1 mmHg (83-108) L 04/10/21 04:00 ABG pO2 56.7 mm Hg (80.0-90.0) L 04/12/21 13:35 POC ABG HCO3 22.4 04/10/21 04:00 ABG O2 Saturation 99.0 % (95.0-99.0) 04/12/21 13:35 Abnormal lab findings: Abnormal Labs 04/04/21 04/04/21 04/04/21 16:38 16:38 18:40 WBC 12.4 H RBC Hgb Hct MCV MCH 26 L RDW 18.1 H Plt Count Lymph % (Auto) Seg Neutrophils % 77.0 H Seg Neuts % (Manual) Lymphocytes % (Manual) Seg Neutrophils # 9.6 H Seg Neutrophils # Man Lymphocytes # (Manual) ABG pH 7.290 L POC ABG pCO2 POC ABG pO2 ABG pO2 62.7 L ABG HCO3 ABG O2 Saturation 88.2 L ABG Base Excess -4.6 L ABG Hemoglobin 11.2 L ABG Oxyhemoglobin ABG Sodium ABG Chloride ABG Glucose Oxyhemoglobin 86.5 L Sodium Potassium Chloride Carbon Dioxide 20 L BUN Creatinine Glucose 224 H POC Glucose Total Protein Albumin Triglycerides Arterial Blood Glucose Urine WBC (Auto) Phenytoin 04/05/21 04/05/21 04/05/21 03:37 03:37 04:15 WBC 15.5 H RBC Hgb Hct MCV MCH 25 L RDW 19.0 H Plt Count Lymph % (Auto) Seg Neutrophils % Seg Neuts % (Manual) 90.0 H Lymphocytes % (Manual) 6.0 L Seg Neutrophils # Seg Neutrophils # Man 14.0 H Lymphocytes # (Manual) 0.9 L ABG pH 7.284 L POC ABG pCO2 POC ABG pO2 ABG pO2 101.9 H ABG HCO3 18.5 L ABG O2 Saturation ABG Base Excess -7.7 L ABG Hemoglobin 10.3 L ABG Oxyhemoglobin ABG Sodium ABG Chloride ABG Glucose Oxyhemoglobin Sodium Potassium 5.6 H D Chloride Carbon Dioxide 14 L BUN Creatinine Glucose 181 H POC Glucose Total Protein Albumin Triglycerides Arterial Blood Glucose Urine WBC (Auto) Phenytoin 04/05/21 04/05/21 04/06/21 20:27 21:00 07:49 WBC 12.9 H RBC Hgb Hct MCV 77 L MCH 24 L RDW 18.2 H Plt Count Lymph % (Auto) 9.7 L Seg Neutrophils % 83.1 H Seg Neuts % (Manual) Lymphocytes % (Manual) Seg Neutrophils # 10.8 H Seg Neutrophils # Man Lymphocytes # (Manual) ABG pH POC ABG pCO2 POC ABG pO2 ABG pO2 92.5 H ABG HCO3 ABG O2 Saturation ABG Base Excess ABG Hemoglobin 10.2 L ABG Oxyhemoglobin ABG Sodium ABG Chloride ABG Glucose Oxyhemoglobin Sodium Potassium Chloride 111.7 H Carbon Dioxide BUN Creatinine Glucose POC Glucose Total Protein Albumin Triglycerides Arterial Blood Glucose Urine WBC (Auto) Phenytoin 04/06/21 04/06/21 04/06/21 07:49 11:33 17:25 WBC RBC Hgb Hct MCV MCH RDW Plt Count Lymph % (Auto) Seg Neutrophils % Seg Neuts % (Manual) Lymphocytes % (Manual) Seg Neutrophils # Seg Neutrophils # Man Lymphocytes # (Manual) ABG pH POC ABG pCO2 POC ABG pO2 ABG pO2 ABG HCO3 ABG O2 Saturation ABG Base Excess -2.2 L ABG Hemoglobin 8.7 L ABG Oxyhemoglobin ABG Sodium ABG Chloride ABG Glucose Oxyhemoglobin Sodium Potassium Chloride 112.9 H Carbon Dioxide 20 L BUN 6 L Creatinine 0.5 L Glucose 105 H POC Glucose 125 H Total Protein Albumin Triglycerides Arterial Blood Glucose Urine WBC (Auto) Phenytoin 04/07/21 04/07/21 04/07/21 03:59 05:14 15:13 WBC RBC Hgb Hct MCV MCH RDW Plt Count Lymph % (Auto) Seg Neutrophils % Seg Neuts % (Manual) Lymphocytes % (Manual) Seg Neutrophils # Seg Neutrophils # Man Lymphocytes # (Manual) ABG pH 7.521 H POC ABG pCO2 POC ABG pO2 ABG pO2 ABG HCO3 ABG O2 Saturation ABG Base Excess ABG Hemoglobin 11.0 L ABG Oxyhemoglobin ABG Sodium 145.3 H ABG Chloride 116.0 H ABG Glucose 138 H Oxyhemoglobin Sodium Potassium Chloride Carbon Dioxide BUN Creatinine Glucose POC Glucose 118 H Total Protein Albumin Triglycerides 153 H Arterial Blood Glucose 138 H Urine WBC (Auto) Phenytoin 04/07/21 04/07/21 04/07/21 15:13 15:13 17:23 WBC 12.2 H RBC Hgb Hct MCV MCH 26 L RDW 19.0 H Plt Count 85 L Lymph % (Auto) Seg Neutrophils % Seg Neuts % (Manual) Lymphocytes % (Manual) Seg Neutrophils # Seg Neutrophils # Man Lymphocytes # (Manual) ABG pH POC ABG pCO2 POC ABG pO2 ABG pO2 ABG HCO3 ABG O2 Saturation ABG Base Excess ABG Hemoglobin ABG Oxyhemoglobin ABG Sodium ABG Chloride ABG Glucose Oxyhemoglobin Sodium Potassium Chloride 111.1 H Carbon Dioxide 20 L BUN Creatinine 0.5 L Glucose 126 H POC Glucose 122 H Total Protein Albumin Triglycerides Arterial Blood Glucose Urine WBC (Auto) Phenytoin 04/07/21 04/08/21 04/08/21 23:55 10:39 12:10 WBC RBC Hgb Hct MCV MCH RDW Plt Count Lymph % (Auto) Seg Neutrophils % Seg Neuts % (Manual) Lymphocytes % (Manual) Seg Neutrophils # Seg Neutrophils # Man Lymphocytes # (Manual) ABG pH 7.311 L POC ABG pCO2 POC ABG pO2 50.5 L ABG pO2 ABG HCO3 ABG O2 Saturation ABG Base Excess ABG Hemoglobin 11.6 L ABG Oxyhemoglobin 81.6 L ABG Sodium ABG Chloride 110.0 H ABG Glucose 120 H Oxyhemoglobin Sodium Potassium Chloride Carbon Dioxide BUN Creatinine Glucose POC Glucose 130 H 112 H Total Protein Albumin Triglycerides Arterial Blood Glucose 120 H Urine WBC (Auto) Phenytoin 04/08/21 04/08/21 04/08/21 12:25 14:50 15:30 WBC 12.8 H RBC Hgb 9.9 L Hct MCV MCH 25 L RDW 18.1 H Plt Count Lymph % (Auto) Seg Neutrophils % Seg Neuts % (Manual) Lymphocytes % (Manual) Seg Neutrophils # Seg Neutrophils # Man Lymphocytes # (Manual) ABG pH POC ABG pCO2 POC ABG pO2 ABG pO2 ABG HCO3 ABG O2 Saturation ABG Base Excess ABG Hemoglobin ABG Oxyhemoglobin ABG Sodium ABG Chloride ABG Glucose Oxyhemoglobin Sodium Potassium Chloride 108.4 H Carbon Dioxide 21 L BUN Creatinine Glucose 156 H POC Glucose Total Protein 6.2 L Albumin 3.6 L Triglycerides Arterial Blood Glucose Urine WBC (Auto) 23.0 H Phenytoin 04/08/21 04/08/21 04/09/21 18:20 23:24 04:17 WBC RBC Hgb 9.9 L Hct MCV MCH 25 L RDW 17.9 H Plt Count Lymph % (Auto) Seg Neutrophils % Seg Neuts % (Manual) Lymphocytes % (Manual) Seg Neutrophils # Seg Neutrophils # Man Lymphocytes # (Manual) ABG pH POC ABG pCO2 POC ABG pO2 ABG pO2 ABG HCO3 ABG O2 Saturation ABG Base Excess ABG Hemoglobin ABG Oxyhemoglobin ABG Sodium ABG Chloride ABG Glucose Oxyhemoglobin Sodium Potassium Chloride Carbon Dioxide BUN Creatinine Glucose POC Glucose 139 H 116 H Total Protein Albumin Triglycerides Arterial Blood Glucose Urine WBC (Auto) Phenytoin 04/09/21 04/09/21 04/09/21 04:17 04:35 05:35 WBC RBC Hgb Hct MCV MCH RDW Plt Count Lymph % (Auto) Seg Neutrophils % Seg Neuts % (Manual) Lymphocytes % (Manual) Seg Neutrophils # Seg Neutrophils # Man Lymphocytes # (Manual) ABG pH POC ABG pCO2 POC ABG pO2 ABG pO2 ABG HCO3 ABG O2 Saturation ABG Base Excess ABG Hemoglobin 10.4 L ABG Oxyhemoglobin ABG Sodium 146.2 H ABG Chloride 115.0 H ABG Glucose 143 H Oxyhemoglobin Sodium 149 H Potassium Chloride 114.0 H Carbon Dioxide BUN Creatinine Glucose 133 H POC Glucose 129 H Total Protein Albumin Triglycerides Arterial Blood Glucose 143 H Urine WBC (Auto) Phenytoin 04/09/21 04/09/21 04/09/21 12:20 12:38 17:55 WBC RBC Hgb Hct MCV MCH RDW Plt Count Lymph % (Auto) Seg Neutrophils % Seg Neuts % (Manual) Lymphocytes % (Manual) Seg Neutrophils # Seg Neutrophils # Man Lymphocytes # (Manual) ABG pH POC ABG pCO2 POC ABG pO2 ABG pO2 ABG HCO3 ABG O2 Saturation ABG Base Excess ABG Hemoglobin ABG Oxyhemoglobin ABG Sodium ABG Chloride ABG Glucose Oxyhemoglobin Sodium Potassium Chloride Carbon Dioxide BUN Creatinine Glucose POC Glucose 128 H 146 H Total Protein Albumin Triglycerides Arterial Blood Glucose Urine WBC (Auto) Phenytoin 3.6 L 04/09/21 04/10/21 04/10/21 23:26 04:00 04:35 WBC 13.0 H RBC Hgb Hct MCV MCH 26 L RDW 17.7 H Plt Count Lymph % (Auto) Seg Neutrophils % Seg Neuts % (Manual) Lymphocytes % (Manual) Seg Neutrophils # Seg Neutrophils # Man Lymphocytes # (Manual) ABG pH 7.238 L POC ABG pCO2 53.8 H POC ABG pO2 53.1 L ABG pO2 ABG HCO3 ABG O2 Saturation ABG Base Excess ABG Hemoglobin 7.7 L ABG Oxyhemoglobin 83.8 L ABG Sodium 130.5 L ABG Chloride ABG Glucose Oxyhemoglobin Sodium Potassium Chloride Carbon Dioxide BUN Creatinine Glucose POC Glucose 122 H Total Protein Albumin Triglycerides Arterial Blood Glucose Urine WBC (Auto) Phenytoin 04/10/21 04/10/21 04/10/21 04:35 05:21 17:57 WBC RBC Hgb Hct MCV MCH RDW Plt Count Lymph % (Auto) Seg Neutrophils % Seg Neuts % (Manual) Lymphocytes % (Manual) Seg Neutrophils # Seg Neutrophils # Man Lymphocytes # (Manual) ABG pH POC ABG pCO2 POC ABG pO2 ABG pO2 ABG HCO3 ABG O2 Saturation ABG Base Excess ABG Hemoglobin ABG Oxyhemoglobin ABG Sodium ABG Chloride ABG Glucose Oxyhemoglobin Sodium 146 H Potassium Chloride 112.1 H Carbon Dioxide BUN Creatinine 0.4 L Glucose 156 H POC Glucose 140 H 113 H Total Protein Albumin Triglycerides Arterial Blood Glucose Urine WBC (Auto) Phenytoin 04/11/21 04/11/21 04/11/21 04:00 04:00 11:48 WBC RBC 3.54 L Hgb 8.8 L Hct 27.6 L MCV 78 L MCH 25 L RDW 18.0 H Plt Count Lymph % (Auto) Seg Neutrophils % Seg Neuts % (Manual) Lymphocytes % (Manual) Seg Neutrophils # Seg Neutrophils # Man Lymphocytes # (Manual) ABG pH POC ABG pCO2 POC ABG pO2 ABG pO2 ABG HCO3 ABG O2 Saturation ABG Base Excess ABG Hemoglobin ABG Oxyhemoglobin ABG Sodium ABG Chloride ABG Glucose Oxyhemoglobin Sodium 146 H Potassium Chloride 111.4 H Carbon Dioxide BUN Creatinine 0.5 L Glucose 112 H POC Glucose 128 H Total Protein Albumin Triglycerides Arterial Blood Glucose Urine WBC (Auto) Phenytoin 04/12/21 04/12/21 04/12/21 04:46 04:46 04:46 WBC 15.2 H RBC Hgb 10.0 L Hct MCV 78 L MCH 23 L RDW 18.8 H Plt Count Lymph % (Auto) Seg Neutrophils % Seg Neuts % (Manual) Lymphocytes % (Manual) Seg Neutrophils # Seg Neutrophils # Man Lymphocytes # (Manual) ABG pH POC ABG pCO2 POC ABG pO2 ABG pO2 ABG HCO3 ABG O2 Saturation ABG Base Excess ABG Hemoglobin ABG Oxyhemoglobin ABG Sodium ABG Chloride ABG Glucose Oxyhemoglobin Sodium 150 H Potassium Chloride 110.9 H Carbon Dioxide BUN Creatinine 0.5 L Glucose 121 H POC Glucose Total Protein Albumin Triglycerides 515 H Arterial Blood Glucose Urine WBC (Auto) Phenytoin 04/12/21 04/12/21 04/13/21 13:04 13:35 06:09 WBC RBC Hgb Hct MCV MCH RDW Plt Count Lymph % (Auto) Seg Neutrophils % Seg Neuts % (Manual) Lymphocytes % (Manual) Seg Neutrophils # Seg Neutrophils # Man Lymphocytes # (Manual) ABG pH POC ABG pCO2 POC ABG pO2 ABG pO2 56.7 L ABG HCO3 29.6 H ABG O2 Saturation ABG Base Excess 4.4 H ABG Hemoglobin 10.3 L ABG Oxyhemoglobin ABG Sodium ABG Chloride ABG Glucose Oxyhemoglobin Sodium 150 H Potassium 3.4 L Chloride 107.6 H Carbon Dioxide BUN Creatinine Glucose POC Glucose Total Protein Albumin Triglycerides Arterial Blood Glucose Urine WBC (Auto) Phenytoin 3.3 L 04/13/21 07:50 WBC 14.2 H RBC Hgb 9.9 L Hct MCV 76 L MCH 24 L RDW 18.7 H Plt Count Lymph % (Auto) Seg Neutrophils % Seg Neuts % (Manual) Lymphocytes % (Manual) Seg Neutrophils # Seg Neutrophils # Man Lymphocytes # (Manual) ABG pH POC ABG pCO2 POC ABG pO2 ABG pO2 ABG HCO3 ABG O2 Saturation ABG Base Excess ABG Hemoglobin ABG Oxyhemoglobin ABG Sodium ABG Chloride ABG Glucose Oxyhemoglobin Sodium Potassium Chloride Carbon Dioxide BUN Creatinine Glucose POC Glucose Total Protein Albumin Triglycerides Arterial Blood Glucose Urine WBC (Auto) Phenytoin Allied health notes reviewed: nursing
--- NOTE | 2021-04-13 12:42 | Consultation ---
History of Present Illness - Reason for Consult Consult date: 04/13/21 Reason for consult: agitation - History of Present Psychiatric Illness Eve Villagomez is a 25y/o female patient who states she was admitted for asthma and intubated. The patient says "I have a peanut allergy." She is a/o x 2. The patient also says she was diagnosed with depression when she was around 5 but states she hasn't seen a psychiatrist since then. She also denies being on any psych medications. She denies any illicit drug use, alcohol or nicotine use. She denies SI/HI or ever having an attempt of suicide. The patient also denies hallucinations of any kind. Spoke with the nurse Chelle neal, who says the patient has been severely anxious and agitated. PAST PSYCHIATRIC HISTORY: Diagnoses: depression Suicide attempts or Self-harm behavior: Denies Prior psychiatric hospitalizations: Denies Substance Abuse history: Denies Previous psychiatric medications tried: Denies Outpatient treatment: Denies PAST MEDICAL HISTORY: None reported or document Family Psychiatric History: None reported or documented SOCIAL HISTORY Marital Status: Living Arrangements: with mother Employment Status: unemployed Access to guns/weapons: Denies Education: high school History of Abuse:Yes Legal History: Denies REVIEW OF SYSTEMS Constitutional: Negative for weight loss ENT: Negative for stridor Respiratory: Negative for cough or hemoptysis All other systems reviewed and are negative MENTAL STATUS EXAMINATION General Appearance and Behavior: Age appropriate, good hygiene, wearing appropriate clothes. Cooperation: cooperative Psychomotor Behavior: Psychomotor normal Mood: Okay Affect and affective range: congruent with stated mood Thought Process: circumstantial Thought Content: None Speech: Normal volume, Regular rate and rhythm, Suicidal Ideation: Denies Homicidal Ideation: Denies Hallucinations: Denies Delusions: None elicited Impulse Control: Unimpaired Insight and Judgment: Limited Memory: limited Attention: Distractible Orientation: alert and oriented Assessment and Plan (1) Restlessness and Agitation (R45.1) Current Visit: Yes Status: Acute Treatment Plan Vistaril 50mg po q6h prn anxiety Agree with other prescribed psych meds Sitter: Defer to primary Medical: Per primary Disposition: Do not recommend acute psychiatric inpatient treatment Will follow. Thanks Case staffed with Dr. Churchill Medications and Allergies Allergies Allergy/AdvReac Type Severity Reaction Status Date / Time cinnamon Allergy Anaphylaxis Verified 04/06/21 15:08 coconut Allergy Anaphylaxis Verified 04/06/21 15:08 cucumber Allergy Anaphylaxis Verified 04/06/21 15:08 Fish Containing Products Allergy Anaphylaxis Verified 04/06/21 15:08 fish derived Allergy Anaphylaxis Verified 04/06/21 15:08 peanut Allergy Anaphylaxis Verified 04/05/21 08:28 pineapple Allergy Anaphylaxis Verified 04/06/21 15:08 Home Medications Medication Instructions Recorded Confirmed Last Taken Type Lacosamide [Vimpat] 200 mg PO BID 04/04/21 04/04/21 Unknown History levETIRAcetam [Keppra TAB] 1,500 mg PO BID 04/04/21 04/04/21 Unknown History Phenytoin 300 mg PO HS 04/06/21 04/06/21 Unknown History Active Meds: Active Medications Acetaminophen (Acetaminophen 325 Mg Tab) 650 mg PO Q6H PRN PRN Reason: Pain MILD(1-3)/Fever >100.5/JONES Last Admin: 04/10/21 15:59 Dose: 650 mg Documented by: Albuterol (Albuterol 2.5 Mg/3 Ml Nebu) 2.5 mg IH Q3HRT PRN PRN Reason: Shortness Of Breath Last Admin: 04/04/21 21:49 Dose: 2.5 mg Documented by: Lipase/Protease/Amylase (Lipase 10,500/Protease 25,000/Amylase 43,750 (Units) Dr Conklin) 1 each FEEDTUBE PRN PRN PRN Reason: For Clogged Feeding Tube Bisacodyl (Bisacodyl 5 Mg Tab) 10 mg PO QDAY PRN PRN Reason: Constipation Famotidine (Famotidine 20 Mg Tab) 20 mg FEEDTUBE BID [facility] Last Admin: 04/13/21 10:54 Dose: 20 mg Documented by: Heparin Sodium (Porcine) (Heparin 5,000 Unit/1 Ml Vial) 5,000 unit SUB-Q Q12HR [facility] Last Admin: 04/13/21 10:54 Dose: 5,000 unit Documented by: Hydralazine HCl (Hydralazine 20 Mg/1 Ml Inj) 10 mg IV Q4H PRN PRN Reason: Hypertension Hydromorphone HCl (Hydromorphone 1 Mg/1 Ml Inj) 0.5 mg IV Q23H PRN PRN Reason: Pain , Severe (7-10) Last Admin: 04/13/21 11:06 Dose: 0.5 mg Documented by: Hydrophilic Ointment (Lip Therapy Vaseline) 1 applic TP Q2HR PRN PRN Reason: Dry Lips Cefazolin Sodium 2 gm/ Sodium (Chloride) 100 mls @ 200 mls/hr IV Q8H [facility]; Protocol Stop: 04/18/21 02:29 Last Admin: 04/13/21 10:55 Dose: 200 mls/hr Documented by: Dextrose (D5w) 1,000 mls @ 110 mls/hr IV DIRECT [facility] Last Admin: 04/13/21 06:33 Dose: 110 mls/hr Documented by: Lacosamide (Lacosamide 100 Mg Tab) 200 mg PO Q12HR [facility] Last Admin: 04/13/21 10:54 Dose: 200 mg Documented by: Levetiracetam (Levetiracetam 500 Mg/5 Ml Oral Liqd) 1,500 mg FEEDTUBE BID [facility] Last Admin: 04/13/21 10:57 Dose: 1,500 mg Documented by: Lorazepam (Lorazepam 2 Mg/Ml Vial) 0.5 mg IV Q3H PRN PRN Reason: Agitation Last Admin: 04/13/21 05:42 Dose: 0.5 mg Documented by: Multi-Ingred Cream/Lotion/Oil/Oint (Mineral Oil/Petrolatum, White Ophth Oint 3.5 Gm) 1 applic OU Q4HR PRN PRN Reason: Dry Eye(s) Oxycodone/Acetaminophen (Oxycodone /Acetaminophen 5-325mg Tab) 1 tab PO Q16H PRN PRN Reason: Pain, Moderate (4-6) Phenytoin (Phenytoin 100 Mg Capsule.Er) 300 mg PO QHS [facility] Potassium Chloride (Potassium Chloride 20 Meq Packet) 40 meq FEEDTUBE ONCE@0900 [facility] Stop: 04/13/21 13:00 Last Admin: 04/13/21 10:53 Dose: 40 meq Documented by: Quetiapine Fumarate (Quetiapine 100 Mg Tab) 300 mg PO BID [facility] Last Admin: 04/13/21 10:54 Dose: 300 mg Documented by: Senna/Docusate Sodium (Sennosides/Docusate Sodium 8.6/50 Mg Tab) 1 tab FEEDTUBE BID [facility] Last Admin: 04/13/21 10:54 Dose: 1 tab Documented by: Sodium Chloride (Sodium Chloride 0.9% 10 Ml Flush Syringe) 10 ml IV BID [facility] Last Admin: 04/13/21 10:55 Dose: 10 ml Documented by: Sodium Chloride (Sodium Chloride 0.9% 10 Ml Flush Syringe) 10 ml IV PRN PRN PRN Reason: LINE FLUSH Tamsulosin HCl (Tamsulosin 0.4 Mg Cap) 0.4 mg PO QDAY [facility] Last Admin: 04/13/21 10:54 Dose: 0.4 mg Documented by: Ziprasidone (Ziprasidone Mesylate 20 Mg Vial) 20 mg IM Q4H PRN PRN Reason: Agitation Mental Status Exam - Vital signs Last Vital Signs Temp 99.7 F H 04/13/21 07:00 Pulse 101 H 04/13/21 09:15 Resp 20 04/13/21 09:15 BP 171/99 04/13/21 09:15 Pulse Ox 97 04/13/21 09:45 Results Result Diagrams: 04/13/21 07:50 04/13/21 06:09 Abnormal lab results 04/12/21 04/12/21 04/13/21 Range/Units 13:04 13:35 06:09 WBC (4.5-11.0) K/mm3 Hgb (10.1-14.3) gm/dl MCV (79-97) fl MCH (28-32) pg RDW (13.2-15.2) % ABG pO2 56.7 L (80.0-90.0) mm Hg ABG HCO3 29.6 H (20.0-26.0) mmol/L ABG Base Excess 4.4 H (-2.0-3.0) mmol/L ABG Hemoglobin 10.3 L (12.0-16.0) gm/dl Sodium 150 H (137-145) mmol/L Potassium 3.4 L (3.6-5.0) mmol/L Chloride 107.6 H (98-107) mmol/L Phenytoin 3.3 L (10.0-20.0) ug/mL 04/13/21 Range/Units 07:50 WBC 14.2 H (4.5-11.0) K/mm3 Hgb 9.9 L (10.1-14.3) gm/dl MCV 76 L (79-97) fl MCH 24 L (28-32) pg RDW 18.7 H (13.2-15.2) % ABG pO2 (80.0-90.0) mm Hg ABG HCO3 (20.0-26.0) mmol/L ABG Base Excess (-2.0-3.0) mmol/L ABG Hemoglobin (12.0-16.0) gm/dl Sodium (137-145) mmol/L Potassium (3.6-5.0) mmol/L Chloride (98-107) mmol/L Phenytoin (10.0-20.0) ug/mL All other labs normal.
--- NOTE | 2021-04-13 15:01 | Progress Note ---
<GURU RODRIGUEZ - Last Filed: 04/13/21 14:55> Assessment and Plan Assessment and plan: This is a 25 year old female with OHS, seizures and multiple allergies admitted after anaphylactic reaction to peanuts Neuro: Agitation, h/o seizures -Neurology and psych consulted, appreciate recommendation -Avoid delirium -Maintain sleep-wake cycle -Bilateral restraints for patient safety -Neurology consulted, appreciate recommendations -Continue home Vimpat, Keppra, phenytoin -titrate phenytoin per neurology -Seizure precautions -EEG completed-> see chart for details -CTH pending CV: NAD -Blood pressure monitoring per protocol -As needed antihypertensive medicines Pulmonary: Acute hypoxic respiratory failure, h/o OHS -Intubated for airway protection on 04/04 with 6.50 ETT at 22 lips but extubated 04/12 -Weaned to NC -Continuous SPO2 monitoring -Pulmonary hygiene -CCM/pulm consulted, appreciate recommendations -Consider outpatient pulmonology follow-up GI: NAD -ST consult for swallow evaluation -PPI -24-hour net -[id number] -BR: Senokot -s/p mag citrate on 04/11 : Hypernatremia, urinary retention -Patient started on D5W -Trend BMP -Replace electrolytes as needed -Daily weights -Strict intake and output -Proctor was replaced 04/11 for urinary retention -Flomax Heme: Leukocytosis -Heparin subcu -Trend CBC -Transfuse for hemoglobin less than 7 -SCDs to bilateral lower extremities while in bed Endo: NAD -SSI if needed -Accu-Cheks every 6 -Avoid hypoglycemia ID: Staph aureus PNA, E. coli in urine (colonization per ID), Anaphylactic reaction -Infectious disease consulted, appreciate recommendations -CXR with infiltrates -abx therapy: Cefazolin -04/08 tracheal aspirate with Staph aureus, urine culture with ESBL E. coli blood cultures x2 in NGTD -Repeat urine culture -steroid therapy for anaphylaxis reaction -stopped Benadryl d/t listed allergy -steroid taper started -Monitor CBC and temp curves The high probability of a clinically significant, sudden or life threatening deterioration of the [respiratory] system(s) required my full and direct attention, intervention and personal management. The aggregate critical care time was [60] minutes. This time is in addition to time spent performing r eported procedures but includes the following: [X] Data Review and interpretation [X] Patient assessment and monitoring of vital signs [X] Documentation [X] Medication orders and management Disposition Plan: transfer to floor Total Time Spent with Patient (Minutes): 60 History Interval history: This is a 25-year-old female with OHS and several allergies who presented to [facility] on 04/04 via EMS after an in flight allergic reaction to peanuts. Patient was intubated in the emergency department secondary to acute hypoxemic respiratory failure due to acute airway compromise and patient was admitted to ICU. Patient started on steroid therapy. 04/05/2021. Patient currently on dipper Van and fentanyl. However, nurse reports patient still agitated. Ativan IV ordered. Wean mechanical ventilation per pulmonary recommendations. Continue Solu-Medrol 40 mg IV every 8 hours. Add Pepcid 20 mg IV twice daily and Benadryl 25 mg IV every 6 hours. Continue supportive care 04/06/2021. The patient is currently on AC mode ventilation rate of 20, tidal volume 400, FiO2 25%. Wean mechanical ventilation per protocol. Continue bronchodilators/nebulizers. Patient currently sedated with propofol, Versed and fentanyl drip. Continue Solu-Medrol, Benadryl and Pepcid twice daily 04/07/2021. Patient currently sedated with Versed, fentanyl and propofol. Continue sedation per pulmonary recommendations. I spoke with the mother who reports numerous allergies that were reported to the nurse. The mother requests records from [facility] in [place]. Continue Solu-Medrol, Benadryl and Pepcid twice daily 04/08: Patinet still gets agitated with stimuli, remains on minimal vent settings, hypernatremia/hyperchloremia and FWF increased 04/08/2021. Patient reportedly with a cuff leak yesterday. We will reassess today for cuff leak and if continues will likely extubate per pulmonary. C ontinue Versed, fentanyl and propofol for sedation. Continue Solu-Medrol, Benadryl and Pepcid twice daily 04/09: patient exhibited extreme agitation this morning and was maxed on Versed, fentanyl and Precedex. Patient was started on propofol at max doses however patient still remained agitated. Patient was given rocuronium in the evening per [facility] and Versed was increased temporarily. Seroquel increased today. 04/11: Patient is calm on 10 of Versed and 50 of propofol. Remains in bilateral soft restraints. Patient was straight cath overnight x2 and yesterday evening x1. Patient to be straight cathed today and we will replace Proctor due to retention. Patient started on Flomax. Hyponatremia still persists and free water flushes will be increased. Neurology was consulted today who recommends a CT head/brain without contrast. Patient restarted on Precedex and given mag citrate due to no recorded bowel movements for several days. Started on prednisone taper and Seroquel increased. Patient was given 1 dose of rocuronium yesterday due to agitation. Plan to extubate with mother at the bedside tomorrow. 04/12: Overnight patient was started on propofol with Versed, fentanyl and Precedex infusing for agitation. This morning propofol was weaned off and patient was weaned off Versed and fentanyl. Patient was placed on SBT trial and extubated later this afternoon. Patient received 1 dose of racemic epi when stridor. Patient's mother at bedside for most of the day. EEG negative. Psych consulted. Proctor catheter replaced yesterday evening due to retention and patient started on Flomax. 04/13: Neurology plans to taper off phenytoin and recommend outpatient follow-up with neurology, Paulinodon ordered as needed x2, psych ordered Vistaril for anxiety but does not recommend acute psychiatric inpatient treatment. Patient walked the unit with RN and PT/OT evaluation was ordered for unsteadiness. Overnight patient was severely agitated. She has been weaned down to nasal cannula. Patient will be transferred to the floor today. Hospitalist Physical - Constitutional Vitals: Temp Pulse Resp BP Pulse Ox 99.7 F H 93 H 25 H 140/94 96 04/13/21 07:00 04/13/21 14:45 04/13/21 14:45 04/13/21 14:45 04/13/21 14:00 General appearance: Present: no acute distress, obese, other - EENT Eyes: Present: PERRL, EOM intact ENT: hearing intact, clear oral mucosa, dentition normal - Neck Neck: Present: normal ROM - Respiratory Respiratory effort: normal Respiratory: bilateral: CTA - Cardiovascular Rhythm: regular Heart Sounds: Present: S1 & S2. Absent: systolic murmur, diastolic murmur - Extremities Extremities: no ischemia, pulses intact, pulses symmetrical, No edema, normal temperature, normal color, Full ROM Peripheral Pulses: within normal limits - Abdominal General gastrointestinal: soft, non-tender, non-distended, normal bowel sounds - Integumentary Integumentary: Present: clear, warm, dry - Psychiatric Psychiatric: appropriate mood/affect, cooperative, agitated - Neurologic Neurologic: CNII-XII intact, no focal deficits, moves all extremities - Allied Health Allied health notes reviewed: nursing, RT, social work Results - Labs CBC & Chem 7: 04/13/21 07:50 04/13/21 06:09 Labs: Laboratory Last Values WBC 14.2 K/mm3 (4.5-11.0) H 04/13/21 07:50 RBC 4.14 M/mm3 (3.65-5.03) 04/13/21 07:50 Hgb 9.9 gm/dl (10.1-14.3) L 04/13/21 07:50 Hct 31.4 % (30.3-42.9) 04/13/21 07:50 MCV 76 fl (79-97) L 04/13/21 07:50 MCH 24 pg (28-32) L 04/13/21 07:50 MCHC 32 % (30-34) 04/13/21 07:50 RDW 18.7 % (13.2-15.2) H 04/13/21 07:50 Plt Count 215 K/mm3 (140-440) 04/13/21 07:50 Lymph % (Auto) 9.7 % (13.4-35.0) L 04/06/21 07:49 Lar[place] % (Auto) 5.8 % (0.0-7.3) 04/06/21 07:49 Eos % (Auto) 0.6 % (0.0-4.3) 04/06/21 07:49 Baso % (Auto) 0.8 % (0.0-1.8) 04/06/21 07:49 Lymph # (Auto) 1.3 K/mm3 (1.2-5.4) 04/06/21 07:49 [place] # (Auto) 0.8 K/mm3 (0.0-0.8) 04/06/21 07:49 Eos # (Auto) 0.1 K/mm3 (0.0-0.4) 04/06/21 07:49 Baso # (Auto) 0.1 K/mm3 (0.0-0.1) 04/06/21 07:49 Add Manual Diff Complete 04/05/21 03:37 Total Counted 100 04/05/21 03:37 Seg Neutrophils % 83.1 % (40.0-70.0) H 04/06/21 07:49 Seg Neuts % (Manual) 90.0 % (40.0-70.0) H 04/05/21 03:37 Band Neutrophils % 1.0 % 04/05/21 03:37 Lymphocytes % (Manual) 6.0 % (13.4-35.0) L 04/05/21 03:37 Monocytes % (Manual) 3.0 % (0.0-7.3) 04/05/21 03:37 Nucleated RBC % Not Reportable 04/05/21 03:37 Seg Neutrophils # 10.8 K/mm3 (1.8-7.7) H 04/06/21 07:49 Seg Neutrophils # Man 14.0 K/mm3 (1.8-7.7) H 04/05/21 03:37 Band Neutrophils # 0.2 K/mm3 04/05/21 03:37 Lymphocytes # (Manual) 0.9 K/mm3 (1.2-5.4) L 04/05/21 03:37 Abs React Lymphs (Man) 0.0 K/mm3 04/05/21 03:37 Monocytes # (Manual) 0.5 K/mm3 (0.0-0.8) 04/05/21 03:37 Eosinophils # (Manual) 0.0 K/mm3 (0.0-0.4) 04/05/21 03:37 Basophils # (Manual) 0.0 K/mm3 (0.0-0.1) 04/05/21 03:37 Metamyelocytes # 0.0 K/mm3 04/05/21 03:37 Myelocytes # 0.0 K/mm3 04/05/21 03:37 Promyelocytes # 0.0 K/mm3 04/05/21 03:37 Blast Cells # 0.0 K/mm3 04/05/21 03:37 WBC Morphology Not Reportable 04/05/21 03:37 Hypersegmented Neuts Not Reportable 04/05/21 03:37 Hyposegmented Neuts Not Reportable 04/05/21 03:37 Hypogranular Neuts Not Reportable 04/05/21 03:37 Smudge Cells Not Reportable 04/05/21 03:37 Toxic Granulation Not Reportable 04/05/21 03:37 Toxic Vacuolation Not Reportable 04/05/21 03:37 Dohle Bodies Not Reportable 04/05/21 03:37 Pelger-Huet Anomaly Not Reportable 04/05/21 03:37 Fermin Rods Not Reportable 04/05/21 03:37 Platelet Estimate Consistent w auto 04/05/21 03:37 Clumped Platelets Not Reportable 04/05/21 03:37 Plt Clumps, EDTA Not Reportable 04/05/21 03:37 Large Platelets Not Reportable 04/05/21 03:37 Giant Platelets Not Reportable 04/05/21 03:37 Platelet Satelliting Not Reportable 04/05/21 03:37 Plt Morphology Comment Not Reportable 04/05/21 03:37 RBC Morphology Not Reportable 04/05/21 03:37 Dimorphic RBCs Not Reportable 04/05/21 03:37 Polychromasia Not Reportable 04/05/21 03:37 Hypochromasia 1+ 04/05/21 03:37 Poikilocytosis Not Reportable 04/05/21 03:37 Anisocytosis 1+ 04/05/21 03:37 Microcytosis 1+ 04/05/21 03:37 Macrocytosis Not Reportable 04/05/21 03:37 Spherocytes Not Reportable 04/05/21 03:37 Pappenheimer Bodies Not Reportable 04/05/21 03:37 Sickle Cells Not Reportable 04/05/21 03:37 Target Cells Not Reportable 04/05/21 03:37 Tear Drop Cells Not Reportable 04/05/21 03:37 Ovalocytes Few 04/05/21 03:37 Helmet Cells Not Reportable 04/05/21 03:37 [place] Bodies Not Reportable 04/05/21 03:37 [place] Rings Not Reportable 04/05/21 03:37 Kiya Cells Not Reportable 04/05/21 03:37 Bite Cells Not Reportable 04/05/21 03:37 Crenated Cell Not Reportable 04/05/21 03:37 Elliptocytes Not Reportable 04/05/21 03:37 Acanthocytes (Spur) Not Reportable 04/05/21 03:37 Rouleaux Not Reportable 04/05/21 03:37 Hemoglobin C Crystals Not Reportable 04/05/21 03:37 Schistocytes Not Reportable 04/05/21 03:37 Malaria parasites Not Reportable 04/05/21 03:37 Paddy Bodies Not Reportable 04/05/21 03:37 Hem Pathologist Commnt No 04/05/21 03:37 ABG pH 7.418 pH Units (7.350-7.450) 04/12/21 13:35 POC ABG pCO2 53.8 mmHg (32.0-48.0) H 04/10/21 04:00 ABG pCO2 46.8 mm Hg 04/12/21 13:35 POC ABG pO2 53.1 mmHg (83-108) L 04/10/21 04:00 ABG pO2 56.7 mm Hg (80.0-90.0) L 04/12/21 13:35 POC ABG HCO3 22.4 04/10/21 04:00 ABG HCO3 29.6 mmol/L (20.0-26.0) H 04/12/21 13:35 ABG O2 Saturation 99.0 % (95.0-99.0) 04/12/21 13:35 ABG O2 Content 14.1 (0.0-44) 04/12/21 13:35 POC ABG Base Excess -4.8 04/10/21 04:00 ABG Base Excess 4.4 mmol/L (-2.0-3.0) H 04/12/21 13:35 ABG Hemoglobin 10.3 gm/dl (12.0-16.0) L 04/12/21 13:35 ABG Oxyhemoglobin 83.8 (94-98) L 04/10/21 04:00 ABG Carboxyhemoglobin 1.4 % (0.0-5.0) 04/12/21 13:35 ABG Methemoglobin 0.6 % (0.0-1.5) 04/12/21 13:35 ABG Sodium 130.5 mmol/L (136.0-145.0) L 04/10/21 04:00 ABG Potassium 3.4 mmol/L (3.40-4.50) 04/10/21 04:00 ABG Chloride 102.0 mmol/L (98-107) 04/10/21 04:00 ABG Glucose 74 mg/dL (65-95) 04/10/21 04:00 Oxyhemoglobin 97.0 % (95.0-99.0) 04/12/21 13:35 Carboxyhemoglobin 1.2 (0.5-1.5) 04/10/21 04:00 FiO2 40 % 04/12/21 13:35 FiO2 % 85 04/10/21 04:00 Sodium 150 mmol/L (137-145) H 04/13/21 06:09 Potassium 3.4 mmol/L (3.6-5.0) L 04/13/21 06:09 Chloride 107.6 mmol/L (98-107) H 04/13/21 06:09 Carbon Dioxide 22 mmol/L (22-30) 04/13/21 06:09 Anion Gap 24 mmol/L 04/13/21 06:09 BUN 14 mg/dL (7-17) 04/13/21 06:09 Creatinine 0.6 mg/dL (0.6-1.2) 04/13/21 06:09 Estimated GFR > 60 ml/min 04/13/21 06:09 BUN/Creatinine Ratio 23 % 04/13/21 06:09 Glucose 90 mg/dL (65-100) 04/13/21 06:09 POC Glucose 92 mg/dL (70-105) 04/12/21 05:46 Calcium 8.7 mg/dL (8.4-10.2) 04/13/21 06:09 Phosphorus 3.10 mg/dL (2.5-4.5) 04/10/21 04:35 Magnesium 1.90 mg/dL (1.7-2.3) 04/11/21 04:00 Total Bilirubin 0.20 mg/dL (0.1-1.2) 04/08/21 14:50 AST 35 units/L (5-40) 04/08/21 14:50 ALT 30 units/L (7-56) 04/08/21 14:50 Alkaline Phosphatase 103 units/L (35-129) 04/08/21 14:50 Total Protein 6.2 g/dL (6.3-8.2) L 04/08/21 14:50 Albumin 3.6 g/dL (3.9-5) L 04/08/21 14:50 Albumin/Globulin Ratio 1.4 % 04/08/21 14:50 Triglycerides 515 mg/dL (2-149) H 04/12/21 04:46 HCG, Qual Negative (Negative) 04/04/21 Unknown Arterial Blood Glucose 74 mg/dL (65-95) 04/10/21 04:00 Urine Color Yellow (Yellow) 04/10/21 15:35 Urine Turbidity Hazy (Clear) 04/10/21 15:35 Urine pH 5.0 (5.0-7.0) 04/10/21 15:35 Ur Specific [place] 1.018 (1.003-1.030) 04/10/21 15:35 Urine Protein <15 mg/dl mg/dL (Negative) 04/10/21 15:35 Urine Glucose (UA) Neg mg/dL (Negative) 04/10/21 15:35 Urine Ketones Tr mg/dL (Negative) 04/10/21 15:35 Urine Blood Sm (Negative) 04/10/21 15:35 Urine Nitrite Neg (Negative) 04/10/21 15:35 Urine Bilirubin Neg (Negative) 04/10/21 15:35 Urine Urobilinogen < 2.0 mg/dL (<2.0) 04/10/21 15:35 Ur Leukocyte Esterase Neg (Negative) 04/10/21 15:35 Urine WBC (Auto) 4.0 /HPF (0.0-6.0) 04/10/21 15:35 Urine RBC (Auto) 35.0 /HPF (0.0-6.0) 04/10/21 15:35 U Epithel Cells (Auto) < 1.0 /HPF (0-13.0) 04/10/21 15:35 Urine Bacteria (Auto) 1+ /HPF (Negative) 04/10/21 15:35 Urine Mucus Few /HPF 04/10/21 15:35 Vancomycin Trough 11.9 ug/mL (5.0-20.0) 04/09/21 12:38 Phenytoin 3.3 ug/mL (10.0-20.0) L 04/12/21 13:04 Microbiology: Microbiology 04/08/21 14:50 Peripheral/Venous Blood Culture - Preliminary NO GROWTH AFTER 4 DAYS 04/08/21 14:50 Peripheral/Venous Blood Culture - Preliminary NO GROWTH AFTER 4 DAYS Proctor/IV: Voiding Method External Female Catheter Active Medications - Current Medications Current Medications: Generic Name Dose Route Start Last Admin Trade Name Freq PRN Reason Stop Dose Admin Acetaminophen 650 mg 04/04/21 18:37 04/10/21 15:59 Acetaminophen 325 Mg Tab PO 650 mg Q6H PRN Administration Pain MILD(1-3)/Fever >100.5/JONES Albuterol 2.5 mg 04/04/21 18:37 04/04/21 21:49 Albuterol 2.5 Mg/3 Ml Nebu IH 2.5 mg Q3HRT PRN Administration Shortness Of Breath Lipase/Protease/Amylase 1 each 04/05/21 15:50 Lipase 10,500/Protease 25,000/Amylase 43,750 (Units) Cap FEEDTUBE PRN PRN For Clogged Feeding Tube Bisacodyl 10 mg 04/11/21 17:00 Bisacodyl 5 Mg Tab PO QDAY PRN Constipation Famotidine 20 mg 04/09/21 22:00 04/13/21 10:54 Famotidine 20 Mg Tab FEEDTUBE 20 mg BID CRISTY Administration Heparin Sodium (Porcine) 5,000 unit 04/04/21 22:00 04/13/21 10:54 Heparin 5,000 Unit/1 Ml Vial SUB-Q 5,000 unit Q12HR CRISTY Administration Hydralazine HCl 10 mg 04/09/21 18:17 Hydralazine 20 Mg/1 Ml Inj IV Q4H PRN Hypertension Hydromorphone HCl 0.5 mg 04/04/21 18:37 04/13/21 11:06 Hydromorphone 1 Mg/1 Ml Inj IV 0.5 mg Q23H PRN Administration Pain , Severe (7-10) Hydrophilic Ointment 1 applic 04/04/21 16:16 Lip Therapy Vaseline TP Q2HR PRN Dry Lips Hydroxyzine Pamoate 50 mg 04/13/21 12:49 Hydroxyzine Pamoate 50 Mg Cap PO Q6H PRN Anxiety Cefazolin Sodium 2 gm/ Sodium 100 mls @ 200 mls/hr 04/11/21 10:00 04/13/21 10:55 Chloride IV 04/18/21 02:29 200 mls/hr Q8H CRISTY Administration Protocol Dextrose 1,000 mls @ 110 mls/hr 04/13/21 06:00 04/13/21 06:33 D5w IV 110 mls/hr DIRECT CRISTY Administration Lacosamide 200 mg 04/06/21 13:00 04/13/21 10:54 Lacosamide 100 Mg Tab PO 200 mg Q12HR CRISTY Administration Levetiracetam 1,500 mg 04/10/21 10:00 04/13/21 10:57 Levetiracetam 500 Mg/5 Ml Oral Liqd FEEDTUBE 1,500 mg BID CRISTY Administration Lorazepam 0.5 mg 04/12/21 19:38 04/13/21 05:42 Lorazepam 2 Mg/Ml Vial IV 0.5 mg Q3H PRN Administration Agitation Multi-Ingred Cream/Lotion/Oil/Oint 1 applic 04/04/21 16:16 Mineral Oil/Petrolatum, White Ophth Oint 3.5 Gm OU Q4HR PRN Dry Eye(s) Oxycodone/Acetaminophen 1 tab 04/04/21 18:37 Oxycodone /Acetaminophen 5-325mg Tab PO Q16H PRN Pain, Moderate (4-6) Phenytoin 300 mg 04/13/21 22:00 Phenytoin 100 Mg Capsule.Er PO QHS CRISTY Quetiapine Fumarate 300 mg 04/10/21 16:25 04/13/21 10:54 Quetiapine 100 Mg Tab PO 300 mg BID CRISTY Administration Senna/Docusate Sodium 1 tab 04/04/21 22:00 04/13/21 10:54 Sennosides/Docusate Sodium 8.6/50 Mg Tab FEEDTUBE 1 tab BID CRISTY Administration Sodium Chloride 10 ml 04/04/21 22:00 04/13/21 10:55 Sodium Chloride 0.9% 10 Ml Flush Syringe IV 10 ml BID CRISTY Administration Sodium Chloride 10 ml 04/04/21 18:37 Sodium Chloride 0.9% 10 Ml Flush Syringe IV PRN PRN LINE FLUSH Tamsulosin HCl 0.4 mg 04/12/21 10:00 04/13/21 10:54 Tamsulosin 0.4 Mg Cap PO 0.4 mg QDAY CRISTY Administration Ziprasidone 20 mg 04/13/21 09:49 Ziprasidone Mesylate 20 Mg Vial IM Q4H PRN Agitation Nutrition/Malnutrition Assess - Dietary Evaluation Nutrition/Malnutrition Findings: Nutrition Notes Start: 04/05/21 10:18 Freq: Status: Active Protocol: Document 04/12/21 14:59 GB (Rec: 04/12/21 15:10 GB [id number]) Nutrition Notes Initial or Follow up Assessment Current Diagnosis Respiratory Failure Other Pertinent Diagnosis Exposure to Peanuts, allergic reaction. 04/12: extubated Current Diet NPO, TF Labs/Tests 04/12: Na 150, glucose 121, creatinine 0.5, Tg 515 Pertinent Medications reviewed Height 5 ft 7.2 in Weight 113.3 kg Cameron Body Weight (kg) 61.81 BMI 38.9 Weight change and time frame No new weights at time of assessment Weight Status Obese Subjective/Other Information Per RT note 04/12: extubated 2 :33 Last BM: 04/12 Percent of energy/protein needs met: unable to assess at this time. Recently extubated Burn Absent Trauma Absent GI Symptoms None Food Allergy Yes Skin Integrity/Comment no complications reported Current % PO Other Minimum of two criteria No #1 Nutrition Diagnosis Other: (Specify in comment below) Comments: Food allergy exposure with reaction of constricting airway Per chest xray note 04/09: worsening airspace 04/12: extubated Etiology reported peanut allergy As Evidenced by Signs and Symptoms currently intubated to protect airway Diagnosis Progress(for reassessment Resolved documentation) Is patient on ventilator? No Is Patient Ambulatory and/or Out of Bed No REE-([facility]-confined to bed) 2285.808 Kcal/Kg value to use for calculation 15 Approximate Energy Requirements Using 1700 kcal/Kg Calculation Used for Recommendations Kcal/kg Additional Notes Protein: 0.8-1 g/kg @113k -113g Fluids: 1 ml/kcal or per MD Vital HP is the only product w /o soy. Nutrition Intervention Change Diet Order: Advance diet Clear to low fat pending bedside swallow results Nutrition Support: n/a Add Supplement/Snack (indicate name/kcal n/a - Not recommended. /protein ) Only the ensure clears do not have soy proteins Goal #1 Extubation r/t recovery from food allergy reaction by f/u 04/09: not met, intubation continues 04/12: met, diet to advance post bedside swallow, alertness Goal #2 Diet advanced to low fat 04/09: not met, TF continues 04/12: extubated today. diet advancing post bedside swallow results Goal #3 TF tolerance Vital HP goal rate 50ml/hr 04/09: met, at goal rate, continues 04/12: extubated. resolved Follow-Up By: 04/16/21 Additional Comments f/u diet advancement, po intake <NAYELI HARRIS - Last Filed: 04/15/21 12:42> Assessment and Plan Assessment and plan: I saw and evaluated the patient. Discussed with the nurse practitioner and agree with their findings and plan as documented in this note. - Patient Problems (1) Anaphylaxis due to peanuts Status: Acute (2) Acute respiratory failure Status: Acute (3) Allergic reaction Status: Acute Qualifiers: Encounter type: initial encounter Qualified Code(s): T78.40XA - Allergy, unspecified, initial encounter Hospitalist Physical - Constitutional Vitals: Temp Pulse Resp BP Pulse Ox 99.4 F 70 18 138/94 96 04/14/21 10:53 04/14/21 10:53 04/14/21 10:53 04/14/21 10:53 04/14/21 10:53 Results - Labs CBC & Chem 7: 04/13/21 07:50 04/13/21 06:09 Labs: Laboratory Last Values WBC 14.2 K/mm3 (4.5-11.0) H 04/13/21 07:50 RBC 4.14 M/mm3 (3.65-5.03) 04/13/21 07:50 Hgb 9.9 gm/dl (10.1-14.3) L 04/13/21 07:50 Hct 31.4 % (30.3-42.9) 04/13/21 07:50 MCV 76 fl (79-97) L 04/13/21 07:50 MCH 24 pg (28-32) L 04/13/21 07:50 MCHC 32 % (30-34) 04/13/21 07:50 RDW 18.7 % (13.2-15.2) H 04/13/21 07:50 Plt Count 215 K/mm3 (140-440) 04/13/21 07:50 Lymph % (Auto) 9.7 % (13.4-35.0) L 04/06/21 07:49 [place] % (Auto) 5.8 % (0.0-7.3) 04/06/21 07:49 Eos % (Auto) 0.6 % (0.0-4.3) 04/06/21 07:49 Baso % (Auto) 0.8 % (0.0-1.8) 04/06/21 07:49 Lymph # (Auto) 1.3 K/mm3 (1.2-5.4) 04/06/21 07:49 [place] # (Auto) 0.8 K/mm3 (0.0-0.8) 04/06/21 07:49 Eos # (Auto) 0.1 K/mm3 (0.0-0.4) 04/06/21 07:49 Baso # (Auto) 0.1 K/mm3 (0.0-0.1) 04/06/21 07:49 Add Manual Diff Complete 04/05/21 03:37 Total Counted 100 04/05/21 03:37 Seg Neutrophils % 83.1 % (40.0-70.0) H 04/06/21 07:49 Seg Neuts % (Manual) 90.0 % (40.0-70.0) H 04/05/21 03:37 Band Neutrophils % 1.0 % 04/05/21 03:37 Lymphocytes % (Manual) 6.0 % (13.4-35.0) L 04/05/21 03:37 Monocytes % (Manual) 3.0 % (0.0-7.3) 04/05/21 03:37 Nucleated RBC % Not Reportable 04/05/21 03:37 Seg Neutrophils # 10.8 K/mm3 (1.8-7.7) H 04/06/21 07:49 Seg Neutrophils # Man 14.0 K/mm3 (1.8-7.7) H 04/05/21 03:37 Band Neutrophils # 0.2 K/mm3 04/05/21 03:37 Lymphocytes # (Manual) 0.9 K/mm3 (1.2-5.4) L 04/05/21 03:37 Abs React Lymphs (Man) 0.0 K/mm3 04/05/21 03:37 Monocytes # (Manual) 0.5 K/mm3 (0.0-0.8) 04/05/21 03:37 Eosinophils # (Manual) 0.0 K/mm3 (0.0-0.4) 04/05/21 03:37 Basophils # (Manual) 0.0 K/mm3 (0.0-0.1) 04/05/21 03:37 Metamyelocytes # 0.0 K/mm3 04/05/21 03:37 Myelocytes # 0.0 K/mm3 04/05/21 03:37 Promyelocytes # 0.0 K/mm3 04/05/21 03:37 Blast Cells # 0.0 K/mm3 04/05/21 03:37 WBC Morphology Not Reportable 04/05/21 03:37 Hypersegmented Neuts Not Reportable 04/05/21 03:37 Hyposegmented Neuts Not Reportable 04/05/21 03:37 Hypogranular Neuts Not Reportable 04/05/21 03:37 Smudge Cells Not Reportable 04/05/21 03:37 Toxic Granulation Not Reportable 04/05/21 03:37 Toxic Vacuolation Not Reportable 04/05/21 03:37 Dohle Bodies Not Reportable 04/05/21 03:37 Pelger-Huet Anomaly Not Reportable 04/05/21 03:37 Fermin Rods Not Reportable 04/05/21 03:37 Platelet Estimate Consistent w auto 04/05/21 03:37 Clumped Platelets Not Reportable 04/05/21 03:37 Plt Clumps, EDTA Not Reportable 04/05/21 03:37 Large Platelets Not Reportable 04/05/21 03:37 Giant Platelets Not Reportable 04/05/21 03:37 Platelet Satelliting Not Reportable 04/05/21 03:37 Plt Morphology Comment Not Reportable 04/05/21 03:37 RBC Morphology Not Reportable 04/05/21 03:37 Dimorphic RBCs Not Reportable 04/05/21 03:37 Polychromasia Not Reportable 04/05/21 03:37 Hypochromasia 1+ 04/05/21 03:37 Poikilocytosis Not Reportable 04/05/21 03:37 Anisocytosis 1+ 04/05/21 03:37 Microcytosis 1+ 04/05/21 03:37 Macrocytosis Not Reportable 04/05/21 03:37 Spherocytes Not Reportable 04/05/21 03:37 Pappenheimer Bodies Not Reportable 04/05/21 03:37 Sickle Cells Not Reportable 04/05/21 03:37 Target Cells Not Reportable 04/05/21 03:37 Tear Drop Cells Not Reportable 04/05/21 03:37 Ovalocytes Few 04/05/21 03:37 Helmet Cells Not Reportable 04/05/21 03:37 [place] Bodies Not Reportable 04/05/21 03:37 [place] Rings Not Reportable 04/05/21 03:37 [place] Cells Not Reportable 04/05/21 03:37 Bite Cells Not Reportable 04/05/21 03:37 Crenated Cell Not Reportable 04/05/21 03:37 Elliptocytes Not Reportable 04/05/21 03:37 Acanthocytes (Spur) Not Reportable 04/05/21 03:37 Rouleaux Not Reportable 04/05/21 03:37 Hemoglobin C Crystals Not Reportable 04/05/21 03:37 Schistocytes Not Reportable 04/05/21 03:37 Malaria parasites Not Reportable 04/05/21 03:37 Paddy Bodies Not Reportable 04/05/21 03:37 Hem Pathologist Commnt No 04/05/21 03:37 ABG pH 7.418 pH Units (7.350-7.450) 04/12/21 13:35 POC ABG pCO2 53.8 mmHg (32.0-48.0) H 04/10/21 04:00 ABG pCO2 46.8 mm Hg 04/12/21 13:35 POC ABG pO2 53.1 mmHg (83-108) L 04/10/21 04:00 ABG pO2 56.7 mm Hg (80.0-90.0) L 04/12/21 13:35 POC ABG HCO3 22.4 04/10/21 04:00 ABG HCO3 29.6 mmol/L (20.0-26.0) H 04/12/21 13:35 ABG O2 Saturation 99.0 % (95.0-99.0) 04/12/21 13:35 ABG O2 Content 14.1 (0.0-44) 04/12/21 13:35 POC ABG Base Excess -4.8 04/10/21 04:00 ABG Base Excess 4.4 mmol/L (-2.0-3.0) H 04/12/21 13:35 ABG Hemoglobin 10.3 gm/dl (12.0-16.0) L 04/12/21 13:35 ABG Oxyhemoglobin 83.8 (94-98) L 04/10/21 04:00 ABG Carboxyhemoglobin 1.4 % (0.0-5.0) 04/12/21 13:35 ABG Methemoglobin 0.6 % (0.0-1.5) 04/12/21 13:35 ABG Sodium 130.5 mmol/L (136.0-145.0) L 04/10/21 04:00 ABG Potassium 3.4 mmol/L (3.40-4.50) 04/10/21 04:00 ABG Chloride 102.0 mmol/L (98-107) 04/10/21 04:00 ABG Glucose 74 mg/dL (65-95) 04/10/21 04:00 Oxyhemoglobin 97.0 % (95.0-99.0) 04/12/21 13:35 Carboxyhemoglobin 1.2 (0.5-1.5) 04/10/21 04:00 FiO2 40 % 04/12/21 13:35 FiO2 % 85 04/10/21 04:00 Sodium 150 mmol/L (137-145) H 04/13/21 06:09 Potassium 3.4 mmol/L (3.6-5.0) L 04/13/21 06:09 Chloride 107.6 mmol/L (98-107) H 04/13/21 06:09 Carbon Dioxide 22 mmol/L (22-30) 04/13/21 06:09 Anion Gap 24 mmol/L 04/13/21 06:09 BUN 14 mg/dL (7-17) 04/13/21 06:09 Creatinine 0.6 mg/dL (0.6-1.2) 04/13/21 06:09 Estimated GFR > 60 ml/min 04/13/21 06:09 BUN/Creatinine Ratio 23 % 04/13/21 06:09 Glucose 90 mg/dL (65-100) 04/13/21 06:09 POC Glucose 92 mg/dL (70-105) 04/12/21 05:46 Calcium 8.7 mg/dL (8.4-10.2) 04/13/21 06:09 Phosphorus 3.10 mg/dL (2.5-4.5) 04/10/21 04:35 Magnesium 1.90 mg/dL (1.7-2.3) 04/11/21 04:00 Total Bilirubin 0.20 mg/dL (0.1-1.2) 04/08/21 14:50 AST 35 units/L (5-40) 04/08/21 14:50 ALT 30 units/L (7-56) 04/08/21 14:50 Alkaline Phosphatase 103 units/L (35-129) 04/08/21 14:50 Total Protein 6.2 g/dL (6.3-8.2) L 04/08/21 14:50 Albumin 3.6 g/dL (3.9-5) L 04/08/21 14:50 Albumin/Globulin Ratio 1.4 % 04/08/21 14:50 Triglycerides 515 mg/dL (2-149) H 04/12/21 04:46 HCG, Qual Negative (Negative) 04/04/21 Unknown Arterial Blood Glucose 74 mg/dL (65-95) 04/10/21 04:00 Urine Color Yellow (Yellow) 04/10/21 15:35 Urine Turbidity Hazy (Clear) 04/10/21 15:35 Urine pH 5.0 (5.0-7.0) 04/10/21 15:35 Ur Specific Shafter 1.018 (1.003-1.030) 04/10/21 15:35 Urine Protein <15 mg/dl mg/dL (Negative) 04/10/21 15:35 Urine Glucose (UA) Neg mg/dL (Negative) 04/10/21 15:35 Urine Ketones Tr mg/dL (Negative) 04/10/21 15:35 Urine Blood Sm (Negative) 04/10/21 15:35 Urine Nitrite Neg (Negative) 04/10/21 15:35 Urine Bilirubin Neg (Negative) 04/10/21 15:35 Urine Urobilinogen < 2.0 mg/dL (<2.0) 04/10/21 15:35 Ur Leukocyte Esterase Neg (Negative) 04/10/21 15:35 Urine WBC (Auto) 4.0 /HPF (0.0-6.0) 04/10/21 15:35 Urine RBC (Auto) 35.0 /HPF (0.0-6.0) 04/10/21 15:35 U Epithel Cells (Auto) < 1.0 /HPF (0-13.0) 04/10/21 15:35 Urine Bacteria (Auto) 1+ /HPF (Negative) 04/10/21 15:35 Urine Mucus Few /HPF 04/10/21 15:35 Vancomycin Trough 11.9 ug/mL (5.0-20.0) 04/09/21 12:38 Phenytoin 3.3 ug/mL (10.0-20.0) L 04/12/21 13:04 Proctor/IV: Voiding Method External Female Catheter Nutrition/Malnutrition Assess - Dietary Evaluation Nutrition/Malnutrition Findings: Nutrition Notes Start: 04/05/21 10:18 Freq: Status: Discharge Protocol: Document 04/12/21 14:59 GB (Rec: 04/12/21 15:10 GB [id number]) Nutrition Notes Initial or Follow up Assessment Current Diagnosis Respiratory Failure Other Pertinent Diagnosis Exposure to Peanuts, allergic reaction. 04/12: extubated Current Diet NPO, TF Labs/Tests 04/12: Na 150, glucose 121, creatinine 0.5, Tg 515 Pertinent Medications reviewed Height 5 ft 7.2 in Weight 113.3 kg Cameron Body Weight (kg) 61.81 BMI 38.9 Weight change and time frame No new weights at time of assessment Weight Status Obese Subjective/Other Information Per RT note 04/12: extubated 2 :33 Last BM: 04/12 Percent of energy/protein needs met: unable to assess at this time. Recently extubated Burn Absent Trauma Absent GI Symptoms None Food Allergy Yes Skin Integrity/Comment no complications reported Current % PO Other Minimum of two criteria No #1 Nutrition Diagnosis Other: (Specify in comment below) Comments: Food allergy exposure with reaction of constricting airway Per chest xray note 04/09: worsening airspace 04/12: extubated Etiology reported peanut allergy As Evidenced by Signs and Symptoms currently intubated to protect airway Diagnosis Progress(for reassessment Resolved documentation) Is patient on ventilator? No Is Patient Ambulatory and/or Out of Bed No REE-([facility]-confined to bed) [phone] Kcal/Kg value to use for calculation 15 Approximate Energy Requirements Using 1700 kcal/Kg Calculation Used for Recommendations Kcal/kg Additional Notes Protein: 0.8-1 g/kg @113k -113g Fluids: 1 ml/kcal or per MD Vital HP is the only product w /o soy. Nutrition Intervention Change Diet Order: Advance diet Clear to low fat pending bedside swallow results Nutrition Support: n/a Add Supplement/Snack (indicate name/kcal n/a - Not recommended. /protein ) Only the ensure clears do not have soy proteins Goal #1 Extubation r/t recovery from food allergy reaction by f/u 04/09: not met, intubation continues 04/12: met, diet to advance post bedside swallow, alertness Goal #2 Diet advanced to low fat 04/09: not met, TF continues 04/12: extubated today. diet advancing post bedside swallow results Goal #3 TF tolerance Vital HP goal rate 50ml/hr 04/09: met, at goal rate, continues 04/12: extubated. resolved Follow-Up By: 04/16/21 Additional Comments f/u diet advancement, po intake
--- NOTE | 2021-04-13 17:27 | Progress Note ---
Assessment and Plan Acute hypoxemic respiratory failure Anaphylaxis related to a PEANUT ALLERGY Angioedema MSSA Pneumonia Obesity Obesity hypoventilation syndrome Leukocytosis Hyperkalemia Mild metabolic acidosis Oropharyngeal dysphagia - replaced potassium - free water supplementation - psychoactive meds per Psychiatry evaluation - stop Flomax - PT/OT as tolerated - neurology w/up ongoing - continue care as below otherwise; - continue to wean supplemental oxygen for target O2 sat's > 90% acutely - aspiration precautions - prn bronchodilators with pulmonary hygiene per RT - avoid nephrotoxins, renally dose all medications - continue accuchecks with glycemic control per SSI for target blood glucose < 180 mg/dL - tobacco abstinence strongly counseled at the bedside - continue to avoid benzodiazepine's, reduce the possibility of delirium - AB's per ID rec's - prn analgesia per pain score - Maintenance of sleep-wake cycle, avoid delirium - continue enteral nutritional support at goal rate as tolerated - G.I. & VTE prophylaxis - PT/OT/ROM exercises - continue mobility protocols for pressure ulcer prophylaxis - Monitor hemodynamics closely - continue other care per attending / other consultants - discharge planning ongoing concurrently COVID SPECIFIC INTERVENTIONS - not tested .... Re-evaluate in am & prn Subjective Date of service: 04/13/21 Principal diagnosis: Acute hypoxemic resp failure; Anaphylaxis, peanut allergy; Obesity Interval history: Patient is seen today for: Acute hypoxemic respiratory failure; Anaphylaxis / peanut allergy; Angioedema; OHS; Hyperkalemia Seen and examined at bedside; 24hour events reviewed; nursing and respiratory care staff consulted; no adverse overnight events reported to me; resting in bed; doing well post extubation so far; psychiatry input appreciated; for CT brain as part of neurology work-up Objective Vital Signs - 12hr 04/13/21 04/13/21 04/13/21 05:31 05:45 06:00 Temperature Pulse Rate 89 93 H 81 Pulse Rate [ From Monitor] Respiratory 29 H 25 H 23 Rate Blood Pressure 173/75 158/64 149/85 O2 Sat by Pulse 96 100 100 Oximetry 04/13/21 04/13/21 04/13/21 06:15 06:31 06:45 Temperature Pulse Rate 91 H 89 103 H Pulse Rate [ From Monitor] Respiratory 22 14 18 Rate Blood Pressure 149/85 149/85 149/85 O2 Sat by Pulse 97 96 96 Oximetry 04/13/21 04/13/21 04/13/21 07:00 07:15 07:31 Temperature 99.7 F H Pulse Rate 91 H 115 H 96 H Pulse Rate [ From Monitor] Respiratory 27 H 22 18 Rate Blood Pressure 175/95 175/95 175/95 O2 Sat by Pulse 98 97 98 Oximetry 04/13/21 04/13/21 04/13/21 07:45 08:01 08:04 Temperature Pulse Rate 87 90 96 H Pulse Rate [ 96 H From Monitor] Respiratory 14 20 28 H Rate Blood Pressure 175/95 133/88 O2 Sat by Pulse 96 98 97 Oximetry 04/13/21 04/13/21 04/13/21 08:15 08:31 08:45 Temperature Pulse Rate 99 H 87 99 H Pulse Rate [ From Monitor] Respiratory 26 H 24 15 Rate Blood Pressure 133/88 133/88 133/88 O2 Sat by Pulse 96 95 96 Oximetry 04/13/21 04/13/21 04/13/21 09:01 09:15 09:31 Temperature Pulse Rate 99 H 101 H 100 H Pulse Rate [ From Monitor] Respiratory 15 20 32 H Rate Blood Pressure 171/99 171/99 171/99 O2 Sat by Pulse 95 97 98 Oximetry 04/13/21 04/13/21 04/13/21 09:45 10:01 10:15 Temperature Pulse Rate 94 H 89 94 H Pulse Rate [ From Monitor] Respiratory 13 31 H 26 H Rate Blood Pressure 171/99 171/99 190/97 O2 Sat by Pulse 97 82 L 97 Oximetry 04/13/21 04/13/21 04/13/21 10:31 10:45 11:00 Temperature Pulse Rate 109 H 87 90 Pulse Rate [ From Monitor] Respiratory 20 20 35 H Rate Blood Pressure 190/97 190/97 176/94 O2 Sat by Pulse 98 99 100 Oximetry 04/13/21 04/13/21 04/13/21 11:15 11:31 11:45 Temperature Pulse Rate 105 H 96 H 113 H Pulse Rate [ From Monitor] Respiratory 20 26 H 22 Rate Blood Pressure 176/94 176/94 176/94 O2 Sat by Pulse 100 99 98 Oximetry 04/13/21 04/13/21 04/13/21 12:00 12:12 12:15 Temperature Pulse Rate 135 H 105 H 109 H Pulse Rate [ 105 H From Monitor] Respiratory 31 H 31 H 33 H Rate Blood Pressure 194/110 194/110 O2 Sat by Pulse 97 99 97 Oximetry 04/13/21 04/13/21 04/13/21 12:31 12:45 13:00 Temperature Pulse Rate Pulse Rate [ From Monitor] Respiratory Rate Blood Pressure 194/110 194/110 194/110 O2 Sat by Pulse 93 94 Oximetry 04/13/21 04/13/21 04/13/21 13:15 13:31 13:45 Temperature Pulse Rate 136 H 108 H 113 H Pulse Rate [ From Monitor] Respiratory 24 24 17 Rate Blood Pressure 140/94 140/94 194/110 O2 Sat by Pulse 94 97 97 Oximetry 04/13/21 04/13/21 04/13/21 14:00 14:15 14:31 Temperature Pulse Rate 118 H 96 H 88 Pulse Rate [ From Monitor] Respiratory 23 23 20 Rate Blood Pressure 148/88 140/94 140/94 O2 Sat by Pulse 96 Oximetry 04/13/21 04/13/21 04/13/21 14:45 15:00 15:15 Temperature Pulse Rate 93 H 90 108 H Pulse Rate [ From Monitor] Respiratory 25 H 30 H 20 Rate Blood Pressure 140/94 148/88 145/85 O2 Sat by Pulse Oximetry 04/13/21 04/13/21 04/13/21 15:31 15:45 16:00 Temperature Pulse Rate 105 H 86 93 H Pulse Rate [ From Monitor] Respiratory 24 25 H 27 H Rate Blood Pressure 145/85 145/85 156/94 O2 Sat by Pulse Oximetry 04/13/21 04/13/21 16:15 16:31 Temperature Pulse Rate 100 H 110 H Pulse Rate [ From Monitor] Respiratory 22 15 Rate Blood Pressure 156/94 156/94 O2 Sat by Pulse Oximetry Constitutional: no acute distress Eyes: non-icteric ENT: oropharynx moist Neck: supple, no lymphadenopathy, other (large circumference) Effort: normal Ascultation: Bilateral: rhonchi (scant) Percussion: Bilateral: not dull Cardiovascular: regular rate and rhythm, other (tachycardia) Gastrointestinal: normoactive bowel sounds, soft, non-tender, non-distended (protuberant) Integumentary: normal Extremities: no cyanosis, no edema, pulses normal, no ischemia or petechiae Neurologic: pupils equal and round, CN II-XII normal, motor strength normal and, unable to assess Psychiatric: other (poor insight and judgement) CBC and BMP: 10/22/21 07:50 04/13/21 06:09 ABG, PT/INR, D-dimer: ABG ABG pH 7.418 pH Units (7.350-7.450) 04/12/21 13:35 POC ABG pCO2 53.8 mmHg (32.0-48.0) H 04/10/21 04:00 ABG pCO2 46.8 mm Hg 04/12/21 13:35 POC ABG pO2 53.1 mmHg (83-108) L 04/10/21 04:00 ABG pO2 56.7 mm Hg (80.0-90.0) L 04/12/21 13:35 POC ABG HCO3 22.4 04/10/21 04:00 ABG O2 Saturation 99.0 % (95.0-99.0) 04/12/21 13:35 Abnormal lab findings: Abnormal Labs 04/04/21 04/04/21 04/04/21 16:38 16:38 18:40 WBC 12.4 H RBC Hgb Hct MCV MCH 26 L RDW 18.1 H Plt Count Lymph % (Auto) Seg Neutrophils % 77.0 H Seg Neuts % (Manual) Lymphocytes % (Manual) Seg Neutrophils # 9.6 H Seg Neutrophils # Man Lymphocytes # (Manual) ABG pH 7.290 L POC ABG pCO2 POC ABG pO2 ABG pO2 62.7 L ABG HCO3 ABG O2 Saturation 88.2 L ABG Base Excess -4.6 L ABG Hemoglobin 11.2 L ABG Oxyhemoglobin ABG Sodium ABG Chloride ABG Glucose Oxyhemoglobin 86.5 L Sodium Potassium Chloride Carbon Dioxide 20 L BUN Creatinine Glucose 224 H POC Glucose Total Protein Albumin Triglycerides Arterial Blood Glucose Urine WBC (Auto) Phenytoin 04/05/21 04/05/21 04/05/21 03:37 03:37 04:15 WBC 15.5 H RBC Hgb Hct MCV MCH 25 L RDW 19.0 H Plt Count Lymph % (Auto) Seg Neutrophils % Seg Neuts % (Manual) 90.0 H Lymphocytes % (Manual) 6.0 L Seg Neutrophils # Seg Neutrophils # Man 14.0 H Lymphocytes # (Manual) 0.9 L ABG pH 7.284 L POC ABG pCO2 POC ABG pO2 ABG pO2 101.9 H ABG HCO3 18.5 L ABG O2 Saturation ABG Base Excess -7.7 L ABG Hemoglobin 10.3 L ABG Oxyhemoglobin ABG Sodium ABG Chloride ABG Glucose Oxyhemoglobin Sodium Potassium 5.6 H D Chloride Carbon Dioxide 14 L BUN Creatinine Glucose 181 H POC Glucose Total Protein Albumin Triglycerides Arterial Blood Glucose Urine WBC (Auto) Phenytoin 04/05/21 04/05/21 04/06/21 20:27 21:00 07:49 WBC 12.9 H RBC Hgb Hct MCV 77 L MCH 24 L RDW 18.2 H Plt Count Lymph % (Auto) 9.7 L Seg Neutrophils % 83.1 H Seg Neuts % (Manual) Lymphocytes % (Manual) Seg Neutrophils # 10.8 H Seg Neutrophils # Man Lymphocytes # (Manual) ABG pH POC ABG pCO2 POC ABG pO2 ABG pO2 92.5 H ABG HCO3 ABG O2 Saturation ABG Base Excess ABG Hemoglobin 10.2 L ABG Oxyhemoglobin ABG Sodium ABG Chloride ABG Glucose Oxyhemoglobin Sodium Potassium Chloride 111.7 H Carbon Dioxide BUN Creatinine Glucose POC Glucose Total Protein Albumin Triglycerides Arterial Blood Glucose Urine WBC (Auto) Phenytoin 04/06/21 04/06/21 04/06/21 07:49 11:33 17:25 WBC RBC Hgb Hct MCV MCH RDW Plt Count Lymph % (Auto) Seg Neutrophils % Seg Neuts % (Manual) Lymphocytes % (Manual) Seg Neutrophils # Seg Neutrophils # Man Lymphocytes # (Manual) ABG pH POC ABG pCO2 POC ABG pO2 ABG pO2 ABG HCO3 ABG O2 Saturation ABG Base Excess -2.2 L ABG Hemoglobin 8.7 L ABG Oxyhemoglobin ABG Sodium ABG Chloride ABG Glucose Oxyhemoglobin Sodium Potassium Chloride 112.9 H Carbon Dioxide 20 L BUN 6 L Creatinine 0.5 L Glucose 105 H POC Glucose 125 H Total Protein Albumin Triglycerides Arterial Blood Glucose Urine WBC (Auto) Phenytoin 04/07/21 04/07/21 04/07/21 03:59 05:14 15:13 WBC RBC Hgb Hct MCV MCH RDW Plt Count Lymph % (Auto) Seg Neutrophils % Seg Neuts % (Manual) Lymphocytes % (Manual) Seg Neutrophils # Seg Neutrophils # Man Lymphocytes # (Manual) ABG pH 7.521 H POC ABG pCO2 POC ABG pO2 ABG pO2 ABG HCO3 ABG O2 Saturation ABG Base Excess ABG Hemoglobin 11.0 L ABG Oxyhemoglobin ABG Sodium 145.3 H ABG Chloride 116.0 H ABG Glucose 138 H Oxyhemoglobin Sodium Potassium Chloride Carbon Dioxide BUN Creatinine Glucose POC Glucose 118 H Total Protein Albumin Triglycerides 153 H Arterial Blood Glucose 138 H Urine WBC (Auto) Phenytoin 04/07/21 04/07/21 04/07/21 15:13 15:13 17:23 WBC 12.2 H RBC Hgb Hct MCV MCH 26 L RDW 19.0 H Plt Count 85 L Lymph % (Auto) Seg Neutrophils % Seg Neuts % (Manual) Lymphocytes % (Manual) Seg Neutrophils # Seg Neutrophils # Man Lymphocytes # (Manual) ABG pH POC ABG pCO2 POC ABG pO2 ABG pO2 ABG HCO3 ABG O2 Saturation ABG Base Excess ABG Hemoglobin ABG Oxyhemoglobin ABG Sodium ABG Chloride ABG Glucose Oxyhemoglobin Sodium Potassium Chloride 111.1 H Carbon Dioxide 20 L BUN Creatinine 0.5 L Glucose 126 H POC Glucose 122 H Total Protein Albumin Triglycerides Arterial Blood Glucose Urine WBC (Auto) Phenytoin 04/07/21 04/08/21 04/08/21 23:55 10:39 12:10 WBC RBC Hgb Hct MCV MCH RDW Plt Count Lymph % (Auto) Seg Neutrophils % Seg Neuts % (Manual) Lymphocytes % (Manual) Seg Neutrophils # Seg Neutrophils # Man Lymphocytes # (Manual) ABG pH 7.311 L POC ABG pCO2 POC ABG pO2 50.5 L ABG pO2 ABG HCO3 ABG O2 Saturation ABG Base Excess ABG Hemoglobin 11.6 L ABG Oxyhemoglobin 81.6 L ABG Sodium ABG Chloride 110.0 H ABG Glucose 120 H Oxyhemoglobin Sodium Potassium Chloride Carbon Dioxide BUN Creatinine Glucose POC Glucose 130 H 112 H Total Protein Albumin Triglycerides Arterial Blood Glucose 120 H Urine WBC (Auto) Phenytoin 04/08/21 04/08/21 04/08/21 12:25 14:50 15:30 WBC 12.8 H RBC Hgb 9.9 L Hct MCV MCH 25 L RDW 18.1 H Plt Count Lymph % (Auto) Seg Neutrophils % Seg Neuts % (Manual) Lymphocytes % (Manual) Seg Neutrophils # Seg Neutrophils # Man Lymphocytes # (Manual) ABG pH POC ABG pCO2 POC ABG pO2 ABG pO2 ABG HCO3 ABG O2 Saturation ABG Base Excess ABG Hemoglobin ABG Oxyhemoglobin ABG Sodium ABG Chloride ABG Glucose Oxyhemoglobin Sodium Potassium Chloride 108.4 H Carbon Dioxide 21 L BUN Creatinine Glucose 156 H POC Glucose Total Protein 6.2 L Albumin 3.6 L Triglycerides Arterial Blood Glucose Urine WBC (Auto) 23.0 H Phenytoin 04/08/21 04/08/21 04/09/21 18:20 23:24 04:17 WBC RBC Hgb 9.9 L Hct MCV MCH 25 L RDW 17.9 H Plt Count Lymph % (Auto) Seg Neutrophils % Seg Neuts % (Manual) Lymphocytes % (Manual) Seg Neutrophils # Seg Neutrophils # Man Lymphocytes # (Manual) ABG pH POC ABG pCO2 POC ABG pO2 ABG pO2 ABG HCO3 ABG O2 Saturation ABG Base Excess ABG Hemoglobin ABG Oxyhemoglobin ABG Sodium ABG Chloride ABG Glucose Oxyhemoglobin Sodium Potassium Chloride Carbon Dioxide BUN Creatinine Glucose POC Glucose 139 H 116 H Total Protein Albumin Triglycerides Arterial Blood Glucose Urine WBC (Auto) Phenytoin 04/09/21 04/09/21 04/09/21 04:17 04:35 05:35 WBC RBC Hgb Hct MCV MCH RDW Plt Count Lymph % (Auto) Seg Neutrophils % Seg Neuts % (Manual) Lymphocytes % (Manual) Seg Neutrophils # Seg Neutrophils # Man Lymphocytes # (Manual) ABG pH POC ABG pCO2 POC ABG pO2 ABG pO2 ABG HCO3 ABG O2 Saturation ABG Base Excess ABG Hemoglobin 10.4 L ABG Oxyhemoglobin ABG Sodium 146.2 H ABG Chloride 115.0 H ABG Glucose 143 H Oxyhemoglobin Sodium 149 H Potassium Chloride 114.0 H Carbon Dioxide BUN Creatinine Glucose 133 H POC Glucose 129 H Total Protein Albumin Triglycerides Arterial Blood Glucose 143 H Urine WBC (Auto) Phenytoin 04/09/21 04/09/21 04/09/21 12:20 12:38 17:55 WBC RBC Hgb Hct MCV MCH RDW Plt Count Lymph % (Auto) Seg Neutrophils % Seg Neuts % (Manual) Lymphocytes % (Manual) Seg Neutrophils # Seg Neutrophils # Man Lymphocytes # (Manual) ABG pH POC ABG pCO2 POC ABG pO2 ABG pO2 ABG HCO3 ABG O2 Saturation ABG Base Excess ABG Hemoglobin ABG Oxyhemoglobin ABG Sodium ABG Chloride ABG Glucose Oxyhemoglobin Sodium Potassium Chloride Carbon Dioxide BUN Creatinine Glucose POC Glucose 128 H 146 H Total Protein Albumin Triglycerides Arterial Blood Glucose Urine WBC (Auto) Phenytoin 3.6 L 04/09/21 04/10/21 04/10/21 23:26 04:00 04:35 WBC 13.0 H RBC Hgb Hct MCV MCH 26 L RDW 17.7 H Plt Count Lymph % (Auto) Seg Neutrophils % Seg Neuts % (Manual) Lymphocytes % (Manual) Seg Neutrophils # Seg Neutrophils # Man Lymphocytes # (Manual) ABG pH 7.238 L POC ABG pCO2 53.8 H POC ABG pO2 53.1 L ABG pO2 ABG HCO3 ABG O2 Saturation ABG Base Excess ABG Hemoglobin 7.7 L ABG Oxyhemoglobin 83.8 L ABG Sodium 130.5 L ABG Chloride ABG Glucose Oxyhemoglobin Sodium Potassium Chloride Carbon Dioxide BUN Creatinine Glucose POC Glucose 122 H Total Protein Albumin Triglycerides Arterial Blood Glucose Urine WBC (Auto) Phenytoin 04/10/21 04/10/21 04/10/21 04:35 05:21 17:57 WBC RBC Hgb Hct MCV MCH RDW Plt Count Lymph % (Auto) Seg Neutrophils % Seg Neuts % (Manual) Lymphocytes % (Manual) Seg Neutrophils # Seg Neutrophils # Man Lymphocytes # (Manual) ABG pH POC ABG pCO2 POC ABG pO2 ABG pO2 ABG HCO3 ABG O2 Saturation ABG Base Excess ABG Hemoglobin ABG Oxyhemoglobin ABG Sodium ABG Chloride ABG Glucose Oxyhemoglobin Sodium 146 H Potassium Chloride 112.1 H Carbon Dioxide BUN Creatinine 0.4 L Glucose 156 H POC Glucose 140 H 113 H Total Protein Albumin Triglycerides Arterial Blood Glucose Urine WBC (Auto) Phenytoin 04/11/21 04/11/21 04/11/21 04:00 04:00 11:48 WBC RBC 3.54 L Hgb 8.8 L Hct 27.6 L MCV 78 L MCH 25 L RDW 18.0 H Plt Count Lymph % (Auto) Seg Neutrophils % Seg Neuts % (Manual) Lymphocytes % (Manual) Seg Neutrophils # Seg Neutrophils # Man Lymphocytes # (Manual) ABG pH POC ABG pCO2 POC ABG pO2 ABG pO2 ABG HCO3 ABG O2 Saturation ABG Base Excess ABG Hemoglobin ABG Oxyhemoglobin ABG Sodium ABG Chloride ABG Glucose Oxyhemoglobin Sodium 146 H Potassium Chloride 111.4 H Carbon Dioxide BUN Creatinine 0.5 L Glucose 112 H POC Glucose 128 H Total Protein Albumin Triglycerides Arterial Blood Glucose Urine WBC (Auto) Phenytoin 04/12/21 04/12/21 04/12/21 04:46 04:46 04:46 WBC 15.2 H RBC Hgb 10.0 L Hct MCV 78 L MCH 23 L RDW 18.8 H Plt Count Lymph % (Auto) Seg Neutrophils % Seg Neuts % (Manual) Lymphocytes % (Manual) Seg Neutrophils # Seg Neutrophils # Man Lymphocytes # (Manual) ABG pH POC ABG pCO2 POC ABG pO2 ABG pO2 ABG HCO3 ABG O2 Saturation ABG Base Excess ABG Hemoglobin ABG Oxyhemoglobin ABG Sodium ABG Chloride ABG Glucose Oxyhemoglobin Sodium 150 H Potassium Chloride 110.9 H Carbon Dioxide BUN Creatinine 0.5 L Glucose 121 H POC Glucose Total Protein Albumin Triglycerides 515 H Arterial Blood Glucose Urine WBC (Auto) Phenytoin 04/12/21 04/12/21 04/13/21 13:04 13:35 06:09 WBC RBC Hgb Hct MCV MCH RDW Plt Count Lymph % (Auto) Seg Neutrophils % Seg Neuts % (Manual) Lymphocytes % (Manual) Seg Neutrophils # Seg Neutrophils # Man Lymphocytes # (Manual) ABG pH POC ABG pCO2 POC ABG pO2 ABG pO2 56.7 L ABG HCO3 29.6 H ABG O2 Saturation ABG Base Excess 4.4 H ABG Hemoglobin 10.3 L ABG Oxyhemoglobin ABG Sodium ABG Chloride ABG Glucose Oxyhemoglobin Sodium 150 H Potassium 3.4 L Chloride 107.6 H Carbon Dioxide BUN Creatinine Glucose POC Glucose Total Protein Albumin Triglycerides Arterial Blood Glucose Urine WBC (Auto) Phenytoin 3.3 L 04/13/21 07:50 WBC 14.2 H RBC Hgb 9.9 L Hct MCV 76 L MCH 24 L RDW 18.7 H Plt Count Lymph % (Auto) Seg Neutrophils % Seg Neuts % (Manual) Lymphocytes % (Manual) Seg Neutrophils # Seg Neutrophils # Man Lymphocytes # (Manual) ABG pH POC ABG pCO2 POC ABG pO2 ABG pO2 ABG HCO3 ABG O2 Saturation ABG Base Excess ABG Hemoglobin ABG Oxyhemoglobin ABG Sodium ABG Chloride ABG Glucose Oxyhemoglobin Sodium Potassium Chloride Carbon Dioxide BUN Creatinine Glucose POC Glucose Total Protein Albumin Triglycerides Arterial Blood Glucose Urine WBC (Auto) Phenytoin Allied health notes reviewed: nursing
[2021-04-13] MEDS: PHENYTOIN 100 MG in SODIUM CHLORIDE 0.9% 100 ML IV SCH (18:29)
[2021-04-13] MEDS: ACETAMINOPHEN 325 MG TAB PO PRN (20:26)
[2021-04-13] MEDS ORDERED: PHENYTOIN 100 MG CAPSULE.ER PO SCH (22:00)
--- NOTE | 2021-04-14 08:20 | Progress Note ---
Assessment and Plan Assessment and plan: History of presenting illness This is a 25-year-old female with OHS and several allergies who presented to [facility] on 04/04 via EMS after an in flight allergic reaction to peanuts. Patient was intubated in the emergency department secondary to acute hypoxemic respiratory failure due to acute airway compromise and patient was admitted to ICU. Patient started on steroid therapy. Hospital course 04/05/2021. Patient currently on dipper Van and fentanyl. However, nurse reports patient still agitated. Ativan IV ordered. Wean mechanical ventilation per pulmonary recommendations. Continue Solu-Medrol 40 mg IV every 8 hours. Add Pepcid 20 mg IV twice daily and Benadryl 25 mg IV every 6 hours. Continue supportive care 04/06/2021. The patient is currently on AC mode ventilation rate of 20, tidal volume 400, FiO2 25%. Wean mechanical ventilation per protocol. Continue bronchodilators/nebulizers. Patient currently sedated with propofol, Versed and fentanyl drip. Continue Solu-Medrol, Benadryl and Pepcid twice daily 04/07/2021. Patient currently sedated with Versed, fentanyl and propofol. Continue sedation per pulmonary recommendations. I spoke with the mother who reports numerous allergies that were reported to the nurse. The mother requests records from [facility] in [place]. Continue Solu-Medrol, Benadryl and Pepcid twice daily 04/08: Patinet still gets agitated with stimuli, remains on minimal vent settings, hypernatremia/hyperchloremia and FWF increased 04/08/2021. Patient reportedly with a cuff leak yesterday. We will reassess today for cuff leak and if continues will likely extubate per pulmonary. Continue Versed, fentanyl and propofol for sedation. Continue Solu-Medrol, Benadryl and Pepcid twice daily 04/09: patient exhibited extreme agitation this morning and was maxed on Versed, fentanyl and Precedex. Patient was started on propofol at max doses however patient still remained agitated. Patient was given rocuronium in the evening per [facility] and Versed was increased temporarily. Seroquel increased today. 04/11: Patient is calm on 10 of Versed and 50 of propofol. Remains in bilateral soft restraints. Patient was straight cath overnight x2 and yesterday evening x1. Patient to be straight cathed today and we will replace Proctor due to retention. Patient started on Flomax. Hyponatremia still persists and free water flushes will be increased. Neurology was consulted today who recommends a CT head/brain without contrast. Patient restarted on Precedex and given mag citrate due to no recorded bowel movements for several days. Started on prednisone taper and Seroquel increased. Patient was given 1 dose of rocuronium yesterday due to agitation. Plan to extubate with mother at the bedside tomorrow. 04/12: Overnight patient was started on propofol with Versed, fentanyl and Precedex infusing for agitation. This morning propofol was weaned off and patient was weaned off Versed and fentanyl. Patient was placed on SBT trial and extubated later this afternoon. Patient received 1 dose of racemic epi when stridor. Patient's mother at bedside for most of the day. EEG negative. Psych consulted. Proctor catheter replaced yesterday evening due to retention and patient started on Flomax. 04/13: Neurology plans to taper off phenytoin and recommend outpatient follow-up with neurology, Paulinodon ordered as needed x2, psych ordered Vistaril for anxiety but does not recommend acute psychiatric inpatient treatment. Patient walked the unit with RN and PT/OT evaluation was ordered for unsteadiness. Overnight patient was severely agitated. She has been weaned down to nasal cannula. Mara mendoza will be transferred to the floor today. 04/14: Assessment and plan Neuro: Agitation, h/o seizures -Neurology and psych consulted, appreciate recommendation -Avoid delirium -Maintain sleep-wake cycle -Bilateral restraints for patient safety -Neurology consulted, appreciate recommendations -Continue home Vimpat, Keppra, phenytoin -titrate phenytoin per neurology -Seizure precautions -EEG completed-> see chart for details -CTH pending CV: NAD -Blood pressure monitoring per protocol -As needed antihypertensive medicines Pulmonary: Acute hypoxic respiratory failure, h/o OHS -Intubated for airway protection on 04/04 with 6.50 ETT at 22 lips but extubated 04/12 -Weaned to NC -Continuous SPO2 monitoring -Pulmonary hygiene -CCM/pulm consulted, appreciate recommendations -Consider outpatient pulmonology follow-up GI: NAD -ST consult for swallow evaluation -PPI -24-hour net -[id number] -BR: Senokot -s/p mag citrate on 04/11 : Hypernatremia, urinary retention -Patient started on D5W -Trend BMP -Replace electrolytes as needed -Daily weights -Strict intake and output -Proctor was replaced 04/11 for urinary retention -Flomax Heme: Leukocytosis -Heparin subcu -Trend CBC -Transfuse for hemoglobin less than 7 -SCDs to bilateral lower extremities while in bed Endo: NAD -SSI if needed -Accu-Cheks every 6 -Avoid hypoglycemia ID: Staph aureus PNA, E. coli in urine (colonization per ID), Anaphylactic reaction -Infectious disease consulted, appreciate recommendations -CXR with infiltrates -abx therapy: Cefazolin -04/08 tracheal aspirate with Staph aureus, urine culture with ESBL E. coli blood cultures x2 in NGTD -Repeat urine culture -steroid therapy for anaphylaxis reaction -stopped Benadryl d/t listed allergy -steroid taper started -Monitor CBC and temp curves Hospitalist Physical - Constitutional Vitals: Temp Pulse Resp BP Pulse Ox 99.4 F 77 18 139/86 98 04/14/21 04:09 04/14/21 05:54 04/14/21 05:54 04/14/21 05:54 04/14/21 05:54 General appearance: Present: no acute distress, obese, other Results - Labs CBC & Chem 7: 04/13/21 07:50 04/13/21 06:09 Labs: Laboratory Last Values WBC 14.2 K/mm3 (4.5-11.0) H 04/13/21 07:50 RBC 4.14 M/mm3 (3.65-5.03) 04/13/21 07:50 Hgb 9.9 gm/dl (10.1-14.3) L 04/13/21 07:50 Hct 31.4 % (30.3-42.9) 04/13/21 07:50 MCV 76 fl (79-97) L 04/13/21 07:50 MCH 24 pg (28-32) L 04/13/21 07:50 MCHC 32 % (30-34) 04/13/21 07:50 RDW 18.7 % (13.2-15.2) H 04/13/21 07:50 Plt Count 215 K/mm3 (140-440) 04/13/21 07:50 Lymph % (Auto) 9.7 % (13.4-35.0) L 04/06/21 07:49 [place] % (Auto) 5.8 % (0.0-7.3) 04/06/21 07:49 Eos % (Auto) 0.6 % (0.0-4.3) 04/06/21 07:49 Baso % (Auto) 0.8 % (0.0-1.8) 04/06/21 07:49 Lymph # (Auto) 1.3 K/mm3 (1.2-5.4) 04/06/21 07:49 [place] # (Auto) 0.8 K/mm3 (0.0-0.8) 04/06/21 07:49 Eos # (Auto) 0.1 K/mm3 (0.0-0.4) 04/06/21 07:49 Baso # (Auto) 0.1 K/mm3 (0.0-0.1) 04/06/21 07:49 Add Manual Diff Complete 04/05/21 03:37 Total Counted 100 04/05/21 03:37 Seg Neutrophils % 83.1 % (40.0-70.0) H 04/06/21 07:49 Seg Neuts % (Manual) 90.0 % (40.0-70.0) H 04/05/21 03:37 Band Neutrophils % 1.0 % 04/05/21 03:37 Lymphocytes % (Manual) 6.0 % (13.4-35.0) L 04/05/21 03:37 Monocytes % (Manual) 3.0 % (0.0-7.3) 04/05/21 03:37 Nucleated RBC % Not Reportable 04/05/21 03:37 Seg Neutrophils # 10.8 K/mm3 (1.8-7.7) H 04/06/21 07:49 Seg Neutrophils # Man 14.0 K/mm3 (1.8-7.7) H 04/05/21 03:37 Band Neutrophils # 0.2 K/mm3 04/05/21 03:37 Lymphocytes # (Manual) 0.9 K/mm3 (1.2-5.4) L 04/05/21 03:37 Abs React Lymphs (Man) 0.0 K/mm3 04/05/21 03:37 Monocytes # (Manual) 0.5 K/mm3 (0.0-0.8) 04/05/21 03:37 Eosinophils # (Manual) 0.0 K/mm3 (0.0-0.4) 04/05/21 03:37 Basophils # (Manual) 0.0 K/mm3 (0.0-0.1) 04/05/21 03:37 Metamyelocytes # 0.0 K/mm3 04/05/21 03:37 Myelocytes # 0.0 K/mm3 04/05/21 03:37 Promyelocytes # 0.0 K/mm3 04/05/21 03:37 Blast Cells # 0.0 K/mm3 04/05/21 03:37 WBC Morphology Not Reportable 04/05/21 03:37 Hypersegmented Neuts Not Reportable 04/05/21 03:37 Hyposegmented Neuts Not Reportable 04/05/21 03:37 Hypogranular Neuts Not Reportable 04/05/21 03:37 Smudge Cells Not Reportable 04/05/21 03:37 Toxic Granulation Not Reportable 04/05/21 03:37 Toxic Vacuolation Not Reportable 04/05/21 03:37 Dohle Bodies Not Reportable 04/05/21 03:37 Pel[place]-Huet Anomaly Not Reportable 04/05/21 03:37 Fermin Rods Not Reportable 04/05/21 03:37 Platelet Estimate Consistent w auto 04/05/21 03:37 Clumped Platelets Not Reportable 04/05/21 03:37 Plt Clumps, EDTA Not Reportable 04/05/21 03:37 Large Platelets Not Reportable 04/05/21 03:37 Giant Platelets Not Reportable 04/05/21 03:37 Platelet Satelliting Not Reportable 04/05/21 03:37 Plt Morphology Comment Not Reportable 04/05/21 03:37 RBC Morphology Not Reportable 04/05/21 03:37 Dimorphic RBCs Not Reportable 04/05/21 03:37 Polychromasia Not Reportable 04/05/21 03:37 Hypochromasia 1+ 04/05/21 03:37 Poikilocytosis Not Reportable 04/05/21 03:37 Anisocytosis 1+ 04/05/21 03:37 Microcytosis 1+ 04/05/21 03:37 Macrocytosis Not Reportable 04/05/21 03:37 Spherocytes Not Reportable 04/05/21 03:37 Pappenheimer Bodies Not Reportable 04/05/21 03:37 Sickle Cells Not Reportable 04/05/21 03:37 Target Cells Not Reportable 04/05/21 03:37 Tear Drop Cells Not Reportable 04/05/21 03:37 Ovalocytes Few 04/05/21 03:37 Helmet Cells Not Reportable 04/05/21 03:37 [place] Bodies Not Reportable 04/05/21 03:37 [place] Rings Not Reportable 04/05/21 03:37 [place] Cells Not Reportable 04/05/21 03:37 Bite Cells Not Reportable 04/05/21 03:37 Crenated Cell Not Reportable 04/05/21 03:37 Elliptocytes Not Reportable 04/05/21 03:37 Acanthocytes (Spur) Not Reportable 04/05/21 03:37 Rouleaux Not Reportable 04/05/21 03:37 Hemoglobin C Crystals Not Reportable 04/05/21 03:37 Schistocytes Not Reportable 04/05/21 03:37 Malaria parasites Not Reportable 04/05/21 03:37 Paddy Bodies Not Reportable 04/05/21 03:37 Hem Pathologist Commnt No 04/05/21 03:37 ABG pH 7.418 pH Units (7.350-7.450) 04/12/21 13:35 POC ABG pCO2 53.8 mmHg (32.0-48.0) H 04/10/21 04:00 ABG pCO2 46.8 mm Hg 04/12/21 13:35 POC ABG pO2 53.1 mmHg (83-108) L 04/10/21 04:00 ABG pO2 56.7 mm Hg (80.0-90.0) L 04/12/21 13:35 POC ABG HCO3 22.4 04/10/21 04:00 ABG HCO3 29.6 mmol/L (20.0-26.0) H 04/12/21 13:35 ABG O2 Saturation 99.0 % (95.0-99.0) 04/12/21 13:35 ABG O2 Content 14.1 (0.0-44) 04/12/21 13:35 POC ABG Base Excess -4.8 04/10/21 04:00 ABG Base Excess 4.4 mmol/L (-2.0-3.0) H 04/12/21 13:35 ABG Hemoglobin 10.3 gm/dl (12.0-16.0) L 04/12/21 13:35 ABG Oxyhemoglobin 83.8 (94-98) L 04/10/21 04:00 ABG Carboxyhemoglobin 1.4 % (0.0-5.0) 04/12/21 13:35 ABG Methemoglobin 0.6 % (0.0-1.5) 04/12/21 13:35 ABG Sodium 130.5 mmol/L (136.0-145.0) L 04/10/21 04:00 ABG Potassium 3.4 mmol/L (3.40-4.50) 04/10/21 04:00 ABG Chloride 102.0 mmol/L (98-107) 04/10/21 04:00 ABG Glucose 74 mg/dL (65-95) 04/10/21 04:00 Oxyhemoglobin 97.0 % (95.0-99.0) 04/12/21 13:35 Carboxyhemoglobin 1.2 (0.5-1.5) 04/10/21 04:00 FiO2 40 % 04/12/21 13:35 FiO2 % 85 04/10/21 04:00 Sodium 150 mmol/L (137-145) H 04/13/21 06:09 Potassium 3.4 mmol/L (3.6-5.0) L 04/13/21 06:09 Chloride 107.6 mmol/L (98-107) H 04/13/21 06:09 Carbon Dioxide 22 mmol/L (22-30) 04/13/21 06:09 Anion Gap 24 mmol/L 04/13/21 06:09 BUN 14 mg/dL (7-17) 04/13/21 06:09 Creatinine 0.6 mg/dL (0.6-1.2) 04/13/21 06:09 Estimated GFR > 60 ml/min 04/13/21 06:09 BUN/Creatinine Ratio 23 % 04/13/21 06:09 Glucose 90 mg/dL (65-100) 04/13/21 06:09 POC Glucose 92 mg/dL (70-105) 04/12/21 05:46 Calcium 8.7 mg/dL (8.4-10.2) 04/13/21 06:09 Phosphorus 3.10 mg/dL (2.5-4.5) 04/10/21 04:35 Magnesium 1.90 mg/dL (1.7-2.3) 04/11/21 04:00 Total Bilirubin 0.20 mg/dL (0.1-1.2) 04/08/21 14:50 AST 35 units/L (5-40) 04/08/21 14:50 ALT 30 units/L (7-56) 04/08/21 14:50 Alkaline Phosphatase 103 units/L (35-129) 04/08/21 14:50 Total Protein 6.2 g/dL (6.3-8.2) L 04/08/21 14:50 Albumin 3.6 g/dL (3.9-5) L 04/08/21 14:50 Albumin/Globulin Ratio 1.4 % 04/08/21 14:50 Triglycerides 515 mg/dL (2-149) H 04/12/21 04:46 HCG, Qual Negative (Negative) 04/04/21 Unknown Arterial Blood Glucose 74 mg/dL (65-95) 04/10/21 04:00 Urine Color Yellow (Yellow) 04/10/21 15:35 Urine Turbidity Hazy (Clear) 04/10/21 15:35 Urine pH 5.0 (5.0-7.0) 04/10/21 15:35 Ur Specific [place] 1.018 (1.003-1.030) 04/10/21 15:35 Urine Protein <15 mg/dl mg/dL (Negative) 04/10/21 15:35 Urine Glucose (UA) Neg mg/dL (Negative) 04/10/21 15:35 Urine Ketones Tr mg/dL (Negative) 04/10/21 15:35 Urine Blood Sm (Negative) 04/10/21 15:35 Urine Nitrite Neg (Negative) 04/10/21 15:35 Urine Bilirubin Neg (Negative) 04/10/21 15:35 Urine Urobilinogen < 2.0 mg/dL (<2.0) 04/10/21 15:35 Ur Leukocyte Esterase Neg (Negative) 04/10/21 15:35 Urine WBC (Auto) 4.0 /HPF (0.0-6.0) 04/10/21 15:35 Urine RBC (Auto) 35.0 /HPF (0.0-6.0) 04/10/21 15:35 U Epithel Cells (Auto) < 1.0 /HPF (0-13.0) 04/10/21 15:35 Urine Bacteria (Auto) 1+ /HPF (Negative) 04/10/21 15:35 Urine Mucus Few /HPF 04/10/21 15:35 Vancomycin Trough 11.9 ug/mL (5.0-20.0) 04/09/21 12:38 Phenytoin 3.3 ug/mL (10.0-20.0) L 04/12/21 13:04 Microbiology: Microbiology 04/08/21 14:50 Peripheral/Venous Blood Culture - Final NO GROWTH AFTER 5 DAYS 04/08/21 14:50 Peripheral/Venous Blood Culture - Final NO GROWTH AFTER 5 DAYS Proctor/IV: Voiding Method External Female Catheter Active Medications - Current Medications Current Medications: Generic Name Dose Route Start Last Admin Trade Name Freq PRN Reason Stop Dose Admin Acetaminophen 650 mg 04/04/21 18:37 04/13/21 20:26 Acetaminophen 325 Mg Tab PO 650 mg Q6H PRN Administration Pain MILD(1-3)/Fever >100.5/JONES Albuterol 2.5 mg 04/04/21 18:37 04/04/21 21:49 Albuterol 2.5 Mg/3 Ml Nebu IH 2.5 mg Q3HRT PRN Administration Shortness Of Breath Lipase/Protease/Amylase 1 each 04/05/21 15:50 Lipase 10,500/Protease 25,000/Amylase 43,750 (Units) Dr Conklin FEEDTUBE PRN PRN For Clogged Feeding Tube Bisacodyl 10 mg 04/11/21 17:00 Bisacodyl 5 Mg Tab PO QDAY PRN Constipation Famotidine 20 mg 04/09/21 22:00 04/13/21 23:58 Famotidine 20 Mg Tab FEEDTUBE 20 mg BID CRISTY Administration Heparin Sodium (Porcine) 5,000 unit 04/04/21 22:00 04/13/21 23:56 Heparin 5,000 Unit/1 Ml Vial SUB-Q 5,000 unit Q12HR CRISTY Administration Hydralazine HCl 10 mg 04/09/21 18:17 04/13/21 20:26 Hydralazine 20 Mg/1 Ml Inj IV 10 mg Q4H PRN Administration Hypertension Hydrophilic Ointment 1 applic 04/04/21 16:16 Lip Therapy Vaseline TP Q2HR PRN Dry Lips Hydroxyzine Pamoate 50 mg 04/13/21 12:49 Hydroxyzine Pamoate 50 Mg Cap PO Q6H PRN Anxiety Cefazolin Sodium 2 gm/ Sodium 100 mls @ 200 mls/hr 04/11/21 10:00 04/14/21 02:19 Chloride IV 04/18/21 02:29 200 mls/hr Q8H CRISTY Administration Protocol Dextrose 1,000 mls @ 110 mls/hr 04/13/21 06:00 04/14/21 00:55 D5w IV Infused DIRECT CRISTY Infusion Lacosamide 200 mg 04/06/21 13:00 04/14/21 00:00 Lacosamide 100 Mg Tab PO 200 mg Q12HR CRISTY Administration Levetiracetam 1,500 mg 04/10/21 10:00 04/13/21 23:57 Levetiracetam 500 Mg/5 Ml Oral Liqd FEEDTUBE 1,500 mg BID CRISTY Administration Lorazepam 0.5 mg 04/12/21 19:38 04/13/21 05:42 Lorazepam 2 Mg/Ml Vial IV 0.5 mg Q3H PRN Administration Agitation Multi-Ingred Cream/Lotion/Oil/Oint 1 applic 04/04/21 16:16 Mineral Oil/Petrolatum, White Ophth Oint 3.5 Gm OU Q4HR PRN Dry Eye(s) Oxycodone/Acetaminophen 1 tab 04/04/21 18:37 Oxycodone /Acetaminophen 5-325mg Tab PO Q16H PRN Pain, Moderate (4-6) Phenytoin 300 mg 04/13/21 22:00 04/13/21 23:54 Phenytoin 100 Mg Capsule.Er PO 300 mg QHS CRISTY Administration Quetiapine Fumarate 300 mg 04/10/21 16:25 04/13/21 23:58 Quetiapine 100 Mg Tab PO 300 mg BID CRISTY Administration Senna/Docusate Sodium 1 tab 04/04/21 22:00 04/13/21 10:54 Sennosides/Docusate Sodium 8.6/50 Mg Tab FEEDTUBE 1 tab BID CRISTY Administration Sodium Chloride 10 ml 04/04/21 22:00 04/13/21 23:59 Sodium Chloride 0.9% 10 Ml Flush Syringe IV 10 ml BID CRISTY Administration Sodium Chloride 10 ml 04/04/21 18:37 Sodium Chloride 0.9% 10 Ml Flush Syringe IV PRN PRN LINE FLUSH Tamsulosin HCl 0.4 mg 04/12/21 10:00 04/13/21 10:54 Tamsulosin 0.4 Mg Cap PO 0.4 mg QDAY CRISTY Administration Ziprasidone 20 mg 04/13/21 09:49 Ziprasidone Mesylate 20 Mg Vial IM Q4H PRN Agitation Nutrition/Malnutrition Assess - Dietary Evaluation Nutrition/Malnutrition Findings: Nutrition Notes Start: 04/05/21 10:18 Freq: Status: Active Protocol: Document 04/12/21 14:59 GB (Rec: 04/12/21 15:10 GB [email or web address]) Nutrition Notes Initial or Follow up Assessment Current Diagnosis Respiratory Failure Other Pertinent Diagnosis Exposure to Peanuts, allergic reaction. 04/12: extubated Current Diet NPO, TF Labs/Tests 04/12: Na 150, glucose 121, creatinine 0.5, Tg 515 Pertinent Medications reviewed Height 5 ft 7.2 in Weight 113.3 kg [place] Body Weight (kg) 61.81 BMI 38.9 Weight change and time frame No new weights at time of assessment Weight Status Obese Subjective/Other Information Per RT note 04/12: extubated 2 :33 Last BM: 04/12 Percent of energy/protein needs met: unable to assess at this time. Recently extubated Burn Absent Trauma Absent GI Symptoms None Food Allergy Yes Skin Integrity/Comment no complications reported Current % PO Other Minimum of two criteria No #1 Nutrition Diagnosis Other: (Specify in comment below) Comments: Food allergy exposure with reaction of constricting airway Per chest xray note 04/09: worsening airspace 04/12: extubated Etiology reported peanut allergy As Evidenced by Signs and Symptoms currently intubated to protect airway Diagnosis Progress(for reassessment Resolved documentation) Is patient on ventilator? No Is Patient Ambulatory and/or Out of Bed No REE-([facility]-confined to bed) 2285.808 Kcal/Kg value to use for calculation 15 Approximate Energy Requirements Using 1700 kcal/Kg Calculation Used for Recommendations Kcal/kg Additional Notes Protein: 0.8-1 g/kg @113k -113g Fluids: 1 ml/kcal or per MD Vital HP is the only product w /o soy. Nutrition Intervention Change Diet Order: Advance diet Clear to low fat pending bedside swallow results Nutrition Support: n/a Add Supplement/Snack (indicate name/kcal n/a - Not recommended. /protein ) Only the ensure clears do not have soy proteins Goal #1 Extubation r/t recovery from food allergy reaction by f/u 04/09: not met, intubation continues 04/12: met, diet to advance post bedside swallow, alertness Goal #2 Diet advanced to low fat 04/09: not met, TF continues 04/12: extubated today. diet advancing post bedside swallow results Goal #3 TF tolerance Vital HP goal rate 50ml/hr 04/09: met, at goal rate, continues 04/12: extubated. resolved Follow-Up By: 04/16/21 Additional Comments f/u diet advancement, po intake
[2021-04-14] MEDS ORDERED: POTASSIUM CHLORIDE ER 20 MEQ TAB PO ONE (10:00)
--- NOTE | 2021-04-14 11:11 | Cat Scan Report ---
CT HEAD WITHOUT CONTRAST INDICATION / CLINICAL INFORMATION: AGITATION AND ALTERED MENTAL STATUS. TECHNIQUE: All CT scans at this location are performed using CT dose reduction for ALARA by means of automated e xposure control. COMPARISON: None available. FINDINGS: HEMORRHAGE: No evidence of intracranial hemorrhage or extra-axial fluid collection. EXTRA-AXIAL SPACES: Cortical sulci, sylvian fissures and basilar cisterns have an unremarkable appear ance. VENTRICULAR SYSTEM: The third and lateral ventricles are of normal size and configuration. CEREBRAL PARENCHYMA: No areas of abnormal brain parenchymal attenuation are identified. There is no i ndication of recent infarction. MIDLINE SHIFT OR HERNIATION: There is no mass effect. CEREBELLUM / BRAINSTEM: The fourth ventricle is enlarged. There is enlarged fourth ventricular outflo w tract. 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 MIDLINE STRUCTURES:No abnormalities of the pituitary gland or pineal region are identified. INTRACRANIAL VESSELS:No abnormalities are identified on this noncontrast head CT. ORBITS: visualized portions of the orbits have an unremarkable appearance. SOFT TISSUES of HEAD: No significant abnormality. CALVARIUM: Evaluation of bone windows reveals no abnormalities. PARANASAL SINUSES / MASTOID AIR CELLS: Visualized portions of the paranasal sinuses are free from inf lammatory mucosal disease. Mastoid air cells are normally pneumatized. ADDITIONAL FINDINGS: None. IMPRESSION: 1. 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 2. No acute intracranial abnormality. Signer Name: Jose Barraza MD Signed: 04/14/2021 11:06 AM Workstation Name: [id number]
--- NOTE | 2021-04-14 11:45 | Discharge Summary ---
Providers - Providers Date of Admission: 04/04/21 18:37 Date of discharge: 04/14/21 Attending physician: NAYELI HARRIS MD 04/04/21 16:23 Consult to Physician [CONS] Urgent Comment: Consulting Provider: SHANNAN FIGUEROA Physician Instructions: Reason For Exam: intubated, allergic reaction 04/08/21 14:00 Consult to PICC Line RN [CONS] Urgent Reason For Exam: poor veneous access Type Line:: Midline 04/11/21 09:08 Consult to Physician [CONS] Routine Comment: Consulting Provider: ELMER NEGRON Physician Instructions: Reason For Exam: ESBL urine 04/11/21 13:09 Consult to Physician [CONS] Routine Comment: Consulting Provider: EMMA CALLOWAY Physician Instructions: Reason For Exam: h/o seizures, severe agitation 04/12/21 15:58 Consult to Physician [CONS] Routine Comment: Consulting Provider: AMBROSIO CRUZ Physician Instructions: Reason For Exam: MH eval 04/12/21 17:10 Speech Therapy Evaluation and Treat [CONS] Routine Reason For Exam: post extubation 04/13/21 12:59 Physical Therapy Evaluation and Treat [CONS] Routine Comment: Reason For Exam: s/p extubation 04/14/21 08:28 Speech Therapy Evaluation and Treat [CONS] Routine Reason For Exam: exubated yesterday 04/14/21 10:25 Occupational Therapy Evaluate and Treat [CONS] Routine Comment: Reason For Exam: s/p extubation Primary care physician: DIRECTOR OF [employer]ICUL[employer] AND INSTRUCTION Hospitalization Reason for admission: Shortness of breath Condition: Fair Hospital course: History of presenting illness This is a 25-year-old female with OHS and several allergies who presented to [facility] on 04/04 via EMS after an in flight allergic reaction to peanuts. Patient was intubated in the emergency department secondary to acute hypoxemic respiratory failure due to acute airway compromise and patient was admitted to ICU. Patient started on steroid therapy. Hospital course 04/05/2021. Patient currently on dipper Van and fentanyl. However, nurse reports patient still agitated. Ativan IV ordered. Wean mechanical ventilation per pulmonary recommendations. Continue Solu-Medrol 40 mg IV every 8 hours. Add Pepcid 20 mg IV twice daily and Benadryl 25 mg IV every 6 hours. Continue supportive care 04/06/2021. The patient is currently on AC mode ventilation rate of 20, tidal volume 400, FiO2 25%. Wean mechanical ventilation per protocol. Continue bronchodilators/nebulizers. Patient currently sedated with propofol, Versed and fentanyl drip. Continue Solu-Medrol, Benadryl and Pepcid twice daily 04/07/2021. Patient currently sedated with Versed, fentanyl and propofol. Continue sedation per pulmonary recommendations. I spoke with the mother who reports numerous allergies that were reported to the nurse. The mother requests records from [facility] in [place]. Continue Solu-Medrol, Benadryl and Pepcid twice daily 04/08: Patinet still gets agitated with stimuli, remains on minimal vent settings, hypernatremia/hyperchloremia and FWF increased 04/08/2021. Patient reportedly with a cuff leak yesterday. We will reassess today for cuff leak and if continues will likely extubate per pulmonary. Continue Versed, fentanyl and propofol for sedation. Continue Solu-Medrol, Benadryl and Pepcid twice daily 04/09: patient exhibited extreme agitation this morning and was maxed on Versed, fentanyl and Precedex. Patient was started on propofol at max doses however patient still remained agitated. Patient was given rocuronium in the evening pe r CCM and Versed was increased temporarily. Seroquel increased today. 04/11: Patient is calm on 10 of Versed and 50 of propofol. Remains in bilateral soft restraints. Patient was straight cath overnight x2 and yesterday evening x1. Patient to be straight cathed today and we will replace Proctor due to retention. Patient started on Flomax. Hyponatremia still persists and free water flushes will be increased. Neurology was consulted today who recommends a CT head/brain without contrast. Patient restarted on Precedex and given mag citrate due to no recorded bowel movements for several days. Started on prednisone taper and Seroquel increased. Patient was given 1 dose of rocuronium yesterday due to agitation. Plan to extubate with mother at the bedside tomorrow. 04/12: Overnight patient was started on propofol with Versed, fentanyl and Precedex infusing for agitation. This morning propofol was weaned off and patient was weaned off Versed and fentanyl. Patient was placed on SBT trial and extubated later this afternoon. Patient received 1 dose of racemic epi when stridor. Patient's mother at bedside for most of the day. EEG negative. Psych consulted. Proctor catheter replaced yesterday evening due to retention and patient started on Flomax. 04/13: Neurology plans to taper off phenytoin and recommend outpatient follow-up with neurology, Andrey ordered as needed x2, psych ordered Vistaril for anxiety but does not recommend acute psychiatric inpatient treatment. Patient walked the unit with RN and PT/OT evaluation was ordered for unsteadiness. Overnight patient was severely agitated. She has been weaned down to nasal cannula. Patient will be transferred to the floor today. 04/14: Patient is breathing room air and in no respiratory distress. Passed walking O2 test. She is ambulating with physical therapy and definitely has gait instability. They recommend a rolling walker which will be set up by CM. Also recommend home health PT. However, patient is from [place], thus she will need to have this set up with her primary care doctor. Patient will be discharged home today. She will be advised to follow-up with neurology, pulmonology, psychiatry and her primary care doctor outpatient. We also recommend she follows with an drug safety specialist. Assessment and plan Neuro: Agitation, h/o seizures -Neurology and psych consulted, appreciate recommendation -Avoid delirium -Maintain sleep-wake cycle -Bilateral restraints for patient safety -Neurology consulted, appreciate recommendations -Continue home Vimpat, Keppra, phenytoin -titrate phenytoin per neurology -Seizure precautions -EEG completed-> see chart for details -CTH pending CV: NAD -Blood pressure monitoring per protocol -As needed antihypertensive medicines Pulmonary: Acute hypoxic respiratory failure, h/o OHS -Intubated for airway protection on 04/04 with 6.50 ETT at 22 lips but extubated 04/12 -Weaned to NC -Continuous SPO2 monitoring -Pulmonary hygiene -CCM/pulm consulted, appreciate recommendations -Consider outpatient pulmonology follow-up GI: NAD -ST consult for swallow evaluation -PPI -24-hour net -[id number] -BR: Senokot -s/p mag citrate on 04/11 : Hypernatremia, urinary retention -Patient started on D5W -Trend BMP -Replace electrolytes as needed -Daily weights -Strict intake and output -Proctor was replaced 04/11 for urinary retention -Flomax Heme: Leukocytosis -Heparin subcu -Trend CBC -Transfuse for hemoglobin less than 7 -SCDs to bilateral lower extremities while in bed Endo: NAD -SSI if needed -Accu-Cheks every 6 -Avoid hypoglycemia ID: Staph aureus PNA, E. coli in urine (colonization per ID), Anaphylactic reaction -Infectious disease consulted, appreciate recommendations -CXR with infiltrates -abx therapy: Cefazolin -04/08 tracheal aspirate with Staph aureus, urine culture with ESBL E. coli blood cultures x2 in NGTD -Repeat urine culture -steroid therapy for anaphylaxis reaction -stopped Benadryl d/t listed allergy -steroid taper started -Monitor CBC and temp curves Disposition: HOME / SELF CARE / HOMELESS Final Discharge Diagnosis (Prints w/discharge instructions): Anaphylaxis Time spent for discharge: 35 - Discharge Diagnoses (1) Anaphylaxis due to peanuts Status: Acute (2) Acute respiratory failure Status: Acute (3) Allergic reaction Status: Acute Qualifiers: Encounter type: initial encounter Qualified Code(s): T78.40XA - Allergy, unspecified, initial encounter Core Measure Documentation - Palliative Care Palliative Care/ Comfort Measures: Not Applicable - Core Measures Any of the following diagnoses?: none Exam - Physical Exam Narrative exam: Physical Exam: VITAL SIGNS: Reviewed. GENERAL: The patient appears normally developed, Vital signs as documented. HEAD: No signs of head trauma. EYES: Pupils are equal. Extraocular motions intact. EARS: Hearing grossly intact. MOUTH: Oropharynx is normal. NECK: No adenopathy, no JVD. CHEST: Chest with clear breath sounds bilaterally. No wheezes, rales, or rhonchi. CARDIAC: Regular rate and rhythm. S1 and S2, without murmurs, gallops, or rubs. VASCULAR: No Edema. Peripheral pulses normal and equal in all extremities. ABDOMEN: Soft, non tender and non distended. No rebound or guarding, and no masses palpated. Bowel Sounds normal. MUSCULOSKELETAL: Good range of motion of all major joints. Extremities without clubbing, cyanosis or edema. NEUROLOGIC EXAM: Alert and oriented x 4. Gait instability. No focal neurological or sensory deficits otherwise. SKIN: detail exam as documented in skin assessment - Constitutional Vitals: Temp Pulse Resp BP Pulse Ox 99.4 F 77 18 139/86 98 04/14/21 04:09 04/14/21 05:54 04/14/21 05:54 04/14/21 05:54 04/14/21 09:06 Plan Activity: advance as tolerated Weight Bearing Status: Weight Bear as Tolerated Diet: regular Durable Medical Equipment Needed Upon Discharge: Walker-Rolling Follow up with: PRIMARY CARE, [Primary Care Provider] - 7 Days
[2021-04-14] MEDS: levETIRAcetam 500 MG/5 ML ORAL LIQD FEEDTUBE SCH (11:50)
[2021-04-14] MEDS: QUEtiapine 100 MG TAB PO SCH (11:50)
[2021-04-14] MEDS: TAMSULOSIN 0.4 MG CAP PO SCH (11:51)
[2021-04-14] MEDS: SENNOSIDES/DOCUSATE SODIUM 8.6/50 MG TAB FEEDTUBE SCH (11:51)
[2021-04-14] MEDS: FAMOTIDINE 20 MG TAB FEEDTUBE SCH (11:51)
[2021-04-14] MEDS: LACOSAMIDE 100 MG TAB PO SCH ×2 (11:51)
[2021-04-14] MEDS: HEPARIN 5,000 UNIT/1 ML VIAL SUB-Q SCH (11:59)
--- NOTE | 2021-04-14 11:59 | Progress Note ---
Assessment and Plan Assessment and Plan Assessment and plan: This is a 25 year old female with OHS, seizures and multiple allergies admitted after anaphylactic reaction to peanuts # Agitation, h/o seizures -Patient is extubated alert oriented to place and date ,knows her birthday and age -Seroquel dosage increased to 300 mg BID -CT brain still unremarkable -Seizure precautions -Psychiatry evaluated -to continue on Keppra and Vimpat , kassidy off Phenytoin -Psychiatry and neurology follow up -Seizure precaution # -Blood pressure monitoring per protocol -As needed antihypertensive medicines -EKG shows ST # Acute hypoxic respiratory failure, h/o OHS -extubated today # Leukocytosis -Secondary to steroidsX one more day -Heparin subcu -Trend CBC -Transfuse for hemoglobin less than 7 -SCDs to bilateral lower extremities while in bed -ID on board # NAD -SSI -Accu-Cheks every 6 -Avoid hypoglycemia # PNA, UTI, Anaphylactic reaction -CXR with infiltrates -abx therapy: Vancomycin -04/08 tracheal aspirate with Staph aureus, urine culture with ESBL E. coli blood cultures x2 in NGTD -Repeat urine culture -steroid therapy for anaphylaxis reaction -stopped Benadryl d/t listed allergy -Monitor CBC and temp curves Plan 1-Ct brain done consider MRI brain with gd if possible 2- Cut down phenytoin to 200 mg daily X 2 week then kassidy down to 100 mg daily for 2 weeks , then stop 3- need Psychiatry and neurology follow up. will folllow as needed Subjective Date of service: 04/14/21 Principal diagnosis: Acute hypoxemic resp failure; Anaphylaxis, peanut allergy; Obesity Interval history: she is on the floor no compliant CT brain is unremarkable EEG is unremarkable According to pt. she is taking her seizure medications for over 2 years and is seizure free no family Hx of seizure evaluated by psychiatry yesterday Objective - Vital Sign Vital Signs - 12hr 04/14/21 04/14/21 04/14/21 01:35 04:00 04:09 Temperature 99.4 F 99.4 F Pulse Rate 85 71 Respiratory 18 18 18 Rate Blood Pressure 142/100 Blood Pressure 142/100 [Left] O2 Sat by Pulse 97 93 100 Oximetry 04/14/21 04/14/21 05:54 09:06 Temperature Pulse Rate 77 Respiratory 18 Rate Blood Pressure 139/86 Blood Pressure [Left] O2 Sat by Pulse 98 98 Oximetry - General Apperance Constitutional: comfortable - EENT EENT: PERRL, mucous membranes moist - Respiratory Respiratory: chest non-tender, lungs clear, rhonchi - Cardiovascular Cardiovascular: regular rate, normal S1, normal S2 Extremities: no peripheral edema bilat, no clubbing, cyanosis - Gastrointestinal Gastrointestinal: normoactive bowel sounds - Integumentary Integumentary: normal - Neurologic Cranial nerve examination: PERRL, EOMI, intact Speech examination: intact Detailed motor examination: grossly full strength in - Laboratory Findings CBC and BMP: 04/13/21 07:50 04/13/21 06:09 Abnormal Lab Findings: Abnormal Labs 04/04/21 04/04/21 04/04/21 16:38 16:38 18:40 WBC 12.4 H RBC Hgb Hct MCV MCH 26 L RDW 18.1 H Plt Count Lymph % (Auto) Seg Neutrophils % 77.0 H Seg Neuts % (Manual) Lymphocytes % (Manual) Seg Neutrophils # 9.6 H Seg Neutrophils # Man Lymphocytes # (Manual) ABG pH 7.290 L POC ABG pCO2 POC ABG pO2 ABG pO2 62.7 L ABG HCO3 ABG O2 Saturation 88.2 L ABG Base Excess -4.6 L ABG Hemoglobin 11.2 L ABG Oxyhemoglobin ABG Sodium ABG Chloride ABG Glucose Oxyhemoglobin 86.5 L Sodium Potassium Chloride Carbon Dioxide 20 L BUN Creatinine Glucose 224 H POC Glucose Total Protein Albumin Triglycerides Arterial Blood Glucose Urine WBC (Auto) Phenytoin 04/05/21 04/05/21 04/05/21 03:37 03:37 04:15 WBC 15.5 H RBC Hgb Hct MCV MCH 25 L RDW 19.0 H Plt Count Lymph % (Auto) Seg Neutrophils % Seg Neuts % (Manual) 90.0 H Lymphocytes % (Manual) 6.0 L Seg Neutrophils # Seg Neutrophils # Man 14.0 H Lymphocytes # (Manual) 0.9 L ABG pH 7.284 L POC ABG pCO2 POC ABG pO2 ABG pO2 101.9 H ABG HCO3 18.5 L ABG O2 Saturation ABG Base Excess -7.7 L ABG Hemoglobin 10.3 L ABG Oxyhemoglobin ABG Sodium ABG Chloride ABG Glucose Oxyhemoglobin Sodium Potassium 5.6 H D Chloride Carbon Dioxide 14 L BUN Creatinine Glucose 181 H POC Glucose Total Protein Albumin Triglycerides Arterial Blood Glucose Urine WBC (Auto) Phenytoin 04/05/21 04/05/21 04/06/21 20:27 21:00 07:49 WBC 12.9 H RBC Hgb Hct MCV 77 L MCH 24 L RDW 18.2 H Plt Count Lymph % (Auto) 9.7 L Seg Neutrophils % 83.1 H Seg Neuts % (Manual) Lymphocytes % (Manual) Seg Neutrophils # 10.8 H Seg Neutrophils # Man Lymphocytes # (Manual) ABG pH POC ABG pCO2 POC ABG pO2 ABG pO2 92.5 H ABG HCO3 ABG O2 Saturation ABG Base Excess ABG Hemoglobin 10.2 L ABG Oxyhemoglobin ABG Sodium ABG Chloride ABG Glucose Oxyhemoglobin Sodium Potassium Chloride 111.7 H Carbon Dioxide BUN Creatinine Glucose POC Glucose Total Protein Albumin Triglycerides Arterial Blood Glucose Urine WBC (Auto) Phenytoin 04/06/21 04/06/21 04/06/21 07:49 11:33 17:25 WBC RBC Hgb Hct MCV MCH RDW Plt Count Lymph % (Auto) Seg Neutrophils % Seg Neuts % (Manual) Lymphocytes % (Manual) Seg Neutrophils # Seg Neutrophils # Man Lymphocytes # (Manual) ABG pH POC ABG pCO2 POC ABG pO2 ABG pO2 ABG HCO3 ABG O2 Saturation ABG Base Excess -2.2 L ABG Hemoglobin 8.7 L ABG Oxyhemoglobin ABG Sodium ABG Chloride ABG Glucose Oxyhemoglobin Sodium Potassium Chloride 112.9 H Carbon Dioxide 20 L BUN 6 L Creatinine 0.5 L Glucose 105 H POC Glucose 125 H Total Protein Albumin Triglycerides Arterial Blood Glucose Urine WBC (Auto) Phenytoin 04/07/21 04/07/21 04/07/21 03:59 05:14 15:13 WBC RBC Hgb Hct MCV MCH RDW Plt Count Lymph % (Auto) Seg Neutrophils % Seg Neuts % (Manual) Lymphocytes % (Manual) Seg Neutrophils # Seg Neutrophils # Man Lymphocytes # (Manual) ABG pH 7.521 H POC ABG pCO2 POC ABG pO2 ABG pO2 ABG HCO3 ABG O2 Saturation ABG Base Excess ABG Hemoglobin 11.0 L ABG Oxyhemoglobin ABG Sodium 145.3 H ABG Chloride 116.0 H ABG Glucose 138 H Oxyhemoglobin Sodium Potassium Chloride Carbon Dioxide BUN Creatinine Glucose POC Glucose 118 H Total Protein Albumin Triglycerides 153 H Arterial Blood Glucose 138 H Urine WBC (Auto) Phenytoin 04/07/21 04/07/21 04/07/21 15:13 15:13 17:23 WBC 12.2 H RBC Hgb Hct MCV MCH 26 L RDW 19.0 H Plt Count 85 L Lymph % (Auto) Seg Neutrophils % Seg Neuts % (Manual) Lymphocytes % (Manual) Seg Neutrophils # Seg Neutrophils # Man Lymphocytes # (Manual) ABG pH POC ABG pCO2 POC ABG pO2 ABG pO2 ABG HCO3 ABG O2 Saturation ABG Base Excess ABG Hemoglobin ABG Oxyhemoglobin ABG Sodium ABG Chloride ABG Glucose Oxyhemoglobin Sodium Potassium Chloride 111.1 H Carbon Dioxide 20 L BUN Creatinine 0.5 L Glucose 126 H POC Glucose 122 H Total Protein Albumin Triglycerides Arterial Blood Glucose Urine WBC (Auto) Phenytoin 04/07/21 04/08/21 04/08/21 23:55 10:39 12:10 WBC RBC Hgb Hct MCV MCH RDW Plt Count Lymph % (Auto) Seg Neutrophils % Seg Neuts % (Manual) Lymphocytes % (Manual) Seg Neutrophils # Seg Neutrophils # Man Lymphocytes # (Manual) ABG pH 7.311 L POC ABG pCO2 POC ABG pO2 50.5 L ABG pO2 ABG HCO3 ABG O2 Saturation ABG Base Excess ABG Hemoglobin 11.6 L ABG Oxyhemoglobin 81.6 L ABG Sodium ABG Chloride 110.0 H ABG Glucose 120 H Oxyhemoglobin Sodium Potassium Chloride Carbon Dioxide BUN Creatinine Glucose POC Glucose 130 H 112 H Total Protein Albumin Triglycerides Arterial Blood Glucose 120 H Urine WBC (Auto) Phenytoin 04/08/21 04/08/21 04/08/21 12:25 14:50 15:30 WBC 12.8 H RBC Hgb 9.9 L Hct MCV MCH 25 L RDW 18.1 H Plt Count Lymph % (Auto) Seg Neutrophils % Seg Neuts % (Manual) Lymphocytes % (Manual) Seg Neutrophils # Seg Neutrophils # Man Lymphocytes # (Manual) ABG pH POC ABG pCO2 POC ABG pO2 ABG pO2 ABG HCO3 ABG O2 Saturation ABG Base Excess ABG Hemoglobin ABG Oxyhemoglobin ABG Sodium ABG Chloride ABG Glucose Oxyhemoglobin Sodium Potassium Chloride 108.4 H Carbon Dioxide 21 L BUN Creatinine Glucose 156 H POC Glucose Total Protein 6.2 L Albumin 3.6 L Triglycerides Arterial Blood Glucose Urine WBC (Auto) 23.0 H Phenytoin 04/08/21 04/08/21 04/09/21 18:20 23:24 04:17 WBC RBC Hgb 9.9 L Hct MCV MCH 25 L RDW 17.9 H Plt Count Lymph % (Auto) Seg Neutrophils % Seg Neuts % (Manual) Lymphocytes % (Manual) Seg Neutrophils # Seg Neutrophils # Man Lymphocytes # (Manual) ABG pH POC ABG pCO2 POC ABG pO2 ABG pO2 ABG HCO3 ABG O2 Saturation ABG Base Excess ABG Hemoglobin ABG Oxyhemoglobin ABG Sodium ABG Chloride ABG Glucose Oxyhemoglobin Sodium Potassium Chloride Carbon Dioxide BUN Creatinine Glucose POC Glucose 139 H 116 H Total Protein Albumin Triglycerides Arterial Blood Glucose Urine WBC (Auto) Phenytoin 04/09/21 04/09/21 04/09/21 04:17 04:35 05:35 WBC RBC Hgb Hct MCV MCH RDW Plt Count Lymph % (Auto) Seg Neutrophils % Seg Neuts % (Manual) Lymphocytes % (Manual) Seg Neutrophils # Seg Neutrophils # Man Lymphocytes # (Manual) ABG pH POC ABG pCO2 POC ABG pO2 ABG pO2 ABG HCO3 ABG O2 Saturation ABG Base Excess ABG Hemoglobin 10.4 L ABG Oxyhemoglobin ABG Sodium 146.2 H ABG Chloride 115.0 H ABG Glucose 143 H Oxyhemoglobin Sodium 149 H Potassium Chloride 114.0 H Carbon Dioxide BUN Creatinine Glucose 133 H POC Glucose 129 H Total Protein Albumin Triglycerides Arterial Blood Glucose 143 H Urine WBC (Auto) Phenytoin 04/09/21 04/09/21 04/09/21 12:20 12:38 17:55 WBC RBC Hgb Hct MCV MCH RDW Plt Count Lymph % (Auto) Seg Neutrophils % Seg Neuts % (Manual) Lymphocytes % (Manual) Seg Neutrophils # Seg Neutrophils # Man Lymphocytes # (Manual) ABG pH POC ABG pCO2 POC ABG pO2 ABG pO2 ABG HCO3 ABG O2 Saturation ABG Base Excess ABG Hemoglobin ABG Oxyhemoglobin ABG Sodium ABG Chloride ABG Glucose Oxyhemoglobin Sodium Potassium Chloride Carbon Dioxide BUN Creatinine Glucose POC Glucose 128 H 146 H Total Protein Albumin Triglycerides Arterial Blood Glucose Urine WBC (Auto) Phenytoin 3.6 L 04/09/21 04/10/21 04/10/21 23:26 04:00 04:35 WBC 13.0 H RBC Hgb Hct MCV MCH 26 L RDW 17.7 H Plt Count Lymph % (Auto) Seg Neutrophils % Seg Neuts % (Manual) Lymphocytes % (Manual) Seg Neutrophils # Seg Neutrophils # Man Lymphocytes # (Manual) ABG pH 7.238 L POC ABG pCO2 53.8 H POC ABG pO2 53.1 L ABG pO2 ABG HCO3 ABG O2 Saturation ABG Base Excess ABG Hemoglobin 7.7 L ABG Oxyhemoglobin 83.8 L ABG Sodium 130.5 L ABG Chloride ABG Glucose Oxyhemoglobin Sodium Potassium Chloride Carbon Dioxide BUN Creatinine Glucose POC Glucose 122 H Total Protein Albumin Triglycerides Arterial Blood Glucose Urine WBC (Auto) Phenytoin 04/10/21 04/10/21 04/10/21 04:35 05:21 17:57 WBC RBC Hgb Hct MCV MCH RDW Plt Count Lymph % (Auto) Seg Neutrophils % Seg Neuts % (Manual) Lymphocytes % (Manual) Seg Neutrophils # Seg Neutrophils # Man Lymphocytes # (Manual) ABG pH POC ABG pCO2 POC ABG pO2 ABG pO2 ABG HCO3 ABG O2 Saturation ABG Base Excess ABG Hemoglobin ABG Oxyhemoglobin ABG Sodium ABG Chloride ABG Glucose Oxyhemoglobin Sodium 146 H Potassium Chloride 112.1 H Carbon Dioxide BUN Creatinine 0.4 L Glucose 156 H POC Glucose 140 H 113 H Total Protein Albumin Triglycerides Arterial Blood Glucose Urine WBC (Auto) Phenytoin 04/11/21 04/11/21 04/11/21 04:00 04:00 11:48 WBC RBC 3.54 L Hgb 8.8 L Hct 27.6 L MCV 78 L MCH 25 L RDW 18.0 H Plt Count Lymph % (Auto) Seg Neutrophils % Seg Neuts % (Manual) Lymphocytes % (Manual) Seg Neutrophils # Seg Neutrophils # Man Lymphocytes # (Manual) ABG pH POC ABG pCO2 POC ABG pO2 ABG pO2 ABG HCO3 ABG O2 Saturation ABG Base Excess ABG Hemoglobin ABG Oxyhemoglobin ABG Sodium ABG Chloride ABG Glucose Oxyhemoglobin Sodium 146 H Potassium Chloride 111.4 H Carbon Dioxide BUN Creatinine 0.5 L Glucose 112 H POC Glucose 128 H Total Protein Albumin Triglycerides Arterial Blood Glucose Urine WBC (Auto) Phenytoin 04/12/21 04/12/21 04/12/21 04:46 04:46 04:46 WBC 15.2 H RBC Hgb 10.0 L Hct MCV 78 L MCH 23 L RDW 18.8 H Plt Count Lymph % (Auto) Seg Neutrophils % Seg Neuts % (Manual) Lymphocytes % (Manual) Seg Neutrophils # Seg Neutrophils # Man Lymphocytes # (Manual) ABG pH POC ABG pCO2 POC ABG pO2 ABG pO2 ABG HCO3 ABG O2 Saturation ABG Base Excess ABG Hemoglobin ABG Oxyhemoglobin ABG Sodium ABG Chloride ABG Glucose Oxyhemoglobin Sodium 150 H Potassium Chloride 110.9 H Carbon Dioxide BUN Creatinine 0.5 L Glucose 121 H POC Glucose Total Protein Albumin Triglycerides 515 H Arterial Blood Glucose Urine WBC (Auto) Phenytoin 04/12/21 04/12/21 04/13/21 13:04 13:35 06:09 WBC RBC Hgb Hct MCV MCH RDW Plt Count Lymph % (Auto) Seg Neutrophils % Seg Neuts % (Manual) Lymphocytes % (Manual) Seg Neutrophils # Seg Neutrophils # Man Lymphocytes # (Manual) ABG pH POC ABG pCO2 POC ABG pO2 ABG pO2 56.7 L ABG HCO3 29.6 H ABG O2 Saturation ABG Base Excess 4.4 H ABG Hemoglobin 10.3 L ABG Oxyhemoglobin ABG Sodium ABG Chloride ABG Glucose Oxyhemoglobin Sodium 150 H Potassium 3.4 L Chloride 107.6 H Carbon Dioxide BUN Creatinine Glucose POC Glucose Total Protein Albumin Triglycerides Arterial Blood Glucose Urine WBC (Auto) Phenytoin 3.3 L 04/13/21 07:50 WBC 14.2 H RBC Hgb 9.9 L Hct MCV 76 L MCH 24 L RDW 18.7 H Plt Count Lymph % (Auto) Seg Neutrophils % Seg Neuts % (Manual) Lymphocytes % (Manual) Seg Neutrophils # Seg Neutrophils # Man Lymphocytes # (Manual) ABG pH POC ABG pCO2 POC ABG pO2 ABG pO2 ABG HCO3 ABG O2 Saturation ABG Base Excess ABG Hemoglobin ABG Oxyhemoglobin ABG Sodium ABG Chloride ABG Glucose Oxyhemoglobin Sodium Potassium Chloride Carbon Dioxide BUN Creatinine Glucose POC Glucose Total Protein Albumin Triglycerides Arterial Blood Glucose Urine WBC (Auto) Phenytoin
[2021-04-14 12:43] VITALS: BP 138/94
--- NOTE | 2021-04-14 13:31 | Progress Note ---
Assessment and Plan Acute hypoxemic respiratory failure Anaphylaxis related to a PEANUT ALLERGY Angioedema MSSA Pneumonia Obesity Obesity hypoventilation syndrome Leukocytosis Hyperkalemia Mild metabolic acidosis Oropharyngeal dysphagia - psychoactive meds per Psychiatry evaluation - PT/OT as tolerated - neurology w/up ongoing - continue care as below otherwise; - continue to wean supplemental oxygen for target O2 sat's > 90% acutely - aspiration precautions - prn bronchodilators with pulmonary hygiene per RT - avoid nephrotoxins, renally dose all medications - continue accuchecks with glycemic control per SSI for target blood glucose < 180 mg/dL - tobacco abstinence strongly counseled at the bedside - continue to avoid benzodiazepine's, reduce the possibility of delirium - AB's per ID rec's - prn analgesia per pain score - Maintenance of sleep-wake cycle, avoid delirium - continue enteral nutritional support at goal rate as tolerated - G.I. & VTE prophylaxis - PT/OT/ROM exercises - continue mobility protocols for pressure ulcer prophylaxis - Monitor hemodynamics closely - continue other care per attending / other consultants - discharge planning ongoing concurrently COVID SPECIFIC INTERVENTIONS - not tested .... Re-evaluate in am & prn Subjective Date of service: 04/14/21 Principal diagnosis: Acute hypoxemic resp failure; Anaphylaxis, peanut allergy; Obesity Interval history: Patient is seen today for: Acute hypoxemic respiratory failure; Anaphylaxis / peanut allergy; Angioedema; OHS; Hyperkalemia Seen and examined at bedside; 24hour events reviewed; nursing and respiratory care staff consulted; no adverse overnight events reported to me; resting in bed; CT brain negative for acute process; Objective Vital Signs - 12hr 04/14/21 04/14/21 04/14/21 01:35 04:00 04:09 Temperature 99.4 F 99.4 F Pulse Rate 85 71 Respiratory 18 18 18 Rate Blood Pressure 142/100 Blood Pressure 142/100 [Left] O2 Sat by Pulse 97 93 100 Oximetry 04/14/21 04/14/21 04/14/21 05:54 09:06 10:53 Temperature 99.4 F Pulse Rate 77 70 Respiratory 18 18 Rate Blood Pressure 139/86 138/94 Blood Pressure [Left] O2 Sat by Pulse 98 98 96 Oximetry Constitutional: no acute distress Eyes: non-icteric ENT: oropharynx moist Neck: supple, no lymphadenopathy, other (large circumference) Effort: normal Ascultation: Bilateral: diminished breath sounds, rhonchi (scant) Percussion: Bilateral: not dull Cardiovascular: regular rate and rhythm, other (tachycardia) Gastrointestinal: normoactive bowel sounds Integumentary: normal Extremities: no cyanosis, no edema, pulses normal, no ischemia or petechiae Neurologic: pupils equal and round, CN II-XII normal, motor strength normal and, unable to assess Psychiatric: other (poor insight and judgement) CBC and BMP: 04/13/21 07:50 04/13/21 06:09 ABG, PT/INR, D-dimer: ABG ABG pH 7.418 pH Units (7.350-7.450) 04/12/21 13:35 POC ABG pCO2 53.8 mmHg (32.0-48.0) H 04/10/21 04:00 ABG pCO2 46.8 mm Hg 04/12/21 13:35 POC ABG pO2 53.1 mmHg (83-108) L 04/10/21 04:00 ABG pO2 56.7 mm Hg (80.0-90.0) L 04/12/21 13:35 POC ABG HCO3 22.4 04/10/21 04:00 ABG O2 Saturation 99.0 % (95.0-99.0) 04/12/21 13:35 Abnormal lab findings: Abnormal Labs 04/04/21 04/04/21 04/04/21 16:38 16:38 18:40 WBC 12.4 H RBC Hgb Hct MCV MCH 26 L RDW 18.1 H Plt Count Lymph % (Auto) Seg Neutrophils % 77.0 H Seg Neuts % (Manual) Lymphocytes % (Manual) Seg Neutrophils # 9.6 H Seg Neutrophils # Man Lymphocytes # (Manual) ABG pH 7.290 L POC ABG pCO2 POC ABG pO2 ABG pO2 62.7 L ABG HCO3 ABG O2 Saturation 88.2 L ABG Base Excess -4.6 L ABG Hemoglobin 11.2 L ABG Oxyhemoglobin ABG Sodium ABG Chloride ABG Glucose Oxyhemoglobin 86.5 L Sodium Potassium Chloride Carbon Dioxide 20 L BUN Creatinine Glucose 224 H POC Glucose Total Protein Albumin Triglycerides Arterial Blood Glucose Urine WBC (Auto) Phenytoin 04/05/21 04/05/21 04/05/21 03:37 03:37 04:15 WBC 15.5 H RBC Hgb Hct MCV MCH 25 L RDW 19.0 H Plt Count Lymph % (Auto) Seg Neutrophils % Seg Neuts % (Manual) 90.0 H Lymphocytes % (Manual) 6.0 L Seg Neutrophils # Seg Neutrophils # Man 14.0 H Lymphocytes # (Manual) 0.9 L ABG pH 7.284 L POC ABG pCO2 POC ABG pO2 ABG pO2 101.9 H ABG HCO3 18.5 L ABG O2 Saturation ABG Base Excess -7.7 L ABG Hemoglobin 10.3 L ABG Oxyhemoglobin ABG Sodium ABG Chloride ABG Glucose Oxyhemoglobin Sodium Potassium 5.6 H D Chloride Carbon Dioxide 14 L BUN Creatinine Glucose 181 H POC Glucose Total Protein Albumin Triglycerides Arterial Blood Glucose Urine WBC (Auto) Phenytoin 04/05/21 04/05/21 04/06/21 20:27 21:00 07:49 WBC 12.9 H RBC Hgb Hct MCV 77 L MCH 24 L RDW 18.2 H Plt Count Lymph % (Auto) 9.7 L Seg Neutrophils % 83.1 H Seg Neuts % (Manual) Lymphocytes % (Manual) Seg Neutrophils # 10.8 H Seg Neutrophils # Man Lymphocytes # (Manual) ABG pH POC ABG pCO2 POC ABG pO2 ABG pO2 92.5 H ABG HCO3 ABG O2 Saturation ABG Base Excess ABG Hemoglobin 10.2 L ABG Oxyhemoglobin ABG Sodium ABG Chloride ABG Glucose Oxyhemoglobin Sodium Potassium Chloride 111.7 H Carbon Dioxide BUN Creatinine Glucose POC Glucose Total Protein Albumin Triglycerides Arterial Blood Glucose Urine WBC (Auto) Phenytoin 04/06/21 04/06/21 04/06/21 07:49 11:33 17:25 WBC RBC Hgb Hct MCV MCH RDW Plt Count Lymph % (Auto) Seg Neutrophils % Seg Neuts % (Manual) Lymphocytes % (Manual) Seg Neutrophils # Seg Neutrophils # Man Lymphocytes # (Manual) ABG pH POC ABG pCO2 POC ABG pO2 ABG pO2 ABG HCO3 ABG O2 Saturation ABG Base Excess -2.2 L ABG Hemoglobin 8.7 L ABG Oxyhemoglobin ABG Sodium ABG Chloride ABG Glucose Oxyhemoglobin Sodium Potassium Chloride 112.9 H Carbon Dioxide 20 L BUN 6 L Creatinine 0.5 L Glucose 105 H POC Glucose 125 H Total Protein Albumin Triglycerides Arterial Blood Glucose Urine WBC (Auto) Phenytoin 04/07/21 04/07/21 04/07/21 03:59 05:14 15:13 WBC RBC Hgb Hct MCV MCH RDW Plt Count Lymph % (Auto) Seg Neutrophils % Seg Neuts % (Manual) Lymphocytes % (Manual) Seg Neutrophils # Seg Neutrophils # Man Lymphocytes # (Manual) ABG pH 7.521 H POC ABG pCO2 POC ABG pO2 ABG pO2 ABG HCO3 ABG O2 Saturation ABG Base Excess ABG Hemoglobin 11.0 L ABG Oxyhemoglobin ABG Sodium 145.3 H ABG Chloride 116.0 H ABG Glucose 138 H Oxyhemoglobin Sodium Potassium Chloride Carbon Dioxide BUN Creatinine Glucose POC Glucose 118 H Total Protein Albumin Triglycerides 153 H Arterial Blood Glucose 138 H Urine WBC (Auto) Phenytoin 04/07/21 04/07/21 04/07/21 15:13 15:13 17:23 WBC 12.2 H RBC Hgb Hct MCV MCH 26 L RDW 19.0 H Plt Count 85 L Lymph % (Auto) Seg Neutrophils % Seg Neuts % (Manual) Lymphocytes % (Manual) Seg Neutrophils # Seg Neutrophils # Man Lymphocytes # (Manual) ABG pH POC ABG pCO2 POC ABG pO2 ABG pO2 ABG HCO3 ABG O2 Saturation ABG Base Excess ABG Hemoglobin ABG Oxyhemoglobin ABG Sodium ABG Chloride ABG Glucose Oxyhemoglobin Sodium Potassium Chloride 111.1 H Carbon Dioxide 20 L BUN Creatinine 0.5 L Glucose 126 H POC Glucose 122 H Total Protein Albumin Triglycerides Arterial Blood Glucose Urine WBC (Auto) Phenytoin 04/07/21 04/08/21 04/08/21 23:55 10:39 12:10 WBC RBC Hgb Hct MCV MCH RDW Plt Count Lymph % (Auto) Seg Neutrophils % Seg Neuts % (Manual) Lymphocytes % (Manual) Seg Neutrophils # Seg Neutrophils # Man Lymphocytes # (Manual) ABG pH 7.311 L POC ABG pCO2 POC ABG pO2 50.5 L ABG pO2 ABG HCO3 ABG O2 Saturation ABG Base Excess ABG Hemoglobin 11.6 L ABG Oxyhemoglobin 81.6 L ABG Sodium ABG Chloride 110.0 H ABG Glucose 120 H Oxyhemoglobin Sodium Potassium Chloride Carbon Dioxide BUN Creatinine Glucose POC Glucose 130 H 112 H Total Protein Albumin Triglycerides Arterial Blood Glucose 120 H Urine WBC (Auto) Phenytoin 04/08/21 04/08/21 04/08/21 12:25 14:50 15:30 WBC 12.8 H RBC Hgb 9.9 L Hct MCV MCH 25 L RDW 18.1 H Plt Count Lymph % (Auto) Seg Neutrophils % Seg Neuts % (Manual) Lymphocytes % (Manual) Seg Neutrophils # Seg Neutrophils # Man Lymphocytes # (Manual) ABG pH POC ABG pCO2 POC ABG pO2 ABG pO2 ABG HCO3 ABG O2 Saturation ABG Base Excess ABG Hemoglobin ABG Oxyhemoglobin ABG Sodium ABG Chloride ABG Glucose Oxyhemoglobin Sodium Potassium Chloride 108.4 H Carbon Dioxide 21 L BUN Creatinine Glucose 156 H POC Glucose Total Protein 6.2 L Albumin 3.6 L Triglycerides Arterial Blood Glucose Urine WBC (Auto) 23.0 H Phenytoin 04/08/21 04/08/21 04/09/21 18:20 23:24 04:17 WBC RBC Hgb 9.9 L Hct MCV MCH 25 L RDW 17.9 H Plt Count Lymph % (Auto) Seg Neutrophils % Seg Neuts % (Manual) Lymphocytes % (Manual) Seg Neutrophils # Seg Neutrophils # Man Lymphocytes # (Manual) ABG pH POC ABG pCO2 POC ABG pO2 ABG pO2 ABG HCO3 ABG O2 Saturation ABG Base Excess ABG Hemoglobin ABG Oxyhemoglobin ABG Sodium ABG Chloride ABG Glucose Oxyhemoglobin Sodium Potassium Chloride Carbon Dioxide BUN Creatinine Glucose POC Glucose 139 H 116 H Total Protein Albumin Triglycerides Arterial Blood Glucose Urine WBC (Auto) Phenytoin 04/09/21 04/09/21 04/09/21 04:17 04:35 05:35 WBC RBC Hgb Hct MCV MCH RDW Plt Count Lymph % (Auto) Seg Neutrophils % Seg Neuts % (Manual) Lymphocytes % (Manual) Seg Neutrophils # Seg Neutrophils # Man Lymphocytes # (Manual) ABG pH POC ABG pCO2 POC ABG pO2 ABG pO2 ABG HCO3 ABG O2 Saturation ABG Base Excess ABG Hemoglobin 10.4 L ABG Oxyhemoglobin ABG Sodium 146.2 H ABG Chloride 115.0 H ABG Glucose 143 H Oxyhemoglobin Sodium 149 H Potassium Chloride 114.0 H Carbon Dioxide BUN Creatinine Glucose 133 H POC Glucose 129 H Total Protein Albumin Triglycerides Arterial Blood Glucose 143 H Urine WBC (Auto) Phenytoin 04/09/21 04/09/21 04/09/21 12:20 12:38 17:55 WBC RBC Hgb Hct MCV MCH RDW Plt Count Lymph % (Auto) Seg Neutrophils % Seg Neuts % (Manual) Lymphocytes % (Manual) Seg Neutrophils # Seg Neutrophils # Man Lymphocytes # (Manual) ABG pH POC ABG pCO2 POC ABG pO2 ABG pO2 ABG HCO3 ABG O2 Saturation ABG Base Excess ABG Hemoglobin ABG Oxyhemoglobin ABG Sodium ABG Chloride ABG Glucose Oxyhemoglobin Sodium Potassium Chloride Carbon Dioxide BUN Creatinine Glucose POC Glucose 128 H 146 H Total Protein Albumin Triglycerides Arterial Blood Glucose Urine WBC (Auto) Phenytoin 3.6 L 04/09/21 04/10/21 04/10/21 23:26 04:00 04:35 WBC 13.0 H RBC Hgb Hct MCV MCH 26 L RDW 17.7 H Plt Count Lymph % (Auto) Seg Neutrophils % Seg Neuts % (Manual) Lymphocytes % (Manual) Seg Neutrophils # Seg Neutrophils # Man Lymphocytes # (Manual) ABG pH 7.238 L POC ABG pCO2 53.8 H POC ABG pO2 53.1 L ABG pO2 ABG HCO3 ABG O2 Saturation ABG Base Excess ABG Hemoglobin 7.7 L ABG Oxyhemoglobin 83.8 L ABG Sodium 130.5 L ABG Chloride ABG Glucose Oxyhemoglobin Sodium Potassium Chloride Carbon Dioxide BUN Creatinine Glucose POC Glucose 122 H Total Protein Albumin Triglycerides Arterial Blood Glucose Urine WBC (Auto) Phenytoin 04/10/21 04/10/21 04/10/21 04:35 05:21 17:57 WBC RBC Hgb Hct MCV MCH RDW Plt Count Lymph % (Auto) Seg Neutrophils % Seg Neuts % (Manual) Lymphocytes % (Manual) Seg Neutrophils # Seg Neutrophils # Man Lymphocytes # (Manual) ABG pH POC ABG pCO2 POC ABG pO2 ABG pO2 ABG HCO3 ABG O2 Saturation ABG Base Excess ABG Hemoglobin ABG Oxyhemoglobin ABG Sodium ABG Chloride ABG Glucose Oxyhemoglobin Sodium 146 H Potassium Chloride 112.1 H Carbon Dioxide BUN Creatinine 0.4 L Glucose 156 H POC Glucose 140 H 113 H Total Protein Albumin Triglycerides Arterial Blood Glucose Urine WBC (Auto) Phenytoin 04/11/21 04/11/21 04/11/21 04:00 04:00 11:48 WBC RBC 3.54 L Hgb 8.8 L Hct 27.6 L MCV 78 L MCH 25 L RDW 18.0 H Plt Count Lymph % (Auto) Seg Neutrophils % Seg Neuts % (Manual) Lymphocytes % (Manual) Seg Neutrophils # Seg Neutrophils # Man Lymphocytes # (Manual) ABG pH POC ABG pCO2 POC ABG pO2 ABG pO2 ABG HCO3 ABG O2 Saturation ABG Base Excess ABG Hemoglobin ABG Oxyhemoglobin ABG Sodium ABG Chloride ABG Glucose Oxyhemoglobin Sodium 146 H Potassium Chloride 111.4 H Carbon Dioxide BUN Creatinine 0.5 L Glucose 112 H POC Glucose 128 H Total Protein Albumin Triglycerides Arterial Blood Glucose Urine WBC (Auto) Phenytoin 04/12/21 04/12/21 04/12/21 04:46 04:46 04:46 WBC 15.2 H RBC Hgb 10.0 L Hct MCV 78 L MCH 23 L RDW 18.8 H Plt Count Lymph % (Auto) Seg Neutrophils % Seg Neuts % (Manual) Lymphocytes % (Manual) Seg Neutrophils # Seg Neutrophils # Man Lymphocytes # (Manual) ABG pH POC ABG pCO2 POC ABG pO2 ABG pO2 ABG HCO3 ABG O2 Saturation ABG Base Excess ABG Hemoglobin ABG Oxyhemoglobin ABG Sodium ABG Chloride ABG Glucose Oxyhemoglobin Sodium 150 H Potassium Chloride 110.9 H Carbon Dioxide BUN Creatinine 0.5 L Glucose 121 H POC Glucose Total Protein Albumin Triglycerides 515 H Arterial Blood Glucose Urine WBC (Auto) Phenytoin 04/12/21 04/12/21 04/13/21 13:04 13:35 06:09 WBC RBC Hgb Hct MCV MCH RDW Plt Count Lymph % (Auto) Seg Neutrophils % Seg Neuts % (Manual) Lymphocytes % (Manual) Seg Neutrophils # Seg Neutrophils # Man Lymphocytes # (Manual) ABG pH POC ABG pCO2 POC ABG pO2 ABG pO2 56.7 L ABG HCO3 29.6 H ABG O2 Saturation ABG Base Excess 4.4 H ABG Hemoglobin 10.3 L ABG Oxyhemoglobin ABG Sodium ABG Chloride ABG Glucose Oxyhemoglobin Sodium 150 H Potassium 3.4 L Chloride 107.6 H Carbon Dioxide BUN Creatinine Glucose POC Glucose Total Protein Albumin Triglycerides Arterial Blood Glucose Urine WBC (Auto) Phenytoin 3.3 L 04/13/21 07:50 WBC 14.2 H RBC Hgb 9.9 L Hct MCV 76 L MCH 24 L RDW 18.7 H Plt Count Lymph % (Auto) Seg Neutrophils % Seg Neuts % (Manual) Lymphocytes % (Manual) Seg Neutrophils # Seg Neutrophils # Man Lymphocytes # (Manual) ABG pH POC ABG pCO2 POC ABG pO2 ABG pO2 ABG HCO3 ABG O2 Saturation ABG Base Excess ABG Hemoglobin ABG Oxyhemoglobin ABG Sodium ABG Chloride ABG Glucose Oxyhemoglobin Sodium Potassium Chloride Carbon Dioxide BUN Creatinine Glucose POC Glucose Total Protein Albumin Triglycerides Arterial Blood Glucose Urine WBC (Auto) Phenytoin Allied health notes reviewed: nursing
[2021-04-14] MEDS ORDERED: PHENYTOIN 100 MG CAPSULE.ER PO SCH (22:00)
== END 2021-04-14 13:39 | disposition home or self-care (01) | DRG 207 ==
LOC: ED 15:10 → CC1 18:37 → 3A 04-13 21:25
PROVIDERS: ADMIT Internal Medicine; ATTEND Internal Medicine
PROC: 5A1955Z Respiratory Ventilation, Greater than 96 Consecutive Hours (ICD-10-PCS; principal; 2021-04-04)
PROC: 0BH17EZ Insertion of Endotracheal Airway into Trachea, Via Natural or Artificial Opening (ICD-10-PCS; 2021-04-04)
PROC: 05H933Z Insertion of Infusion Device into Right Brachial Vein, Percutaneous Approach (ICD-10-PCS; 2021-04-08)
PROC: 4A033R1 Measurement of Arterial Saturation, Peripheral, Percutaneous Approach (ICD-10-PCS; 2021-04-12)
DX: J96.01 Acute respiratory failure with hypoxia (principal); J15.211 Pneumonia due to Methicillin susceptible Staphylococcus aureus; T78.01XA Anaphylactic reaction due to peanuts, initial encounter; E66.2 Morbid (severe) obesity with alveolar hypoventilation; Z68.41 Body mass index [BMI] 40.0-44.9, adult; E87.0 Hyperosmolality and hypernatremia; N39.0 Urinary tract infection, site not specified; E87.2 Acidosis; Z82.49 Family history of ischemic heart disease and other diseases of the circulatory system; G40.909 Epilepsy, unspecified, not intractable, without status epilepticus; R13.12 Dysphagia, oropharyngeal phase; R33.9 Retention of urine, unspecified; Z91.010 Allergy to peanuts; D72.829 Elevated white blood cell count, unspecified; Z91.013 Allergy to seafood; Z88.8 Allergy status to other drugs, medicaments and biological substances; Z91.018 Allergy to other foods
CPT/HCPCS: 36415; 36600; 70450; 71045; 74018; 80048; 80053; 80185; 80202; 81001; 82803; 82805; 82962; 83735; 84100; 84478; 84703; 85007; 85025; 85027; 87040; 87070; 87076; 87086; 87186; 87205; 93005; 94002; 94003; 94640; 94644; 94760; 95819; G0378; J0171; J0330; J0360; J0690; J0692; J1100; J1165; J1170; J1200; J1644; J1940; J1953; J2060; J2250; J2704; J2920; J3010; J3370; J3475; J3486; J3490; J7040; J7070